=== PATIENT | female | born 1935 | race Caucasian/White ===

== ENCOUNTER → 2020-07-26 14:34 | Outpatient (BNVA) | payer MEDICARE, SELFPAY | PROVIDERS: PCP Internal Medicine; Visit Provider Student in an Organized Health Care Education/Training Program | DX: Z13.89 Encounter for screening for other disorder (principal) | CPT/HCPCS: Q3014 ==

== ENCOUNTER 2021-02-22 09:30 | Outpatient (REF) | payer MEDICARE, SELFPAY ==
[2021-02-22 10:24] LABS: MANUAL DIFF FLAG NO
[2021-02-22 10:26] LABS: Basophils Percent Auto 0.3 % (0-2); Eosinophils Absolute Auto 0.4 X10*3/uL (0.0-0.4); Eosinophils Percent Auto 4.5 % (0-4); Hematocrit 40.5 % (37-47); Hemoglobin 11.9 g/dl (12.0-16.0); Imm Gran Abs Auto 0.06 X10*3/uL (0.00-0.03); Imm Gran Pct Auto 0.6 % (0.0-0.4); Lymphocytes Absolute Auto 1.5 X10*3/uL (1.2-4.9); Lymphocytes Percent Auto 14.9 % (20-40); Mean Corpuscular HGB Conc 29.4 g/dl (31.0-35.0); Mean Corpuscular Hemoglobin 27.7 pg (27.0-33.0); Mean Corpuscular Volume 94.4 fL (80-98); Mean Platelet Volume 9.5 fL (9.4-12.3); Monocytes Absolute Auto 0.6 X10*3/uL (0.1-1.2); Neutrophils Absolute Auto 7.2 X10*3/uL (2.0-8.3); Neutrophils Percent Auto 73.7 % (45-73); Platelet Count 220 X10*3/uL (160-400); Red Blood Count 4.29 X10*6/uL (4.20-5.50); Red Cell Distribution Width 12.7 % (11.0-16.0); White Blood Count 9.8 X10*3/uL (4.8-10.8)
[2021-02-22 10:50] LABS: Alanine Aminotransferase 6 U/L (0-31); Albumin Level 3.8 g/dL (3.5-5.0); Alkaline Phosphatase 70 U/L (39-117); Anion Gap 15 (12-20); Aspartate Amino Transferase 12 U/L (5-31); Bilirubin Total 0.5 mg/dL (0.0-1.0); Blood Urea Nitrogen 21 mg/dL (9-16); C Reactive Protein 0.31 mg/dL (< or = 0.50); Calcium 10.1 mg/dL (8.4-10.2); Carbon Dioxide 35 mmol/L (22-29); Chloride 99 mmol/L (96-108); Estimated Glomerular Filt Rate > 60; Glucose Random 112 mg/dL (60-115); Potassium 4.9 mmol/L (3.3-5.1); Sodium 144 mmol/L (135-145)
[2021-02-22 11:14] LABS: Erythrocyte Sedimentation Rate 43 MM/HR (0-20)
== END 2021-02-22 09:31 | disposition home or self-care (01) ==
LOC: HO.LAB 09:30
PROVIDERS: PCP Internal Medicine; Visit Provider Student in an Organized Health Care Education/Training Program
DX: M35.3 Polymyalgia rheumatica (principal)
CPT/HCPCS: 36415; 80053; 85025; 85652; 86140

== ENCOUNTER → 2021-02-26 14:40 | Outpatient (BNVA) | payer MEDICARE, SELFPAY | PROVIDERS: PCP Internal Medicine; Visit Provider Internal Medicine | DX: J44.9 Chronic obstructive pulmonary disease, unspecified (principal); R09.02 Hypoxemia | CPT/HCPCS: 99212 ==

== ENCOUNTER 2021-09-08 17:59 | Inpatient (IN) | payer MEDICARE, SELFPAY ==
--- NOTE | ~2021-09-08 | XR_ITS ---
EXAMINATION: XR CHEST CLINICAL INFORMATION: Cough COMPARISON: 06/10/2019 TECHNIQUE: Frontal view of the chest was obtained. FINDINGS: Heart size normal there is no evidence of CHF. There is a new infiltrate in the left midlung and in the left lower lobe there is an infiltrate seen in the same region where one had been noted on the 2019 exam. Some right basilar atelectasis is present, new when compared to the prior. XR/XR chest 1V IMPRESSION: Multifocal left-sided infiltrates. Right basilar atelectasis.
[2021-09-08 18:10] VITALS: BP 132/70; BP 138/81; PULSE 66; PULSE 85; RESP 20; O2SAT 100; O2SAT 97; BMI 21.1
--- NOTE | 2021-09-08 18:21 | ED_ITS ---
HPI - Chest Pain General Stated Complaint: CP/N/V since last night Time Seen by Provider: 09/08/21 18:21 Source: patient Mode of arrival: EMS Limitations: no limitations Related Data Home Medications Medication Instructions Recorded Confirmed aspirin 81 mg tablet,delayed 81 mg PO DAILY 05/16/20 08/10/21 release cyanocobalamin (vitamin B-12) 1,000 mcg PO DAILY 05/16/20 08/10/21 1,000 mcg tablet,extended release Previous Rx's Medication Instructions Recorded miscellaneous medical supply 1 ea MISCELLANEOUS .daily as 08/30/20 needed #1 ea ipratropium 0.5 mg-albuterol 3 mg 3 ml INHALATION QID 30 Days #360 ml 02/26/21 (2.5 mg base)/3 mL nebulization soln ipratropium 20 mcg-albuterol 100 1 puff INHALATION Q6H 60 Days #4 g 02/26/21 mcg/actuation mist for inhalation (Combivent Respimat) fluticasone propionate 110 2 puff INHALATION BID #12 g 02/28/21 mcg/actuation HFA aerosol inhaler (Flovent HFA) citalopram 40 mg tablet 40 mg PO DAILY #30 cap 04/28/21 pravastatin 40 mg tablet 40 mg PO BEDTIME #90 tab 05/10/21 clopidogrel 75 mg tablet 75 mg PO DAILY #30 cap 05/18/21 diltiazem HCl 120 mg 120 mg PO QAM #30 cap 05/19/21 capsule,extended release 24 hr (Cartia XT) albuterol sulfate 90 mcg/actuation 2 puff INHALATION Q4-6H PRN #8.5 g 05/29/21 aerosol inhaler (Ventolin HFA) lorazepam 0.5 mg tablet 0.5 mg PO BID PRN 30 Days #60 tab 08/04/21 amitriptyline 25 mg tablet See Rx Instructions PO BEDTIME 30 08/25/21 Days #60 cap ferrous sulfate 325 mg (65 mg 325 mg PO DAILY #30 cap 08/25/21 iron) tablet (Feosol) omeprazole 20 mg capsule,delayed 20 mg PO BID #60 cap 08/25/21 release Allergies Allergy/AdvReac Type Severity Reaction Status Date / Time No Known Allergies Allergy Verified 08/10/21 18:24 [facility] Past Medical History Medical History (Updated 08/10/21 @ 20:55 by Ho Nolasco MD) Anxiety Benign essential hypertension COPD (chronic obstructive pulmonary disease) Depression GERD (gastroesophageal reflux disease) History of TIA (transient ischemic attack) Hyperlipidemia Hypoxemia Impaired fasting glucose Insomnia Iron deficiency anemia Mild cognitive impairment Osteoarthritis of left hip Osteopenia Polymyalgia rheumatica Pure hypercholesterolemia Vitamin B12 deficiency Vitamin D deficiency Surgical History History of cataract surgery History of ERCP Hx laparoscopic cholecystectomy Family History Family History Father No problems noted. Mother No problems noted. Unknown Family hx of colon cancer Family history of coronary artery disease Social History Social History Housing: Apartment Alcohol intake: former Patient Tobacco Use Status: Former Tobacco user Second Hand Smoke Exposure: Yes service: No Current occupational status: retired Discharge Plan Discharge Prescriptions: No Action miscellaneous medical supply Misc 1 ea miscellaneous .daily as needed Qty: 1 RF: 0 Flovent HFA 110 mcg/actuation HFA aerosol inhaler 2 puff inhalation BID Qty: 12 RF: 3 citalopram 40 mg tablet 40 mg PO DAILY Qty: 30 RF: 5 pravastatin 40 mg tablet 40 mg PO BEDTIME Qty: 90 RF: 3 clopidogrel 75 mg tablet 75 mg PO DAILY Qty: 30 RF: 5 diltiazem HCl [Cartia XT] 120 mg capsule,extended release 24hr 120 mg PO QAM Qty: 30 RF: 2 albuterol sulfate [Ventolin HFA] 90 mcg/actuation HFA aerosol inhaler 2 puff inhalation Q4-6H PRN (Reason: bronchospasm) Qty: 8.5 RF: 0 lorazepam 0.5 mg tablet 0.5 mg PO BID PRN (Reason: anxiety) 30 Days Qty: 60 RF: 0 amitriptyline 25 mg tablet See Rx Instructions PO BEDTIME 30 Days Qty: 60 RF: 3 ferrous sulfate [Feosol] 325 mg (65 mg iron) tablet 325 mg PO DAILY Qty: 30 RF: 5 omeprazole 20 mg capsule,delayed release(DR/EC) 20 mg PO BID Qty: 60 RF: 3 aspirin 81 mg tablet,delayed release (DR/EC) 81 mg PO DAILY RF: 0 cyanocobalamin (vitamin B-12) 1,000 mcg tablet extended release 1,000 mcg PO DAILY RF: 0 ipratropium-albuterol 0.5 mg-3 mg(2.5 mg base)/3 mL solution for nebulization 3 ml inhalation QID 30 Days Qty: 360 RF: 5 Combivent Respimat 20-100 mcg/actuation mist 1 puff inhalation Q6H 60 Days Qty: 4 RF: 3
--- NOTE | 2021-09-08 18:29 | ECG_ITS ---
Test Reason : NAUSEA Blood Pressure : / mmHG Vent. Rate : 085 BPM Atrial Rate : 085 BPM P-R Int : 164 ms QRS Dur : 092 ms QT Int : 400 ms P-R-T Axes : 053 023 036 degrees QTc Int : 476 ms Normal sinus rhythm Normal ECG When compared with ECG of 10-JUN-2019 18:35, Criteria for Inferior infarct are no longer Present Referred By: Astrid Jacques Electronically Signed By:PRATEEK MIRANDA MD
--- NOTE | 2021-09-08 18:36 | ED_ITS ---
HPI - SOB/Dyspnea General Chief Complaint: Nausea/Vomiting/Diarrhea Stated Complaint: CP/N/V since last night Time Seen by Provider: 09/08/21 18:21 Source: patient Mode of arrival: EMS Limitations: no limitations History of Present Illness HPI Narrative: 86 yo female unvaccinated hx of depression, COPD on home 3/4L NC, HLD, HTN, GERD, mild cognitive impairment, TIA on plavix comes in stating she has significant cough, weakness, lots of sputum production and overall not feeling well. She notes her ribs are sore but denies chest pain. She denies any other issues at this time. MD elicited complaint: shortness of breath and cough Pertinent past history: COPD Onset (ago): day(s) (started prior to bed last night) Timing: progressively worsening Severity: moderate Exacerbating factors: exertion and coughing Relieving factors: oxygen and rest Known history of: COPD Associated symptoms: cough, sputum production and chest congestion Treatment prior to arrival: oxygen Related Data Home Medications Medication Instructions Recorded Confirmed aspirin 81 mg tablet,delayed 81 mg PO DAILY 05/16/20 09/08/21 release cyanocobalamin (vitamin B-12) 1,000 mcg PO DAILY 05/16/20 09/08/21 1,000 mcg tablet,extended release ipratropium 0.5 mg-albuterol 3 mg 3 ml INHALATION QID PRN 09/08/21 09/08/21 (2.5 mg base)/3 mL nebulization soln Previous Rx's Medication Instructions Recorded miscellaneous medical supply 1 ea MISCELLANEOUS .daily as 08/30/20 needed #1 ea ipratropium 20 mcg-albuterol 100 1 puff INHALATION Q6H 60 Days #4 g 02/26/21 mcg/actuation mist for inhalation (Combivent Respimat) fluticasone propionate 110 2 puff INHALATION BID #12 g 02/28/21 mcg/actuation HFA aerosol inhaler (Flovent HFA) citalopram 40 mg tablet 40 mg PO DAILY #30 cap 04/28/21 pravastatin 40 mg tablet 40 mg PO BEDTIME #90 tab 05/10/21 clopidogrel 75 mg tablet 75 mg PO DAILY #30 cap 05/18/21 diltiazem HCl 120 mg 120 mg PO QAM #30 cap 05/19/21 capsule,extended release 24 hr (Cartia XT) albuterol sulfate 90 mcg/actuation 2 puff INHALATION Q4-6H PRN #8.5 g 05/29/21 aerosol inhaler (Ventolin HFA) lorazepam 0.5 mg tablet 0.5 mg PO BID PRN 30 Days #60 tab 08/04/21 amitriptyline 25 mg tablet See Rx Instructions PO BEDTIME 30 08/25/21 Days #60 cap ferrous sulfate 325 mg (65 mg 325 mg PO DAILY #30 cap 08/25/21 iron) tablet (Feosol) omeprazole 20 mg capsule,delayed 20 mg PO BID #60 cap 08/25/21 release Allergies Allergy/AdvReac Type Severity Reaction Status Date / Time No Known Allergies Allergy Verified 08/10/21 18:24 Review of Systems Review of Systems: Constitutional : No Fever, No Chills ENT/Mouth : No sore throat, No Rhinorrhea, No Swallowing Difficulty Eyes: No Eye Pain, No Swelling, No Redness Cardiovascular : No Chest Pain, positive SOB, No Orthopnea, positive Edema Respiratory : pos Cough, pos Sputum, No Wheezing, positive dyspnea Gastrointestinal : No Nausea, No Vomiting, No Diarrhea, No abdominal Pain, No Hematochezia, No Melena Genitourinary : No Dysuria, No Urinary Frequency, No Hematuria Musculoskeletal : No joint pain, No Myalgias Skin : No Skin Lesions, No rash Neuro : No Weakness, No Numbness, No Dizziness, No Headache Psych : No Anxiety/Panic, No Depression Heme/Lymph: No Bruising, No Lymphadenopathy Endocrine : No Polyuria, No Polydipsia All other systems reviewed and are negative PMFSH Past Medical History Attestation statement: The following information was validated with the patient. Medical History Anxiety Benign essential hypertension COPD (chronic obstructive pulmonary disease) Depression GERD (gastroesophageal reflux disease) History of TIA (transient ischemic attack) Hyperlipidemia Hypoxemia Impaired fasting glucose Insomnia Iron deficiency anemia Mild cognitive impairment Osteoarthritis of left hip Osteopenia Polymyalgia rheumatica Pure hypercholesterolemia Vitamin B12 deficiency Vitamin D deficiency Surgical History History of cataract surgery History of ERCP Hx laparoscopic cholecystectomy Family History Family History Father No problems noted. Mother No problems noted. Unknown Family hx of colon cancer Family history of coronary artery disease Social History Social History Housing: Apartment Alcohol intake: former Patient Tobacco Use Status: Former Tobacco user Second Hand Smoke Exposure: Yes Advance Directives: No Advance Directives Information Provided: Yes service: No Current occupational status: retired Physical Exam Vital Signs: Vital Signs: Last Vital Signs Pulse 78 09/08/21 21:10 Resp 20 09/08/21 21:10 BP 128/78 09/08/21 21:10 Pulse Ox 100 09/08/21 21:10 Oxygen Flow Rate 3 09/08/21 18:10 BMI result Body Mass Index 21.1 Appearance: Alert. Oriented X3. No acute distress. Eyes: Pupils equal, round and reactive to light. ENT: Pharynx normal. Neck: Normal inspection. Neck supple. CVS: Normal heart rate and rhythm. Pulses normal. Respiratory: No respiratory distress. Breath sounds very diminished with wheezes - copious clear yellow secretions noted throughout exam, left sided rales noted Abdomen: Soft and nontender. Skin: Skin warm and dry. Normal skin color. Normal skin turgor. Extremities: No lower extremity edema. No calf ttp Neuro: Oriented X 3. No motor deficit. No sensory deficit. Course Course Course Narrative: lactic acidosis resulted 2.7 at 732pm - IVF ordered 500c bolus 955pm within 3 hour window though I suspect the lactic acidosis is driven by albuterol - antibiotics were ordered as well given pneumonia MDM - SOB/Dyspnea MDM Narrative Medical decision making narrative: 86 yo female unvaccinated hx of depression, COPD on home 3/4L NC, HLD, HTN, GERD, mild cognitive impairment, TIA on plavix comes in stating she has significant cough, weakness, lots of sputum production and overall not feeling well at this time she is wheezing with significant sputum production vs emesis though she denies n/v at this time will need labs, lactic acid, cultures, neb treatment, CXR for pneumonia, COVID swab - she denies abdominal pain. Suspect COPD exacerbation/pneumonia/COVID - dispo per results and findings. Lab Data Result diagrams: 09/08/21 19:32 09/08/21 19:32 Labs: Lab Results 09/08/21 09/08/2122 Range/Units 19:32 19:32 19:32 WBC 12.1 H (4.8-10.8) X10*3/uL RBC 3.93 L (4.20-5.50) X10*6/uL Hgb 10.9 L (12.0-16.0) g/dl Hct 37.1 (37.0-47.0) % MCV 94.4 (80.0-98.0) fL MCH 27.7 (27.0-33.0) pg MCHC 29.4 L (31.0-35.0) g/dl RDW 12.5 (11.0-16.0) % Plt Count 296 (160-400) X10*3/uL MPV 9.1 L (9.4-12.3) fL Immature Gran % (Auto) 0.5 H (0.0-0.4) % Neut % (Auto) 81.3 H (45-73) % Lymph % (Auto) 10.9 L (20-40) % [place] % (Auto) 4.6 (2-11) % Eos % (Auto) 2.5 (0-4) % Baso % (Auto) 0.2 (0-2) % Lymph # (Auto) 1.3 (1.2-4.9) X10*3/uL [place] # (Auto) 0.6 (0.1-1.2) X10*3/uL Eos # (Auto) 0.3 (0.0-0.4) X10*3/uL Baso # (Auto) 0.0 (0.0-0.2) X10*3/uL Abs Immat Gran (auto) 0.06 H (0.00-0.03) X10*3/uL Absolute Neuts (auto) 9.8 H (2.0-8.3) x10*3/uL Absolute Nucleated RBC 0.000 (0.0-0.012) X10*3/uL Nucleated RBC % (auto) 0.0 (0.0-0.2) /100WBC VBG pH (7.32-7.43) VBG pCO2 mmHg VBG pO2 mmHg VBG HCO3 (22-26) mmol/L VBG O2 Saturation % VBG Base Excess mmol/L Sodium 144 (135-145) mmol/L Potassium 4.5 (3.3-5.1) mmol/L Chloride 97 (96-108) mmol/L Carbon Dioxide 38 H (22-29) mmol/L Anion Gap 14 (12-20) BUN 16 (9-16) mg/dL Creatinine 0.73 (0.5-1.4) mg/dL Estim Creat Clear Calc 49.5 Estimated GFR > 60 Random Glucose 124 H (60-115) mg/dL Lactic Acid 2.7 H* (0.5-2.0) mmol/L Lactic Acid F/U @ 2Hr (0.5-2.0) mmol/L Calcium 9.6 (8.4-10.2) mg/dL Magnesium 2.5 (1.6-2.6) mg/dL Ferritin 172 (10-250) ng/mL Total Bilirubin 0.4 (0.0-1.0) mg/dL Direct Bilirubin 0.2 (0.0-0.5) mg/dL AST 14 (5-31) U/L ALT 6 (0-31) U/L Alkaline Phosphatase 87 D (39-117) U/L Lactate Dehydrogenase 173 (122-220) U/L Troponin I High Sens (<3.5-17.0) ng/L C-Reactive Protein 4.34 H (< or = 0.50) mg/dL B-Natriuretic Peptide (<100) pg/mL Total Protein 7.6 (6.5-8.0) g/dL Albumin 3.6 (3.5-5.0) g/dL Lipase 6 L (8-78) U/L Procalcitonin ng/mL COVID-19 ([facility]) (Negative) COVID-19 Clin Com 09/08/21 09/08/21 09/08/21 Range/Units 19:32 19:32 19:32 WBC (4.8-10.8) X10*3/uL RBC (4.20-5.50) X10*6/uL Hgb (12.0-16.0) g/dl Hct (37.0-47.0) % MCV (80.0-98.0) fL MCH (27.0-33.0) pg MCHC (31.0-35.0) g/dl RDW (11.0-16.0) % Plt Count (160-400) X10*3/uL MPV (9.4-12.3) fL Immature Gran % (Auto) (0.0-0.4) % Neut % (Auto) (45-73) % Lymph % (Auto) (20-40) % [place] % (Auto) (2-11) % Eos % (Auto) (0-4) % Baso % (Auto) (0-2) % Lymph # (Auto) (1.2-4.9) X10*3/uL [place] # (Auto) (0.1-1.2) X10*3/uL Eos # (Auto) (0.0-0.4) X10*3/uL Baso # (Auto) (0.0-0.2) X10*3/uL Abs Immat Gran (auto) (0.00-0.03) X10*3/uL Absolute Neuts (auto) (2.0-8.3) x10*3/uL Absolute Nucleated RBC (0.0-0.012) X10*3/uL Nucleated RBC % (auto) (0.0-0.2) /100WBC VBG pH (7.32-7.43) VBG pCO2 mmHg VBG pO2 mmHg VBG HCO3 (22-26) mmol/L VBG O2 Saturation % VBG Base Excess mmol/L Sodium (135-145) mmol/L Potassium (3.3-5.1) mmol/L Chloride (96-108) mmol/L Carbon Dioxide (22-29) mmol/L Anion Gap (12-20) BUN (9-16) mg/dL Creatinine (0.5-1.4) mg/dL Estim Creat Clear Calc Estimated GFR Random Glucose (60-115) mg/dL Lactic Acid (0.5-2.0) mmol/L Lactic Acid F/U @ 2Hr (0.5-2.0) mmol/L Calcium (8.4-10.2) mg/dL Magnesium (1.6-2.6) mg/dL Ferritin (10-250) ng/mL Total Bilirubin (0.0-1.0) mg/dL Direct Bilirubin (0.0-0.5) mg/dL AST (5-31) U/L ALT (0-31) U/L Alkaline Phosphatase (39-117) U/L Lactate Dehydrogenase (122-220) U/L Troponin I High Sens (<3.5-17.0) ng/L C-Reactive Protein (< or = 0.50) mg/dL B-Natriuretic Peptide 19 (<100) pg/mL Total Protein (6.5-8.0) g/dL Albumin (3.5-5.0) g/dL Lipase (8-78) U/L Procalcitonin 0.04 ng/mL COVID-19 ([facility]) Negative (Negative) COVID-19 Clin Com See Note 09/08/21 09/08/21 09/08/21 Range/Units 19:32 20:22 22:51 WBC (4.8-10.8) X10*3/uL RBC (4.20-5.50) X10*6/uL Hgb (12.0-16.0) g/dl Hct (37.0-47.0) % MCV (80.0-98.0) fL MCH (27.0-33.0) pg MCHC (31.0-35.0) g/dl RDW (11.0-16.0) % Plt Count (160-400) X10*3/uL MPV (9.4-12.3) fL Immature Gran % (Auto) (0.0-0.4) % Neut % (Auto) (45-73) % Lymph % (Auto) (20-40) % [place] % (Auto) (2-11) % Eos % (Auto) (0-4) % Baso % (Auto) (0-2) % Lymph # (Auto) (1.2-4.9) X10*3/uL [place] # (Auto) (0.1-1.2) X10*3/uL Eos # (Auto) (0.0-0.4) X10*3/uL Baso # (Auto) (0.0-0.2) X10*3/uL Abs Immat Gran (auto) (0.00-0.03) X10*3/uL Absolute Neuts (auto) (2.0-8.3) x10*3/uL Absolute Nucleated RBC (0.0-0.012) X10*3/uL Nucleated RBC % (auto) (0.0-0.2) /100WBC VBG pH 7.40 (7.32-7.43) VBG pCO2 78 mmHg VBG pO2 37 mmHg VBG HCO3 48 H (22-26) mmol/L VBG O2 Saturation 58.0 % VBG Base Excess 19.9 mmol/L Sodium (135-145) mmol/L Potassium (3.3-5.1) mmol/L Chloride (96-108) mmol/L Carbon Dioxide (22-29) mmol/L Anion Gap (12-20) BUN (9-16) mg/dL Creatinine (0.5-1.4) mg/dL Estim Creat Clear Calc Estimated GFR Random Glucose (60-115) mg/dL Lactic Acid (0.5-2.0) mmol/L Lactic Acid F/U @ 2Hr 1.9 (0.5-2.0) mmol/L Calcium (8.4-10.2) mg/dL Magnesium (1.6-2.6) mg/dL Ferritin (10-250) ng/mL Total Bilirubin (0.0-1.0) mg/dL Direct Bilirubin (0.0-0.5) mg/dL AST (5-31) U/L ALT (0-31) U/L Alkaline Phosphatase (39-117) U/L Lactate Dehydrogenase (122-220) U/L Troponin I High Sens < 3.5 (<3.5-17.0) ng/L C-Reactive Protein (< or = 0.50) mg/dL B-Natriuretic Peptide (<100) pg/mL Total Protein (6.5-8.0) g/dL Albumin (3.5-5.0) g/dL Lipase (8-78) U/L Procalcitonin ng/mL COVID-19 ([facility]) (Negative) COVID-19 Clin Com ECG Data Attestation: I personally reviewed and interpreted this ECG as follows: ECG interpretation date: 09/08/21 ECG interpretation time: 21:00 Interpretation: Rate: 85 Rhythm: NSR [place]:normal Normal P waves. Normal GABO. Normal QRS complex. ST T wave : normal no MELLY qTC: normal prior studies: no acute ischemia The study has been interpreted contemporaneously by me. . Discharge Plan Discharge Clinical Impression: COPD exacerbation, Acidosis, lactic Pneumonia Qualifiers: Pneumonia type: due to unspecified organism Laterality: left Lung location: unspecified part of lung Qualified Code(s): J18.9 - Pneumonia, unspecified organism Leukocytosis Qualifiers: Leukocytosis type: unspecified Qualified Code(s): D72.829 - Elevated white blood cell count, unspecified Patient Disposition: Admitted As Inpatient
--- NOTE | 2021-09-08 18:40 | PC.NURSE ---
pt alert and oriented, vss. pt reports nausea, vomiting, loss of appetite since last night, denies diarrhea. she states that she has not been around anyone sick. pt unvaccinated and never been tested for covid. she denies chest pain/headache/sob. pt visibly coughing up copious amount of mucous, she reports this has never happened before. Respiratory Therapist at bedside, pt currently getting nebulizer tx.
[2021-09-08] MEDS: Albuterol Sulfate (0.083%) 2.5 MG/3 ML VIAL.NEB 5 MG INHALE (18:45)
[2021-09-08 18:46] VITALS: PULSE 87; RESP 16; O2SAT 100
[2021-09-08] MEDS: ondansetron HCL 4 MG/2 ML VIAL IVPUSH (19:44)
[2021-09-08] MEDS: methylPREDNISolone Sod Succ 125 MG/2 ML VIAL IVPUSH (19:44)
[2021-09-08 19:58] LABS: MANUAL DIFF FLAG NO
[2021-09-08 20:00] VITALS: BP 130/80; PULSE 85; RESP 8; O2SAT 100
[2021-09-08 20:01] LABS: Basophils Percent Auto 0.2 % (0-2); Eosinophils Absolute Auto 0.3 X10*3/uL (0.0-0.4); Eosinophils Percent Auto 2.5 % (0-4); Hematocrit 37.1 % (37.0-47.0); Hemoglobin 10.9 g/dl (12.0-16.0); Imm Gran Abs Auto 0.06 X10*3/uL (0.00-0.03); Imm Gran Pct Auto 0.5 % (0.0-0.4); Lymphocytes Absolute Auto 1.3 X10*3/uL (1.2-4.9); Lymphocytes Percent Auto 10.9 % (20-40); Mean Corpuscular HGB Conc 29.4 g/dl (31.0-35.0); Mean Corpuscular Hemoglobin 27.7 pg (27.0-33.0); Mean Corpuscular Volume 94.4 fL (80.0-98.0); Mean Platelet Volume 9.1 fL (9.4-12.3); Monocytes Absolute Auto 0.6 X10*3/uL (0.1-1.2); Monocytes Percent Auto 4.6 % (2-11); Neutrophils Absolute Auto 9.8 x10*3/uL (2.0-8.3); Neutrophils Percent Auto 81.3 % (45-73); Platelet Count 296 X10*3/uL (160-400); Red Blood Count 3.93 X10*6/uL (4.20-5.50); Red Cell Distribution Width 12.5 % (11.0-16.0); White Blood Count 12.1 X10*3/uL (4.8-10.8)
[2021-09-08] MEDS: cefTRIAXone sodium 1 GM in 0.9 % Sodium Chloride 50 ML IV (20:15)
[2021-09-08 20:18] LABS: COVID-19 Test Negative (Negative); IDNOW Serial# 9DD0AD1C
[2021-09-08 20:20] LABS: Alanine Aminotransferase 6 U/L (0-31); Albumin Level 3.6 g/dL (3.5-5.0); Alkaline Phosphatase 87 U/L (39-117); Anion Gap 14 (12-20); Aspartate Amino Transferase 14 U/L (5-31); Bilirubin Direct 0.2 mg/dL (0.0-0.5); Bilirubin Total 0.4 mg/dL (0.0-1.0); Blood Urea Nitrogen 16 mg/dL (9-16); C Reactive Protein 4.34 mg/dL (< or = 0.50); Calcium 9.6 mg/dL (8.4-10.2); Carbon Dioxide 38 mmol/L (22-29); Chloride 97 mmol/L (96-108); Creatinine Clr Calc Pharmacy 49.5; Estimated Glomerular Filt Rate > 60; Glucose Random 124 mg/dL (60-115); Lipase 6 U/L (8-78); Magnesium 2.5 mg/dL (1.6-2.6); Potassium 4.5 mmol/L (3.3-5.1); Sodium 144 mmol/L (135-145); Total Protein 7.6 g/dL (6.5-8.0)
[2021-09-08 20:21] LABS: Lactic Acid 2.7 mmol/L (0.5-2.0); Troponin-I High Sensitivity < 3.5 ng/L (<3.5-17.0)
[2021-09-08 20:22] LABS: B Type Natriuretic Peptide 19 pg/mL (<100)
[2021-09-08] MEDS: Azithromycin 500 MG in 0.9 % Sodium Chloride 250 ML 125 MG IV (20:24)
[2021-09-08 20:28] LABS: Venous Blood Gas Refer to POC result
[2021-09-08 20:28] LABS: VBG Base Excess 19.9 mmol/L; VBG HCO3 48 mmol/L (22-26); VBG pCO2 78 mmHg; VBG pO2 37 mmHg
[2021-09-08 20:33] LABS: Lactate Dehydrogenase 173 U/L (122-220)
[2021-09-08 20:35] LABS: Procalcitonin 0.04 ng/mL
[2021-09-08 20:40] LABS: Ferritin 172 ng/mL (10-250)
[2021-09-08 21:10] VITALS: BP 128/78; PULSE 78; RESP 20; O2SAT 100
[2021-09-08 21:54] LABS: Reflex Lactate? Lactic Acid Added
[2021-09-08 22:00] VITALS: BP 169/63; PULSE 90; RESP 18; O2SAT 98
[2021-09-08] MEDS: 0.9 % Sodium Chloride 500 ML IV (22:06)
--- NOTE | 2021-09-08 22:06 | PHA.MEDREC ---
Pharmacy Consult ? Medication Reconciliation Pharmacy has completed the medication reconciliation. Thanks Rosa Tran
--- NOTE | 2021-09-08 22:26 | PC.NURSE ---
pt speaking with daughter on phone for update. IV placed. antibiotics given IV as per emar. NS 500ml/hr. up and running w/o site intact. VS obtained.
--- NOTE | 2021-09-08 22:30 | PC.NURSE ---
med rec done.
--- NOTE | 2021-09-08 23:06 | MHC.CM.PN ---
CM met with admitted patient with bed assignment pending. A&Ox3. IMM reviewed and signed per protocol 09/08/2021@2245. Pt requests to change her HCP. HCP reviewed and completed per protocol. Copies given and uploaded into [employer] and [facility] Yelp. HCP/granddaughter Grace Crisostomo ([phone]). PCP Dr. Nolasco. Pt is NOT vaccinated. Education provided, patient declines at this time. Granddaughter lives with and helps care for patient. Pt has a walker and O2 at home. Pt has [employer], her daughter Donna. Pt states she wants to change her [employer] to her granddaughter, Grace. CM encouraged to call [employer] (her customer care professional) to make those changes. Pt refuses VNA at discharge at this time. States her grand daughter cares for her. Pt is aware that CM can make VNA referrals if pt changes her mind closer to discharge. D/C plan is home. Family to provide transportation home. CM to follow for d/c needs.
[2021-09-08 23:09] LABS: ~Lactic Acid-LAB USE ONLY 1.9 mmol/L (0.5-2.0)
[2021-09-08 23:40] VITALS: BP 157/65; PULSE 87; RESP 18; O2SAT 99
--- NOTE | 2021-09-08 23:42 | P.HPHOSP_ITS ---
History of Present Illness Date of Service: 09/08/21 Chief Complaint: SOB 86-year-old female with past medical history of COPD, hypertension, GERD, TIA, hyperlipidemia, among others who presents to the hospital with complaints of increased cough, sputum production, chills, for the past 2 days. Patient reports that her symptoms came about suddenly, she started having increased cough, sputum production. She is developing shortness of breath worse than usual, denies any chest pain, no abdominal pain, no urinary symptoms. Denies any orthopnea or PND. Reports not vaccinated against COVID. All other s review of systems negative On arrival to the ED patient hemodynamically stable. Patient uses 3 L Of oxygen at all times at home On arrival to the ED patient's labs significant for WBC count of 12.5, hemo globin of 10.9, pH of 7.4, CO2 of 78, bicarb of 38, lactic acid of 2.7 which normalized, otherwise unremarkable. Chest x-ray shows multifocal left-sided infiltrate, right basilar atelectasis. COVID-19 negative. Review of Systems Review of Systems: Yes all other systems are reviewed and are negative [facility] Medical History Anxiety Benign essential hypertension COPD (chronic obstructive pulmonary disease) Depression GERD (gastroesophageal reflux disease) History of TIA (transient ischemic attack) Hyperlipidemia Hypoxemia Impaired fasting glucose Insomnia Iron deficiency anemia Mild cognitive impairment Osteoarthritis of left hip Osteopenia Polymyalgia rheumatica Pure hypercholesterolemia Vitamin B12 deficiency Vitamin D deficiency Family History Father No problems noted. Mother No problems noted. Unknown Family hx of colon cancer Family history of coronary artery disease Surgical History History of cataract surgery History of ERCP Hx laparoscopic cholecystectomy Social History Housing: Apartment Alcohol intake: former Patient Tobacco Use Status: Former Tobacco user Second Hand Smoke Exposure: Yes Advance Directives: No Advance Directives Information Provided: Yes service: No Current occupational status: retired Meds Allergies Allergy/AdvReac Type Severity Reaction Status Date / Time No Known Allergies Allergy Verified 08/10/21 18:24 Home Medications Medication Instructions Recorded Confirmed Last Taken Type aspirin 81 mg tablet,delayed 81 mg PO DAILY 05/16/20 09/08/21 09/08/21 History release cyanocobalamin (vitamin B-12) 1,000 mcg PO DAILY 05/16/20 09/08/21 09/08/21 History 1,000 mcg tablet,extended release ipratropium 0.5 mg-albuterol 3 mg 3 ml INHALATION QID PRN 09/08/21 09/08/21 Unknown History (2.5 mg base)/3 mL nebulization soln Physical Exam Vital Signs and Narrative: Vital Signs: Last Vital Signs Pulse 78 09/08/21 21:10 Resp 20 09/08/21 21:10 BP 128/78 09/08/21 21:10 Pulse Ox 100 09/08/21 21:10 Oxygen Flow Rate 3 09/08/21 18:10 BMI result Body Mass Index 21.1 Const: General: cooperative and no acute distress Orientation/consciousn ess: patient oriented x3 Eyes: General: appearance normal, both eyes and all related structures Pupils: Equal, round and reactive pupils present Resp: Other: crackles bilaterally Effort & Inspection: normal respiratory effort Cardio: Rate: regular rate Rhythm: regular rhythm GI: Palpation (GI): Soft to palpation Auscultation: normal bowel sounds Skin: General skin exam: no rashes or lesions noted Neuro: General: patient oriented x3 Cranial nerves: Yes Equal, round and reactive pupils present Cognition (Neuro): normal cognition Extrem: General: Yes normal to inspection and Yes no pedal edema Results Labs CBC and Chem 7: 09/08/21 19:32 09/08/21 19:32 Labs: Laboratory Results - last 24 hr 09/08/21 09/08/21 09/08/21 19:32 19:32 19:32 MCV 94.4 MCH 27.7 MCHC 29.4 L RDW 12.5 Plt Count 296 MPV 9.1 L Immature Gran % (Auto) 0.5 H Neut % (Auto) 81.3 H Lymph % (Auto) 10.9 L [place] % (Auto) 4.6 Eos % (Auto) 2.5 Baso % (Auto) 0.2 Lymph # (Auto) 1.3 [place] # (Auto) 0.6 Eos # (Auto) 0.3 Baso # (Auto) 0.0 Abs Immat Gran (auto) 0.06 H Absolute Neuts (auto) 9.8 H Absolute Nucleated RBC 0.000 Nucleated RBC % (auto) 0.0 VBG pH VBG pCO2 VBG pO2 VBG HCO3 VBG O2 Saturation VBG Base Excess Anion Gap 14 Estim Creat Clear Calc 49.5 Estimated GFR > 60 Random Glucose 124 H Lactic Acid 2.7 H* Lactic Acid F/U @ 2Hr Calcium 9.6 Magnesium 2.5 Ferritin 172 Total Bilirubin 0.4 Direct Bilirubin 0.2 AST 14 ALT 6 Alkaline Phosphatase 87 D Lactate Dehydrogenase 173 Troponin I High Sens C-Reactive Protein 4.34 H B-Natriuretic Peptide Total Protein 7.6 Albumin 3.6 Lipase 6 L Procalcitonin COVID-19 (DELL) COVID-19 Clin Com 09/08/21 09/08/21 09/08/21 19:32 19:32 19:32 MCV MCH MCHC RDW Plt Count MPV Immature Gran % (Auto) Neut % (Auto) Lymph % (Auto) [place] % (Auto) Eos % (Auto) Baso % (Auto) Lymph # (Auto) [place] # (Auto) Eos # (Auto) Baso # (Auto) Abs Immat Gran (auto) Absolute Neuts (auto) Absolute Nucleated RBC Nucleated RBC % (auto) VBG pH VBG pCO2 VBG pO2 VBG HCO3 VBG O2 Saturation VBG Base Excess Anion Gap Estim Creat Clear Calc Estimated GFR Random Glucose Lactic Acid Lactic Acid F/U @ 2Hr Calcium Magnesium Ferritin Total Bilirubin Direct Bilirubin AST ALT Alkaline Phosphatase Lactate Dehydrogenase Troponin I High Sens C-Reactive Protein B-Natriuretic Peptide 19 Total Protein Albumin Lipase Procalcitonin 0.04 COVID-19 (DELL) Negative COVID-19 Clin Com See Note 09/08/21 09/08/21 09/08/21 19:32 20:22 22:51 MCV MCH MCHC RDW Plt Count MPV Immature Gran % (Auto) Neut % (Auto) Lymph % (Auto) [place] % (Auto) Eos % (Auto) Baso % (Auto) Lymph # (Auto) [place] # (Auto) Eos # (Auto) Baso # (Auto) Abs Immat Gran (auto) Absolute Neuts (auto) Absolute Nucleated RBC Nucleated RBC % (auto) VBG pH 7.40 VBG pCO2 78 VBG pO2 37 VBG HCO3 48 H VBG O2 Saturation 58.0 VBG Base Excess 19.9 Anion Gap Estim Creat Clear Calc Estimated GFR Random Glucose Lactic Acid Lactic Acid F/U @ 2Hr 1.9 Calcium Magnesium Ferritin Total Bilirubin Direct Bilirubin AST ALT Alkaline Phosphatase Lactate Dehydrogenase Troponin I High Sens < 3.5 C-Reactive Protein B-Natriuretic Peptide Total Protein Albumin Lipase Procalcitonin COVID-19 (DELL) COVID-19 Clin Com Imaging Radiologist's Impressions: Impressions Chest X-Ray 09/08/21 19:08 IMPRESSION: Multifocal left-sided infiltrates. Right basilar atelectasis. Assessment and Plan (1) COPD exacerbation: Status: Acute (2) Pneumonia: Qualifiers: Laterality: left Lung location: unspecified part of lung Pneumonia type: due to unspecified organism Qualified Code(s): J18.9 - Pneumonia, unspecified organism Status: Acute 86-year-old female with past medical history of COPD who presents to the hospital with complaints of increased cough, sputum production and shortness of breath # community-acquired pneumonia - COVID-19 negative, has evidence of multifocal pneumonia on chest x-ray - not vaccinated against COVID - was started on IV antibiotics - follow cultures # COPD exacerbation - in the setting of pneumonia - was treated with IV antibiotics, Solu-Medrol, DuoNeb - no increased oxygen requirement, on 3 L of her home oxygen - nursing notified to saturate oxygen to 88-92% given her history of COPD # hypertension - elevated - will resume her home meds # hyperlipidemia - continue home meds # patient on Plavix unclear etiology will resume DVT prophylaxis: lovenox Quality Stroke Does the patient have a stroke diagnosis?: No VTE Prior VTE?: No VTE Risk Level:: Medical - moderate - high VTE Device Contraindication: Treatment Not Indicated VTE Drug Contraindication: N/A - Med Ordered
[2021-09-09] MEDS: Amitriptyline HCl 25 MG TABLET 50 MG PO ×2 (00:16→20:30)
[2021-09-09] MEDS: Enoxaparin Sodium 40 MG/0.4 ML SYRINGE SUBCUT ×2 (00:16→22:54)
[2021-09-09] MEDS: 0.9 % Sodium Chloride Flush 3 ML SYRINGE IVFLUSH ×2 (00:17→20:31)
--- NOTE | 2021-09-09 00:27 | PC.NURSE ---
report given to [facility]. pt medicated as per emar. pt awaiting for transfer to [facility]. pt left ED in NAD at this time. IV flushing easily w/o resistance, site intact.
--- NOTE | 2021-09-09 02:19 | PC.NURSE ---
Patient transferred from main ed to overflow bed 11 around 0130. Patient alert and oriented x3, denies pain at this time, reports slight soreness to ribs due to coughing. Patient reports phlegm with cough, sounds congested/lungs are diminished, positive dyspnea, on 3 liters via n/c. Ambulated patient to bathroom with walker, portable oxygen tank; 1 assist. Patient's gait weak. Assisted patient back to bed, call [facility] within reach.
[2021-09-09 07:11] LABS: Basophils Percent Auto 0.1 % (0-2); Hematocrit 36.2 % (37.0-47.0); Hemoglobin 10.8 g/dl (12.0-16.0); Imm Gran Abs Auto 0.06 X10*3/uL (0.00-0.03); Imm Gran Pct Auto 0.6 % (0.0-0.4); Lymphocytes Absolute Auto 0.6 X10*3/uL (1.2-4.9); Lymphocytes Percent Auto 5.9 % (20-40); MANUAL DIFF FLAG SCAN; Mean Corpuscular HGB Conc 29.8 g/dl (31.0-35.0); Mean Corpuscular Hemoglobin 27.9 pg (27.0-33.0); Mean Corpuscular Volume 93.5 fL (80.0-98.0); Monocytes Absolute Auto 0.1 X10*3/uL (0.1-1.2); Monocytes Percent Auto 0.8 % (2-11); Neutrophils Absolute Auto 8.9 x10*3/uL (2.0-8.3); Neutrophils Percent Auto 92.6 % (45-73); Platelet Count 277 X10*3/uL (160-400); Red Blood Count 3.87 X10*6/uL (4.20-5.50); Red Cell Distribution Width 12.5 % (11.0-16.0); SCAN SMEAR FLAG 1; White Blood Count 9.7 X10*3/uL (4.8-10.8)
[2021-09-09 07:36] LABS: Anion Gap 13 (12-20); Blood Urea Nitrogen 13 mg/dL (9-16); Calcium 8.9 mg/dL (8.4-10.2); Carbon Dioxide 35 mmol/L (22-29); Chloride 101 mmol/L (96-108); Creatinine Clr Calc Pharmacy 55.6; Estimated Glomerular Filt Rate > 60; Glucose Random 136 mg/dL (60-115); Potassium 4.8 mmol/L (3.3-5.1); Sodium 144 mmol/L (135-145)
[2021-09-09 07:39] LABS: SLIDE REVIEW VERIFIED
[2021-09-09 08:49] VITALS: BP 160/80; PULSE 74; RESP 20; TEMP 36.2; O2SAT 97
--- NOTE | 2021-09-09 09:04 | P.PNIM_ITS ---
Subjective Subjective Date of Service: 09/09/21 Interval History: cap, vomited today Review of Systems Shortness of breath seems similar as on admission. Has cough and phlegm denies any fever or chest pain or abdominal pain Physical Exam Vital Signs: Vital Signs: Last Vital Signs Temp 97.1 F 09/09/21 08:49 Pulse 74 09/09/21 08:49 Resp 20 09/09/21 08:49 BP 160/80 H 09/09/21 08:49 Pulse Ox 97 09/09/21 08:49 Oxygen Flow Rate 3 09/08/21 18:10 BMI result Body Mass Index 21.1 physical exam: Appearance: Alert.? Oriented X3.? not in distress.?.? ENT: Pharynx normal.? Moist mucous membranes. cvs: rrr, [id number] , no murmur res: air entry diminshed at bases , few cracles at bases. abd: no rebound or guarding ,nt, bs present. ext pulses present , no cyanosis ,Gait well balanced well coordinated. neuro: axo3 , nonfocal. Objective Data Active Medications Acetaminophen (Acetaminophen 325 Mg Tablet) 650 mg PO Q6H PRN PRN Reason: Pain, Mild (Pain Scale 1-3) Albuterol/Ipratropium (Albuterol/Iprat 2.5/0.5mg 3 Ml Ampul.Neb) 3 ml INHALE RQ4H PRN PRN Reason: Shortness of Breath/Wheezing Albuterol/Ipratropium (Albuterol/Iprat 2.5/0.5mg 3 Ml Ampul.Neb) 3 ml INHALE RQ4H WHILE AWAKE [facility] Amitriptyline HCl (Amitriptyline Hcl 25 Mg Tablet) 50 mg PO BEDTIME [facility] Last Admin: 09/09/21 00:16 Dose: 50 mg Documented by: YESICA Aspirin (Aspirin Enteric Coated 81 Mg Tablet.) 81 mg PO DAILY [facility] Clopidogrel Bisulfate (Clopidogrel Bisulfate 75 Mg Tablet) 75 mg PO DAILY [facility] Cyanocobalamin (Cyanocobalamin (Vitamin B-12) 1,000 Mcg Tablet) 1,000 mcg PO DA CHADD [facility] Diltiazem HCl (Diltiazem Hcl Cd 120 Mg Cap.Er.Deg) 120 mg PO DAILY [facility]; Protocol Docusate Sodium (Docusate Sodium 100 Mg Capsule) 100 mg PO DAILY PRN PRN Reason: Constipation Enoxaparin Sodium (Enoxaparin Sodium 40 Mg/0.4 Ml Syringe) 40 mg SUBCUT Q24H [facility] Last Admin: 09/09/21 00:16 Dose: 40 mg Documented by: YESICA Escitalopram Oxalate (Escitalopram Oxalate 20 Mg Tablet) 20 mg PO DAILY [facility] Ferrous Sulfate (Ferrous Sulfate 324 Mg Tablet.) 324 mg PO DAILY [facility] Ceftriaxone Sodium 1 gm/ (Sodium Chloride) 50 mls @ 100 mls/hr IV Q24H [facility] Azithromycin 500 mg/ Sodium (Chloride) 250 mls @ 125 mls/hr IV Q24H [facility] Lorazepam (Lorazepam 0.5 Mg Tablet) 0.5 mg PO BID PRN PRN Reason: anxiety Methylprednisolone Sodium Succinate (Methylprednisolone Sod Succ 40 Mg/Ml Vial) 40 mg IVPUSH Q12H [facility] Omeprazole (Omeprazole 20 Mg Capsule.) 20 mg PO BID [facility] Ondansetron HCl (Ondansetron Hcl 4 Mg/2 Ml Vial) 4 mg IVPUSH Q8H PRN PRN Reason: Nausea and Vomiting Pravastatin Sodium (Pravastatin Sodium 40 Mg Tablet) 40 mg PO BEDTIME [facility] Sodium Chloride (0.9 % Sodium Chloride Flush 3 Ml Syringe) 3 ml IVFLUSH QSHIFT [facility] Last Admin: 09/09/21 00:17 Dose: 3 ml Documented by: YESICA Labs CBC & Chem 7: 09/09/21 06:54 09/09/21 06:54 Labs: Laboratory Results - last 24 hr 09/08/21 09/08/21 09/08/21 19:32 19:32 19:32 MCV 94.4 MCH 27.7 MCHC 29.4 L RDW 12.5 Plt Count 296 MPV 9.1 L Immature Gran % (Auto) 0.5 H Neut % (Auto) 81.3 H Lymph % (Auto) 10.9 L [place] % (Auto) 4.6 Eos % (Auto) 2.5 Baso % (Auto) 0.2 Lymph # (Auto) 1.3 [place] # (Auto) 0.6 Eos # (Auto) 0.3 Baso # (Auto) 0.0 Abs Immat Gran (auto) 0.06 H Absolute Neuts (auto) 9.8 H Absolute Nucleated RBC 0.000 Nucleated RBC % (auto) 0.0 Smear Tech's Comments VBG pH VBG pCO2 VBG pO2 VBG HCO3 VBG O2 Saturation VBG Base Excess Anion Gap 14 Estim Creat Clear Calc 49.5 Estimated GFR > 60 Random Glucose 124 H Lactic Acid 2.7 H* Lactic Acid F/U @ 2Hr Calcium 9.6 Magnesium 2.5 Ferritin 172 Total Bilirubin 0.4 Direct Bilirubin 0.2 AST 14 ALT 6 Alkaline Phosphatase 87 D Lactate Dehydrogenase 173 Troponin I High Sens C-Reactive Protein 4.34 H B-Natriuretic Peptide Total Protein 7.6 Albumin 3.6 Lipase 6 L Procalcitonin COVID-19 (DELL) COVID-19 Clin Com 09/08/21 09/08/21 09/08/21 19:32 19:32 19:32 MCV MCH MCHC RDW Plt Count MPV Immature Gran % (Auto) Neut % (Auto) Lymph % (Auto) [place] % (Auto) Eos % (Auto) Baso % (Auto) Lymph # (Auto) [place] # (Auto) Eos # (Auto) Baso # (Auto) Abs Immat Gran (auto) Absolute Neuts (auto) Absolute Nucleated RBC Nucleated RBC % (auto) Smear Tech's Comments VBG pH VBG pCO2 VBG pO2 VBG HCO3 VBG O2 Saturation VBG Base Excess Anion Gap Estim Creat Clear Calc Estimated GFR Random Glucose Lactic Acid Lactic Acid F/U @ 2Hr Calcium Magnesium Ferritin Total Bilirubin Direct Bilirubin AST ALT Alkaline Phosphatase Lactate Dehydrogenase Troponin I High Sens C-Reactive Protein B-Natriuretic Peptide 19 Total Protein Albumin Lipase Procalcitonin 0.04 COVID-19 (DELL) Negative COVID-19 Clin Com See Note 09/08/21 09/08/21 09/08/21 19:32 20:22 22:51 MCV MCH MCHC RDW Plt Count MPV Immature Gran % (Auto) Neut % (Auto) Lymph % (Auto) [place] % (Auto) Eos % (Auto) Baso % (Auto) Lymph # (Auto) [place] # (Auto) Eos # (Auto) Baso # (Auto) Abs Immat Gran (auto) Absolute Neuts (auto) Absolute Nucleated RBC Nucleated RBC % (auto) Smear Tech's Comments VBG pH 7.40 VBG pCO2 78 VBG pO2 37 VBG HCO3 48 H VBG O2 Saturation 58.0 VBG Base Excess 19.9 Anion Gap Estim Creat Clear Calc Estimated GFR Random Glucose Lactic Acid Lactic Acid F/U @ 2Hr 1.9 Calcium Magnesium Ferritin Total Bilirubin Direct Bilirubin AST ALT Alkaline Phosphatase Lactate Dehydrogenase Troponin I High Sens < 3.5 C-Reactive Protein B-Natriuretic Peptide Total Protein Albumin Lipase Procalcitonin COVID-19 (DELL) COVID-19 Clin Com 09/09/21 09/09/21 06:54 06:54 MCV 93.5 MCH 27.9 MCHC 29.8 L RDW 12.5 Plt Count 277 MPV 9.0 L Immature Gran % (Auto) 0.6 H Neut % (Auto) 92.6 H Lymph % (Auto) 5.9 L [place] % (Auto) 0.8 L Eos % (Auto) 0.0 Baso % (Auto) 0.1 Lymph # (Auto) 0.6 L [place] # (Auto) 0.1 Eos # (Auto) 0.0 Baso # (Auto) 0.0 Abs Immat Gran (auto) 0.06 H Absolute Neuts (auto) 8.9 H Absolute Nucleated RBC 0.000 Nucleated RBC % (auto) 0.0 Smear Tech's Comments VERIFIED VBG pH VBG pCO2 VBG pO2 VBG HCO3 VBG O2 Saturation VBG Base Excess Anion Gap 13 Estim Creat Clear Calc 55.6 Estimated GFR > 60 Random Glucose 136 H Lactic Acid Lactic Acid F/U @ 2Hr Calcium 8.9 D Magnesium Ferritin Total Bilirubin Direct Bilirubin AST ALT Alkaline Phosphatase Lactate Dehydrogenase Troponin I High Sens C-Reactive Protein B-Natriuretic Peptide Total Protein Albumin Lipase Procalcitonin COVID-19 (DELL) COVID-19 Clin Com Assessment and Plan (1) COPD exacerbation: Status: Acute (2) Pneumonia: Status: Acute Assessment and Plan: 86-year-old female with past medical history of COPD who presents to the hospital with complaints of increased cough, sputum production and shortness of breath 1.community-acquired pneumonia ? Vomited probe possible aspiration component speech and Swallow recommended NPO for no and re-evaluate in a.m.. - COVID-19 negative, has evidence of multifocal pneumonia on chest x-ray - not vaccinated against COVID - was started on IV antibiotics - follow cultures 2. COPD exacerbation - in the setting of pneumonia - was treated with IV antibiotics, Solu-Medrol, DuoNeb - no increased oxygen requirement, on 3 L of her home oxygen 3. hypertension - elevated - will resume her home meds 4. hyperlipidemia - continue home meds DVT prophylaxis: lovenox Quality Stroke Does the patient have a stroke diagnosis?: No VTE Prior VTE?: No VTE Risk Level:: Medical - moderate - high VTE Device Contraindication: Treatment Not Indicated VTE Drug Contraindication: N/A - Med Ordered
--- NOTE | 2021-09-09 11:46 | MHC.SL.SWA ---
Speech Pathologist Impression: Risk of Aspiration Risk of Aspiration Due to: History of Pneumonia Dysphasia Diet Status: No Change Liquid Consistency and Strategies for Safe Swallow: Liquid Intake Recommendation: NPO Liquid Intake Strategies: Solid Food Consistency: Dietary Recommendations: NPO Additional Modifications to Solid Foods: Oral Medication Intake: NPO Compensatory Strategies and Precautions to be Taken for Safe Swallow: Sitting Upright (90 deg) Supervision While Eating and Drinking for Safe Swallow: Foods to Avoid: Swallowing Recommended Treatments: Compens. Strategy Educat. Recommendation for Speech: Inpatient Speech Therapy Comment: Pt currently is producing copious amounts of phlegm and mucous, and is having difficulty managing secretions. Pt is at risk for re-aspirating secretions or micro-aspirating reflux. Pt demonstrated functional swallow on small amount of liquid & puree, but stimulus of liquid and food exacerbated mucous production. Recommend continue NPO at this time, PLASTERER MAINTENANCE will re-assess as respiratory status improves, mucous production subsides. Recommendation sent by secure text to MD, Realty Specialist. PLASTERER MAINTENANCE will follow M-F while Pt is admitted to [facility]. Frequency/Duration: M-F, reassess swallow as respiratory status improves. Date Range for Service Req: Timeline to reassess: Overedge Sewer Clinican/Clinical Fellow: No Supervisory Statement: I have reviewed and agree with the student/clinical fellow's documentation: N/A Speech Language Pathologist: Vero Alexis M.A., [facility]-[employer]TE[employer]
[2021-09-09] MEDS: Albuterol/Iprat 2.5/0.5MG 3 ML AMPUL.NEB INHALE ×2 (12:44→19:58)
[2021-09-09 12:46] VITALS: PULSE 90; RESP 16; O2SAT 98
[2021-09-09] MEDS: Acetaminophen 325 MG TABLET 650 MG PO (13:45)
[2021-09-09 18:24] VITALS: BP 131/68; PULSE 88; RESP 17; O2SAT 96
--- NOTE | 2021-09-09 19:42 | PC.NURSE ---
Assumed care of pt at 1900. Pt eating dinner independently, in NAD, denies needs or complaints. Report called to inpatient RN and pt transferred via this RN and KODI Loyd. Spoke to pt granddaughter Grace on phone who expressed frustration that other family members Donna and Elisa were not able to receive information earlier today. Grace is POA and states okay to release info to other family members. Explained that often we attempt to communicate with one designee from family
[2021-09-09 19:58] VITALS: PULSE 86; RESP 20
[2021-09-09 20:00] VITALS: BP 151/64; PULSE 91; RESP 18; TEMP 36.6; O2SAT 100
[2021-09-09] MEDS: Omeprazole 20 MG CAPSULE.DR PO (20:30)
[2021-09-09] MEDS: Pravastatin Sodium 40 MG TABLET PO (20:30)
[2021-09-09] MEDS: cefTRIAXone sodium 1 GM in 0.9 % Sodium Chloride 50 ML IV (20:30)
[2021-09-09] MEDS: Azithromycin 500 MG in 0.9 % Sodium Chloride 250 ML 125 MG IV (20:32)
[2021-09-09 23:40] VITALS: BP 105/46; PULSE 80; RESP 18; TEMP 36.4; O2SAT 97
[2021-09-10 03:42] VITALS: BP 137/67; PULSE 86; RESP 18; TEMP 36.5; O2SAT 95
[2021-09-10] MEDS: methylPREDNISolone Sod Succ 40 MG/ML VIAL IVPUSH (06:35)
[2021-09-10] MEDS: Acetaminophen 325 MG TABLET 650 MG PO (06:46)
[2021-09-10 07:42] VITALS: BP 149/67; PULSE 89; RESP 18; TEMP 36.3; O2SAT 98
[2021-09-10] MEDS: Aspirin Enteric Coated 81 MG TABLET.DR PO (07:52)
[2021-09-10] MEDS: LORazepam 0.5 MG TABLET PO (07:52)
[2021-09-10] MEDS: Escitalopram Oxalate 20 MG TABLET PO (07:52)
[2021-09-10] MEDS: dilTIAZem HCL CD 120 MG CAP.ER.DEG PO (07:52)
[2021-09-10] MEDS: Ferrous Sulfate 324 MG TABLET.DR PO (07:53)
[2021-09-10] MEDS: Cyanocobalamin (Vitamin B-12) 1,000 MCG TABLET 1000 MCG PO (07:53)
[2021-09-10] MEDS: Clopidogrel Bisulfate 75 MG TABLET PO (07:53)
[2021-09-10] MEDS: Omeprazole 20 MG CAPSULE.DR PO (07:53)
--- NOTE | 2021-09-10 07:55 | P.PNIM_ITS ---
Subjective Subjective Date of Service: 09/10/21 Interval History: copd, pneumonia Review of Systems still sob Physical Exam Verdana 4l Vital Signs: Verdana 4d Verdana 4d Vital Signs: Verdana 4d Verdana 4Bd Last Vital Signs Verdana 4d Workday Consultant New 4d Workday Consultant New 4d Temp 97.4 F 09/10/21 07:42 Workday Consultant New 4d Pulse 89 09/10/21 07:42 Workday Consultant New 4d Resp 18 09/10/21 07:42 BP 149/67 H 09/10/21 07:42 Pulse Ox 98 09/10/21 07:42 Oxygen Flow Rate 3 09/08/21 18:10 BMI result Body Mass Index 21.1 Objective Data Active Medications Acetaminophen (Acetaminophen 325 Mg Tablet) 650 mg PO Q6H PRN PRN Reason: Pain, Mild (Pain Scale 1-3) Last Admin: 09/10/21 06:46 Dose: 650 mg Documented by: ROBERT Albuterol/Ipratropium (Albuterol/Iprat 2.5/0.5mg 3 Ml Ampul.Neb) 3 ml INHALE RQ4H PRN PRN Reason: Shortness of Breath/Wheezing Albuterol/Ipratropium (Albuterol/Iprat 2.5/0.5mg 3 Ml Ampul.Neb) 3 ml INHALE RQ4H WHILE AWAKE [facility] Last Admin: 09/09/21 19:58 Dose: 3 ml Documented by: MEKHI Amitriptyline HCl (Amitriptyline Hcl 25 Mg Tablet) 50 mg PO BEDTIME [facility] Last Admin: 09/09/21 20:30 Dose: 50 mg Documented by: ROBERT Aspirin (Aspirin Enteric Coated 81 Mg Tablet.Dr) 81 mg PO DAILY [facility] Last Admin: 09/10/21 07:52 Dose: 81 mg Documented by: TERESA Clopidogrel Bisulfate (Clopidogrel Bisulfate 75 Mg Tablet) 75 mg PO DAILY [facility] Last Admin: 09/10/21 07:53 Dose: 75 mg Documented by: TERESA Cyanocobalamin (Cyanocobalamin (Vitamin B-12) 1,000 Mcg Tablet) 1,000 mcg PO DAILY [facility] Last Admin: 09/10/21 07:53 Dose: 1,000 mcg Documented by: TERESA Diltiazem HCl (Diltiazem Hcl Cd 120 Mg Cap.Er.Deg) 120 mg PO DAILY [facility]; Protocol Last Admin: 09/10/21 07:52 Dose: 120 mg Documented by: TERESA Docusate Sodium (Docusate Sodium 100 Mg Capsule) 100 mg PO DAILY PRN PRN Reason: Constipation Enoxaparin Sodium (Enoxaparin Sodium 40 Mg/0.4 Ml Syringe) 40 mg SUBCUT Q24H [facility] Last Admin: 09/09/21 22:54 Dose: 40 mg Documented by: ROBERT Escitalopram Oxalate (Escitalopram Oxalate 20 Mg Tablet) 20 mg PO DAILY [facility] Last Admin: 09/10/21 07:52 Dose: 20 mg Documented by: TERESA Ferrous Sulfate (Ferrous Sulfate 324 Mg Tablet.) 324 mg PO DAILY [facility] Last Admin: 09/10/21 07:53 Dose: 324 mg Documented by: TERESA Ceftriaxone Sodium 1 gm/ (Sodium Chloride) 50 mls @ 100 mls/hr IV Q24H [facility] Last Infusion: 09/09/21 21:28 Dose: 100 mls/hr Documented by: ROBERT Azithromycin 500 mg/ Sodium (Chloride) 250 mls @ 125 mls/hr IV Q24H [facility] Last Infusion: 09/09/21 23:18 Dose: 125 mls/hr Documented by: ROBERT Lorazepam (Lorazepam 0.5 Mg Tablet) 0.5 mg PO BID PRN PRN Reason: anxiety Last Admin: 09/10/21 07:52 Dose: 0.5 mg Documented by: TERESA Methylprednisolone Sodium Succinate (Methylprednisolone Sod Succ 40 Mg/Ml Vial) 40 mg IVPUSH Q12H [facility] Last Admin: 09/10/21 06:35 Dose: 40 mg Documented by: ROBERT Omeprazole (Omeprazole 20 Mg Capsule.) 20 mg PO BID [facility] Last Admin: 09/10/21 07:53 Dose: 20 mg Documented by: TERESA Ondansetron HCl (Ondansetron Hcl 4 Mg/2 Ml Vial) 4 mg IVPUSH Q8H PRN PRN Reason: Nausea and Vomiting Pravastatin Sodium (Pravastatin Sodium 40 Mg Tablet) 40 mg PO BEDTIME [facility] Last Admin: 09/09/21 20:30 Dose: 40 mg Documented by: ROBERT Sodium Chloride (0.9 % Sodium Chloride Flush 3 Ml Syringe) 3 ml IVFLUSH QSHIFT [facility] Last Admin: 09/10/21 02:03 Dose: Not Given Documented by: ROBERT Non-Admin Reason: IV Running Labs CBC & Chem 7: 09/09/21 06:54 09/09/21 06:54 Microbiology Microbiology Results: Microbiology 09/08/21 20:12 Blood Culture - Preliminary Blood - Venous No growth after 24 hours. 09/08/21 20:12 Blood Culture - Preliminary Blood - Venous No growth after 24 hours. Quality Stroke Does the patient have a stroke diagnosis?: No VTE Prior VTE?: No VTE Risk Level:: Medical - moderate - high VTE Device Contraindication: Treatment Not Indicated VTE Drug Contraindication: N/A - Med Ordered
[2021-09-10] MEDS: 0.9 % Sodium Chloride Flush 3 ML SYRINGE IVFLUSH (07:56)
[2021-09-10 09:13] VITALS: PULSE 74; RESP 16; O2SAT 98
[2021-09-10] MEDS: Albuterol/Iprat 2.5/0.5MG 3 ML AMPUL.NEB INHALE ×3 (09:13→16:33)
[2021-09-10 11:26] VITALS: BP 122/50; PULSE 87; RESP 18; TEMP 36.7; O2SAT 92
--- NOTE | 2021-09-10 11:46 | MHC.SL.SWA ---
Speech Pathologist Impression: Risk of Aspiration Risk of Aspiration Due to: History of Pneumonia Dysphasia Diet Status: No Change Liquid Consistency and Strategies for Safe Swallow: Liquid Intake Recommendation: Thin Liquid Intake Strategies: Unrestricted Solid Food Consistency: Dietary Recommendations: Regular Additional Modifications to Solid Foods: Oral Medication Intake: Whole with Liquid Compensatory Strategies and Precautions to be Taken for Safe Swallow: Sitting Upright (90 deg) Liquids from Straw Supervision While Eating and Drinking for Safe Swallow: Foods to Avoid: Swallowing Recommended Treatments: Compens. Strategy Educat. Recommendation for Speech: Inpatient Speech Therapy Comment: No concerns for feeding or swallowing as evidenced by bedside trials and excellent orientation and toleration for self feeding Frequency/Duration: 1 x follow up for toleration Date Range for Service Req: Timeline to reassess: Communications Planner Clinican/Clinical Fellow: No Supervisory Statement: I have reviewed and agree with the student/clinical fellow's documentation: N/A Speech Language Pathologist: Natividad Olea MA, CCC-GRADING SUPERVISOR
[2021-09-10 12:46] VITALS: PULSE 78; RESP 18; O2SAT 92
--- NOTE | 2021-09-10 13:56 | P.DS_ITS ---
DS: Providers Provider Date of Service: 09/10/21 Date of admission: 09/08/21 23:39 Primary care physician: Unknown Physician DS: Diagnosis Discharge Diagnosis (1) COPD exacerbation: Status: Acute (2) Pneumonia: Status: Acute DS: Summary Hospital Course Hospital Course: 86-year-old female with past medical history of COPD, hypertension, GERD, TIA, hyperlipidemia, among others who presents to the hospital with complaints of increased cough, sputum production, chills, for the past 2 days.? Patient reports that her symptoms came about suddenly, she started having increased cough, sputum production.? She is developing shortness of breath worse than usual, denies any chest pain, no abdominal pain, no urinary symptoms.? Denies any orthopnea or PND.? Reports not vaccinated against COVID. All other s review of systems negative On arrival to the ED patient hemodynamically stable.? Patient uses 3 L Of oxygen at all times? at home On arrival to the ED patient's labs significant for WBC count of 12.5, hemoglobin of 10.9, pH of 7.4, CO2 of 78, bicarb of 38, lactic acid of 2.7 which normalized, otherwise unremarkable.? Chest x-ray shows multifocal left-sided infiltrate, right basilar atelectasis.? COVID-19 negative.? Hospital course: Patient came to the hospital because of COPD exacerbation and pneumonia-started on IV antibiotic and nebs and steroids-patient shortness of breath seems to be improved significantly-going home with p.o. antibiotic and steroids. Further management outpatient as per PCP. Above management discussed with the patient in detail length she understand and in agreement with the above plan, time spent 50 minutes and 50% time spent on counseling. Significant findings: As above. Procedures performed: None. Treatment and response: As above. Complications: None. Time Spent with Patient Time attestation: Total time spent providing and/or coordinating discharge services: Discharge coordination time: Greater than 30 minutes Quality: Stroke Does the patient have a stroke diagnosis?: No Physical Exam Verdana 4l Vital Signs: Verdana 4d Verdana 4d Vital Signs: Verdana 4d Verdana 4Bd Last Vital Signs Verdana 4d Massotherapist New 4d Massotherapist New 4d Temp 98.0 F 09/10/21 11:26 Massotherapist New 4d Pulse 78 09/10/21 12:46 Massotherapist New 4d Resp 18 09/10/21 12:46 BP 122/50 L 09/10/21 11:26 Pulse Ox 92 09/10/21 11:26 Oxygen Flow Rate 3 09/08/21 18:10 BMI result Body Mass Index 21.1 Appearance: Alert.? Oriented X3.? not in distress.?.? ENT: Pharynx normal.? Moist mucous membranes. cvs: rrr, [id number] , no murmur res: air entry improved , no rales or wheezing abd: no rebound or guarding ,nt, bs present. ext pulses present , no cyanosis ,Gait well balanced well coordinated. neuro: axo3 , nonfocal. DS: Data Data Completed and Pending Labs on day of discharge: Preliminary micro results at discharge 09/08/21 20:12 Blood Culture - Preliminary Blood - Venous No growth after 24 hours. 09/08/21 20:12 Blood Culture - Preliminary Blood - Venous No growth after 24 hours. Additional Comments Additional comments: XR/XR chest 1V IMPRESSION: Multifocal left-sided infiltrates. Right basilar atelectasis. Discharge Plan Discharge Patient Disposition: Home Health Service Discharge Diagnosis: copd excerebation Referrals: [facility] [Outside] - 1 Day ([facility], PLEASE CALL [phone] IF YOU HAVE NOT HEARD FROM A NURSE BY NOON TOMORROW Wednesday09/11/21. ) Physician,Unknown J [Physician] - 1 Week Discharge Medications: New amoxicillin-pot clavulanate [Augmentin] 875-125 mg tablet 1 tab PO BID Qty: 10 0RF doxycycline hyclate 100 mg capsule 100 mg PO BID Qty: 10 0RF prednisone 20 mg tablet 40 mg PO DAILY Qty: 6 0RF omeprazole 20 mg capsule,delayed release(DR/EC) 20 mg PO DAILY Qty: 30 0RF Continued miscellaneous medical supply Misc 1 ea miscellaneous .daily as needed Qty: 1 0RF Rx Instructions: Transport Wheelchair Flovent HFA 110 mcg/actuation HFA aerosol inhaler 2 puff inhalation BID Qty: 12 3RF citalopram 40 mg tablet 40 mg PO DAILY Qty: 30 5RF pravastatin 40 mg tablet 40 mg PO BEDTIME Qty: 90 3RF clopidogrel 75 mg tablet 75 mg PO DAILY Qty: 30 5RF diltiazem HCl [Cartia XT] 120 mg capsule,extended release 24hr 120 mg PO QAM Qty: 30 2RF albuterol sulfate [Ventolin HFA] 90 mcg/actuation HFA aerosol inhaler 2 puff inhalation Q4-6H PRN (Reason: bronchospasm) Qty: 8.5 0RF amitriptyline 25 mg tablet See Rx Instructions PO BEDTIME 30 Days Qty: 60 3RF Rx Instructions: 1 to 2 tablets PO bedtime; ferrous sulfate [Feosol] 325 mg (65 mg iron) tablet 325 mg PO DAILY Qty: 30 5RF omeprazole 20 mg capsule,delayed release(DR/EC) 20 mg PO BID Qty: 60 3RF ipratropium-albuterol 0.5 mg-3 mg(2.5 mg base)/3 mL solution for nebulization 3 ml inhalation QID PRN (Reason: Shortness Of Breath Or Wheezing) 0RF aspirin 81 mg tablet,delayed release (DR/EC) 81 mg PO DAILY 0RF cyanocobalamin (vitamin B-12) 1,000 mcg tablet extended release 1,000 mcg PO DAILY 0RF Combivent Respimat 20-100 mcg/actuation mist 1 puff inhalation Q6H 60 Days Qty: 4 3RF No Action lorazepam 0.5 mg tablet 0.5 mg PO BID PRN (Reason: anxiety) 30 Days Qty: 60 0RF Discharge Orders: Discharge Order (Routine); Ordered 09/10/21 Ordered By: Heavenly Kramer Diet: advance to usual diet Activity on Discharge: As tolerated Stand Alone Forms: Patient Portal Discharge page Care Plan Goals: Patient came to the hospital because of COPD exacerbation and pneumonia-started on IV antibiotic and nebs and steroids-patient shortness of breath seems to be improved significantly-going home with p.o. antibiotic and steroids. Further management outpatient as per PCP. Health Concerns: as above. Plan of Treatment: as above . Assessment: as above. Discharge Date/Time: 09/10/21 17:20
--- NOTE | 2021-09-10 14:00 | P.F2F_ITS ---
Service Date Service Date: 09/10/21 Encounter Date of encounter: 09/10/21 Reasons for Services Signs and symptoms assessed: COPD exacerbation, pneumonia Reason for penitentiary: medication management, medication treatment and teach disease management MD Overseeing Care: Ho Nolasco Homebound: Leaving the home is medically contraindicated at this time without the asist of a device and/or another person due th the listed conditions above and below. Reason homebound: weakness related to hospital stay Homebound supporting statement: Patient is generalized weak post hospitalization stay, has multiple comorbidities and need help for appointments. Certification: Based on the above findings, I certify that this patient is confined to the home and needs intermittent penitentiary care, physical therapy and/or speech therapy, or continues to need occupational therapy. The patient is under my care, and I have initiated the establishment of the plan of care. The patient will be followed by a physician who will periodically review the plan of care.
--- NOTE | 2021-09-10 14:07 | MHC.CM.PN ---
Addendum entered by Vero Duarte RN 09/10/21 14:32: PER NSG PT DOES NOT HAVE TRANSPORTATION HOME, CHAIR VAN REFERRAL SENT FOR NEXT AVAILABLE AND RESPIRATORY NOTIFIED SHE HAS HOME O2 3L NC W/SHILOH. Original Note: PT MEDICALLY CLEARED TO D/C HOME W/NEW VNA FOR SKILLED NSG AND RESUMP OF GDTR PT WILL CALL FAMILY TO ARRANGE TRASNPORT.
[2021-09-10] MEDS: Amoxicillin/Potassium Clav 875 MG TABLET PO (15:17)
[2021-09-10 16:34] VITALS: PULSE 78; RESP 20; O2SAT 98
== END 2021-09-10 17:20 | disposition home health service (06) | DRG 190 ==
LOC: HO.ED 20:36 → HO.EDOVER 23:45 → HO.S3 09-09 18:25
PROVIDERS: Admitting Provider Internal Medicine; Emergency Provider Emergency Medicine; PCP Internal Medicine; Visit Provider Internal Medicine
DX: J44.0 Chronic obstructive pulmonary disease with (acute) lower respiratory infection (principal); J18.9 Pneumonia, unspecified organism; J44.1 Chronic obstructive pulmonary disease with (acute) exacerbation; K21.9 Gastro-esophageal reflux disease without esophagitis; E78.5 Hyperlipidemia, unspecified; Z20.822 Contact with and (suspected) exposure to COVID-19; Z87.891 Personal history of nicotine dependence; Z86.73 Personal history of transient ischemic attack (TIA), and cerebral infarction without residual deficits; Z99.81 Dependence on supplemental oxygen; Z79.02 Long term (current) use of antithrombotics/antiplatelets; Z79.51 Long term (current) use of inhaled steroids; Z79.82 Long term (current) use of aspirin; Z79.899 Other long term (current) drug therapy
CPT/HCPCS: 36415; 71045; 80048; 80076; 82728; 82803; 83605; 83615; 83690; 83735; 83880; 84145; 84484; 85025; 86140; 87040; 87635; 92507; 92610; 93005; 94640; 94644; 96361; 96365; 96367; 96375; 99285; J0456; J0696; J1650; J2405; J2920; J2930

== ENCOUNTER → 2021-09-16 08:52 | Outpatient (BNVA) | payer MEDICARE, SELFPAY | PROVIDERS: PCP Internal Medicine; Visit Provider Internal Medicine | DX: J44.1 Chronic obstructive pulmonary disease with (acute) exacerbation (principal); J18.9 Pneumonia, unspecified organism; R09.02 Hypoxemia | CPT/HCPCS: 99212 ==

== ENCOUNTER 2022-01-31 11:41 | Inpatient (IN) | payer OTHER, SELFPAY ==
[2022-01-31] VITALS (8 sets, daily range): BP systolic 109–148; BP diastolic 49–85; PULSE 76–95; RESP 14–22; TEMP 36–36.7; O2SAT 91–100; BMI 20.6
--- NOTE | ~2022-01-31 | XR_ITS ---
EXAMINATION: XR CHEST CLINICAL INFORMATION: Shortness of breath. COMPARISON: Multiple priors, most recent chest radiograph dated 09/08/2021. TECHNIQUE: Frontal view of the chest was obtained. FINDINGS: Left upper and lower lobe airspace opacities, increased in prominence when compared to the chest radiograph dated 09/08/2021. Minimal patchy right basilar atelectasis versus early infiltrates. No pleural effusion or pneumothorax. Stable cardiomediastinal silhouette. XR/XR chest 1V IMPRESSION: Left upper and lower lobe airspace opacities, increased in prominence when compared to the prior chest radiograph. Findings may represent pneumonia.
--- NOTE | 2022-01-31 11:50 | ECG_ITS ---
Test Reason : CP Blood Pressure : / mmHG Vent. Rate : 096 BPM Atrial Rate : 096 BPM P-R Int : 172 ms QRS Dur : 100 ms QT Int : 348 ms P-R-T Axes : 043 015 013 degrees QTc Int : 439 ms Sinus rhythm with Premature atrial complexes Inferior infarct , age undetermined Abnormal ECG When compared with ECG of 08-SEP-2021 20:54, Premature atrial complexes are now Present Referred By: Gaby Marinelli Electronically Signed By:Rene Nguyễn
[2022-01-31] MEDS: Albuterol Sulfate (0.083%) 2.5 MG/3 ML VIAL.NEB 5 MG INHALE (12:02)
[2022-01-31 12:18] LABS: MANUAL DIFF FLAG NO
[2022-01-31 12:20] LABS: Basophils Percent Auto 0.1 % (0-2); Eosinophils Absolute Auto 0.3 X10*3/uL (0.0-0.4); Eosinophils Percent Auto 1.9 % (0-4); Hematocrit 31.3 % (37.0-47.0); Hemoglobin 9.1 g/dl (12.0-16.0); Imm Gran Abs Auto 0.14 X10*3/uL (0.00-0.03); Lymphocytes Absolute Auto 0.9 X10*3/uL (1.2-4.9); Lymphocytes Percent Auto 6.6 % (20-40); Mean Corpuscular HGB Conc 29.1 g/dl (31.0-35.0); Mean Corpuscular Volume 89.4 fL (80.0-98.0); Mean Platelet Volume 8.9 fL (9.4-12.3); Monocytes Absolute Auto 0.9 X10*3/uL (0.1-1.2); Monocytes Percent Auto 6.3 % (2-11); Neutrophils Absolute Auto 11.9 x10*3/uL (2.0-8.3); Neutrophils Percent Auto 84.1 % (45-73); Platelet Count 255 X10*3/uL (160-400); Red Cell Distribution Width 13.8 % (11.0-16.0); White Blood Count 14.1 X10*3/uL (4.8-10.8)
[2022-01-31 12:29] LABS: INTERNATIONAL NORM RATIO 1.1 (0.9-1.1); Prothrombin Time 12.8 SEC (9.9-13.0)
[2022-01-31] MEDS: methylPREDNISolone Sod Succ 125 MG/2 ML VIAL IVPUSH (12:39)
[2022-01-31 12:42] LABS: Alanine Aminotransferase 7 U/L (0-31); Albumin Level 3.2 g/dL (3.5-5.0); Alkaline Phosphatase 88 U/L (39-117); Anion Gap 11 (12-20); Aspartate Amino Transferase 11 U/L (5-31); Bilirubin Total 0.4 mg/dL (0.0-1.0); Blood Urea Nitrogen 24 mg/dL (9-16); Calcium 9.8 mg/dL (8.4-10.2); Carbon Dioxide 38 mmol/L (22-29); Chloride 94 mmol/L (96-108); Creatinine Clr Calc Pharmacy 46.1; Estimated Glomerular Filt Rate > 60; Glucose Random 103 mg/dL (60-115); Potassium 4.3 mmol/L (3.3-5.1); Sodium 139 mmol/L (135-145); Total Protein 6.9 g/dL (6.5-8.0)
--- NOTE | 2022-01-31 12:43 | ED_ITS ---
HPI - SOB/Dyspnea General Chief Complaint: Dyspnea Stated Complaint: sob Time Seen by Provider: 01/31/22 11:50 Source: patient and EMS Mode of arrival: EMS History of Present Illness HPI Narrative: 86-year-old female with history of COPD is brought in by EMS for complaints of shortness of breath and they noted that patient was off of her home oxygen on arrival and has had good response to being placed back on the oxygen. Patient states that she is short of breath with associated cough having some right-sided chest discomfort. Related Data Home Medications Medication Instructions Recorded Confirmed aspirin 81 mg tablet,delayed 81 mg PO DAILY 05/16/20 09/19/21 release Previous Rx's Medication Instructions Recorded miscellaneous medical supply 1 ea miscellaneous .daily as 08/30/20 needed #1 ea ipratropium 20 mcg-albuterol 100 1 puff inhalation Q6H COPD 60 02/26/21 mcg/actuation mist for inhalation days #4 grams (Combivent Respimat) fluticasone propionate 110 2 puff inhalation BID #12 grams 02/28/21 mcg/actuation HFA aerosol inhaler (Flovent HFA) pravastatin 40 mg tablet 40 mg PO BEDTIME #90 tabs 05/10/21 ferrous sulfate 325 mg (65 mg 325 mg PO DAILY #30 caps 08/25/21 iron) tablet (Feosol) omeprazole 20 mg capsule,delayed 20 mg PO DAILY #30 caps 09/10/21 release cyanocobalamin (vitamin B-12) 1,000 mcg PO DAILY 90 days #90 tabs 09/16/21 1,000 mcg tablet,extended release prednisone 20 mg tablet 20 mg PO DAILY 3 days #3 tabs 09/19/21 diltiazem HCl 120 mg 120 mg PO QAM #30 caps 10/13/21 capsule,extended release 24 hr albuterol sulfate 90 mcg/actuation 2 puff inhalation Q4-6H PRN 11/10/21 aerosol inhaler (Ventolin HFA) bronchospasm #8.5 grams citalopram 40 mg tablet 40 mg PO DAILY #30 caps 11/10/21 ipratropium 0.5 mg-albuterol 3 mg 3 ml inhalation QID #120 mL 11/24/21 (2.5 mg base)/3 mL nebulization soln amitriptyline 25 mg tablet See Rx Instructions PO BEDTIME 30 01/05/22 days #60 caps lorazepam 0.5 mg tablet 0.5 mg PO BID PRN anxiety 30 days 01/05/22 #60 tabs clopidogrel 75 mg tablet 75 mg PO DAILY #30 caps 01/19/22 Allergies Allergy/AdvReac Type Severity Reaction Status Date / Time No Known Allergies Allergy Verified 01/31/22 11:48 Review of Systems Review of Systems: Pertinent positives and negatives as stated in HPI 10 point review of systems is otherwise negative. [facility] Past Medical History Source: nursing notes reviewed Surgical History History of cataract surgery History of ERCP Hx laparoscopic cholecystectomy Family History Family History Father No problems noted. Mother No problems noted. Unknown Family hx of colon cancer Family history of coronary artery disease Social History Social History Household Members: None Housing: Apartment Alcohol intake: former Patient Tobacco Use Status: Former Tobacco user Second Hand Smoke Exposure: Yes Advance Directives: Yes Advance Directives on File: Yes Advance Directives Date on File: 09/09/21 service: No Current occupational status: retired Physical Exam Vital Signs: Vital Signs: Last Vital Signs Temp 98.0 F 01/31/22 11:48 Pulse 95 01/31/22 13:02 Resp 22 H 01/31/22 13:02 BP 114/56 L 01/31/22 11:48 Pulse Ox 99 01/31/22 11:48 O2 Del Method 01/31/22 11:48 BMI result Body Mass Index 20.6 VITAL SIGNS: Reviewed. GENERAL: Cachectic, chronically ill, in no acute distress. HEAD: Normocephalic/atraumatic EYES: PERRLA, EOMI EARS: Ext canals without abnormality OROPHARYNX: no oral lesions noted, posterior pharynx clear LUNGS: decreased breath sound bilaterally, right greater than left, no tachypnea noted some scattered rhonchi without rales. SpO2<99> On 2 L of nasal cannula, chest wall discomfort on palpation the right anterior lower ribs without noted deformity CARDIOVASCULAR: Regular rate and rhythm without noted murmurs ABDOMEN: Soft, non-tender, non-distended with bowel sounds. MUSCULOSKELETAL: No tenderness, deformities, or effusions noted on gross ins pection. EXTREMITIES: No cyanosis, clubbing or edema. SKIN: Inspection of the skin reveals no rashes NEUROLOGIC: Alert and oriented x 4. Strength and sensation to light touch were grossly intact x 4. Course Course Course Narrative: 86-year-old female with history and clinical presentation consistent with COPD exacerbation and suspect possible pneumonia based on lung auscultations. On review of all investigations patient is noted to have a leukocytosis, chest x- ray shows opacities, CRP is elevated and patient received antibiotics after lactic acid blood cultures were obtained. Patient was also provided with 500 cc of normal saline in the case was discussed with inpatient hospitalist who accepts her for admission. Patient also received 2 nebulized treatments as well as IV steroids. MDM - SOB/Dyspnea Lab Data Result diagrams: 01/31/22 12:14 01/31/22 12:14 Labs: Lab Results 01/31/22 01/31/22 01/31/22 Range/Units 12:14 12:14 12:14 WBC 14.1 H (4.8-10.8) X10*3/uL RBC 3.50 L (4.20-5.50) X10*6/uL Hgb 9.1 L (12.0-16.0) g/dl Hct 31.3 L (37.0-47.0) % MCV 89.4 (80.0-98.0) fL MCH 26.0 L (27.0-33.0) pg MCHC 29.1 L (31.0-35.0) g/dl RDW 13.8 (11.0-16.0) % Plt Count 255 (160-400) X10*3/uL MPV 8.9 L (9.4-12.3) fL Immature Gran % (Auto) 1.0 H (0.0-0.4) % Neut % (Auto) 84.1 H (45-73) % Lymph % (Auto) 6.6 L (20-40) % Greenlee % (Auto) 6.3 (2-11) % Eos % (Auto) 1.9 (0-4) % Baso % (Auto) 0.1 (0-2) % Lymph # (Auto) 0.9 L (1.2-4.9) X10*3/uL Greenlee # (Auto) 0.9 (0.1-1.2) X10*3/uL Eos # (Auto) 0.3 (0.0-0.4) X10*3/uL Baso # (Auto) 0.0 (0.0-0.2) X10*3/uL Abs Immat Gran (auto) 0.14 H (0.00-0.03) X10*3/uL Absolute Neuts (auto) 11.9 H (2.0-8.3) x10*3/uL Absolute Nucleated RBC 0.000 (0.0-0.012) X10*3/uL Nucleated RBC % (auto) 0.0 (0.0-0.2) /100WBC PT 12.8 (9.9-13.0) SEC INR 1.1 (0.9-1.1) VBG pH (7.32-7.43) VBG pCO2 mmHg VBG pO2 mmHg VBG HCO3 (22-26) mmol/L VBG O2 Saturation % VBG Base Excess mmol/L Sodium 139 (135-145) mmol/L Potassium 4.3 (3.3-5.1) mmol/L Chloride 94 L (96-108) mmol/L Carbon Dioxide 38 H (22-29) mmol/L Anion Gap 11 L (12-20) BUN 24 H D (9-16) mg/dL Creatinine 0.83 (0.5-1.4) mg/dL Estim Creat Clear Calc 46.1 Estimated GFR > 60 Random Glucose 103 (60-115) mg/dL Lactic Acid (0.5-2.0) mmol/L Calcium 9.8 D (8.4-10.2) mg/dL Total Bilirubin 0.4 (0.0-1.0) mg/dL AST 11 (5-31) U/L ALT 7 (0-31) U/L Alkaline Phosphatase 88 (39-117) U/L Troponin I High Sens (<3.5-17.0) ng/L C-Reactive Protein 10.17 H (< or = 0.50) mg/dL B-Natriuretic Peptide (<100) pg/mL Total Protein 6.9 (6.5-8.0) g/dL Albumin 3.2 L (3.5-5.0) g/dL 01/31/22 01/31/22 01/31/22 Range/Units 12:14 12:14 12:18 WBC (4.8-10.8) X10*3/uL RBC (4.20-5.50) X10*6/uL Hgb (12.0-16.0) g/dl Hct (37.0-47.0) % MCV (80.0-98.0) fL MCH (27.0-33.0) pg MCHC (31.0-35.0) g/dl RDW (11.0-16.0) % Plt Count (160-400) X10*3/uL MPV (9.4-12.3) fL Immature Gran % (Auto) (0.0-0.4) % Neut % (Auto) (45-73) % Lymph % (Auto) (20-40) % Greenlee % (Auto) (2-11) % Eos % (Auto) (0-4) % Baso % (Auto) (0-2) % Lymph # (Auto) (1.2-4.9) X10*3/uL Greenlee # (Auto) (0.1-1.2) X10*3/uL Eos # (Auto) (0.0-0.4) X10*3/uL Baso # (Auto) (0.0-0.2) X10*3/uL Abs Immat Gran (auto) (0.00-0.03) X10*3/uL Absolute Neuts (auto) (2.0-8.3) x10*3/uL Absolute Nucleated RBC (0.0-0.012) X10*3/uL Nucleated RBC % (auto) (0.0-0.2) /100WBC PT (9.9-13.0) SEC INR (0.9-1.1) VBG pH 7.43 (7.32-7.43) VBG pCO2 50 mmHg VBG pO2 38 mmHg VBG HCO3 33 H (22-26) mmol/L VBG O2 Saturation 59.0 % VBG Base Excess 8.0 mmol/L Sodium (135-145) mmol/L Potassium (3.3-5.1) mmol/L Chloride (96-108) mmol/L Carbon Dioxide (22-29) mmol/L Anion Gap (12-20) BUN (9-16) mg/dL Creatinine (0.5-1.4) mg/dL Estim Creat Clear Calc Estimated GFR Random Glucose (60-115) mg/dL Lactic Acid (0.5-2.0) mmol/L Calcium (8.4-10.2) mg/dL Total Bilirubin (0.0-1.0) mg/dL AST (5-31) U/L ALT (0-31) U/L Alkaline Phosphatase (39-117) U/L Troponin I High Sens 5.9 D (<3.5-17.0) ng/L C-Reactive Protein (< or = 0.50) mg/dL B-Natriuretic Peptide 53 (<100) pg/mL Total Protein (6.5-8.0) g/dL Albumin (3.5-5.0) g/dL 01/31/22 Range/Units 12:44 WBC (4.8-10.8) X10*3/uL RBC (4.20-5.50) X10*6/uL Hgb (12.0-16.0) g/dl Hct (37.0-47.0) % MCV (80.0-98.0) fL MCH (27.0-33.0) pg MCHC (31.0-35.0) g/dl RDW (11.0-16.0) % Plt Count (160-400) X10*3/uL MPV (9.4-12.3) fL Immature Gran % (Auto) (0.0-0.4) % Neut % (Auto) (45-73) % Lymph % (Auto) (20-40) % Greenlee % (Auto) (2-11) % Eos % (Auto) (0-4) % Baso % (Auto) (0-2) % Lymph # (Auto) (1.2-4.9) X10*3/uL Greenlee # (Auto) (0.1-1.2) X10*3/uL Eos # (Auto) (0.0-0.4) X10*3/uL Baso # (Auto) (0.0-0.2) X10*3/uL Abs Immat Gran (auto) (0.00-0.03) X10*3/uL Absolute Neuts (auto) (2.0-8.3) x10*3/uL Absolute Nucleated RBC (0.0-0.012) X10*3/uL Nucleated RBC % (auto) (0.0-0.2) /100WBC PT (9.9-13.0) SEC INR (0.9-1.1) VBG pH (7.32-7.43) VBG pCO2 mmHg VBG pO2 mmHg VBG HCO3 (22-26) mmol/L VBG O2 Saturation % VBG Base Excess mmol/L Sodium (135-145) mmol/L Potassium (3.3-5.1) mmol/L Chloride (96-108) mmol/L Carbon Dioxide (22-29) mmol/L Anion Gap (12-20) BUN (9-16) mg/dL Creatinine (0.5-1.4) mg/dL Estim Creat Clear Calc Estimated GFR Random Glucose (60-115) mg/dL Lactic Acid 0.9 (0.5-2.0) mmol/L Calcium (8.4-10.2) mg/dL Total Bilirubin (0.0-1.0) mg/dL AST (5-31) U/L ALT (0-31) U/L Alkaline Phosphatase (39-117) U/L Troponin I High Sens (<3.5-17.0) ng/L C-Reactive Protein (< or = 0.50) mg/dL B-Natriuretic Peptide (<100) pg/mL Total Protein (6.5-8.0) g/dL Albumin (3.5-5.0) g/dL ECG Data Attestation: I personally reviewed and interpreted this ECG as follows: Prior ECG tracings: available for review Interpretation: sinus rhythm with PACs, HR - 96, no STEMI, MI /QRS /QTC are within normal limits. Critical Care Time Critical Care Time Critical Care Time: Yes Total Critical Care Time: 30 Attestation: I personally attest to this time spent taking care of the patient. Discharge Plan Discharge Clinical Impression: COPD exacerbation, Pneumonia Prescriptions: No Action miscellaneous medical supply Misc 1 ea miscellaneous .daily as needed Qty: 1 0RF Rx Instructions: Transport Wheelchair Flovent HFA 110 mcg/actuation HFA aerosol inhaler 2 puff inhalation BID Qty: 12 3RF pravastatin 40 mg tablet 40 mg PO BEDTIME Qty: 90 3RF ferrous sulfate [Feosol] 325 mg (65 mg iron) tablet 325 mg PO DAILY Qty: 30 5RF cyanocobalamin (vitamin B-12) 1,000 mcg tablet extended release 1,000 mcg PO DAILY 90 Days Qty: 90 3RF diltiazem HCl 120 mg capsule,extended release 24hr 120 mg PO QAM Qty: 30 2RF citalopram 40 mg tablet 40 mg PO DAILY Qty: 30 5RF albuterol sulfate [Ventolin HFA] 90 mcg/actuation HFA aerosol inhaler 2 puff inhalation Q4-6H PRN (Reason: bronchospasm) Qty: 8.5 0RF ipratropium-albuterol 0.5 mg-3 mg(2.5 mg base)/3 mL solution for nebulization 3 ml inhalation QID Qty: 120 11RF amitriptyline 25 mg tablet See Rx Instructions PO BEDTIME 30 Days Qty: 60 3RF Rx Instructions: 1 to 2 tablets PO bedtime; lorazepam 0.5 mg tablet 0.5 mg PO BID PRN (Reason: anxiety) 30 Days Qty: 60 0RF clopidogrel 75 mg tablet 75 mg PO DAILY Qty: 30 3RF omeprazole 20 mg capsule,delayed release(DR/EC) 20 mg PO DAILY Qty: 30 0RF aspirin 81 mg tablet,delayed release (DR/EC) 81 mg PO DAILY prednisone 20 mg tablet 20 mg PO DAILY 3 Days Qty: 3 0RF Rx Instructions: 1 tablet daily x 3 days Combivent Respimat 20-100 mcg/actuation mist 1 puff inhalation Q6H 60 Days Qty: 4 3RF
[2022-01-31 12:46] LABS: B Type Natriuretic Peptide 53 pg/mL (<100)
[2022-01-31 12:47] LABS: Troponin-I High Sensitivity 5.9 ng/L (<3.5-17.0)
[2022-01-31 12:49] LABS: Venous Blood Gas Refer to POC result
[2022-01-31 12:50] LABS: VBG HCO3 33 mmol/L (22-26); VBG pCO2 50 mmHg; VBG pH 7.43 (7.32-7.43); VBG pO2 38 mmHg
[2022-01-31 12:54] LABS: C Reactive Protein 10.17 mg/dL (< or = 0.50)
[2022-01-31] MEDS: Piperacillin Sodium/Tazobactam 3.375 GM in 0.9 % Sodium Chloride 50 ML IV (12:54)
[2022-01-31] MEDS: 0.9 % Sodium Chloride 500 ML 999 ML IV (12:55)
[2022-01-31] MEDS: Albuterol/Iprat 2.5/0.5MG 3 ML AMPUL.NEB INHALE ×2 (13:02→20:24)
[2022-01-31 13:10] LABS: Lactic Acid 0.9 mmol/L (0.5-2.0)
[2022-01-31 13:13] LABS: COVID-19 Test Negative (Negative); IDNOW Serial# 16C4AD1C
--- NOTE | 2022-01-31 14:09 | PHA.MEDREC ---
Pharmacy Consult ? Medication Reconciliation Pharmacy has completed the medication reconciliation. Pt states that she still takesflovent but unable to find recent fill history
--- NOTE | 2022-01-31 14:13 | PM.IMHP ---
History of Present Illness Date of Service: 01/31/22 Attending physician on admission: Florentin Quarles Chief Complaint: Shortness of breath This is an 86-year-old female history of COPD, chronic respiratory failure on 3 L home oxygen who presents to the emergency department with shortness of breath. Patient states she began having increasing shortness of breath yesterday. This has been associated with a dry cough. This morning she also had subjective chills. She has been having right-sided chest pain with coughing which is also reproducible on palpation. She denies any recent sick contacts. Today in the emergency department lab work revealed leukocytosis of 14.1. She was negative for COVID-19. Chest x-ray showed concern for left upper lobe and left lower lobe pneumonia. She was treated with IV Zosyn, nebulizer treatments as well as IV Solu-Medrol. A decision was made to admit her to the hospital for further management of pneumonia COVID-19 Vaccination status-unvaccinated Review of Systems Review of Systems: Yes all other systems are reviewed and are negative Constitutional: Constitutional: Reports chills and Denies fever(s) Cardiovascular: Cardiovascular: Denies palpitations and Reports dyspnea Respiratory: Respiratory: Reports cough, Reports pain with cough and Reports dyspnea Gastrointestinal: Gastrointestinal: Denies abdominal pain, Denies nausea and Denies vomiting Endocrine: Endocrine: Denies palpitations [facility] Medical History (Updated 01/31/22 @ 14:17 by ORAL Sharp) Anxiety Benign essential hypertension COPD (chronic obstructive pulmonary disease) Depression GERD (gastroesophageal reflux disease) History of TIA (transient ischemic attack) Hyperlipidemia Iron deficiency anemia Mild cognitive impairment Osteoarthritis of left hip Polymyalgia rheumatica Vitamin B12 deficiency Vitamin D deficiency Functional capacity: uses cane/walker Family History Father No problems noted. Mother No problems noted. Unknown Family hx of colon cancer Family history of coronary artery disease Surgical History History of cataract surgery History of ERCP Hx laparoscopic cholecystectomy Social History Household Members: None Housing: Apartment Alcohol intake: former Patient Tobacco Use Status: Former Tobacco user Second Hand Smoke Exposure: Yes Advance Directives: Yes Advance Directives on File: Yes Advance Directives Date on File: 09/09/21 service: No Current occupational status: retired Meds Allergies Allergy/AdvReac Type Severity Reaction Status Date / Time No Known Allergies Allergy Verified 01/31/22 11:48 Active Medications: Current Medications Acetaminophen (Acetaminophen 325 Mg Tablet) 650 mg PO Q6H PRN PRN Reason: Pain, Mild (Pain Scale 1-3) Benzonatate (Benzonatate 100 Mg Capsule) 100 mg PO TID PRN PRN Reason: Cough Docusate Sodium (Docusate Sodium 100 Mg Capsule) 100 mg PO DAILY PRN PRN Reason: Constipation Heparin Sodium (Porcine) (Heparin Sodium,Porcine 5,000 Unit/Ml Vial) 5,000 unit SUBCUT Q12H [facility] Ceftriaxone Sodium 1 gm/ (Sodium Chloride) 50 mls @ 100 mls/hr IV Q24H [facility] Azithromycin 500 mg/ Sodium (Chloride) 250 mls @ 125 mls/hr IV Q24H [facility] Pharmacy Consult (Consult Rx Perform Med Rec) 1 each MISCELLANE ONCE PRN PRN Reason: Consult order Sodium Chloride (0.9 % Sodium Chloride Flush 3 Ml Syringe) 3 ml IVFLUSH QSHIFT [facility] Home Medications Medication Instructions Recorded Confirmed Last Taken Type aspirin 81 mg tablet,delayed 81 mg PO DAILY 05/16/20 01/31/22 01/30/22 History release albuterol sulfate 90 mcg/actuation 2 puff inhalation Q4H PRN 01/31/22 01/31/22 01/31/22 History aerosol inhaler (Ventolin HFA) bronchospasm amitriptyline 25 mg tablet 50 tab PO BEDTIME 01/31/22 01/31/22 01/30/22 History diltiazem HCl 120 mg 120 mg PO DAILY 01/31/22 01/31/22 01/30/22 History capsule,extended release 24 hr ipratropium 0.5 mg-albuterol 3 mg 3 ml inhalation QID PRN COPD 01/31/22 01/31/22 Unknown History (2.5 mg base)/3 mL nebulization soln ipratropium 20 mcg-albuterol 100 1 puff inhalation Q6H 01/31/22 01/31/22 01/31/22 History mcg/actuation mist for inhalation (Combivent Respimat) Physical Exam Vital Signs and Narrative: Vital Signs: Last Vital Signs Temp 98.0 F 01/31/22 11:48 Pulse 95 01/31/22 13:02 Resp 22 H 01/31/22 13:02 BP 114/56 L 01/31/22 11:48 Pulse Ox 99 01/31/22 11:48 O2 Del Method 01/31/22 11:48 BMI result Body Mass Index 20.6 Const: General: cooperative, comfortable, alert and awake Nutritional Appearance: average body habitus Orientation/consciousness: patient oriented x3 Resp: Effort & Inspection: normal respiratory effort, able to speak in complete sentences and not tachypneic Auscultation: crackles (left side) and diminished lung sounds Cardio: Rate: regular rate Heart sounds: S1 normal heart sound present and S2 normal heart sound present GI: Palpation (GI): Soft to palpation and nontender Neuro: General: patient oriented x3 Extrem: Other: terace leg edema Results Labs CBC and Chem 7: 01/31/22 12:14 01/31/22 12:14 Labs: Laboratory Results - last 24 hr 01/31/22 01/31/22 01/31/22 12:14 12:14 12:14 MCV 89.4 MCH 26.0 L MCHC 29.1 L RDW 13.8 Plt Count 255 MPV 8.9 L Immature Gran % (Auto) 1.0 H Neut % (Auto) 84.1 H Lymph % (Auto) 6.6 L [place] % (Auto) 6.3 Eos % (Auto) 1.9 Baso % (Auto) 0.1 Lymph # (Auto) 0.9 L [place] # (Auto) 0.9 Eos # (Auto) 0.3 Baso # (Auto) 0.0 Abs Immat Gran (auto) 0.14 H Absolute Neuts (auto) 11.9 H Absolute Nucleated RBC 0.000 Nucleated RBC % (auto) 0.0 PT 12.8 INR 1.1 VBG pH VBG pCO2 VBG pO2 VBG HCO3 VBG O2 Saturation VBG Base Excess Anion Gap 11 L Estim Creat Clear Calc 46.1 Estimated GFR > 60 Random Glucose 103 Lactic Acid Calcium 9.8 D Total Bilirubin 0.4 AST 11 ALT 7 Alkaline Phosphatase 88 Troponin I High Sens C-Reactive Protein 10.17 H B-Natriuretic Peptide Total Protein 6.9 Albumin 3.2 L COVID-19 (DELL) COVID-19 Clin Com 01/31/22 01/31/22 01/31/22 12:14 12:14 12:18 MCV MCH MCHC RDW Plt Count MPV Immature Gran % (Auto) Neut % (Auto) Lymph % (Auto) [place] % (Auto) Eos % (Auto) Baso % (Auto) Lymph # (Auto) [place] # (Auto) Eos # (Auto) Baso # (Auto) Abs Immat Gran (auto) Absolute Neuts (auto) Absolute Nucleated RBC Nucleated RBC % (auto) PT INR VBG pH 7.43 VBG pCO2 50 VBG pO2 38 VBG HCO3 33 H VBG O2 Saturation 59.0 VBG Base Excess 8.0 Anion Gap Estim Creat Clear Calc Estimated GFR Random Glucose Lactic Acid Calcium Total Bilirubin AST ALT Alkaline Phosphatase Troponin I High Sens 5.9 D C-Reactive Protein B-Natriuretic Peptide 53 Total Protein Albumin COVID-19 (DELL) COVID-19 Clin Com 01/31/22 01/31/22 12:44 12:52 MCV MCH MCHC RDW Plt Count MPV Immature Gran % (Auto) Neut % (Auto) Lymph % (Auto) [place] % (Auto) Eos % (Auto) Baso % (Auto) Lymph # (Auto) [place] # (Auto) Eos # (Auto) Baso # (Auto) Abs Immat Gran (auto) Absolute Neuts (auto) Absolute Nucleated RBC Nucleated RBC % (auto) PT INR VBG pH VBG pCO2 VBG pO2 VBG HCO3 VBG O2 Saturation VBG Base Excess Anion Gap Estim Creat Clear Calc Estimated GFR Random Glucose Lactic Acid 0.9 Calcium Total Bilirubin AST ALT Alkaline Phosphatase Troponin I High Sens C-Reactive Protein B-Natriuretic Peptide Total Protein Albumin COVID-19 (DELL) Negative COVID-19 Clin Com See Note Imaging Radiologist's Impressions: Impressions Chest X-Ray 01/31/22 12:00 IMPRESSION: Left upper and lower lobe airspace opacities, increased in prominence when compared to the prior chest radiograph. Findings may represent pneumonia. Assessment and Plan (1) Pneumonia: Status: Acute Plan This is an 86-year-old female with history of COPD/chronic respiratory failure on 3 L of home O2, TIA, hypertension, GERD who presents to the emergency department with 1 day history of shortness of breath found to have multifocal pneumonia Sepsis secondary to pneumonia Meets sepsis criteria with leukocytosis, respiratory rate 22. No severe features. CXR showing JAKE/LLL PNA -IV ceftriaxone, azithromycin -follow-up blood cultures Chest pain Seems secondary to cough/pneumonia Reproducible on exam Initial troponin 5.9, will trend symptomatic treatment Chronic respiratory failure/COPD No acute exacerbation of COPD Remains on baseline supplemental oxygen -continue home inhalers GERD Continue omeprazole h/o TIA Aspirin, statin ? why on plavix Hypertension Continue Cardizem Mood Continue Lexapro, Ativan DVT prophylaxis-heparin Healthcare proxy-patient endorses daughter Donna Attending-Dr. Santos Patient will likely require 2 midnight stay in the hospital due to age and sepsis/multifocal pneumonia Quality Stroke Does the patient have a stroke diagnosis?: No VTE Prior VTE?: No VTE Risk Level:: Medical - moderate - high VTE Device Contraindication: N/A - Device Ordered VTE Drug Contraindication: N/A - Med Ordered
[2022-01-31] MEDS: Heparin Sodium,Porcine 5,000 UNIT/ML VIAL 5000 UNIT SUBCUT (14:35)
[2022-01-31] MEDS: cefTRIAXone sodium 1 GM in 0.9 % Sodium Chloride 50 ML IV (14:35)
[2022-01-31 15:15] LABS: Troponin-I High Sensitivity 5.7 ng/L (<3.5-17.0)
[2022-01-31] MEDS: Azithromycin 500 MG in 0.9 % Sodium Chloride 250 ML 125 MG IV (15:26)
[2022-01-31] MEDS: 0.9 % Sodium Chloride Flush 3 ML SYRINGE IVFLUSH ×2 (15:27→21:12)
--- NOTE | 2022-01-31 18:19 | PC.NURSE ---
report given to med/foot and ankle surgeon
[2022-01-31] MEDS: Amitriptyline HCl 50 MG TABLET PO (21:12)
[2022-01-31] MEDS: LORazepam 0.5 MG TABLET PO (21:12)
[2022-01-31] MEDS: Pravastatin Sodium 40 MG TABLET PO (21:12)
[2022-02-01] VITALS (7 sets, daily range): BP systolic 131–181; BP diastolic 63–79; PULSE 83–92; RESP 16–20; TEMP 36.2–36.5; O2SAT 90–97
[2022-02-01] MEDS: Heparin Sodium,Porcine 5,000 UNIT/ML VIAL 5000 UNIT SUBCUT ×2 (01:38→15:38)
[2022-02-01] MEDS: Omeprazole 20 MG CAPSULE.DR PO (05:23)
[2022-02-01 06:58] LABS: Hematocrit 29.3 % (37.0-47.0); Hemoglobin 8.4 g/dl (12.0-16.0); Mean Corpuscular HGB Conc 28.7 g/dl (31.0-35.0); Mean Corpuscular Hemoglobin 25.5 pg (27.0-33.0); Mean Corpuscular Volume 88.8 fL (80.0-98.0); Mean Platelet Volume 9.4 fL (9.4-12.3); Platelet Count 278 X10*3/uL (160-400); Red Cell Distribution Width 13.4 % (11.0-16.0); White Blood Count 8.4 X10*3/uL (4.8-10.8)
[2022-02-01 07:38] LABS: Anion Gap 9 (12-20); Blood Urea Nitrogen 22 mg/dL (9-16); Calcium 9.2 mg/dL (8.4-10.2); Carbon Dioxide 38 mmol/L (22-29); Chloride 98 mmol/L (96-108); Creatinine Clr Calc Pharmacy 57.1; Estimated Glomerular Filt Rate > 60; Glucose Random 119 mg/dL (60-115); Potassium 3.8 mmol/L (3.3-5.1); Sodium 141 mmol/L (135-145)
[2022-02-01] MEDS: dilTIAZem HCL CD 120 MG CAP.ER.DEG PO (08:35)
[2022-02-01] MEDS: Escitalopram Oxalate 20 MG TABLET PO (08:35)
[2022-02-01] MEDS: Ferrous Sulfate 324 MG TABLET.DR PO (08:35)
[2022-02-01] MEDS: Aspirin Enteric Coated 81 MG TABLET.DR PO (08:35)
[2022-02-01] MEDS: Clopidogrel Bisulfate 75 MG TABLET PO (08:35)
[2022-02-01] MEDS: Benzonatate 100 MG CAPSULE PO (08:40)
[2022-02-01] MEDS: 0.9 % Sodium Chloride Flush 3 ML SYRINGE IVFLUSH ×3 (08:41→20:30)
--- NOTE | 2022-02-01 10:02 | P.PNIM_ITS ---
Subjective Subjective Date of Service: 02/01/22 Interval History: seen and examined this morning Follow-up for pneumonia No overnight events Somewhat vague historian, denies shortness of breath at this time. Reporting intermittent cough. Denies fever, chills Overall feels better compared to on admission Review of Systems Review of Systems: Yes all other systems are reviewed and are negative Constitutional Constitutional: Denies chills and Denies fever(s) Cardiovascular Cardiovascular: Denies chest pain, Denies palpitations and Denies dyspnea Respiratory Respiratory: Reports cough and Denies dyspnea Gastrointestinal Gastrointestinal: Denies abdominal pain, Denies nausea and Denies vomiting Endocrine Endocrine: Denies palpitations Physical Exam Vital Signs: Vital Signs: Last Vital Signs Temp 97.2 F 02/01/22 07:20 Pulse 83 02/01/22 08:10 Resp 16 02/01/22 08:10 BP 181/79 H 02/01/22 07:20 Pulse Ox 96 02/01/22 07:20 O2 Del Method 02/01/22 07:20 O2 Flow Rate 3 02/01/22 07:20 BMI result Body Mass Index 20.6 Const: General: cooperative, comfortable, alert and awake Nutritional Appearance: average body habitus Orientation/consciousness: patient oriented x3 HEENT: Other: poorly fitting dentures Resp: Effort & Inspection: normal respiratory effort, able to speak in complete sentences and not tachypneic Auscultation: diminished lung sounds Cardio: Rate: regular rate Heart sounds: S1 normal heart sound present and S2 normal heart sound present GI: Inspection: No distended Palpation (GI): Soft to palpation and nontender Neuro: Other: grossly nonfocal General: patient oriented x3 Extrem: Other: trace leg edema able to move all 4 extremities spontaneously Objective Data Active Medications Acetaminophen (Acetaminophen 325 Mg Tablet) 650 mg PO Q6H PRN PRN Reason: Pain, Mild (Pain Scale 1-3) Albuterol/Ipratropium (Albuterol/Iprat 2.5/0.5mg 3 Ml Ampul.Neb) 3 ml INHALE QID PRN PRN Reason: COPD Albuterol/Ipratropium (Albuterol/Iprat 2.5/0.5mg 3 Ml Ampul.Neb) 3 ml INHALE Q6H [facility] Last Admin: 02/01/22 03:46 Dose: Not Given Documented By: MARILYN Non-Admin Reason: Patient Asleep Amitriptyline HCl (Amitriptyline Hcl 50 Mg Tablet) 50 mg PO BEDTIME [facility] Last Admin: 01/31/22 21:12 Dose: 50 mg Documented By: JOVANNY Aspirin (Aspirin Enteric Coated 81 Mg Tablet.) 81 mg PO DAILY [facility] Last Admin: 02/01/22 08:35 Dose: 81 mg Documented By: ANTOINETTE Benzonatate (Benzonatate 100 Mg Capsule) 100 mg PO TID PRN PRN Reason: Cough Last Admin: 02/01/22 08:40 Dose: 100 mg Documented By: ANTOINETTE Clopidogrel Bisulfate (Clopidogrel Bisulfate 75 Mg Tablet) 75 mg PO DAILY [facility] Last Admin: 02/01/22 08:35 Dose: 75 mg Documented By: ANTOINETTE Diltiazem HCl (Diltiazem Hcl Cd 120 Mg Cap.Er.Deg) 120 mg PO DAILY [facility]; Protocol Last Admin: 02/01/22 08:35 Dose: 120 mg Documented By: ANTOINETTE Docusate Sodium (Docusate Sodium 100 Mg Capsule) 100 mg PO DAILY PRN PRN Reason: Constipation Escitalopram Oxalate (Escitalopram Oxalate 20 Mg Tablet) 20 mg PO DAILY [facility] Last Admin: 02/01/22 08:35 Dose: 20 mg Documented By: ANTOINETTE Ferrous Sulfate (Ferrous Sulfate 324 Mg Tablet.) 324 mg PO DAILY [facility] Last Admin: 02/01/22 08:35 Dose: 324 mg Documented By: ANTOINETTE Fluticasone Propionate (Fluticasone Propionate 100 Mcg Blst.W.Dev) 2 puff INHALE RBID [facility] Last Admin: 01/31/22 20:19 Dose: Not Given Documented By: MARILYN Non-Admin Reason: Med Not Available Heparin Sodium (Porcine) (Heparin Sodium,Porcine 5,000 Unit/Ml Vial) 5,000 unit SUBCUT Q12H [facility] Last Admin: 02/01/22 01:38 Dose: 5,000 unit Documented By: JOVANNY Ceftriaxone Sodium 1 gm/ (Sodium Chloride) 50 mls @ 100 mls/hr IV Q24H [facility] Last Infusion: 01/31/22 15:27 Dose: 0 mls/hr Documented By: NICOL Azithromycin 500 mg/ Sodium (Chloride) 250 mls @ 125 mls/hr IV Q24H [facility] Last Infusion: 01/31/22 17:57 Dose: 0 mls/hr Documented By: NICOL Lorazepam (Lorazepam 0.5 Mg Tablet) 0.5 mg PO BID PRN PRN Reason: anxiety Last Admin: 01/31/22 21:12 Dose: 0.5 mg Documented By: JOVANNY Omeprazole (Omeprazole 20 Mg Capsule.) 20 mg PO DAILY@0630 [facility] Last Admin: 02/01/22 05:23 Dose: 20 mg Documented By: JOVANNY Pharmacy Consult (Consult Rx Perform Med Rec) 1 each MISCELLANE ONCE PRN PRN Reason: Consult order Pravastatin Sodium (Pravastatin Sodium 40 Mg Tablet) 40 mg PO BEDTIME [facility] Last Admin: 01/31/22 21:12 Dose: 40 mg Documented By: JOVANNY Sodium Chloride (0.9 % Sodium Chloride Flush 3 Ml Syringe) 3 ml IVFLUSH QSHIFT [facility] Last Admin: 02/01/22 08:41 Dose: 3 ml Documented By: ANTOINETTE Labs CBC & Chem 7: 02/01/22 06:04 02/01/22 06:04 Labs: Laboratory Results - last 24 hr 01/31/22 01/31/22 01/31/22 12:14 12:14 12:14 MCV 89.4 MCH 26.0 L MCHC 29.1 L RDW 13.8 Plt Count 255 MPV 8.9 L Immature Gran % (Auto) 1.0 H Neut % (Auto) 84.1 H Lymph % (Auto) 6.6 L [place] % (Auto) 6.3 Eos % (Auto) 1.9 Baso % (Auto) 0.1 Lymph # (Auto) 0.9 L [place] # (Auto) 0.9 Eos # (Auto) 0.3 Baso # (Auto) 0.0 Abs Immat Gran (auto) 0.14 H Absolute Neuts (auto) 11.9 H Absolute Nucleated RBC 0.000 Nucleated RBC % (auto) 0.0 PT 12.8 INR 1.1 VBG pH VBG pCO2 VBG pO2 VBG HCO3 VBG O2 Saturation VBG Base Excess Anion Gap 11 L Estim Creat Clear Calc 46.1 Estimated GFR > 60 Random Glucose 103 Lactic Acid Calcium 9.8 D Total Bilirubin 0.4 AST 11 ALT 7 Alkaline Phosphatase 88 Troponin I High Sens C-Reactive Protein 10.17 H B-Natriuretic Peptide Total Protein 6.9 Albumin 3.2 L COVID-19 (DELL) COVID-19 [employer] 01/31/22 01/31/22 01/31/22 12:14 12:14 12:18 MCV MCH MCHC RDW Plt Count MPV Immature Gran % (Auto) Neut % (Auto) Lymph % (Auto) [place] % (Auto) Eos % (Auto) Baso % (Auto) Lymph # (Auto) [place] # (Auto) Eos # (Auto) Baso # (Auto) Abs Immat Gran (auto) Absolute Neuts (auto) Absolute Nucleated RBC Nucleated RBC % (auto) PT INR VBG pH 7.43 VBG pCO2 50 VBG pO2 38 VBG HCO3 33 H VBG O2 Saturation 59.0 VBG Base Excess 8.0 Anion Gap Estim Creat Clear Calc Estimated GFR Random Glucose Lactic Acid Calcium Total Bilirubin AST ALT Alkaline Phosphatase Troponin I High Sens 5.9 D C-Reactive Protein B-Natriuretic Peptide 53 Total Protein Albumin COVID-19 (DELL) [employer] 01/31/22 01/31/22 01/31/22 12:44 12:52 14:48 MCV MCH MCHC RDW Plt Count MPV Immature Gran % (Auto) Neut % (Auto) Lymph % (Auto) [place] % (Auto) Eos % (Auto) Baso % (Auto) Lymph # (Auto) [place] # (Auto) Eos # (Auto) Baso # (Auto) Abs Immat Gran (auto) Absolute Neuts (auto) Absolute Nucleated RBC Nucleated RBC % (auto) PT INR VBG pH VBG pCO2 VBG pO2 VBG HCO3 VBG O2 Saturation VBG Base Excess Anion Gap Estim Creat Clear Calc Estimated GFR Random Glucose Lactic Acid 0.9 Calcium Total Bilirubin AST ALT Alkaline Phosphatase Troponin I High Sens 5.7 C-Reactive Protein B-Natriuretic Peptide Total Protein Albumin COVID-19 (DELL) Negative [facility] [place] See Note 02/01/22 02/01/22 06:04 06:04 MCV 88.8 MCH 25.5 L MCHC 28.7 L RDW 13.4 Plt Count 278 MPV 9.4 Immature Gran % (Auto) Neut % (Auto) Lymph % (Auto) [place] % (Auto) Eos % (Auto) Baso % (Auto) Lymph # (Auto) [place] # (Auto) Eos # (Auto) Baso # (Auto) Abs Immat Gran (auto) Absolute Neuts (auto) Absolute Nucleated RBC 0.000 Nucleated RBC % (auto) 0.0 PT INR VBG pH VBG pCO2 VBG pO2 VBG HCO3 VBG O2 Saturation VBG Base Excess Anion Gap 9 L Estim Creat Clear Calc 57.1 Estimated GFR > 60 Random Glucose 119 H Lactic Acid Calcium 9.2 D Total Bilirubin AST ALT Alkaline Phosphatase Troponin I High Sens C-Reactive Protein B-Natriuretic Peptide Total Protein Albumin COVID-19 (DELL) COVID-19 Clin Com Assessment and Plan (1) Pneumonia: Status: Acute Plan This is an 86-year-old female with history of COPD/chronic respiratory failure on 3 L of home O2, TIA, hypertension, GERD who presents to the emergency department with 1 day history of shortness of breath found to have multifocal pneumonia Sepsis secondary to community acquired pneumonia Meets sepsis criteria with leukocytosis, respiratory rate 22. No severe features. covid 19 negative Leukocytosis resolved. CXR showing JAKE/LLL PNA -Continue IV ceftriaxone, azithromycin D#2 -follow-up blood cultures Chest pain Resolved Seems secondary to cough/pneumonia. Reproducible on exam trops flat symptomatic treatment Chronic respiratory failure/COPD No acute exacerbation of COPD Remains on baseline supplemental oxygen, 3L/minute continuously -continue home inhalers Chronic normocytic anemia has history of B12 deficiency and iron deficiency continue home supplementation no evidence of overt bleeding at this time GERD Continue omeprazole h/o TIA Aspirin, statin ? why on plavix - pt unsure - will continue for now Hypertension Continue Cardizem Mood Continue Lexapro, Ativan DVT prophylaxis-heparin Healthcare proxy-patient endorses daughter Donna Attending-Dr. Santos Patient will likely require 2 midnight stay in the hospital due to age and sepsis/multifocal pneumonia Quality Stroke Does the patient have a stroke diagnosis?: No VTE Prior VTE?: No VTE Risk Level:: Medical - moderate - high VTE Device Contraindication: N/A - Device Ordered VTE Drug Contraindication: N/A - Med Ordered
[2022-02-01 10:25] LABS: Iron 48 mcg/dL (30-160); Percent Iron Saturation 19 % (15-50); Total Iron Binding Capacity 249 mcg/dL (228-428); Unsaturated Iron Binding 201 ug/dL
[2022-02-01 10:45] LABS: Ferritin 280 ng/mL (10-250)
[2022-02-01] MEDS: Azithromycin 500 MG in 0.9 % Sodium Chloride 250 ML 125 MG IV (13:38)
--- NOTE | 2022-02-01 14:01 | MHC.CM.PN ---
CM MET WITH PT AND HER DAUGHTER WHO WAS AT BEDSIDE THEY REPORT PT NOW LIVES ALONE HER GRAND DAUGHTER HAS MOVED OUT SINCE LAST ADMISSION THEY REPORT THE PT HAS TRANSPORTATION PLANNING TECHNICIAN HOURS WHICH THE DAUGHTER FILLS HOWEVER THEY FEEL SHE NEEDS MORE THEY REPORT THE PTS [employer] SHAFT SINKER IS IN THE PROCESS OF COMPLETING THE ASSESSMENT FOR INCREASED HOURS THEY REPORT PT HAD VNA AFTER LAST DC AND IT WAS HELPFUL, THEY REQUEST A NEW REFERRAL PT USES HOME O2 FROM [facility] AND A WALKER AT HOME SHE HAS A HCP ON FILE AND HER PCP IS [facility] PT REPORTS SHE IS NOT COVID-19 VACCINATED IMM DELIVERED CURRENT DC PLAN IS HOME WITH RESUMPTION OF TRANSPORTATION PLANNING TECHNICIAN SERVICES AND A NEW VNA IF INDICATED FAMILY TO TRANSPORT
[2022-02-01] MEDS: cefTRIAXone sodium 1 GM in 0.9 % Sodium Chloride 50 ML IV (15:37)
--- NOTE | 2022-02-01 16:02 | ECG_ITS ---
Test Reason : CHEST PAIN Blood Pressure : / mmHG Vent. Rate : 092 BPM Atrial Rate : 092 BPM P-R Int : 174 ms QRS Dur : 092 ms QT Int : 372 ms P-R-T Axes : 038 005 011 degrees QTc Int : 460 ms Normal sinus rhythm Minimal voltage criteria for LVH, may be normal variant ( R in aVL ) Inferior infarct (cited on or before 31-JAN-2022) Abnormal ECG When compared with ECG of 31-JAN-2022 12:32, Premature atrial complexes are no longer Present Referred By: Kristi Sheridan Electronically Signed By:PRATEEK MIRANDA MD
[2022-02-01 17:43] LABS: Troponin-I High Sensitivity 5.4 ng/L (<3.5-17.0)
[2022-02-01] MEDS: Fluticasone Propionate 100 MCG BLST.W.DEV 2 PUFF INHALE (19:57)
[2022-02-01] MEDS: Pravastatin Sodium 40 MG TABLET PO (20:30)
[2022-02-01] MEDS: Amitriptyline HCl 50 MG TABLET PO (20:30)
[2022-02-01] MEDS: LORazepam 0.5 MG TABLET PO (20:32)
[2022-02-02] VITALS (7 sets, daily range): BP systolic 117–155; BP diastolic 56–70; PULSE 74–90; RESP 17–18; TEMP 36.2–36.6; O2SAT 95–99
[2022-02-02] MEDS: Heparin Sodium,Porcine 5,000 UNIT/ML VIAL 5000 UNIT SUBCUT (02:13)
[2022-02-02] MEDS: Omeprazole 20 MG CAPSULE.DR PO (05:35)
[2022-02-02 06:17] LABS: Folate 2.9 ng/mL (> or = 4.0); Vitamin B12 1457 pg/mL (200-900)
[2022-02-02 07:04] LABS: Hematocrit 31.9 % (37.0-47.0); Hemoglobin 9.2 g/dl (12.0-16.0); Mean Corpuscular HGB Conc 28.8 g/dl (31.0-35.0); Mean Corpuscular Hemoglobin 25.9 pg (27.0-33.0); Mean Corpuscular Volume 89.9 fL (80.0-98.0); Mean Platelet Volume 9.1 fL (9.4-12.3); Platelet Count 273 X10*3/uL (160-400); Red Blood Count 3.55 X10*6/uL (4.20-5.50); Red Cell Distribution Width 13.6 % (11.0-16.0); White Blood Count 11.6 X10*3/uL (4.8-10.8)
[2022-02-02] MEDS: dilTIAZem HCL CD 120 MG CAP.ER.DEG PO (07:31)
[2022-02-02] MEDS: Escitalopram Oxalate 20 MG TABLET PO (07:32)
[2022-02-02] MEDS: Ferrous Sulfate 324 MG TABLET.DR PO (07:32)
[2022-02-02] MEDS: 0.9 % Sodium Chloride Flush 3 ML SYRINGE IVFLUSH (07:32)
[2022-02-02] MEDS: Aspirin Enteric Coated 81 MG TABLET.DR PO (07:32)
[2022-02-02] MEDS: Clopidogrel Bisulfate 75 MG TABLET PO (07:32)
[2022-02-02] MEDS: Cyanocobalamin (Vitamin B-12) 1,000 MCG TABLET 1000 MCG PO (07:33)
[2022-02-02 07:35] LABS: Anion Gap 11 (12-20); Blood Urea Nitrogen 18 mg/dL (9-16); Calcium 9.2 mg/dL (8.4-10.2); Carbon Dioxide 37 mmol/L (22-29); Chloride 97 mmol/L (96-108); Creatinine Clr Calc Pharmacy 62.7; Estimated Glomerular Filt Rate > 60; Glucose Random 93 mg/dL (60-115); Potassium 3.7 mmol/L (3.3-5.1); Sodium 141 mmol/L (135-145)
[2022-02-02] MEDS: LORazepam 0.5 MG TABLET PO (07:47)
[2022-02-02] MEDS: Fluticasone Propionate 100 MCG BLST.W.DEV 2 PUFF INHALE (08:20)
[2022-02-02] MEDS: Albuterol/Iprat 2.5/0.5MG 3 ML AMPUL.NEB INHALE ×2 (08:20→15:17)
--- NOTE | 2022-02-02 10:02 | P.F2F_ITS ---
Service Date Service Date: 02/02/22 Encounter Date of encounter: 02/02/22 Reasons for Services Signs and symptoms assessed: Shortness of breath due to pneumonia decondition from hospitalization Reason for long-term: medication management and medication treatment Homebound: Leaving the home is medically contraindicated at this time without the asist of a device and/or another person due th the listed conditions above and below. Reason homebound: unsteady gait / fall risk and weakness related to hospital stay Certification: Based on the above findings, I certify that this patient is confined to the home and needs intermittent long-term care, physical therapy and/or speech therapy, or continues to need occupational therapy. The patient is under my care, and I have initiated the establishment of the plan of care. The patient will be followed by a physician who will periodically review the plan of care.
--- NOTE | 2022-02-02 10:04 | PM.DS ---
DS: Providers Provider Date of Service: 02/02/22 Date of admission: 01/31/22 14:05 Primary care physician: Ho Nolasco MD DS: Diagnosis Discharge Diagnosis (1) Pneumonia: Status: Acute DS: Summary Hospital Course Hospital Course: Chief Complaint: Shortness of breath This is an 86-year-old female history of COPD, chronic respiratory failure on 3 L home oxygen who presents to the emergency department with shortness of breath.? Patient states she began having increasing shortness of breath yesterday.? This has been associated with a dry cough.? This morning she also had subjective chills.? She has been having right-sided chest pain with coughing which is also reproducible on palpation.? She denies any recent sick contacts.? Today in the emergency department lab work revealed leukocytosis of 14.1.? She was negative for COVID-19.? Chest x-ray showed concern for left upper lobe and left lower lobe pneumonia.? She was treated with IV Zosyn, nebulizer treatments as well as IV Solu-Medrol.? A decision was made to admit her to the hospital for further management of pneumonia. Hospital course: Patient was admitted for exacerbation of COPD precipitated by penumonia. Pneumonia was treated with IV Ceftriaxone and Azithromycin with good effect, COPD was managed with bronchodilators by Neb, no indication for steroid--She has responded well to treatment, she's breathing easy, maintain good oxygen saturation at her home O2, she has been assess by PT and recommend home PT due to deconditioning. She wishes to go home rather rehab Time Spent with Patient Time attestation: Total time spent providing and/or coordinating discharge services: Discharge coordination time: Greater than 30 minutes Quality: Safe Use of Opioids Does Pt have an Active Cancer Diagnosis on the Problem List?: No Quality: Stroke Does the patient have a stroke diagnosis?: No Physical Exam Vital Signs: Vital Signs: Last Vital Signs Temp 97.6 F 02/02/22 07:51 Pulse 80 02/02/22 08:58 Resp 18 02/02/22 08:22 BP 140/64 H 02/02/22 07:51 Pulse Ox 99 02/02/22 07:51 O2 Del Method 02/02/22 07:51 O2 Flow Rate 3.0 02/02/22 07:51 BMI result Body Mass Index 20.6 DS: Data Data Completed and Pending Labs on day of discharge: Laboratory Results - last 24 hr 02/01/22 02/01/22 02/01/22 06:04 06:04 17:05 WBC RBC Hgb Hct MCV MCH MCHC RDW Plt Count MPV Absolute Nucleated RBC Nucleated RBC % (auto) Sodium Potassium Chloride Carbon Dioxide Anion Gap BUN Creatinine Estim Creat Clear Calc Estimated GFR Random Glucose Calcium Iron 48 TIBC 249 % Saturation 19 Unsat Iron Binding 201 Ferritin 280 H Troponin I High Sens 5.4 Vitamin B12 1457 H Folate 2.9 L 02/02/22 02/02/22 06:30 06:30 WBC 11.6 H RBC 3.55 L Hgb 9.2 L Hct 31.9 L MCV 89.9 MCH 25.9 L MCHC 28.8 L RDW 13.6 Plt Count 273 MPV 9.1 L Absolute Nucleated RBC 0.000 Nucleated RBC % (auto) 0.0 Sodium 141 Potassium 3.7 Chloride 97 Carbon Dioxide 37 H Anion Gap 11 L BUN 18 H Creatinine 0.61 Estim Creat Clear Calc 62.7 Estimated GFR > 60 Random Glucose 93 Calcium 9.2 Iron TIBC % Saturation Unsat Iron Binding Ferritin Troponin I High Sens Vitamin B12 Folate Preliminary micro results at discharge 01/31/22 12:52 Blood Culture - Preliminary Blood - Venous No growth after 24 hours. 01/31/22 12:44 Blood Culture - Preliminary Blood - Venous No growth after 24 hours. Discharge Plan Discharge Anticipated Discharge Date/Time: 02/02/22 09:54 Patient Disposition: Home Health Service Discharge Diagnosis: Pneumonia COPD exacerbation Referrals: Ho Nolasco MD [Primary Care Provider] - 1 Week Discharge Medications: New cefuroxime axetil 500 mg tablet 500 mg PO BID 5 Days Qty: 10 0RF azithromycin 250 mg tablet 250 mg PO DAILY 3 Days Qty: 3 0RF Rx Instructions: start on day 2 of therapy Continued Flovent HFA 110 mcg/actuation HFA aerosol inhaler 2 puff inhalation BID Qty: 12 3RF pravastatin 40 mg tablet 40 mg PO BEDTIME Qty: 90 3RF ferrous sulfate [Feosol] 325 mg (65 mg iron) tablet 325 mg PO DAILY Qty: 30 5RF cyanocobalamin (vitamin B-12) 1,000 mcg tablet extended release 1,000 mcg PO DAILY 90 Days Qty: 90 3RF citalopram 40 mg tablet 40 mg PO DAILY Qty: 30 5RF lorazepam 0.5 mg tablet 0.5 mg PO BID PRN (Reason: anxiety) 30 Days Qty: 60 0RF clopidogrel 75 mg tablet 75 mg PO DAILY Qty: 30 3RF amitriptyline 25 mg tablet 50 mg PO BEDTIME ipratropium-albuterol 0.5 mg-3 mg(2.5 mg base)/3 mL solution for nebulization 3 ml inhalation QID PRN (Reason: COPD) diltiazem HCl 120 mg capsule,extended release 24hr 120 mg PO DAILY albuterol sulfate [Ventolin HFA] 90 mcg/actuation HFA aerosol inhaler 2 puff inhalation Q4H PRN (Reason: bronchospasm) Combivent Respimat 20-100 mcg/actuation mist 1 puff inhalation Q6H omeprazole 20 mg capsule,delayed release(DR/EC) 20 mg PO DAILY Qty: 30 0RF aspirin 81 mg tablet,delayed release (DR/EC) 81 mg PO DAILY Discharge Orders: Discharge Order (Routine); Ordered 02/02/22 Ordered By: Ariel Patricia Diet: advance to usual diet Activity on Discharge: As tolerated Stand Alone Forms: Patient Portal Discharge page Care Plan Goals: Full recovery from COPD Health Concerns: COPD exacerbation and Pneumonia Plan of Treatment: Use inhalers as usual Take Azithromycin and Ceftin for pneumonia and follow up with your Doctor in a week, call for appointment Assessment: As above
--- NOTE | 2022-02-02 13:33 | MHC.CM.PN ---
PATIENT IS DC HOME TODAY REFERRAL TO [facility] FOR RN SKILLS AND HOME P.T. DUE TO TODAY BEING A HOLIDAY, [facility] IS UNABLE TO [facility] AUTH TO ADMIT UNDER SERVICE. CASE MANAGEMENT TO FOLLOW UP ON Wednesday02/03/22
--- NOTE | 2022-02-02 13:58 | MHC.CM.PN ---
ACTION AMBULANCE TRANSPORT REQUEST. REFERRAL PLACED. DAUGHTER (IN ROOM) AND PATIENT AWARE. REQUEST IS FOR 1500 TRANSFER HOME RN AWARE
== END 2022-02-02 15:45 | disposition home health service (06) | DRG 190 ==
LOC: HO.ED 11:59 → HO.EDOVER 14:14 → HO.S3 18:11
PROVIDERS: Admitting Provider Physician Assistant Medical; Emergency Provider Student in an Organized Health Care Education/Training Program; PCP Internal Medicine; Visit Provider Internal Medicine
DX: J44.0 Chronic obstructive pulmonary disease with (acute) lower respiratory infection (principal); J18.9 Pneumonia, unspecified organism; J96.10 Chronic respiratory failure, unspecified whether with hypoxia or hypercapnia; J44.1 Chronic obstructive pulmonary disease with (acute) exacerbation; F41.9 Anxiety disorder, unspecified; F32.A Depression, unspecified; I10 Essential (primary) hypertension; E78.5 Hyperlipidemia, unspecified; G31.84 Mild cognitive impairment of uncertain or unknown etiology; Z20.822 Contact with and (suspected) exposure to COVID-19; Z99.81 Dependence on supplemental oxygen; Z86.73 Personal history of transient ischemic attack (TIA), and cerebral infarction without residual deficits; Z79.02 Long term (current) use of antithrombotics/antiplatelets; Z79.899 Other long term (current) drug therapy
CPT/HCPCS: 36415; 71045; 80048; 80053; 82607; 82728; 82746; 82803; 83540; 83605; 83880; 84484; 85025; 85027; 85610; 86140; 87040; 87635; 93005; 94640; 96365; 96375; 97162; 99285; J0456; J0696; J2543; J2930

== ENCOUNTER 2022-02-07 18:57 | Inpatient (IN) | payer OTHER, SELFPAY ==
--- NOTE | ~2022-02-07 | XR_ITS ---
EXAMINATION: XR CHEST CLINICAL INFORMATION: Shortness of breath and hypoxia. COMPARISON: Chest radiographs from 07/20/2017 through 01/31/2022. TECHNIQUE: Frontal view of the chest was obtained. FINDINGS: The cardiomediastinal and hilar contours are stable from the comparison in January. There is persistent opacification of the left mid and lower lung. Streaky opacities at the base of the right lung suggest atelectasis. No pneumothorax. XR/XR chest 1V IMPRESSION: There is persistent opacity of the left mid and lower lung which appears overall similar to radiographs in January and August 2021. Consider CT for further evaluation given persistence.
--- NOTE | ~2022-02-07 | CT_ITS ---
EXAMINATION: CT CHEST WITHOUT CONTRAST CLINICAL INFORMATION: Shortness of breath with abnormal chest x-ray COMPARISON: Chest x-ray 02/07/2022, 09/08/2021 TECHNIQUE: Multidetector volumetric CT imaging of the chest was done. Axial MIP volume rendering provided. Sagittal and coronal reformatted images were obtained. This CT examination was performed using dose optimization techniques as appropriate, variously including the following: *Automated exposure control *Adjustment of mA and/or kV according to patient size (this includes techniques or standardized protocols for targeted exams where dose is matched to indication/reason for exam; i.e. extremities or head) *Use of iterative reconstruction technique DLP: 204 mGy-cm FINDINGS: LUNGS: Masslike opacity in the left upper lobe abutting the peripheral pleural surface and mediastinum measure approximately 5.6 x 5.7 cm in axial dimension is 6.4 cm in craniocaudal dimension. No gross chest wall invasion. Mild thickening of the underlying and adjacent peripheral pleural surface. Peripheral reticulation in both lungs compatible with mild fibrosis. Mild volume loss and atelectasis in the left lower lobe. Central airways are clear. There is occlusion of a left upper lobar bronchus by the left upper lobe mass on series 5 image 201. Small amount of secretions or mucous in lower lobe bronchi bilaterally. MEDIASTINUM: No cardiomegaly or pericardial effusion. Moderate LAD coronary calcifications. Moderate calcifications of the thoracic aorta. No thoracic aortic aneurysm. Normal caliber central pulmonary trunk. No mediastinal or hilar lymphadenopathy by size criteria. PLEURA: No pleural effusions. AXILLA: No lymphadenopathy. UPPER ABDOMEN: 2.1 cm right adrenal nodule with attenuation values 26 Hounsfield units. Findings unchanged since 12/20/2016, compatible with benign etiology likely an adenoma. Mild to moderate fatty atrophy of the pancreas. Status post cholecystectomy with surgical clips in the gallbladder fossa. Pneumobilia is noted. OSSEOUS STRUCTURES: Compression deformities of T5, T6, T11, T12, presumably chronic. Multilevel degenerative disc disease. No suspicious appearing osseous lesion. Subacute to chronic appearing left 12th rib fracture. CT/CT chest wo con IMPRESSION: 1. Masslike opacity in the left upper lobe measuring approximately 5.6 x 5.7 x 6.4 cm in size, suspicious for neoplasm such as primary lung malignancy. Suggest pulmonary consultation for consideration of biopsy as well as PET/CT. 2. Mild interstitial fibrosis and mild left lower lobe atelectasis. 3. Unchanged 2.1 cm right adrenal nodule since 2017 compatible with benign etiology, likely an adenoma.
[2022-02-07 19:18] VITALS: BP 131/64; PULSE 95; RESP 20; TEMP 36.8; O2SAT 88; BMI 21.0
--- NOTE | 2022-02-07 19:27 | ECG_ITS ---
Test Reason : SOB Blood Pressure : / mmHG Vent. Rate : 097 BPM Atrial Rate : 097 BPM P-R Int : 154 ms QRS Dur : 096 ms QT Int : 446 ms P-R-T Axes : 043 009 038 degrees QTc Int : 566 ms Normal sinus rhythm Inferior infarct (cited on or before 31-JAN-2022) Prolonged QT Abnormal ECG When compared with ECG of 01-FEB-2022 16:38, QT has lengthened Referred By: Donte Child Electronically Signed By:PRATEEK MIRANDA MD
[2022-02-07] MEDS: Albuterol/Iprat 2.5/0.5MG 3 ML AMPUL.NEB INHALE (19:32)
[2022-02-07] MEDS: Albuterol Sulfate (0.083%) 2.5 MG/3 ML VIAL.NEB 7.5 MG INHALE (19:32)
[2022-02-07 19:33] VITALS: PULSE 96; RESP 18; O2SAT 90
--- NOTE | 2022-02-07 19:34 | ED_ITS ---
HPI - General Adult General Chief complaint: General Medical Stated complaint: SOB/COPD Time Seen by Provider: 02/07/22 19:25 Source: patient and EMS Mode of arrival: EMS Limitations: no limitations History of Present Illness HPI narrative: 86-year-old female history of COPD on 3 L of supplemental oxygen at home, c hronic respiratory failure, presented today with SOB, worsening for the last 10 days, also complaining of dry cough, had subjective fever and having right-sided chest pain with coughing patient was found to be hypoxic on 3 L of oxygen 86%. Related Data Home Medications Medication Instructions Recorded Confirmed aspirin 81 mg tablet,delayed 81 mg PO DAILY 05/16/20 01/31/22 release albuterol sulfate 90 mcg/actuation 2 puff inhalation Q4H PRN 01/31/22 01/31/22 aerosol inhaler (Ventolin HFA) bronchospasm amitriptyline 25 mg tablet 50 mg PO BEDTIME 01/31/22 01/31/22 diltiazem HCl 120 mg 120 mg PO DAILY 01/31/22 01/31/22 capsule,extended release 24 hr ipratropium 0.5 mg-albuterol 3 mg 3 ml inhalation QID PRN COPD 01/31/22 01/31/22 (2.5 mg base)/3 mL nebulization soln ipratropium 20 mcg-albuterol 100 1 puff inhalation Q6H 01/31/22 01/31/22 mcg/actuation mist for inhalation (Combivent Respimat) Previous Rx's Medication Instructions Recorded fluticasone propionate 110 2 puff inhalation BID #12 grams 02/28/21 mcg/actuation HFA aerosol inhaler (Flovent HFA) pravastatin 40 mg tablet 40 mg PO BEDTIME #90 tabs 05/10/21 ferrous sulfate 325 mg (65 mg 325 mg PO DAILY #30 caps 08/25/21 iron) tablet (Feosol) omeprazole 20 mg capsule,delayed 20 mg PO DAILY #30 caps 09/10/21 release cyanocobalamin (vitamin B-12) 1,000 mcg PO DAILY 90 days #90 tabs 09/16/21 1,000 mcg tablet,extended release citalopram 40 mg tablet 40 mg PO DAILY #30 caps 11/10/21 lorazepam 0.5 mg tablet 0.5 mg PO BID PRN anxiety 30 days 01/05/22 #60 tabs clopidogrel 75 mg tablet 75 mg PO DAILY #30 caps 01/19/22 azithromycin 250 mg tablet 250 mg PO DAILY 3 days #3 tabs 02/02/22 cefuroxime axetil 500 mg tablet 500 mg PO BID 5 days #10 tabs 02/02/22 Allergies Allergy/AdvReac Type Severity Reaction Status Date / Time No Known Allergies Allergy Verified 01/31/22 11:48 Review of Systems Review of Systems: All other systems are reviewed and are negative Constitutional: Reports as per HPI and Reports no additional constitutional complaints Eyes: Reports as per HPI and Reports no additional eye complaints Reports system reviewed and no additional complaints, except as documented Cardiovascular: Reports as per HPI and Reports no additional cardiovascular complaints Respiratory: Reports as per HPI and Reports no additional respiratory complaints Gastrointestinal: Reports as per HPI and Reports no additional gastrointestinal complaints Genitourinary: Reports no additional female genitourinary complaints Musculoskeletal: Reports no additional musculoskeletal complaints Skin/Breast: Reports system reviewed and no additional complaints, except as docu Psychiatric: Reports no additional psychiatric complaints Endocrine: Reports no additional endocrine complaints Hematologic/Lymphatic: Reports no additional hematologic/lymphatic complaints Allergic/Immunologic: Reports no additional allergic/immunologic complaints Reports system reviewed and no additional complaints, except as documented and Reports Abnormal speech present [facility] Past Medical History Medical History Anxiety Benign essential hypertension COPD (chronic obstructive pulmonary disease) Depression GERD (gastroesophageal reflux disease) History of TIA (transient ischemic attack) Hyperlipidemia Iron deficiency anemia Mild cognitive impairment Osteoarthritis of left hip Polymyalgia rheumatica Vitamin B12 deficiency Vitamin D deficiency Surgical History History of cataract surgery History of ERCP Hx laparoscopic cholecystectomy Family History Family History Father No problems noted. Mother No problems noted. Unknown Family hx of colon cancer Family history of coronary artery disease Social History Social History Household Members: Family Housing: Apartment Do you presently have visiting nurse or other home services: Yes Alcohol intake: former Patient Tobacco Use Status: Former Tobacco user Second Hand Smoke Exposure: Yes Use of substances other than those prescribed or required for medical reasons: No Advance Directives: Yes Advance Directives on File: Yes Advance Directives Date on File: 09/09/21 service: No Current occupational status: retired Physical Exam ED Vital Signs: Vital Signs - 24 hr 02/07/22 19:18 02/07/22 19:33 02/07/22 21:59 Temperature 98.3 F Pulse Rate 95 96 96 Respiratory Rate 20 18 24 H Blood Pressure 131/64 Pulse Oximetry 88 L 97 Oxygen Delivery Method Nasal Cannula Venturi Mask Oxygen Flow Rate 8 Fraction of Inspired Oxygen 40 02/07/22 22:44 Temperature 98.3 F Pulse Rate 92 Respiratory Rate 20 Blood Pressure 111/52 L Pulse Oximetry 95 Oxygen Delivery Method Venturi Mask Oxygen Flow Rate 8 Fraction of Inspired Oxygen BMI result Body Mass Index 21.0 Vital signs have been reviewed as appeared to be correct. Blood pressure normal. Heart rate normal. Respiration rate normal. Temperature normal. Oxygen saturation low. Appearance: Alert. Oriented X3. No acute distress. Head: Normal external exam. Normocephalic. Atraumatic. No Mcdermott signs noted. No raccoon eyes noted Eyes: PERRLA. EOMI. Conjunctiva and sclera normal. Eyelids normal. ENT: TM's Normal. Pharynx normal. Uvula midline. Moist mucous membranes. No trismus noted. No drooling noted. No muffled voice noted. Neck: Normal inspection. Neck supple. FROM. No adenopathy. Thyroid Normal. No meningeal signs. No neck mass noted. CVS: Normal heart rate and rhythm. Heart sound normal. No murmurs noted. Pulses normal throughout. Respiratory: No respiratory distress. Painless inspiration. Breath sounds normal. Diffuse mild expiratory wheezing with prolonged expiration. No accessory muscle usage noted, decreased air movement bilaterally. Reproducible tenderness in the mid right chest wall, no step-off, no deformity. Abdomen: Soft and nontender. Bowel sounds normal in all 4 quadrants. No distention noted. No organomegaly noted. No visible injury noted. Back: No CVA tenderness. Full range of motion noted. Skin: Skin warm and dry. Normal skin color. Normal skin turgor. No ra shes/lesions/lacerations noted. Extremities: No lower extremity edema. Extremities exhibit normal range of motion. Extremities nontender. Neuro: Oriented X 3. Cranial nerve exam: II-XII are grossly intact No motor deficit. No sensory deficit. Reflexes normal. Course Course Course Narrative: Assessment and plan. 86-year-old female history of COPD and chronic respiratory failure presented with shortness of breath and hypoxia. Chest x-ray is unchanged from previous x- ray CT of the chest is suspicious for left lung primary lung cancer. Will admit the patient for COPD exacerbation and further evaluation of the lung mass. Medical Decision Making Medical Records Medical records reviewed: Yes I reviewed the patient's medical records. Lab Data Lab results reviewed: Yes I reviewed the patient's lab results. Result diagrams: 02/07/22 19:51 02/07/22 20:44 Labs: Lab Results 02/07/22 02/07/22 02/07/22 Range/Units 19:48 19:49 19:51 WBC 13.7 H (4.8-10.8) X10*3/uL RBC 3.57 L (4.20-5.50) X10*6/uL Hgb 9.3 L (12.0-16.0) g/dl Hct 32.6 L (37.0-47.0) % MCV 91.3 (80.0-98.0) fL MCH 26.1 L (27.0-33.0) pg MCHC 28.5 L (31.0-35.0) g/dl RDW 13.6 (11.0-16.0) % Plt Count 310 (160-400) X10*3/uL MPV 9.6 (9.4-12.3) fL Immature Gran % (Auto) 0.4 (0.0-0.4) % Neut % (Auto) 84.0 H (45-73) % Lymph % (Auto) 6.4 L (20-40) % Bowie % (Auto) 7.0 (2-11) % Eos % (Auto) 2.0 (0-4) % Baso % (Auto) 0.2 (0-2) % Lymph # (Auto) 0.9 L (1.2-4.9) X10*3/uL Bowie # (Auto) 1.0 (0.1-1.2) X10*3/uL Eos # (Auto) 0.3 (0.0-0.4) X10*3/uL Baso # (Auto) 0.0 (0.0-0.2) X10*3/uL Abs Immat Gran (auto) 0.06 H (0.00-0.03) X10*3/uL Absolute Neuts (auto) 11.5 H (2.0-8.3) x10*3/uL Absolute Nucleated RBC 0.000 (0.0-0.012) X10*3/uL Nucleated RBC % (auto) 0.0 (0.0-0.2) /100WBC Smear Tech's Comments VERIFIED Sodium (135-145) mmol/L Potassium (3.3-5.1) mmol/L Chloride (96-108) mmol/L Carbon Dioxide (22-29) mmol/L Anion Gap (12-20) BUN (9-16) mg/dL Creatinine (0.5-1.4) mg/dL Estim Creat Clear Calc Estimated GFR Random Glucose (60-115) mg/dL Lactic Acid 2.1 H* (0.5-2.0) mmol/L Lactic Acid F/U @ 2Hr (0.5-2.0) mmol/L Calcium (8.4-10.2) mg/dL Magnesium (1.6-2.6) mg/dL Total Bilirubin (0.0-1.0) mg/dL Direct Bilirubin (0.0-0.5) mg/dL AST (5-31) U/L ALT (0-31) U/L Alkaline Phosphatase (39-117) U/L Troponin I High Sens (<3.5-17.0) ng/L B-Natriuretic Peptide (<100) pg/mL Total Protein (6.5-8.0) g/dL Albumin (3.5-5.0) g/dL Lipase (8-78) U/L Influenza Type A (PCR) NEGATIVE (Negative) Influenza Type B (PCR) NEGATIVE (Negative) RSV RNA Qual (PCR) NEGATIVE (Negative) SARS-CoV-2 RNA (RT-PCR) NEGATIVE (Negative) 02/07/22 02/07/22 02/07/22 Range/Units 19:51 19:51 20:44 WBC (4.8-10.8) X10*3/uL RBC (4.20-5.50) X10*6/uL Hgb (12.0-16.0) g/dl Hct (37.0-47.0) % MCV (80.0-98.0) fL MCH (27.0-33.0) pg MCHC (31.0-35.0) g/dl RDW (11.0-16.0) % Plt Count (160-400) X10*3/uL MPV (9.4-12.3) fL Immature Gran % (Auto) (0.0-0.4) % Neut % (Auto) (45-73) % Lymph % (Auto) (20-40) % Bowie % (Auto) (2-11) % Eos % (Auto) (0-4) % Baso % (Auto) (0-2) % Lymph # (Auto) (1.2-4.9) X10*3/uL Bowie # (Auto) (0.1-1.2) X10*3/uL Eos # (Auto) (0.0-0.4) X10*3/uL Baso # (Auto) (0.0-0.2) X10*3/uL Abs Immat Gran (auto) (0.00-0.03) X10*3/uL Absolute Neuts (auto) (2.0-8.3) x10*3/uL Absolute Nucleated RBC (0.0-0.012) X10*3/uL Nucleated RBC % (auto) (0.0-0.2) /100WBC Smear Tech's Comments Sodium 143 (135-145) mmol/L Potassium 4.1 (3.3-5.1) mmol/L Chloride 93 L (96-108) mmol/L Carbon Dioxide 41 H* (22-29) mmol/L Anion Gap 13 (12-20) BUN 17 H (9-16) mg/dL Creatinine 0.70 (0.5-1.4) mg/dL Estim Creat Clear Calc 51.6 Estimated GFR > 60 Random Glucose 125 H (60-115) mg/dL Lactic Acid (0.5-2.0) mmol/L Lactic Acid F/U @ 2Hr (0.5-2.0) mmol/L Calcium 10.5 H D (8.4-10.2) mg/dL Magnesium 3.1 H (1.6-2.6) mg/dL Total Bilirubin 0.4 (0.0-1.0) mg/dL Direct Bilirubin 0.2 (0.0-0.5) mg/dL AST 11 (5-31) U/L ALT 7 (0-31) U/L Alkaline Phosphatase 77 (39-117) U/L Troponin I High Sens 3.9 (<3.5-17.0) ng/L B-Natriuretic Peptide 33 (<100) pg/mL Total Protein 6.8 (6.5-8.0) g/dL Albumin 3.3 L (3.5-5.0) g/dL Lipase < 4 L (8-78) U/L Influenza Type A (PCR) (Negative) Influenza Type B (PCR) (Negative) RSV RNA Qual (PCR) (Negative) SARS-CoV-2 RNA (RT-PCR) (Negative) 02/07/22 Range/Units 22:41 WBC (4.8-10.8) X10*3/uL RBC (4.20-5.50) X10*6/uL Hgb (12.0-16.0) g/dl Hct (37.0-47.0) % MCV (80.0-98.0) fL MCH (27.0-33.0) pg MCHC (31.0-35.0) g/dl RDW (11.0-16.0) % Plt Count (160-400) X10*3/uL MPV (9.4-12.3) fL Immature Gran % (Auto) (0.0-0.4) % Neut % (Auto) (45-73) % Lymph % (Auto) (20-40) % Bowie % (Auto) (2-11) % Eos % (Auto) (0-4) % Baso % (Auto) (0-2) % Lymph # (Auto) (1.2-4.9) X10*3/uL Bowie # (Auto) (0.1-1.2) X10*3/uL Eos # (Auto) (0.0-0.4) X10*3/uL Baso # (Auto) (0.0-0.2) X10*3/uL Abs Immat Gran (auto) (0.00-0.03) X10*3/uL Absolute Neuts (auto) (2.0-8.3) x10*3/uL Absolute Nucleated RBC (0.0-0.012) X10*3/uL Nucleated RBC % (auto) (0.0-0.2) /100WBC Smear Tech's Comments Sodium (135-145) mmol/L Potassium (3.3-5.1) mmol/L Chloride (96-108) mmol/L Carbon Dioxide (22-29) mmol/L Anion Gap (12-20) BUN (9-16) mg/dL Creatinine (0.5-1.4) mg/dL Estim Creat Clear Calc Estimated GFR Random Glucose (60-115) mg/dL Lactic Acid (0.5-2.0) mmol/L Lactic Acid F/U @ 2Hr 1.6 (0.5-2.0) mmol/L Calcium (8.4-10.2) mg/dL Magnesium (1.6-2.6) mg/dL Total Bilirubin (0.0-1.0) mg/dL Direct Bilirubin (0.0-0.5) mg/dL AST (5-31) U/L ALT (0-31) U/L Alkaline Phosphatase (39-117) U/L Troponin I High Sens (<3.5-17.0) ng/L B-Natriuretic Peptide (<100) pg/mL Total Protein (6.5-8.0) g/dL Albumin (3.5-5.0) g/dL Lipase (8-78) U/L Influenza Type A (PCR) (Negative) Influenza Type B (PCR) (Negative) RSV RNA Qual (PCR) (Negative) SARS-CoV-2 RNA (RT-PCR) (Negative) Imaging Data Chest x-ray: Attestation: I personally reviewed and interpreted this imaging study as follows: Radiologist's impression: There is persistent opacity of the left mid and lower lung which appears overall similar to radiographs in January and August [address]. [address] for further evaluation given persistence. Chest CT: Attestation: I personally reviewed and interpreted this imaging study as follows: Radiologist's impression: 1. Masslike opacity in the left upper lobe measuring approximately 5.6 x 5.7 x 6.4 cm in size, suspicious for neoplasm such as primary lung malignancy. Suggest pulmonary consultation for consideration of biopsy as well as PET/CT. 2. Mild interstitial fibrosis and mild left lower lobe atelectasis. 3. Unchanged 2.1 cm right adrenal nodule since 2017 compatible with benign etiology, likely an adenoma. Discharge Plan Discharge Clinical Impression: COPD exacerbation, Mass of left lung Patient Disposition: Admitted As Inpatient
[2022-02-07 20:00] LABS: Hemoglobin 9.3 g/dl (12.0-16.0); PLT CLUMP 1; Red Cell Distribution Width 13.6 % (11.0-16.0); SCAN SMEAR FLAG 1
[2022-02-07] MEDS: methylPREDNISolone Sod Succ 125 MG/2 ML VIAL IVPUSH (20:01)
[2022-02-07] MEDS: Magnesium Sulfate/H2O 2 GM/50 ML PIGGYBACK IV (20:01)
[2022-02-07 20:02] LABS: Basophils Percent Auto 0.2 % (0-2); Eosinophils Absolute Auto 0.3 X10*3/uL (0.0-0.4); Hematocrit 32.6 % (37.0-47.0); Imm Gran Abs Auto 0.06 X10*3/uL (0.00-0.03); Imm Gran Pct Auto 0.4 % (0.0-0.4); Lymphocytes Absolute Auto 0.9 X10*3/uL (1.2-4.9); Lymphocytes Percent Auto 6.4 % (20-40); MANUAL DIFF FLAG SCAN; Mean Corpuscular HGB Conc 28.5 g/dl (31.0-35.0); Mean Corpuscular Hemoglobin 26.1 pg (27.0-33.0); Mean Corpuscular Volume 91.3 fL (80.0-98.0); Neutrophils Absolute Auto 11.5 x10*3/uL (2.0-8.3); Red Blood Count 3.57 X10*6/uL (4.20-5.50)
[2022-02-07 20:12] LABS: White Blood Count 13.7 X10*3/uL (4.8-10.8)
[2022-02-07 20:19] LABS: B Type Natriuretic Peptide 33 pg/mL (<100); Troponin-I High Sensitivity 3.9 ng/L (<3.5-17.0)
[2022-02-07 20:31] LABS: Lactic Acid 2.1 mmol/L (0.5-2.0)
[2022-02-07 20:50] LABS: Mean Platelet Volume 9.6 fL (9.4-12.3); Platelet Count 310 X10*3/uL (160-400)
[2022-02-07 21:13] LABS: Influenza A PCR NEGATIVE (Negative); Influenza B PCR NEGATIVE (Negative); Resp Syncy Virus RNA Qual PCR NEGATIVE (Negative); SARS COV2 PCR INHOUSE NEGATIVE (Negative)
[2022-02-07 21:19] LABS: SLIDE REVIEW VERIFIED
[2022-02-07 21:30] LABS: Alanine Aminotransferase 7 U/L (0-31); Albumin Level 3.3 g/dL (3.5-5.0); Alkaline Phosphatase 77 U/L (39-117); Anion Gap 13 (12-20); Aspartate Amino Transferase 11 U/L (5-31); Bilirubin Direct 0.2 mg/dL (0.0-0.5); Bilirubin Total 0.4 mg/dL (0.0-1.0); Blood Urea Nitrogen 17 mg/dL (9-16); Calcium 10.5 mg/dL (8.4-10.2); Carbon Dioxide 41 mmol/L (22-29); Chloride 93 mmol/L (96-108); Creatinine Clr Calc Pharmacy 51.6; Estimated Glomerular Filt Rate > 60; Glucose Random 125 mg/dL (60-115); Lipase < 4 U/L (8-78); Magnesium 3.1 mg/dL (1.6-2.6); Potassium 4.1 mmol/L (3.3-5.1); Sodium 143 mmol/L (135-145); Total Protein 6.8 g/dL (6.5-8.0)
[2022-02-07 21:55] LABS: Reflex Lactate? Lactic Acid Added
[2022-02-07 21:59] VITALS: PULSE 96; RESP 24; O2SAT 97
[2022-02-07 22:44] VITALS: BP 111/52; PULSE 92; RESP 20; TEMP 36.8; O2SAT 95
[2022-02-07 22:57] LABS: ~Lactic Acid-LAB USE ONLY 1.6 mmol/L (0.5-2.0)
--- NOTE | 2022-02-07 23:45 | PM.IMHP ---
History of Present Illness Date of Service: 02/07/22 Chief Complaint: SOB 86-year-old female with past medical history of COPD on 3 L of oxygen at baseline, HTN, HLD, polymyalgia rheumatica 0, depression anxiety, GERD among others who presents to the hospital with complaints of shortness of breath. Of note patient was discharged on 02/02 after being treated for pneumonia and COPD exacerbation. Patient was treated with IV antibiotics, and sent home on p.o. antibiotics. Patient reports that ever since being discharged she continued to be short of breath, and not feel too well, she had cough, sputum production, and no significant improvement in her symptoms and decided to come back to the hospital. She reports no chest pain, she felt feverish, has chills, no abdominal pain nausea or vomiting, no diarrhea constipation, no urinary symptoms and no lower extremity edema. Patient's vitals on arrival showed a hypoxia of 88% on 4 L of oxygen,Pt currently on Venturi mask satting in the high 90s Labs are significant for WBC count of 8.6, hemoglobin of 9.3 which is around her baseline, hematocrit 32.6, lactic acid of 2.1, COVID-19 negative, CT of the chest shows masslike opacity in the left upper lobe measuring approximately 5.6 x 5.7 x 6.4 cm in size, suspicious for neoplasm, mild interstitial fibrosis and mild left lower lobe atelectasis. Given the hypoxia patient will be admitted for further management Review of Systems Review of Systems: Yes all other systems are reviewed and are negative [facility] Medical History Anxiety Benign essential hypertension COPD (chronic obstructive pulmonary disease) Depression GERD (gastroesophageal reflux disease) History of TIA (transient ischemic attack) Hyperlipidemia Iron deficiency anemia Mild cognitive impairment Osteoarthritis of left hip Polymyalgia rheumatica Vitamin B12 deficiency Vitamin D deficiency Family History Father No problems noted. Mother No problems noted. Unknown Family hx of colon cancer Family history of coronary artery disease Surgical History History of cataract surgery History of ERCP Hx laparoscopic cholecystectomy Social History Household Members: Family Housing: Apartment Do you presently have visiting nurse or other home services: Yes Alcohol intake: former Patient Tobacco Use Status: Former Tobacco user Second Hand Smoke Exposure: Yes Use of substances other than those prescribed or required for medical reasons: No Advance Directives: Yes Advance Directives on File: Yes Advance Directives Date on File: 09/09/21 service: No Current occupational status: retired Meds Allergies Allergy/AdvReac Type Severity Reaction Status Date / Time No Known Allergies Allergy Verified 01/31/22 11:48 Active Medications: Current Medications Acetaminophen (Acetaminophen 325 Mg Tablet) 650 mg PO Q6H PRN PRN Reason: Pain, Mild (Pain Scale 1-3) Albuterol/Ipratropium (Albuterol/Iprat 2.5/0.5mg 3 Ml Ampul.Neb) 3 ml INHALE RQ4H PRN PRN Reason: Shortness of Breath/Wheezing Albuterol/Ipratropium (Albuterol/Iprat 2.5/0.5mg 3 Ml Ampul.Neb) 3 ml INHALE RQ4H WHILE AWAKE CECILIO Docusate Sodium (Docusate Sodium 100 Mg Capsule) 100 mg PO DAILY PRN PRN Reason: Constipation Heparin Sodium (Porcine) (Heparin Sodium,Porcine 5,000 Unit/Ml Vial) 5,000 unit SUBCUT Q12H [facility] Lactated Ringer's (Lr) 1,000 mls @ 100 mls/hr IVCONT .Q10H [facility] Azithromycin 500 mg/ Sodium (Chloride) 250 mls @ 125 mls/hr IV Q24H [facility]EC[facility] Methylprednisolone Sodium Succinate (Methylprednisolone Sod Succ 40 Mg/Ml Vial) 40 mg IVPUSH Q12H C[facility] Ondansetron HCl (Ondansetron Hcl 4 Mg/2 Ml Vial) 4 mg IVPUSH Q8H PRN PRN Reason: Nausea and Vomiting Pharmacy Consult (Consult Rx Perform Med Rec) 1 each MISCELLANE ONCE PRN PRN Reason: Consult order Sodium Chloride (0.9 % Sodium Chloride Flush 3 Ml Syringe) 3 ml IVFLUSH QSHIFT [facility] Home Medications Medication Instructions Recorded Confirmed Last Taken Type aspirin 81 mg tablet,delayed 81 mg PO DAILY 05/16/20 01/31/22 01/30/22 History release albuterol sulfate 90 mcg/actuation 2 puff inhalation Q4H PRN 01/31/22 01/31/22 01/31/22 History aerosol inhaler (Ventolin HFA) bronchospasm amitriptyline 25 mg tablet 50 mg PO BEDTIME 01/31/22 01/31/22 01/30/22 History diltiazem HCl 120 mg 120 mg PO DAILY 01/31/22 01/31/22 01/30/22 History capsule,extended release 24 hr ipratropium 0.5 mg-albuterol 3 mg 3 ml inhalation QID PRN COPD 01/31/22 01/31/22 Unknown History (2.5 mg base)/3 mL nebulization soln ipratropium 20 mcg-albuterol 100 1 puff inhalation Q6H 01/31/22 01/31/22 01/31/22 History mcg/actuation mist for inhalation (Combivent Respimat) Physical Exam Vital Signs and Narrative: Vital Signs: Last Vital Signs Temp 98.3 F 02/07/22 22:44 Pulse 92 02/07/22 22:44 Resp 20 02/07/22 22:44 BP 111/52 L 02/07/22 22:44 Pulse Ox 95 02/07/22 22:44 O2 Del Method 02/07/22 22:44 O2 Flow Rate 8 02/07/22 22:44 FiO2 40 02/07/22 21:59 Oxygen Flow Rate 4 02/07/22 19:18 BMI result Body Mass Index 21.0 Const: General: cooperative and no acute distress Orientation/consciousness: patient oriented x3 Eyes: General: appearance normal, both eyes and all related structures Pupils: Equal, round and reactive pupils present Resp: Other: Bilateral crackles Effort & Inspection: normal respiratory effort and able to speak in complete sentences Cardio: Rate: regular rate Rhythm: regular rhythm GI: Palpation (GI): Soft to palpation Auscultation: normal bowel sounds Skin: General skin exam: no rashes or lesions noted Neuro: General: patient oriented x3 Cranial nerves: Yes Equal, round and reactive pupils present Cognition (Neuro): normal cognition Extrem: General: Yes normal to inspection and Yes no pedal edema Results Labs CBC and Chem 7: 02/08/22 06:10 02/08/22 06:10 Labs: Laboratory Results - last 24 hr 02/07/22 02/07/22 02/07/22 19:48 19:49 19:51 MCV 91.3 MCH 26.1 L MCHC 28.5 L RDW 13.6 Plt Count 310 MPV 9.6 Immature Gran % (Auto) 0.4 Neut % (Auto) 84.0 H Lymph % (Auto) 6.4 L [place] % (Auto) 7.0 Eos % (Auto) 2.0 Baso % (Auto) 0.2 Lymph # (Auto) 0.9 L [place] # (Auto) 1.0 Eos # (Auto) 0.3 Baso # (Auto) 0.0 Abs Immat Gran (auto) 0.06 H Absolute Neuts (auto) 11.5 H Absolute Nucleated RBC 0.000 Nucleated RBC % (auto) 0.0 Smear Tech's Comments VERIFIED Anion Gap Estim Creat Clear Calc Estimated GFR Random Glucose Lactic Acid 2.1 H* Lactic Acid F/U @ 2Hr Calcium Magnesium Total Bilirubin Direct Bilirubin AST ALT Alkaline Phosphatase Troponin I High Sens B-Natriuretic Peptide Total Protein Albumin Lipase Influenza Type A (PCR) NEGATIVE Influenza Type B (PCR) NEGATIVE RSV RNA Qual (PCR) NEGATIVE SARS-CoV-2 RNA (RT-PCR) NEGATIVE 02/07/22 02/07/22 02/07/22 19:51 19:51 20:44 MCV MCH MCHC RDW Plt Count MPV Immature Gran % (Auto) Neut % (Auto) Lymph % (Auto) [place] % (Auto) Eos % (Auto) Baso % (Auto) Lymph # (Auto) [place] # (Auto) Eos # (Auto) Baso # (Auto) Abs Immat Gran (auto) Absolute Neuts (auto) Absolute Nucleated RBC Nucleated RBC % (auto) Smear Tech's Comments Anion Gap 13 Estim Creat Clear Calc 51.6 Estimated GFR > 60 Random Glucose 125 H Lactic Acid Lactic Acid F/U @ 2Hr Calcium 10.5 H D Magnesium 3.1 H Total Bilirubin 0.4 Direct Bilirubin 0.2 AST 11 ALT 7 Alkaline Phosphatase 77 Troponin I High Sens 3.9 B-Natriuretic Peptide 33 Total Protein 6.8 Albumin 3.3 L Lipase < 4 L Influenza Type A (PCR) Influenza Type B (PCR) RSV RNA Qual (PCR) SARS-CoV-2 RNA (RT-PCR) 02/07/22 22:41 MCV MCH MCHC RDW Plt Count MPV Immature Gran % (Auto) Neut % (Auto) Lymph % (Auto) [place] % (Auto) Eos % (Auto) Baso % (Auto) Lymph # (Auto) [place] # (Auto) Eos # (Auto) Baso # (Auto) Abs Immat Gran (auto) Absolute Neuts (auto) Absolute Nucleated RBC Nucleated RBC % (auto) Smear Tech's Comments Anion Gap Estim Creat Clear Calc Estimated GFR Random Glucose Lactic Acid Lactic Acid F/U @ 2Hr 1.6 Calcium Magnesium Total Bilirubin Direct Bilirubin AST ALT Alkaline Phosphatase Troponin I High Sens B-Natriuretic Peptide Total Protein Albumin Lipase Influenza Type A (PCR) Influenza Type B (PCR) RSV RNA Qual (PCR) SARS-CoV-2 RNA (RT-PCR) Imaging Radiologist's Impressions: Impressions Chest X-Ray 02/07/22 19:55 IMPRESSION: There is persistent opacity of the left mid and lower lung which appears overall similar to radiographs in January and August 2021. Consider CT for further evaluation given persistence. Chest CT 02/07/22 22:40 IMPRESSION: 1. Masslike opacity in the left upper lobe measuring approximately 5.6 x 5.7 x 6.4 cm in size, suspicious for neoplasm such as primary lung malignancy. Suggest pulmonary consultation for consideration of biopsy as well as PET/CT. 2. Mild interstitial fibrosis and mild left lower lobe atelectasis. 3. Unchanged 2.1 cm right adrenal nodule since 2017 compatible with benign etiology, likely an adenoma. Assessment and Plan (1) Acute and chronic respiratory failure with hypoxia: Status: Acute (2) Mass of left lung: Status: Acute (3) COPD exacerbation: Status: Acute Plan 86-year-old female with past medical history of COPD who presents to the hospital with shortness of breath, cough and sputum production found to have COPD exacerbation as well as mass on chest CT # acute on chronic hypoxic respiratory failure - secondary to COPD exacerbation - unusually is on 3 L of oxygen at baseline, presented with an oxygen level of 88% on her baseline oxygen - no evidence of pneumonia on chest CT, has atelectasis, and mess suspicious for malignancy - continue O2 supplement, titrate down to home O2 # acute on chronic COPD exacerbation - has cough, sputum production, as well as dyspnea - recent discharge on 02/02 for pneumonia and COPD exacerbation - will treat with IV Solu-Medrol - DuoNeb scheduled as well as p.r.n. - follow respiratory status # lung mass - CT evidence of lung mass suspicious for malignancy - consult pulmonology #GERD Continue omeprazole # h/o TIA - Continue Aspirin, statin ? why on plavix #Hypertension - Continue Cardizem # Mood - Continue Lexapro, Ativan DVT ppx: Hepairn Subq Given pts hypoxia and need for more oxygen she will require a minimum 2 night hospital stay Quality Stroke Does the patient have a stroke diagnosis?: No VTE Prior VTE?: No VTE Risk Level:: Medical - moderate - high VTE Device Contraindication: Treatment Not Indicated VTE Drug Contraindication: N/A - Med Ordered
[2022-02-08] VITALS (7 sets, daily range): BP systolic 111–161; BP diastolic 45–71; PULSE 83–97; RESP 18–20; TEMP 36.1–36.7; O2SAT 96–100
[2022-02-08] MEDS: Lactated Ringers 1,000 ML 100 ML IVCONT ×2 (01:50→22:08)
[2022-02-08] MEDS: 0.9 % Sodium Chloride Flush 3 ML SYRINGE IVFLUSH (01:53)
[2022-02-08] MEDS: Heparin Sodium,Porcine 5,000 UNIT/ML VIAL 5000 UNIT SUBCUT ×2 (02:21→14:12)
[2022-02-08] MEDS: Azithromycin 500 MG in 0.9 % Sodium Chloride 250 ML 125 MG IV ×2 (02:21→21:42)
[2022-02-08 06:35] LABS: Basophils Percent Auto 0.1 % (0-2); Hematocrit 31.7 % (37.0-47.0); Imm Gran Abs Auto 0.08 X10*3/uL (0.00-0.03); Imm Gran Pct Auto 0.9 % (0.0-0.4); Lymphocytes Absolute Auto 0.4 X10*3/uL (1.2-4.9); Lymphocytes Percent Auto 4.9 % (20-40); MANUAL DIFF FLAG SCAN; Mean Corpuscular HGB Conc 28.4 g/dl (31.0-35.0); Mean Corpuscular Hemoglobin 25.6 pg (27.0-33.0); Mean Corpuscular Volume 90.3 fL (80.0-98.0); Mean Platelet Volume 9.1 fL (9.4-12.3); Monocytes Absolute Auto 0.1 X10*3/uL (0.1-1.2); Monocytes Percent Auto 0.8 % (2-11); Neutrophils Absolute Auto 8.1 x10*3/uL (2.0-8.3); Neutrophils Percent Auto 93.3 % (45-73); Platelet Count 268 X10*3/uL (160-400); Red Blood Count 3.51 X10*6/uL (4.20-5.50); Red Cell Distribution Width 13.6 % (11.0-16.0); SCAN SMEAR FLAG 1; White Blood Count 8.6 X10*3/uL (4.8-10.8)
[2022-02-08 06:49] LABS: Anion Gap 14 (12-20); Blood Urea Nitrogen 19 mg/dL (9-16); Calcium 9.9 mg/dL (8.4-10.2); Carbon Dioxide 37 mmol/L (22-29); Chloride 96 mmol/L (96-108); Creatinine Clr Calc Pharmacy 54.7; Estimated Glomerular Filt Rate > 60; Glucose Random 158 mg/dL (60-115); Potassium 5.3 mmol/L (3.3-5.1); Sodium 142 mmol/L (135-145)
[2022-02-08 07:13] LABS: SLIDE REVIEW VERIFIED
--- NOTE | 2022-02-08 08:43 | HO.PM.IMPN ---
Subjective Subjective Date of Service: 02/08/22 Interval History: Seen in follow-up for acute hypoxic respiratory failure due to COPD exacerbation and lung mass suspicious for cancer Interval history: Feels better, oxygen saturation has improved. Review of Systems no sob, some cough, no fever Physical Exam Vital Signs: Vital Signs: Last Vital Signs Temp 97.0 F 02/08/22 06:16 Pulse 83 02/08/22 06:16 Resp 18 02/08/22 06:16 BP 160/67 H 02/08/22 06:16 Pulse Ox 100 02/08/22 06:16 O2 Del Method 02/08/22 06:16 O2 Flow Rate 9 02/08/22 06:16 FiO2 40 02/07/22 21:59 Oxygen Flow Rate 4 02/07/22 19:18 BMI result Body Mass Index 21.0 Const: Other: General: AO X 3, no acute distress Resp: rhonchi jacinta CVS: S1,S2,RRR GI: +BS, NT, no distention Skin: No rash Neuro: motor grossly intact Psych: appropriate affect Objective Data Active Medications Acetaminophen (Acetaminophen 325 Mg Tablet) 650 mg PO Q6H PRN PRN Reason: Pain, Mild (Pain Scale 1-3) Albuterol/Ipratropium (Albuterol/Iprat 2.5/0.5mg 3 Ml Ampul.Neb) 3 ml INHALE RQ4H PRN PRN Reason: Shortness of Breath/Wheezing Albuterol/Ipratropium (Albuterol/Iprat 2.5/0.5mg 3 Ml Ampul.Neb) 3 ml INHALE RQ4H WHILE AWAKE [facility] [place] Last Admin: 02/08/22 07:58 Dose: Not Given Documented By: IRINA Non-Admin Reason: pt unavail Docusate Sodium (Docusate Sodium 100 Mg Capsule) 100 mg PO DAILY PRN PRN Reason: Constipation Heparin Sodium (Porcine) (Heparin Sodium,Porcine 5,000 Unit/Ml Vial) 5,000 unit SUBCUT Q12H [facility] Last Admin: 02/08/22 02:21 Dose: 5,000 unit Documented By: LISBETH Lactated Ringer's (Lr) 1,000 mls @ 100 mls/hr IVCONT .Q10H [facility] Last Admin: 02/08/22 01:50 Dose: 100 mls/hr Documented By: REA Azithromycin 500 mg/ Sodium (Chloride) 250 mls @ 125 mls/hr IV DAILY@2200 CECILIO Last Admin: 02/08/22 02:21 Dose: 125 mls/hr Documented By: MCTMile Methylprednisolone Sodium Succinate (Methylprednisolone Sod Succ 40 Mg/Ml Vial) 40 mg IVPUSH Q12H [facility] Ondansetron HCl (Ondansetron Hcl 4 Mg/2 Ml Vial) 4 mg IVPUSH Q8H PRN PRN Reason: Nausea and Vomiting Pharmacy Consult (Consult Rx Perform Med Rec) 1 each MISCELLANE ONCE PRN PRN Reason: Consult order Sodium Chloride (0.9 % Sodium Chloride Flush 3 Ml Syringe) 3 ml IVFLUSH QSHIFT [facility] [place] Last Admin: 02/08/22 01:53 Dose: 3 ml Documented By: REA Labs CBC & Chem 7: 02/08/22 06:10 02/08/22 06:10 Labs: Laboratory Results - last 24 hr 02/07/22 02/07/22 02/07/22 19:48 19:49 19:51 MCV 91.3 MCH 26.1 L MCHC 28.5 L RDW 13.6 Plt Count 310 MPV 9.6 Immature Gran % (Auto) 0.4 Neut % (Auto) 84.0 H Lymph % (Auto) 6.4 L [place] % (Auto) 7.0 Eos % (Auto) 2.0 Baso % (Auto) 0.2 Lymph # (Auto) 0.9 L [place] # (Auto) 1.0 Eos # (Auto) 0.3 Baso # (Auto) 0.0 Abs Immat Gran (auto) 0.06 H Absolute Neuts (auto) 11.5 H Absolute Nucleated RBC 0.000 Nucleated RBC % (auto) 0.0 Smear Tech's Comments VERIFIED Anion Gap Estim Creat Clear Calc Estimated GFR Random Glucose Lactic Acid 2.1 H* Lactic Acid F/U @ 2Hr Calcium Magnesium Total Bilirubin Direct Bilirubin AST ALT Alkaline Phosphatase Troponin I High Sens B-Natriuretic Peptide Total Protein Albumin Lipase Influenza Type A (PCR) NEGATIVE Influenza Type B (PCR) NEGATIVE RSV RNA Qual (PCR) NEGATIVE SARS-CoV-2 RNA (RT-PCR) NEGATIVE 02/07/22 02/07/22 02/07/22 19:51 19:51 20:44 MCV MCH MCHC RDW Plt Count MPV Immature Gran % (Auto) Neut % (Auto) Lymph % (Auto) [place] % (Auto) Eos % (Auto) Baso % (Auto) Lymph # (Auto) [place] # (Auto) Eos # (Auto) Baso # (Auto) Abs Immat Gran (auto) Absolute Neuts (auto) Absolute Nucleated RBC Nucleated RBC % (auto) Smear Tech's Comments Anion Gap 13 Estim Creat Clear Calc 51.6 Estimated GFR > 60 Random Glucose 125 H Lactic Acid Lactic Acid F/U @ 2Hr Calcium 10.5 H D Magnesium 3.1 H Total Bilirubin 0.4 Direct Bilirubin 0.2 AST 11 ALT 7 Alkaline Phosphatase 77 Troponin I High Sens 3.9 B-Natriuretic Peptide 33 Total Protein 6.8 Albumin 3.3 L Lipase < 4 L Influenza Type A (PCR) Influenza Type B (PCR) RSV RNA Qual (PCR) SARS-CoV-2 RNA (RT-PCR) 02/07/22 02/08/22 02/08/22 22:41 06:10 06:10 MCV 90.3 MCH 25.6 L MCHC 28.4 L RDW 13.6 Plt Count 268 MPV 9.1 L Immature Gran % (Auto) 0.9 H Neut % (Auto) 93.3 H Lymph % (Auto) 4.9 L [place] % (Auto) 0.8 L Eos % (Auto) 0.0 Baso % (Auto) 0.1 Lymph # (Auto) 0.4 L [place] # (Auto) 0.1 Eos # (Auto) 0.0 Baso # (Auto) 0.0 Abs Immat Gran (auto) 0.08 H Absolute Neuts (auto) 8.1 Absolute Nucleated RBC 0.000 Nucleated RBC % (auto) 0.0 Smear Tech's Comments VERIFIED Anion Gap 14 Estim Creat Clear Calc 54.7 Estimated GFR > 60 Random Glucose 158 H Lactic Acid Lactic Acid F/U @ 2Hr 1.6 Calcium 9.9 Magnesium Total Bilirubin Direct Bilirubin AST ALT Alkaline Phosphatase Troponin I High Sens B-Natriuretic Peptide Total Protein Albumin Lipase Influenza Type A (PCR) Influenza Type B (PCR) RSV RNA Qual (PCR) SARS-CoV-2 RNA (RT-PCR) Assessment and Plan (1) Acute and chronic respiratory failure with hypoxia: Status: Acute (2) Mass of left lung: Status: Acute Plan 86-year-old female with past medical history of COPD who presents to the hospital with shortness of breath, cough and sputum production found to have COPD exacerbation as well as mass on chest CT # acute on chronic hypoxic respiratory failure d/t COPD exacerbation - unusually is on 3 L of oxygen at baseline, presented with an oxygen level of 88% on her baseline oxygen - no evidence of pneumonia on chest CT, has atelectasis, and mass suspicious for malignancy - continue O2 supplement, titrate down to home O2 # acute on chronic COPD exacerbation - recent discharge on 02/02 for pneumonia and COPD exacerbation - IV Solu-Medrol - DuoNeb scheduled as well as p.r.n. # lung mass - CT evidence of lung mass suspicious for malignancy - pulmonology consult #GERD Continue omeprazole # h/o TIA - Continue Aspirin, statin ? why on plavix #Hypertension - Continue Cardizem # Mood - Continue Lexapro, Ativan DVT ppx: Hepairn Subq Need for inaptient: IV steroid and adjustmeent of O2 for ex of copd with hypoxia, Quality Stroke Does the patient have a stroke diagnosis?: No VTE Prior VTE?: No VTE Risk Level:: Medical - moderate - high VTE Device Contraindication: Treatment Not Indicated VTE Drug Contraindication: N/A - Med Ordered
--- NOTE | 2022-02-08 10:10 | PHA.MEDREC ---
Pharmacy Consult ? Medication Reconciliation Pharmacy has completed the medication reconciliation. Pt poor historian, could not name medications on her own; agreeable to most things I listed. Cross checked recent claim history.
--- NOTE | 2022-02-08 19:15 | PC.NURSE ---
pt requested sleep aide stating she takes amitriptyline at home. informed
[2022-02-08] MEDS: Albuterol/Iprat 2.5/0.5MG 3 ML AMPUL.NEB INHALE (20:47)
[2022-02-08] MEDS: Amitriptyline HCl 50 MG TABLET PO (22:07)
[2022-02-09] VITALS (10 sets, daily range): BP systolic 121–164; BP diastolic 60–74; PULSE 84–100; RESP 16–20; TEMP 36.1–37; O2SAT 94–100; BMI 21.2
[2022-02-09] MEDS: Heparin Sodium,Porcine 5,000 UNIT/ML VIAL 5000 UNIT SUBCUT ×2 (00:47→13:45)
[2022-02-09] MEDS: Lactated Ringers 1,000 ML 100 ML IVCONT (05:50)
[2022-02-09] MEDS: methylPREDNISolone Sod Succ 40 MG/ML VIAL IVPUSH ×2 (08:01→21:25)
[2022-02-09] MEDS: 0.9 % Sodium Chloride Flush 3 ML SYRINGE IVFLUSH ×3 (08:01→21:27)
[2022-02-09] MEDS: Albuterol/Iprat 2.5/0.5MG 3 ML AMPUL.NEB INHALE ×4 (08:11→20:22)
--- NOTE | 2022-02-09 09:44 | PM.CNPUL ---
History of Present Illness History of Present Illness Consult date: 02/09/22 Chief complaint: COPD exacerbation, hypoxic Narrative: This is an inpatient pulmonary consultation. The patient is an 86-year-old female with past medical history of COPD on 3 L of oxygen at baseline, HTN, HLD, polymyalgia rheumatica, who presents to the hospital with complaints of shortness of breath.? Of note patient was discharged on 02/02 after being treated for pneumonia and COPD exacerbation.? Patient was treated with IV antibiotics, and sent home on p.o. antibiotics.? Patient reports that ever since being discharged she continued to be short of breath, and not feel too well, she had cough, sputum production, and no significant improvement in her symptoms and decided to come back to the hospital.? She reports no chest pain, she felt feverish, has chills, no abdominal pain nausea or vomiting, no diarrhea constipation, no urinary symptoms and no lower extremity edema.?The Patient's vitals on arrival showed a hypoxia of 88% on 4 L of oxygen,Pt currently on Venturi mask satting in the high 90s Labs are significant for WBC count of 8.6, hemoglobin of 9.3 which is around her baseline, hematocrit 32.6, lactic acid of 2.1, CT of the chest shows masslike opacity in the left upper lobe measuring approximately 5.6 x 5.7 x 6.4 cm in size, suspicious for neoplasm, mild interstitial fibrosis and mild left lower lobe atelectasis. My evaluation also is noted to have a left lower lobe airspace disease. Currently on azithromycin. Her QT is prolonged therefore should be off the macrolide at this time. I did talk to the patient. She was not aware to much of was going on not sure exactly about her mentation. I did try to call the daughter but there was no brick picker. The patient has a concerning finding with this masslike density. However, she is on Plavix in therefore she would have to be off Plavix for a week prior to any intervention. I do believe that due to her comorbidities doing a PET scan will be very beneficial to assess the extent of the masslike density in to see if there is any metastatic disease. Review of Systems Review of Systems: All other systems are reviewed and are negative Constitutional: Reports as per HPI and Reports no additional constitutional complaints Eyes: Reports as per HPI and Reports no additional eye complaints Reports system reviewed and no additional complaints, except as documented Cardiovascular: Reports as per HPI and Reports no additional cardiovascular complaints Respiratory: Reports as per HPI and Reports no additional respiratory complaints Gastrointestinal: Reports as per HPI and Reports no additional gastrointestinal complaints Genitourinary: Reports no additional female genitourinary complaints Musculoskeletal: Reports no additional musculoskeletal complaints Skin/Breast: Reports system reviewed and no additional complaints, except as docu Psychiatric: Reports no additional psychiatric complaints Endocrine: Reports no additional endocrine complaints Hematologic/Lymphatic: Reports no additional hematologic/lymphatic complaints Allergic/Immunologic: Reports no additional allergic/immunologic complaints Reports system reviewed and no additional complaints, except as documented and Reports Abnormal speech present [facility] Past Medical History Medical History Anxiety Benign essential hypertension COPD (chronic obstructive pulmonary disease) Depression GERD (gastroesophageal reflux disease) History of TIA (transient ischemic attack) Hyperlipidemia Iron deficiency anemia Mild cognitive impairment Osteoarthritis of left hip Polymyalgia rheumatica Vitamin B12 deficiency Vitamin D deficiency Family History Family History Father No problems noted. Mother No problems noted. Unknown Family hx of colon cancer Family history of coronary artery disease Surgical History Surgical History History of cataract surgery History of ERCP Hx laparoscopic cholecystectomy Social History Social History Household Members: Family Housing: Apartment Do you presently have visiting nurse or other home services: No Alcohol intake: former Patient Tobacco Use Status: Former Tobacco user Second Hand Smoke Exposure: Yes Advance Directives Date on File: 09/09/21 service: No Current occupational status: retired [employer] Allergies Allergy/AdvReac Type Severity Reaction Status Date / Time No Known Allergies Allergy Verified 01/31/22 11:48 Active Medications: Current Medications Acetaminophen (Acetaminophen 325 Mg Tablet) 650 mg PO Q6H PRN PRN Reason: Pain, Mild (Pain Scale 1-3) Albuterol/Ipratropium (Albuterol/Iprat 2.5/0.5mg 3 Ml Ampul.Neb) 3 ml INHALE RQ4H PRN PRN Reason: Shortness of Breath/Wheezing Albuterol/Ipratropium (Albuterol/Iprat 2.5/0.5mg 3 Ml Ampul.Neb) 3 ml INHALE RQ4H WHILE AWAKE [facility] Last Admin: 02/09/22 08:11 Dose: 3 ml Amitriptyline HCl (Amitriptyline Hcl 50 Mg Tablet) 50 mg PO BEDTIME [facility] Last Admin: 02/08/22 22:07 Dose: 50 mg Docusate Sodium (Docusate Sodium 100 Mg Capsule) 100 mg PO DAILY PRN PRN Reason: Constipation Heparin Sodium (Porcine) (Heparin Sodium,Porcine 5,000 Unit/Ml Vial) 5,000 unit SUBCUT Q12H [facility] Last Admin: 02/09/22 00:47 Dose: 5,000 unit Lactated Ringer's (Lr) 1,000 mls @ 100 mls/hr IVCONT .Q10H [facility] Last Admin: 02/09/22 05:50 Dose: 100 mls/hr Azithromycin 500 mg/ Sodium (Chloride) 250 mls @ 125 mls/hr IV DAILY@2200 [facility] Last Infusion: 02/09/22 04:24 Dose: Infused Methylprednisolone Sodium Succinate (Methylprednisolone Sod Succ 40 Mg/Ml Vial) 40 mg IVPUSH Q12H [facility] Last Admin: 02/09/22 08:01 Dose: 40 mg Ondansetron HCl (Ondansetron Hcl 4 Mg/2 Ml Vial) 4 mg IVPUSH Q8H PRN PRN Reason: Nausea and Vomiting Pharmacy Consult (Consult Rx Perform Med Rec) 1 each MISCELLANE ONCE PRN PRN Reason: Consult order Sodium Chloride (0.9 % Sodium Chloride Flush 3 Ml Syringe) 3 ml IVFLUSH QSHIFT [facility] Last Admin: 02/09/22 08:01 Dose: 3 ml Home Medications Medication Instructions Recorded Confirmed Last Taken Type aspirin 81 mg tablet,delayed 81 mg PO DAILY 05/16/20 02/08/22 01/30/22 History release albuterol sulfate 90 mcg/actuation 2 puff inhalation Q4H PRN 01/31/22 02/08/22 01/31/22 History aerosol inhaler (Ventolin HFA) bronchospasm amitriptyline 25 mg tablet 50 mg PO BEDTIME 01/31/22 02/08/22 01/30/22 History diltiazem HCl 120 mg 120 mg PO DAILY 01/31/22 02/08/22 01/30/22 History capsule,extended release 24 hr ipratropium 0.5 mg-albuterol 3 mg 3 ml inhalation QID PRN COPD 01/31/22 02/08/22 Unknown History (2.5 mg base)/3 mL nebulization soln ipratropium 20 mcg-albuterol 100 1 puff inhalation Q6H 01/31/22 02/08/22 01/31/22 History mcg/actuation mist for inhalation (Combivent Respimat) pravastatin 40 mg tablet 40 mg PO DAILY@1200 02/08/22 02/08/22 Unknown History Physical Exam Vital Signs: Vital Signs: Last Vital Signs Temp 97.3 F 02/09/22 07:51 Pulse 87 02/09/22 08:12 Resp 16 02/09/22 08:12 BP 164/74 H 02/09/22 07:51 Pulse Ox 100 02/09/22 07:51 O2 Del Method 02/09/22 07:51 O2 Flow Rate 4 02/09/22 07:51 FiO2 40 02/07/22 21:59 Oxygen Flow Rate 4 02/07/22 19:18 BMI result Body Mass Index 21.2 Const: General: comfortable, alert and awake HEENT: Other: poorly fitting dentures Resp: Effort & Inspection: normal respiratory effort, able to speak in complete sentences and not tachypneic Auscultation: diminished lung sounds Cardio: Rate: regular rate Heart sounds: S1 normal heart sound present and S2 normal heart sound present GI: Inspection: No distended Palpation (GI): Soft to palpation and nontender Neuro: Other: grossly nonfocal Extrem: Other: trace leg edema able to move all 4 extremities spontaneously Results Laboratory Findings CBC and BMP: 02/08/22 06:10 02/08/22 06:10 Abnormal lab findings: Abnormal Labs 02/07/22 02/07/22 02/07/22 19:48 19:51 20:44 WBC 13.7 H RBC 3.57 L Hgb 9.3 L Hct 32.6 L MCH 26.1 L MCHC 28.5 L MPV Immature Gran % (Auto) Neut % (Auto) 84.0 H Lymph % (Auto) 6.4 L [place] % (Auto) Lymph # (Auto) 0.9 L Abs Immat Gran (auto) 0.06 H Absolute Neuts (auto) 11.5 H Potassium Chloride 93 L Carbon Dioxide 41 H* BUN 17 H Random Glucose 125 H Lactic Acid 2.1 H* Calcium 10.5 H D Magnesium 3.1 H Albumin 3.3 L Lipase < 4 L 02/08/22 02/08/22 06:10 06:10 WBC RBC 3.51 L Hgb 9.0 L Hct 31.7 L MCH 25.6 L MCHC 28.4 L MPV 9.1 L Immature Gran % (Auto) 0.9 H Neut % (Auto) 93.3 H Lymph % (Auto) 4.9 L [place] % (Auto) 0.8 L Lymph # (Auto) 0.4 L Abs Immat Gran (auto) 0.08 H Absolute Neuts (auto) Potassium 5.3 H D Chloride Carbon Dioxide 37 H BUN 19 H Random Glucose 158 H Lactic Acid Calcium Magnesium Albumin Lipase Microbiology: Microbiology 02/07/22 20:45 Blood - Venous Blood Culture - Preliminary No growth after 24 hours. 02/07/22 20:44 Blood - Venous Blood Culture - Preliminary No growth after 24 hours. Assessment and Plan (1) Acute and chronic respiratory failure with hypoxia: Status: Acute (2) Mass of left lung: Status: Acute (3) COPD exacerbation: Status: Acute (4) Pneumonia: Status: Acute Plan Stop the Zithromax due to QT prolongation Start Vantin p.o. Prednisone taper Continue with respiratory therapy In view of the patient's active medical issues and the fact that she is on Plavix I have referred the patient gets a PET scan 1st before any diagnostic interventions. Will have her follow-up as an outpatient to have a outpatient PET scan to further delineate seriousness of this mass in any metastatic disease and potential biopsy locations. Continue with oxygen 4 L to maintain a pulse ox above 90% Follow-up with outpatient pulmonary Procedures Date of Service Date of Service: 02/09/22
--- NOTE | 2022-02-09 12:39 | HO.PM.IMPN ---
Subjective Subjective Date of Service: 02/09/22 Interval History: Seen in follow-up for acute hypoxic respiratory failure due to COPD exacerbation and lung mass suspicious for cancer Interval history: no sob, no hypoxia, overall feels better Review of Systems no sob, some cough, no fever Physical Exam Vital Signs: Vital Signs: Last Vital Signs Temp 97.3 F 02/09/22 07:51 Pulse 89 02/09/22 11:25 Resp 18 02/09/22 11:25 BP 164/74 H 02/09/22 07:51 Pulse Ox 100 02/09/22 07:51 O2 Del Method 02/09/22 07:51 O2 Flow Rate 4 02/09/22 07:51 FiO2 40 02/07/22 21:59 Oxygen Flow Rate 4 02/07/22 19:18 BMI result Body Mass Index 21.2 Const: Other: General: AO X 3, no acute distress Resp: rhonchi jacinta CVS: S1,S2,RRR GI: +BS, NT, no distention Skin: No rash Neuro: motor grossly intact Psych: appropriate affect Objective Data Active Medications Acetaminophen (Acetaminophen 325 Mg Tablet) 650 mg PO Q6H PRN PRN Reason: Pain, Mild (Pain Scale 1-3) Albuterol/Ipratropium (Albuterol/Iprat 2.5/0.5mg 3 Ml Ampul.Neb) 3 ml INHALE RQ4H PRN PRN Reason: Shortness of Breath/Wheezing Albuterol/Ipratropium (Albuterol/Iprat 2.5/0.5mg 3 Ml Ampul.Neb) 3 ml INHALE RQ4H WHILE AWAKE [facility] Last Admin: 02/09/22 11:24 Dose: 3 ml Documented By: IRNIA Amitriptyline HCl (Amitriptyline Hcl 50 Mg Tablet) 50 mg PO BEDTIME [facility] Last Admin: 02/08/22 22:07 Dose: 50 mg Documented By: CESAR Docusate Sodium (Docusate Sodium 100 Mg Capsule) 100 mg PO DAILY PRN PRN Reason: Constipation Heparin Sodium (Porcine) (Heparin Sodium,Porcine 5,000 Unit/Ml Vial) 5,000 unit SUBCUT Q12H [facility] Last Admin: 02/09/22 00:47 Dose: 5,000 unit Documented By: JACKY Lactated Ringer's (Lr) 1,000 mls @ 100 mls/hr IVCONT .Q10H [facility] Last Admin: 02/09/22 05:50 Dose: 100 mls/hr Documented By: JACKY Azithromycin 500 mg/ Sodium (Chloride) 250 mls @ 125 mls/hr IV DAILY@2200 [facility] Last Infusion: 02/09/22 04:24 Dose: 0 mls/hr Documented By: JACKY Methylprednisolone Sodium Succinate (Methylprednisolone Sod Succ 40 Mg/Ml Vial) 40 mg IVPUSH Q12H [facility] Last Admin: 02/09/22 08:01 Dose: 40 mg Documented By: NELIA Ondansetron HCl (Ondansetron Hcl 4 Mg/2 Ml Vial) 4 mg IVPUSH Q8H PRN PRN Reason: Nausea and Vomiting Pharmacy Consult (Consult Rx Perform Med Rec) 1 each MISCELLANE ONCE PRN PRN Reason: Consult order Sodium Chloride (0.9 % Sodium Chloride Flush 3 Ml Syringe) 3 ml IVFLUSH QSHIFT [facility] Last Admin: 02/09/22 08:01 Dose: 3 ml Documented By: NELIA Labs CBC & Chem 7: 02/08/22 06:10 02/08/22 06:10 Microbiology Microbiology Results: Microbiology 02/07/22 20:45 Blood Culture - Preliminary Blood - Venous No growth after 24 hours. 02/07/22 20:44 Blood Culture - Preliminary Blood - Venous No growth after 24 hours. Assessment and Plan (1) Acute and chronic respiratory failure with hypoxia: Status: Acute (2) Mass of left lung: Status: Acute Plan 86-year-old female with past medical history of COPD who presents to the hospital with shortness of breath, cough and sputum production found to have COPD exacerbation as well as mass on chest CT # acute on chronic hypoxic respiratory failure d/t COPD exacerbation - unusually is on 3 L of oxygen at baseline, presented with an oxygen level of 88% on her baseline oxygen - no evidence of pneumonia on chest CT, has atelectasis, and mass suspicious for malignancy - continue O2 supplement, titrate down to home O2 # acute on chronic COPD exacerbation - recent discharge on 02/02 for pneumonia and COPD exacerbation - IV Solu-Medrol - DuoNeb scheduled as well as p.r.n. # lung mass - pulmonology will arrange for PET scan on outpatient basisi #GERD Continue omeprazole # h/o TIA - Continue Aspirin, statin ? why on plavix #Hypertension - Continue Cardizem # Mood - Continue Lexapro, Ativan DVT ppx: Hepairn Subq Need for inaptient: IV steroid and adjustmeent of O2 for ex of copd with hypoxia, anticipate d/c in 1 to 2 days Quality Stroke Does the patient have a stroke diagnosis?: No VTE Prior VTE?: No VTE Risk Level:: Medical - moderate - high VTE Device Contraindication: Treatment Not Indicated VTE Drug Contraindication: N/A - Med Ordered
--- NOTE | 2022-02-09 14:45 | MHC.CM.PN ---
IMM 02/09/22 Female 86 DX COPD exacerbation. Patient lives by herself. She has family checking on her throughout the day. She uses a walker. She has a [employer] thru [facility], to assist with ADLs. No VAXX, 3LO2 from [facility]. DP Home with services vs STR. Family will provide transportation.
[2022-02-09] MEDS: Amitriptyline HCl 50 MG TABLET PO (21:25)
[2022-02-09] MEDS: traZODone HCL 50 MG TABLET PO (21:25)
[2022-02-09] MEDS: Azithromycin 500 MG in 0.9 % Sodium Chloride 250 ML 125 MG IV (21:29)
[2022-02-10] VITALS (12 sets, daily range): BP systolic 131–155; BP diastolic 57–85; PULSE 68–98; RESP 15–19; TEMP 36.6–37.2; O2SAT 95–100
[2022-02-10] MEDS: Heparin Sodium,Porcine 5,000 UNIT/ML VIAL 5000 UNIT SUBCUT ×2 (00:09→12:08)
[2022-02-10] MEDS: Albuterol/Iprat 2.5/0.5MG 3 ML AMPUL.NEB INHALE ×4 (08:42→19:04)
--- NOTE | 2022-02-10 09:59 | P.PNIM_ITS ---
Subjective Subjective Date of Service: 02/10/22 Interval History: Seen in follow-up for acute hypoxic respiratory failure due to COPD exacerbation and lung mass suspicious for cancer Interval history: no sob, no hypoxia, no fever Review of Systems no sob, some cough, no fever Physical Exam Vital Signs: Vital Signs: Last Vital Signs Temp 98 F 02/10/22 08:00 Pulse 95 02/10/22 08:43 Resp 18 02/10/22 08:43 BP 155/68 H 02/10/22 08:00 Pulse Ox 95 02/10/22 08:00 O2 Del Method 02/10/22 08:00 O2 Flow Rate 3 02/10/22 08:00 FiO2 40 02/07/22 21:59 Oxygen Flow Rate 4 02/07/22 19:18 BMI result Body Mass Index 21.2 Const: Other: General: AO X 3, no acute distress Resp: rhonchi jacinta CVS: S1,S2,RRR GI: +BS, NT, no distention Skin: No rash Neuro: motor grossly intact Psych: appropriate affect Objective Data Active Medications Acetaminophen (Acetaminophen 325 Mg Tablet) 650 mg PO Q6H PRN PRN Reason: Pain, Mild (Pain Scale 1-3) Albuterol Sulfate (Albuterol Sulfate 90 Mcg 8 Gm Inhaler) 2 puff INHALE Q4H PRN PRN Reason: bronchospasm Albuterol/Ipratropium (Albuterol/Iprat 2.5/0.5mg 3 Ml Ampul.Neb) 3 ml INHALE RQ4H PRN PRN Reason: Shortness of Breath/Wheezing Albuterol/Ipratropium (Albuterol/Iprat 2.5/0.5mg 3 Ml Ampul.Neb) 3 ml INHALE RQ4H WHILE AWAKE [facility] Last Admin: 02/10/22 08:42 Dose: 3 ml Documented By: GIO Albuterol/Ipratropium (Albuterol/Iprat 2.5/0.5mg 3 Ml Ampul.Neb) 3 ml INHALE QID PRN PRN Reason: COPD Amitriptyline HCl (Amitriptyline Hcl 50 Mg Tablet) 50 mg PO BEDTIME [facility] Last Admin: 02/09/22 21:25 Dose: 50 mg Documented By: DARIUS Amitriptyline HCl (Amitriptyline Hcl 50 Mg Tablet) 50 mg PO BEDTIME [facility] Aspirin (Aspirin Enteric Coated 81 Mg Tablet.) 81 mg PO DAILY [facility] Clopidogrel Bisulfate (Clopidogrel Bisulfate 75 Mg Tablet) 75 mg PO DAILY [facility] Diltiazem HCl (Diltiazem Hcl Cd 120 Mg Cap.Er.Deg) 120 mg PO DAILY [facility]; Protocol Docusate Sodium (Docusate Sodium 100 Mg Capsule) 100 mg PO DAILY PRN PRN Reason: Constipation Heparin Sodium (Porcine) (Heparin Sodium,Porcine 5,000 Unit/Ml Vial) 5,000 unit SUBCUT Q12H [facility] Last Admin: 02/10/22 00:09 Dose: 5,000 unit Documented By: DARIUS Azithromycin 500 mg/ Sodium (Chloride) 250 mls @ 125 mls/hr IV DAILY@2200 [facility] Last Infusion: 02/09/22 23:52 Dose: 0 mls/hr Documented By: DARIUS Lorazepam (Lorazepam 0.5 Mg Tablet) 0.5 mg PO BID PRN PRN Reason: anxiety Methylprednisolone Sodium Succinate (Methylprednisolone Sod Succ 40 Mg/Ml Vial) 40 mg IVPUSH Q12H [facility] Last Admin: 02/09/22 21:25 Dose: 40 mg Documented By: DARIUS Non-Formulary Medication (Citalopram) 40 mg PO DAILY [facility] Non-Formulary Medication (Cyanocobalamin (Vitamin B-12)) 1,000 mcg PO DAILY [facility] Non-Formulary Medication (Ferrous Sulfate [Feosol]) 325 mg PO DAILY [facility] Non-Formulary Medication (Ipratropium-Albuterol [Combivent Respimat]) 1 puff INHALE Q6H [facility] Omeprazole (Omeprazole 20 Mg Capsule.) 20 mg PO DAILY [facility] Ondansetron HCl (Ondansetron Hcl 4 Mg/2 Ml Vial) 4 mg IVPUSH Q8H PRN PRN Reason: Nausea and Vomiting Pharmacy Consult (Consult Rx Perform Med Rec) 1 each MISCELLANE ONCE PRN PRN Reason: Consult order Pravastatin Sodium (Pravastatin Sodium 40 Mg Tablet) 40 mg PO DAILY@1200 [facility] Sodium Chloride (0.9 % Sodium Chloride Flush 3 Ml Syringe) 3 ml IVFLUSH QSHIFT [facility] Last Admin: 02/09/22 21:27 Dose: 3 ml Documented By: DARIUS Labs CBC & Chem 7: 02/08/22 06:10 02/08/22 06:10 Microbiology Microbiology Results: Microbiology 02/07/22 20:45 Blood Culture - Preliminary Blood - Venous No growth after 48 hours. 02/07/22 20:44 Blood Culture - Preliminary Blood - Venous No growth after 48 hours. Assessment and Plan (1) Acute and chronic respiratory failure with hypoxia: Status: Acute (2) Mass of left lung: Status: Acute Plan 86-year-old female with past medical history of COPD who presents to the hospital with shortness of breath, cough and sputum production found to have CO PD exacerbation as well as mass on chest CT # acute on chronic hypoxic respiratory failure d/t COPD exacerbation - unusually is on 3 L of oxygen at baseline, presented with an oxygen level of 88% on her baseline oxygen--hypoxia resolved - no evidence of pneumonia on chest CT, has atelectasis, and mass suspicious for malignancy - continue O2 supplement, titrate down to home O2 # acute on chronic COPD exacerbation - recent discharge on 02/02 for pneumonia and COPD exacerbation - IV Solu-Medrol - DuoNeb scheduled as well as p.r.n. #Recent PNA--completed Abx but has been Azithro, change to Doxy for few more days # lung mass - pulmonology will arrange for PET scan on outpatient basisi #GERD Continue omeprazole # h/o TIA - Continue Aspirin, statin ? why on plavix #Hypertension - Continue Cardizem # Mood - Continue Lexapro, Ativan DVT ppx: Hepairn Subq Need for inaptient: IV steroid and adjustmeent of O2 for ex of copd with hypoxia, PT eval and likely d/C today or tomorrow Quality Stroke Does the patient have a stroke diagnosis?: No VTE Prior VTE?: No VTE Risk Level:: Medical - moderate - high VTE Device Contraindication: Treatment Not Indicated VTE Drug Contraindication: N/A - Med Ordered
[2022-02-10] MEDS: Aspirin Enteric Coated 81 MG TABLET.DR PO (10:31)
[2022-02-10] MEDS: dilTIAZem HCL CD 120 MG CAP.ER.DEG PO (10:31)
[2022-02-10] MEDS: methylPREDNISolone Sod Succ 40 MG/ML VIAL IVPUSH ×2 (10:31→20:48)
[2022-02-10] MEDS: Clopidogrel Bisulfate 75 MG TABLET PO (10:31)
[2022-02-10] MEDS: Omeprazole 20 MG CAPSULE.DR PO (10:31)
[2022-02-10] MEDS: Cyanocobalamin (Vitamin B-12) 1,000 MCG TABLET 1000 MCG PO (10:32)
[2022-02-10] MEDS: Pravastatin Sodium 40 MG TABLET PO (12:08)
--- NOTE | 2022-02-10 14:59 | PC.NURSE ---
safety and fall precautions in place. call [facility] within reach. pt 1a to commode and ambulating. pt did c/o dizziness once with transfer to recliner.
[2022-02-10] MEDS: Azithromycin 500 MG in 0.9 % Sodium Chloride 250 ML 125 MG IV (20:48)
[2022-02-10] MEDS: Amitriptyline HCl 50 MG TABLET PO (20:48)
[2022-02-10] MEDS: 0.9 % Sodium Chloride Flush 3 ML SYRINGE IVFLUSH (20:49)
[2022-02-10] MEDS: LORazepam 0.5 MG TABLET PO (20:50)
[2022-02-11] VITALS (11 sets, daily range): BP systolic 98–147; BP diastolic 51–75; PULSE 69–90; RESP 14–20; TEMP 36.4–37; O2SAT 90–100
[2022-02-11] MEDS: Heparin Sodium,Porcine 5,000 UNIT/ML VIAL 5000 UNIT SUBCUT ×2 (00:16→12:29)
[2022-02-11] MEDS: Omeprazole 20 MG CAPSULE.DR PO (04:46)
[2022-02-11] MEDS: Cyanocobalamin (Vitamin B-12) 1,000 MCG TABLET 1000 MCG PO (08:03)
[2022-02-11] MEDS: Clopidogrel Bisulfate 75 MG TABLET PO (08:03)
[2022-02-11] MEDS: Aspirin Enteric Coated 81 MG TABLET.DR PO (08:03)
[2022-02-11] MEDS: Ferrous Sulfate 324 MG TABLET.DR PO (08:03)
[2022-02-11] MEDS: Escitalopram Oxalate 20 MG TABLET PO (08:03)
[2022-02-11] MEDS: dilTIAZem HCL CD 120 MG CAP.ER.DEG PO (08:03)
[2022-02-11] MEDS: 0.9 % Sodium Chloride Flush 3 ML SYRINGE IVFLUSH ×3 (08:04→22:08)
[2022-02-11] MEDS: Albuterol/Iprat 2.5/0.5MG 3 ML AMPUL.NEB INHALE ×4 (08:05→19:28)
[2022-02-11] MEDS: methylPREDNISolone Sod Succ 40 MG/ML VIAL IVPUSH ×2 (08:54→22:07)
--- NOTE | 2022-02-11 10:45 | P.PNIM_ITS ---
Subjective Subjective Date of Service: 02/11/22 Interval History: Seen and examined this morning Follow-up for COPD exacerbation Better however still becomes dyspneic with ambulation. Review of Systems Review of Systems: Yes all other systems are reviewed and are negative Constitutional Constitutional: Denies chills and Denies fever(s) Cardiovascular Cardiovascular: Denies chest pain, Denies palpitations and Reports dyspnea on exertion Respiratory Respiratory: Reports cough and Reports dyspnea on exertion Gastrointestinal Gastrointestinal: Denies abdominal pain, Denies nausea and Denies vomiting Endocrine Endocrine: Denies palpitations Physical Exam Vital Signs: Vital Signs: Last Vital Signs Temp 98.2 F 02/11/22 07:26 Pulse 90 02/11/22 08:07 Resp 20 02/11/22 08:07 BP 144/64 H 02/11/22 07:26 Pulse Ox 96 02/11/22 07:26 O2 Del Method 02/11/22 07:26 O2 Flow Rate 1 02/11/22 07:26 FiO2 40 02/07/22 21:59 Oxygen Flow Rate 4 02/07/22 19:18 BMI result Body Mass Index 21.2 Const: General: cooperative, comfortable, alert and awake Nutritional Appearance: average body habitus Resp: Other: Coarse breath sounds bilaterally, no wheezing Effort & Inspection: normal respiratory effort and able to speak in complete sentences Cardio: Rate: regular rate Heart sounds: S1 normal heart sound present and S2 normal heart sound present GI: Palpation (GI): Soft to palpation and nontender Extrem: Other: Able to move all 4 extremities spontaneously General: Yes no pedal edema Objective Data Active Medications Acetaminophen (Acetaminophen 325 Mg Tablet) 650 mg PO Q6H PRN PRN Reason: Pain, Mild (Pain Scale 1-3) Albuterol Sulfate (Albuterol Sulfate 90 Mcg 8 Gm Inhaler) 2 puff INHALE Q4H PRN PRN Reason: bronchospasm Albuterol/Ipratropium (Albuterol/Iprat 2.5/0.5mg 3 Ml Ampul.Neb) 3 ml INHALE RQ4H PRN PRN Reason: Shortness of Breath/Wheezing Albuterol/Ipratropium (Albuterol/Iprat 2.5/0.5mg 3 Ml Ampul.Neb) 3 ml INHALE RQ4H WHILE AWAKE CECILIO Last Admin: 02/11/22 08:05 Dose: 3 ml Documented By: DEEDEE Albuterol/Ipratropium (Albuterol/Iprat 2.5/0.5mg 3 Ml Ampul.Neb) 3 ml INHALE QID PRN PRN Reason: COPD Albuterol/Ipratropium (Albuterol/Iprat 2.5/0.5mg 3 Ml Ampul.Neb) 3 ml INHALE RQ6H [facility] Last Admin: 02/11/22 04:47 Dose: Not Given Documented By: LUZ ELENA Non-Admin Reason: Duplicate Order Amitriptyline HCl (Amitriptyline Hcl 50 Mg Tablet) 50 mg PO BEDTIME [facility] Last Admin: 02/10/22 20:48 Dose: 50 mg Documented By: LUZ ELENA Aspirin (Aspirin Enteric Coated 81 Mg Tablet.) 81 mg PO DAILY [facility] Last Admin: 02/11/22 08:03 Dose: 81 mg Documented By: YANA Clopidogrel Bisulfate (Clopidogrel Bisulfate 75 Mg Tablet) 75 mg PO DAILY [facility] Last Admin: 02/11/22 08:03 Dose: 75 mg Documented By: YANA Cyanocobalamin (Cyanocobalamin (Vitamin B-12) 1,000 Mcg Tablet) 1,000 mcg PO DAILY [facility] Last Admin: 02/11/22 08:03 Dose: 1,000 mcg Documented By: YANA Diltiazem HCl (Diltiazem Hcl Cd 120 Mg Cap.Er.Deg) 120 mg PO DAILY [facility]; Protocol Last Admin: 02/11/22 08:03 Dose: 120 mg Documented By: YANA Docusate Sodium (Docusate Sodium 100 Mg Capsule) 100 mg PO DAILY PRN PRN Reason: Constipation Escitalopram Oxalate (Escitalopram Oxalate 20 Mg Tablet) 20 mg PO DAILY [facility] Last Admin: 02/11/22 08:03 Dose: 20 mg Documented By: YANA Ferrous Sulfate (Ferrous Sulfate 324 Mg Tablet.) 324 mg PO DAILY [facility] Last Admin: 02/11/22 08:03 Dose: 324 mg Documented By: YANA Heparin Sodium (Porcine) (Heparin Sodium,Porcine 5,000 Unit/Ml Vial) 5,000 unit SUBCUT Q12H [facility] Last Admin: 02/11/22 00:16 Dose: 5,000 unit Documented By: LUZ ELENA Azithromycin 500 mg/ Sodium (Chloride) 250 mls @ 125 mls/hr IV DAILY@2200 [facility] Last Infusion: 02/10/22 22:52 Dose: 0 mls/hr Documented By: LUZ ELENA Lorazepam (Lorazepam 0.5 Mg Tablet) 0.5 mg PO BID PRN PRN Reason: anxiety Last Admin: 02/10/22 20:50 Dose: 0.5 mg Documented By: LUZ ELENA Methylprednisolone Sodium Succinate (Methylprednisolone Sod Succ 40 Mg/Ml Vial) 40 mg IVPUSH Q12H [facility] Last Admin: 02/11/22 08:54 Dose: 40 mg Documented By: YANA Omeprazole (Omeprazole 20 Mg Capsule.Dr) 20 mg PO DAILY@0630 [facility] Last Admin: 02/11/22 04:46 Dose: 20 mg Documented By: LUZ ELENA Ondansetron HCl (Ondansetron Hcl 4 Mg/2 Ml Vial) 4 mg IVPUSH Q8H PRN PRN Reason: Nausea and Vomiting Pharmacy Consult (Consult Rx Perform Med Rec) 1 each MISCELLANE ONCE PRN PRN Reason: Consult order Pravastatin Sodium (Pravastatin Sodium 40 Mg Tablet) 40 mg PO DAILY@1200 [facility] Last Admin: 02/10/22 12:08 Dose: 40 mg Documented By: JASSON-SOFFA Sodium Chloride (0.9 % Sodium Chloride Flush 3 Ml Syringe) 3 ml IVFLUSH QSHIFT [facility] Last Admin: 02/11/22 08:04 Dose: 3 ml Documented By: YANA Labs CBC & Chem 7: 02/08/22 06:10 02/08/22 06:10 Assessment and Plan (1) Acute and chronic respiratory failure with hypoxia: Status: Acute (2) COPD exacerbation: Status: Acute Plan 86-year-old female with past medical history of COPD who presents to the hospital with shortness of breath, cough and sputum production found to have COPD exacerbation as well as mass on chest CT acute on chronic hypoxic respiratory failure d/t COPD exacerbation - usually is on 3 L of oxygen at baseline, presented with an oxygen level of 88% on her baseline oxygen--hypoxia resolved - no evidence of pneumonia on chest CT, has atelectasis, and mass suspicious for malignancy - continue O2 supplement, titrate down to home O2- goal o2 >90% acute on chronic COPD exacerbation - recent discharge on 02/02 for pneumonia and COPD exacerbation - Continue IV Solu-Medrol, transition to po prednisone in AM - DuoNeb scheduled as well as p.r.n. Recent PNA- change to doxycycline due to prolonged QT-pulmonary recommend cefpodoxime on discharge lung mass - pulmonology will arrange for PET scan on outpatient basis GERD Continue omeprazole h/o TIA - Continue Aspirin, statin ? why on plavix Hypertension - Continue Cardizem Mood - Continue Lexapro, Ativan DVT ppx: Hepairn Subq Attending-Dr. Fernando Need for inaptient: IV steroid and adjustmeent of O2 for ex of copd with hypoxia Quality Stroke Does the patient have a stroke diagnosis?: No VTE Prior VTE?: No VTE Risk Level:: Medical - moderate - high VTE Device Contraindication: Treatment Not Indicated VTE Drug Contraindication: N/A - Med Ordered
[2022-02-11] MEDS: Sodium Zirconium Cyclosilicate 5 GM POWD.PACK PO (12:18)
[2022-02-11] MEDS: Doxycycline Hyclate 100 MG in 0.9 % Sodium Chloride 250 ML 166.67 MG IV (12:18)
[2022-02-11] MEDS: Pravastatin Sodium 40 MG TABLET PO (12:23)
[2022-02-11] MEDS: LORazepam 0.5 MG TABLET PO (12:29)
--- NOTE | 2022-02-11 15:18 | MHC.CM.PN ---
PT eval recommendation is for STR. Called to speak with patients daughter. A VM was left re dc planning. CM contact info has been provided for return call. Referrals for STR have been sent. Preferences for STR facilities will be obtained prior to placement. Patient will travel via BLS.
[2022-02-11] MEDS: Acetaminophen 325 MG TABLET 650 MG PO (22:04)
[2022-02-11] MEDS: Amitriptyline HCl 50 MG TABLET PO (22:05)
[2022-02-11] MEDS: Doxycycline Hyclate 100 MG in 0.9 % Sodium Chloride 250 ML 166 MG IV (22:10)
[2022-02-12] VITALS (7 sets, daily range): BP systolic 125–158; BP diastolic 59–66; PULSE 81–105; RESP 16–19; TEMP 36.4–36.9; O2SAT 93–99
[2022-02-12] MEDS: Heparin Sodium,Porcine 5,000 UNIT/ML VIAL 5000 UNIT SUBCUT ×2 (02:15→12:13)
[2022-02-12] MEDS: Omeprazole 20 MG CAPSULE.DR PO (05:41)
[2022-02-12 07:20] LABS: Glucose, Whole Blood 142 mg/dL (60-115)
[2022-02-12 07:41] LABS: Anion Gap 12 (12-20); Blood Urea Nitrogen 23 mg/dL (9-16); Calcium 9.7 mg/dL (8.4-10.2); Carbon Dioxide 36 mmol/L (22-29); Chloride 98 mmol/L (96-108); Creatinine Clr Calc Pharmacy 50.9; Estimated Glomerular Filt Rate > 60; Glucose Random 147 mg/dL (60-115); Sodium 141 mmol/L (135-145)
[2022-02-12] MEDS: Escitalopram Oxalate 20 MG TABLET PO (08:47)
[2022-02-12] MEDS: dilTIAZem HCL CD 120 MG CAP.ER.DEG PO (08:47)
[2022-02-12] MEDS: Aspirin Enteric Coated 81 MG TABLET.DR PO (08:47)
[2022-02-12] MEDS: Ferrous Sulfate 324 MG TABLET.DR PO (08:47)
[2022-02-12] MEDS: Cyanocobalamin (Vitamin B-12) 1,000 MCG TABLET 1000 MCG PO (08:47)
[2022-02-12] MEDS: 0.9 % Sodium Chloride Flush 3 ML SYRINGE IVFLUSH (08:48)
[2022-02-12] MEDS: methylPREDNISolone Sod Succ 40 MG/ML VIAL IVPUSH (08:48)
--- NOTE | 2022-02-12 08:55 | MHC.CM.PN ---
Addendum entered by Mile Matos 02/12/22 14:21: Met with patient and her dtr Donna re DC planning. Bed offers were presented. A bed [facility]. Authorization has been received. transport is booked for 4:30 pm today. The covid test fro DC is negative. All dc info has been sent to the facility. . Original Note: IMM 02/12/22 Female 86 COPD exacerbation. Multiple attempts to reach family member for Discharge planning. The patient stated that she can make her own decisions regarding discharge planning. CM will present bed offers to the patient this morning.
[2022-02-12] MEDS: LORazepam 0.5 MG TABLET PO (09:05)
[2022-02-12] MEDS: Albuterol/Iprat 2.5/0.5MG 3 ML AMPUL.NEB INHALE ×3 (09:42→15:59)
--- NOTE | 2022-02-12 11:45 | PM.DS ---
DS: Providers Provider Date of Service: 02/12/22 Date of admission: 02/07/22 23:42 Date of discharge: 02/12/22 Primary care physician: Unknown Physician Consults: 02/07/22 23:40 Consult to Pulmonology Routine Consulting Provider: [facility] Reason for consultation: lung mass, concerning for neoplasm Has provider been notified: No Attending physician on discharge: Gaetano Fernando Discharging clinician: Kristi Sheridan DS: Diagnosis Discharge Diagnosis (1) Acute and chronic respiratory failure with hypoxia: Status: Acute (2) COPD exacerbation: Status: Acute DS: Summary Hospital Course Hospital Course: From H&P on day of admission 86-year-old female with past medical history of COPD on 3 L of oxygen at baseline, HTN, HLD, polymyalgia rheumatica 0, depression anxiety, GERD among others who presents to the hospital with complaints of shortness of breath.? Of note patient was discharged on 02/02 after being treated for pneumonia and COPD exacerbation.? Patient was treated with IV antibiotics, and sent home on p.o. antibiotics.? Patient reports that ever since being discharged she continued to be short of breath, and not feel too well, she had cough, sputum production, and no significant improvement in her symptoms and decided to come back to the hospital.? She reports no chest pain, she felt feverish, has chills, no abdominal pain nausea or vomiting, no diarrhea constipation, no urinary symptoms and no lower extremity edema.? Patient's vitals on arrival showed a hypoxia of 88% on 4 L of oxygen,Pt currently on Venturi mask satting in the high 90s Labs are significant for WBC count of 8.6, hemoglobin of 9.3 which is around her baseline, hematocrit 32.6, lactic acid of 2.1, COVID-19 negative, CT of the chest shows masslike opacity in the left upper lobe measuring approximately 5.6 x 5.7 x 6.4 cm in size, suspicious for neoplasm, mild interstitial fibrosis and mild left lower lobe atelectasis. Given the hypoxia patient will be admitted for further management acute on chronic hypoxic respiratory failure d/t COPD exacerbation. usually is on 3 L of oxygen at baseline, presented with an oxygen level of 88% on her baseline oxygen--hypoxia resolved. no evidence of pneumonia on chest CT, has atelectasis, and mass suspicious for malignancy. She was continued on home O2 supplementation, withgoal o2 >90% acute on chronic COPD exacerbation. Was initially treated with scheduled and as needed breathing treatments as well as IV Solu-Medrol. She will be transitioned to prednisone taper. She will also be discharged with a course of antibiotics. lung mass. Chest CT showed masslike opacity in the left upper lobe suspicious for neoplasm such as primary lung malignancy. She was seen by pulmonology who will arrange for PET scan on outpatient basis Time Spent with Patient Time attestation: Total time spent providing and/or coordinating discharge services: Discharge coordination time: Greater than 30 minutes Quality: Safe Use of Opioids Does Pt have an Active Cancer Diagnosis on the Problem List?: No Quality: Stroke Does the patient have a stroke diagnosis?: No Physical Exam Vital Signs: Vital Signs: Last Vital Signs Temp 98.5 F 02/12/22 07:23 Pulse 97 02/12/22 11:15 Resp 16 02/12/22 09:42 BP 158/60 H 02/12/22 07:23 Pulse Ox 97 02/12/22 07:23 O2 Del Method 02/12/22 07:23 O2 Flow Rate 3 02/12/22 07:23 FiO2 40 02/07/22 21:59 Oxygen Flow Rate 4 02/07/22 19:18 BMI result Body Mass Index 21.2 Const: General: cooperative, comfortable, alert and awake Nutritional Appearance: average body habitus Resp: Other: Coarse breath sounds bilaterally, no wheezing Effort & Inspection: normal respiratory effort and able to speak in complete sentences Cardio: Rate: regular rate Heart sounds: S1 normal heart sound present and S2 normal heart sound present GI: Palpation (GI): Soft to palpation and nontender Extrem: Other: Able to move all 4 extremities spontaneously General: Yes no pedal edema DS: Data Data Completed and Pending Labs on day of discharge: Laboratory Results - last 24 hr 02/12/22 02/12/22 05:59 07:14 Sodium 141 Potassium 5.0 Chloride 98 Carbon Dioxide 36 H Anion Gap 12 BUN 23 H Creatinine 0.71 Estim Creat Clear Calc 50.9 Estimated GFR > 60 POC Glucose 142 H Random Glucose 147 H Calcium 9.7 Preliminary micro results at discharge 02/07/22 20:45 Blood Culture - Preliminary Blood - Venous No growth after 48 hours. 02/07/22 20:44 Blood Culture - Preliminary Blood - Venous No growth after 48 hours. Discharge Plan Discharge Patient Disposition: Xfer [facility] Discharge Diagnosis: COPD exacerbation Referrals: [facility] [Outside] - 1 Week Ho Nolasco MD [Primary Care Provider] - 1 Week [facility] MD [Physician] - 1 Week Discharge Medications: New prednisone 10 mg tablet See Taper PO DAILY Qty: 30 0RF Taper: Prednisone 40 mg daily for 3 Days and 0 Hour 30 mg daily for 3 Days and 0 Hour 20 mg daily for 3 Days and 0 Hour 10 mg daily for 3 Days and 0 Hour cefpodoxime 200 mg tablet 200 mg PO BID 5 Days Qty: 10 0RF Rx Instructions: must administer with a meal/food Continued ferrous sulfate [Feosol] 325 mg (65 mg iron) tablet 325 mg PO DAILY Qty: 30 5RF citalopram 40 mg tablet 40 mg PO DAILY Qty: 30 5RF clopidogrel 75 mg tablet 75 mg PO DAILY Qty: 30 3RF albuterol sulfate [Ventolin HFA] 90 mcg/actuation HFA aerosol inhaler 2 puff inhalation Q4-6H PRN (Reason: bronchospasm) Qty: 8.5 3RF lorazepam 0.5 mg tablet 0.5 mg PO BID PRN (Reason: anxiety) 30 Days Qty: 60 0RF amitriptyline 25 mg tablet 50 mg PO BEDTIME diltiazem HCl 120 mg capsule,extended release 24hr 120 mg PO DAILY Combivent Respimat 20-100 mcg/actuation mist 1 puff inhalation Q6H pravastatin 40 mg tablet 40 mg PO DAILY@1200 Discontinued aspirin 81 mg tablet,delayed release (DR/EC) 81 mg PO DAILY 90 Days Qty: 90 3RF cyanocobalamin (vitamin B-12) 1,000 mcg tablet extended release 1,000 mcg PO DAILY 90 Days Qty: 90 3RF omeprazole 20 mg capsule,delayed release(DR/EC) 20 mg PO DAILY Qty: 30 5RF No Action ipratropium-albuterol 0.5 mg-3 mg(2.5 mg base)/3 mL solution for nebulization 3 ml inhalation Q6H Qty: 180 0RF Discharge Orders: Discharge Order (Routine); Ordered 02/12/22 Ordered By: Kristi Sheridan Activity on Discharge: As tolerated Stand Alone Forms: Patient Portal Discharge page Care Plan Goals: See below Health Concerns: Acute COPD exacerbation Lung mass Plan of Treatment: Complete course of antibiotics as prescribed Complete prednisone taper as prescribed Call to schedule follow-up appointment with pulmonology for further workup of lung mass Assessment: See discharge summary Discharge Date/Time: 02/12/22 16:56
[2022-02-12] MEDS: Doxycycline Hyclate 100 MG in 0.9 % Sodium Chloride 250 ML 166 MG IV (12:12)
[2022-02-12] MEDS: Pravastatin Sodium 40 MG TABLET PO (12:13)
[2022-02-12] MEDS: Clopidogrel Bisulfate 75 MG TABLET PO (12:20)
[2022-02-12 13:30] LABS: COVID-19 Test Negative (Negative); IDNOW Serial# 55D5AD1C
== END 2022-02-12 16:56 | disposition skilled nursing facility (03) | DRG 190 ==
LOC: HO.ED 02-08 00:10 → HO.EDOVER 02-08 00:33 → HO.IMC 02-08 22:57
PROVIDERS: Admitting Provider Internal Medicine; Emergency Provider Emergency Medicine; PCP Internal Medicine; Responsible Provider Physician Assistant Medical; Visit Provider Physician Assistant Medical
DX: J44.1 Chronic obstructive pulmonary disease with (acute) exacerbation (principal); J18.9 Pneumonia, unspecified organism; J96.21 Acute and chronic respiratory failure with hypoxia; C34.12 Malignant neoplasm of upper lobe, left bronchus or lung; M35.3 Polymyalgia rheumatica; I10 Essential (primary) hypertension; F39 Unspecified mood [affective] disorder; E78.5 Hyperlipidemia, unspecified; J44.0 Chronic obstructive pulmonary disease with (acute) lower respiratory infection; R94.31 Abnormal electrocardiogram [ECG] [EKG]; K21.9 Gastro-esophageal reflux disease without esophagitis; Z20.822 Contact with and (suspected) exposure to COVID-19; Z87.01 Personal history of pneumonia (recurrent); Z99.81 Dependence on supplemental oxygen; Z86.73 Personal history of transient ischemic attack (TIA), and cerebral infarction without residual deficits; Z87.891 Personal history of nicotine dependence; Z79.02 Long term (current) use of antithrombotics/antiplatelets; Z79.899 Other long term (current) drug therapy
CPT/HCPCS: 0241U; 36415; 71045; 71250; 80048; 80076; 82947; 83605; 83690; 83735; 83880; 84484; 85025; 87040; 87635; 93005; 94640; 96365; 96366; 96375; 97110; 97116; 97162; 99285; J0456; J2920; J2930; J3475

== ENCOUNTER 2022-04-03 00:44 | Inpatient (IN) | payer OTHER, SELFPAY ==
[2022-04-03] VITALS (8 sets, daily range): BP systolic 106–168; BP diastolic 46–85; PULSE 65–97; RESP 17–25; TEMP 36.4; O2SAT 94–100; BMI 23.6
--- NOTE | ~2022-04-03 | CT_ITS ---
EXAMINATION: CT CHEST WITH CONTRAST CT ABDOMEN AND PELVIS WITH CONTRAST CLINICAL INFORMATION: Fall. Altered mental status. Pain. COMPARISON: None. TECHNIQUE: Multidetector volumetric imaging was performed through the chest, abdomen and pelvis following the administration of 85 mL of Omnipaque 350 intravenous contrast. Sagittal and coronal reformatted images were obtained on the technologist's workstation. Axial MIP volume rendering provided. This CT examination was performed using dose optimization techniques as appropriate, variously including the following: *Automated exposure control *Adjustment of mA and/or kV according to patient size (this includes techniques or standardized protocols for targeted exams where dose is matched to indication/reason for exam; i.e. extremities or head) *Use of iterative reconstruction technique DLP: 966 mGy-cm. FINDINGS: CHEST: Lungs: The central airways are patent. There is a left upper lobe mass filling the lingula. This is heterogeneously enhancing with central low attenuation suggestive of necrosis. This measures 5.9 x 5.1 x 5.4 cm. Pleural thickening noted at the lung apices. Subpleural reticulation seen throughout. Scattered bronchial filling defects. No pleural effusion or pneumothorax. Mediastinum: The heart is of normal size. There is no pericardial effusion. Central vascular structures are unremarkable. There is a somewhat prominent left hilar lymph node measuring . There is an AP window lymph node measuring 0.9 cm. Small lymph nodes seen in the right cardiophrenic fat measuring 0.4 cm short axis.. Chest Wall/Axilla: No lymphadenopathy. No chest wall mass. ABDOMEN/PELVIS: Liver, Gallbladder, Biliary Tree: The liver is normal in size, shape, and attenuation. No focal hepatic lesion. Status post cholecystectomy. There is intrahepatic and extrahepatic biliary ductal dilatation. There is a ductal filling defect involving the lower common bile duct measuring 0.8 cm. The common bile duct measures 1.2 cm.. Pancreas: Mild atrophy with no focal abnormality. Spleen: Unremarkable. Adrenal Glands: The left adrenal gland is unremarkable. Right adrenal gland nodule measures 2.1 x 1.5 cm. This is indeterminate. Kidneys and Ureters: The kidneys are normal in size, shape, and attenuation. No hydronephrosis, hydroureter or calculi seen. No perinephric stranding. Bladder: Decompressed with Ibanez catheter in place. Gastrointestinal Tract: The stomach is decompressed. Normal caliber small bowel. No obstruction. No colonic wall thickening or inflammation. Moderate to large colonic stool burden. Fecalization at the distal ileum suggesting slow transit. No free air or free fluid. Abdominal Wall: No hernia is demonstrated. Lymphovascular Structures: Lymph nodes: Normal. Vascular: Normal caliber aorta with moderate atherosclerotic calcification. Pelvic Viscera: No pelvic mass. OSSEOUS STRUCTURES: There is scoliotic curvature of the spine. Mild height loss of uncertain acuity involving multiple vertebral bodies. T5 and T6 show mild compression. Mild superior endplate height loss at T11. Prominent vacuum disc phenomenon throughout the lumbar spine with disc space narrowing and facet arthropathy. There is a fracture of the sternal manubrium. This is not likely to be acute, as there is some callus formation seen in this area. No acute rib fractures are identified. No erosive osseous changes in the region of the lung mass. Chronic healed right inferior pubic ramus fracture. The hips are well aligned. CT/CT abdomen pelvis w con IMPRESSION: 1. No acute traumatic findings are seen. Fracture of the sternum with callus formation, suggesting subacute nature. Additionally there are multiple vertebral body mild compression deformities which are of uncertain chronicity. 2. There is a lung mass in the left upper lobe. This has heterogeneous attenuation and central low attenuation suggestive of necrosis. This is highly concerning for neoplasm. 3. There are a few prominent mediastinal and left hilar lymph nodes, worrisome for metastatic disease. 4. Status post cholecystectomy. Dilated intrahepatic and extrahepatic bile ducts. There is a ductal filling defect in the common bile duct. This could be stone or sludge. 5. Indeterminate right adrenal gland nodule. Cannot exclude metastatic disease in this setting. 6. Large colonic stool burden. This critical result was discussed with Dr. Sun by telephone at 04/03/2022 2:32 AM and it was ascertained that the content and urgency of the report was understood at the time of direct communication.
--- NOTE | ~2022-04-03 | XR_ITS ---
EXAMINATION: XR chest 1V CLINICAL INFORMATION: Reason for Exam post left lung biopsy COMPARISON: Chest radiograph 02/07/2022, CT chest 04/03/2022 TECHNIQUE: 2 views of the chest FINDINGS: Again seen is a left upper lobe mass with slightly increased from prior radiographs measuring 4.3 cm previously 3.9 cm and better characterized on prior CT chest. Similar chronic background of increased reticular opacities. Chronic left rib fracture deformity. No pneumothorax or pleural effusion. Unchanged cardiomediastinal silhouette. XR/XR chest 1V Impression: * No pneumothorax. * Again seen is a 4.3 cm left upper lobe mass possibly slightly increased from prior radiographs and better appreciated on prior chest CT. Recommend correlation with reported biopsy results.
--- NOTE | ~2022-04-03 | CT_ITS ---
EXAMINATION: NONCONTRAST HEAD CT NONCONTRAST CERVICAL SPINE CT INDICATION INFORMATION: Altered mental status. Weakness. Fall. Pain. COMPARISON: None TECHNIQUE: Separate noncontrast CT examinations of the head and cervical spine were performed. Coronal and sagittal images were created for each examination at the technologist workstation. This CT examination was performed using dose optimization techniques as appropriate, variously including the following: *Automated exposure control *Adjustment of mA and/or kV according to patient size (this includes techniques or standardized protocols for targeted exams where dose is matched to indication/reason for exam; i.e. extremities or head) *Use of iterative reconstruction technique DLP: 967 mGy-cm FINDINGS: Head: There is no evidence of acute intracranial hemorrhage or territorial infarction. No abnormal mass effect or midline shift is seen. Tovar to white matter differentiation is well preserved. No extra-axial fluid collections are identified. No hydrocephalus. Proportional prominence of the ventricles and sulcal spaces is consistent with mild volume loss. Patchy periventricular and deep white matter hypoattenuation is consistent with mild small vessel ischemic changes. No acute osseous or soft tissue abnormality. The mastoid air cells and visualized portions of the paranasal sinuses are well aerated. Cervical spine: Slight anterolisthesis of C3 on C4 and C4 on C5, appearing degenerative. There is otherwise anatomic alignment of the vertebral bodies and posterior elements. The atlantoaxial and atlantooccipital articulations are intact. Vertebral body heights are maintained. There is multilevel intervertebral disc space narrowing with endplate osteophyte formation and facet arthropathy. No evidence of acute fracture. No prevertebral soft tissue swelling. Pleural thickening at the lung apices.. The thyroid gland is unremarkable. CT/CT cervical spine wo con IMPRESSION: 1. No acute intracranial finding. 2. Moderate degenerative changes throughout the cervical spine. This critical result was discussed with ORAL Weems, PA by telephone at 04/03/2022 12:59 AM and it was ascertained that the content and urgency of the report was understood at the time of direct communication.
--- NOTE | ~2022-04-03 | FL_ITS ---
EXAMINATION: XR FLUOROSCOPY WITH IMAGES CLINICAL INFORMATION: ERCP COMPARISON: MRCP 04/06/2022, CT abdomen pelvis 04/03/2022 TECHNIQUE: Fluoroscopy performed by Ramses Villarreal. Fluoroscopy time: 217.5 second. Cumulative Dose: 37.32 mGy. Images: 8. FINDINGS: Submitted C-arm images demonstrate evidence of ERCP with contrast injection, wire placement across the CBD and evidence of balloon sweeping of the CBD. Initial contrast injection demonstrates dilation of the extra hepatic bile duct with filling defects corresponding to CBD stones on prior MRCP. Final injection image demonstrates persistent dilation of the extrahepatic duct but no definite residual filling defect. Surgical clips in the right upper quadrant consistent with prior cholecystectomy. FL/FL guidance in OR IMPRESSION: Please see procedure report for further details.
--- NOTE | ~2022-04-03 | MR_ITS ---
EXAMINATION: MR ABDOMEN WITHOUT CONTRAST CLINICAL INFORMATION: Common bile duct stone COMPARISON: Previous CT of the abdomen and pelvis 04/03/2022 TECHNIQUE: MR abdomen is performed without gadolinium contrast. MRCP sequences were also performed. FINDINGS: LUNG BASES: The visualized lung bases are unremarkable. LIVER, GALLBLADDER, AND BILIARY TREE: The liver is normal in size and contour. No focal liver lesion. The gallbladder has been removed. There is no intrahepatic biliary duct dilatation. Common bile duct is slightly dilated measuring 1.1 cm. There are multiple distal common bile duct stones. Gallbladder has been removed. PANCREAS: There is fatty infiltration of the pancreas. Pancreas is otherwise normal. SPLEEN: Unremarkable. ADRENAL GLANDS: There is a 2 x 1.4 cm right adrenal lesion. This is difficult to further characterize given available sequences. The left adrenal gland is normal. KIDNEYS AND URETERS: The kidneys are normal in size and shape. No hydronephrosis. No perinephric stranding. GASTROINTESTINAL TRACT: No bowel obstruction. No ascites or fluid collection. ABDOMINAL WALL: No significant hernia is appreciated. LYMPH NODES: No lymphadenopathy. VASCULAR: Atherosclerotic disease. No aneurysm. OSSEOUS STRUCTURES: Marrow signal normal. Scoliosis and degenerative changes of the spine. MR/MR MRCP IMPRESSION: Multiple distal common bile duct stones and mild common bile duct dilatation measuring up to 11 mm. 1.4 x 2 cm right adrenal nodule. This is difficult to further characterize given available sequences. Fatty infiltration of the pancreas.
--- NOTE | ~2022-04-03 | CT_ITS ---
PROCEDURE: CT GUIDED BIOPSY, LUNG CLINICAL INFORMATION: Lung mass COMPARISON: Previous chest CT most recent from earlier this month TECHNIQUE: Procedure and risks and benefits were discussed with the patient in person and the patient's daughter by telephone including bleeding, infection and pneumothorax and informed consent patient was positioned in the supine position. Limited axial images through the upper chest were performed. The left upper anterior chest was prepped and draped in the usual sterile fashion. The skin and soft tissues were anesthetized with 1% lidocaine plain. Using CT guidance and a coaxial system, access to the mass in the lingula was obtained. 4 20-gauge core biopsies were obtained. Conscious sedation was provided by registered nurse under my direct supervision. Patient received Versed 0.5 mg and then 25 mcg intravenously during the procedure. Total sedation time was [address] examination was performed using dose optimization techniques as appropriate, variously including the following: *Automated exposure control *Adjustment of mA and/or kV according to patient size (this includes techniques or standardized protocols for targeted exams where dose is matched to indication/reason for exam; i.e. extremities or head) *Use of iterative reconstruction technique DLP: 89 mGy-cm FINDINGS: There is a 5 x 6 cm mass in the lingula that was targeted for biopsy. Postprocedure images demonstrate no pneumothorax. There is a small left pleural effusion. There is airspace disease in the left lower lobe. CT/CT biopsy lung LT IMPRESSION: CT-guided left upper lobe lung biopsy.
--- NOTE | 2022-04-03 00:47 | ECG_ITS ---
Test Reason : ?STROKE Blood Pressure : / mmHG Vent. Rate : 084 BPM Atrial Rate : 084 BPM P-R Int : 168 ms QRS Dur : 094 ms QT Int : 342 ms P-R-T Axes : 055 030 013 degrees QTc Int : 404 ms Normal sinus rhythm Inferior infarct , age undetermined Abnormal ECG No previous ECGs available Referred By: Snehal Koenig Electronically Signed By:COLEMAN HERNANDEZ
--- NOTE | 2022-04-03 00:49 | ED_ITS ---
HPI - Altered Mental Status General Chief Complaint: Stroke <ORAL Weems - Last Filed: 04/03/22 02:23> Stated Complaint: AMS,ARM WEAKNESS, FOUND ON FLOOR <ORAL Weems - Last Filed: 04/03/22 02:23> Time Seen by Provider: 04/03/22 00:47 <ORAL Weems - Last Filed: 04/03/22 02:23> Source: EMS <ORAL Weems - Last Filed: 04/03/22 02:23> Mode of arrival: EMS <ORAL Weems - Last Filed: 04/03/22 02:23> Limitations: altered mental status <ORAL Weems - Last Filed: 04/03/22 02:23> History of Present Illness HPI narrative: 89-year-old female with unknown medical history presenting via ambulance for altered mental status and global weakness, found on the ground. According to EMS patient pressed her Life Alert button and they arrived on scene patient was found on the ground covered in bruises, with poor living habits, not following commands patient is alert to person not place time or situation. Unable to follow commands. Noted to have bruising throughout. Has difficulty moving all her extremities. Unsure of her last known well time. Patient was at home by herself. EMS has no past medical history on this patient. POC for ems 129 <ORAL Weems - Last Filed: 04/03/22 02:23> MD complaint: altered mental status <ORAL Weems - Last Filed: 04/03/22 02:23> Related Data Allergies/Adverse Reactions: Allergies Allergy/AdvReac Type Severity Reaction Status Date / Time Unable to Assess Allergy Unverified 04/03/22 00:47 <ORAL Weems - Last Filed: 04/03/22 02:23> Review of Systems Review of Systems: Yes Unobtainable due to mental status <ORAL Weems Last Filed: 04/03/22 02:23> [facility] Past Medical History Attestation statement: The following information was validated with the patient. <ORAL Weems - Last Filed: 04/03/22 02:23> Source: old records reviewed and nursing notes reviewed <ORAL Weems - Last Filed: 04/03/22 02:23> Social History Social History: Social History Advance Directives: Yes Advance Directives on File: Yes Advance Directives Date on File: 09/09/21 <ORAL Weems - Last Filed: 04/03/22 02:23> Physical Exam ED Vital Signs: Vital Signs - 24 hr 04/03/22 00:55 04/03/22 02:09 04/03/22 03:09 Temperature 97.6 F Pulse Rate 87 77 77 Respiratory Rate 21 H 24 H 24 H Blood Pressure 150/57 H 132/48 L Pulse Oximetry 99 Oxygen Delivery Method Nasal Cannula Nasal Cannula Oxygen Flow Rate 4 04/03/22 04:10 Temperature Pulse Rate 73 Respiratory Rate 22 H Blood Pressure 144/62 H Pulse Oximetry 100 Oxygen Delivery Method Nasal Cannula Oxygen Flow Rate 4 BMI result Body Mass Index 23.6 vss <ORAL Weems - Last Filed: 04/03/22 02:23> Vital Signs - 24 hr 04/03/22 00:55 04/03/22 02:09 04/03/22 03:09 Temperature 97.6 F Pulse Rate 87 77 77 Respiratory Rate 21 H 24 H 24 H Blood Pressure 150/57 H 132/48 L Pulse Oximetry 99 Oxygen Delivery Method Nasal Cannula Nasal Cannula Oxygen Flow Rate 4 04/03/22 04:10 Temperature Pulse Rate 73 Respiratory Rate 22 H Blood Pressure 144/62 H Pulse Oximetry 100 Oxygen Delivery Method Nasal Cannula Oxygen Flow Rate 4 BMI result Body Mass Index 23.6 <Prasanth Sun MD - Last Filed: 04/03/22 04:49> Appearance: Awake, oriented to person, not time or situation. No acute distress.? Head: Normocephalic, atraumatic, no step-offs or deformities Eyes: Pupils equal, round and reactive to light.? Neck: Normal inspection.? Neck supple.? CVS: Normal heart rate and rhythm.? Pulses normal.? Respiratory: No respiratory distress.? Breath sounds diminished b/l w/ b/l faint crackle and wheezing.? Abdomen: Soft and nontender.? Skin: Skin warm and dry.? Normal skin color.? Normal skin turgor.?+ bruising throughout skin. Extremities: No lower extremity edema.? No calf ttp. Global weakness. Back: No midline tenderness, no C-spine tenderness, full range of motion, no CVA tenderness bilaterally Neuro: Oriented to person.? Response to painful stimuli. Unable to actively involved in neuro exam therefore limitedlimited neuro exam.. <ORAL Weems - Last Filed: 04/03/22 02:23> Course Reevaluation(s) Reevaluation #1: CBC with leukocytosis, and a normocytic anemia. Patient with a bicarb of 48 likely secondary to dehydration, metabolic alkalosis. Patient's total bilirubin, transaminases and alk-phos elevated. Creatinine kinase not consistent with rhabdo. Troponin 0 5, BNP within normal limits. Lactic acid normal. CT of head and brain with no acute findings. <ORAL Weems - Last Filed: 04/03/22 02:23> Time: 01:58 <ORAL Weems - Last Filed: 04/03/22 02:23> Reevaluation #2: PNA suspected will give rocephen and azithro. Will give solumedrol and duoneb. Discuss this case with hospitalist who will admit patient pending CT scans, repeat VBG and labs. <ORAL Weems - Last Filed: 04/03/22 02:23> Time: 02:22 <ORAL Weems - Last Filed: 04/03/22 02:23> MDM - Altered Mental Status MDM Narrative Medical decision making narrative: 0047 89-year-old female presents status post fall, unknown down time, patient pressed life alert, patient altered mental status, confused, with global weakness. Patient not answering questions appropriately not taking part in history or physical exam. Unable to obtain accurate NIH stroke scale as patient is unable to follow commands. According to EMS patient usually on 2L was sating 94% Physical examination with global weakness, bruising noted throughout. Patient alert to person, not time or situation. Pupils equal round and reactive to light. Patient not following commands. Breath sounds diminished b/l w/ b/l faint crackle and wheezing. RRR. Plan at this time is to obtain basic labs, urine, CPK, lactic, blood cultures, urine, CT of the head and brain for stroke, cervical spine. Will obtain a trauma protocol with CT of the abdomen, pelvis, chest. Will obtain an EKG and troponin to rule out ACS. Immediatly I placed a 20 G IV to R. Brachial region, PT/INR bedside- not giving a numerical value (error), EKG w/ normal sinus rythem. <ORAL Weems - Last Filed: 04/03/22 02:23> 0047 89-year-old female presents status post fall, unknown down time, patient pressed life alert, patient altered mental status, confused, with global weakness. Patient not answering questions appropriately not taking part in history or physical exam. Unable to obtain accurate NIH stroke scale as patient is unable to follow commands. According to EMS patient usually on 2L was sating 94% Physical examination with global weakness, bruising noted throughout. Patient alert to person, not time or situation. Pupils equal round and reactive to light. Patient not following commands. Breath sounds diminished b/l w/ b/l faint crackle and wheezing. RRR. Plan at this time is to obtain basic labs, urine, CPK, lactic, blood cultures, urine, CT of the head and brain for stroke, cervical spine. Will obtain a trauma protocol with CT of the abdomen, pelvis, chest. Will obtain an EKG and troponin to rule out ACS. Immediatly I placed a 20 G IV to R. Brachial region, PT/INR bedside- not giving a numerical value (error), EKG w/ normal sinus rythm 3:00 there was some spelling mistaken her name and date of which was corrected, patient is 86 years with history of COPD and left lung mass which was diagnosed in 02/04 supposed to have follow-up as outpatient came after the fall with weakness and confusion CT scan of the head C-spine abdomen negative chest CT showed left lung mass with Mets no acute findings in the CT head and neck lab workup showed metabolic alkalosis with hypernatremia elevated alkaline phosphatase and WBC. Will admit patient for further evaluation, case management consult <Prasanth Sun MD - Last Filed: 04/03/22 04:49> Medical Records Attestation: I reviewed the patient's medical records. <ORAL Weems - Last Filed: 04/03/22 02:23> Lab Data Attestation: I reviewed the patient's lab results. <ORAL Weems - Last Filed: 04/03/22 02:23> Result diagrams: : 04/03/22 01:09 04/03/22 01:09 <ORAL Weems - Last Filed: 04/03/22 02:23> Labs: Lab Results 04/03/22 04/03/22 04/03/22 Range/Units 01:06 01:07 01:08 WBC (4.8-10.8) X10*3/uL RBC (4.20-5.50) X10*6/uL Hgb (12.0-16.0) g/dl Hct (37.0-47.0) % MCV (80.0-98.0) fL MCH (27.0-33.0) pg MCHC (31.0-35.0) g/dl RDW (11.0-16.0) % Plt Count (160-400) X10*3/uL MPV (9.4-12.3) fL Immature Gran % (Auto) (0.0-0.4) % Neut % (Auto) (45-73) % Lymph % (Auto) (20-40) % [place] % (Auto) (2-11) % Eos % (Auto) (0-4) % Baso % (Auto) (0-2) % Lymph # (Auto) (1.2-4.9) X10*3/uL [place] # (Auto) (0.1-1.2) X10*3/uL Eos # (Auto) (0.0-0.4) X10*3/uL Baso # (Auto) (0.0-0.2) X10*3/uL Abs Immat Gran (auto) (0.00-0.03) X10*3/uL Absolute Neuts (auto) (2.0-8.3) x10*3/uL Absolute Nucleated RBC (0.0-0.012) X10*3/uL Nucleated RBC % (auto) (0.0-0.2) /100WBC PT (10.0-13.1) SEC INR (0.9-1.1) VBG pH (7.32-7.43) VBG pCO2 mmHg VBG pO2 mmHg VBG HCO3 (22-26) mmol/L VBG O2 Saturation % VBG Base Excess mmol/L Sodium (135-145) mmol/L Potassium (3.3-5.1) mmol/L Chloride (96-108) mmol/L Carbon Dioxide (22-29) mmol/L Anion Gap (12-20) BUN (9-16) mg/dL Creatinine (0.5-1.4) mg/dL Estim Creat Clear Calc Estimated GFR POC Glucose 102 (60-115) mg/dL Random Glucose (60-115) mg/dL Lactic Acid 0.7 (0.5-2.0) mmol/L Calcium (8.4-10.2) mg/dL Magnesium (1.6-2.6) mg/dL Total Bilirubin (0.0-1.0) mg/dL AST (5-31) U/L ALT (0-31) U/L Alkaline Phosphatase (39-117) U/L Total Creatine Kinase (26-140) U/L Troponin I High Sens 5.0 (<3.5-17.0) ng/L B-Natriuretic Peptide 34 (<100) pg/mL Total Protein (6.5-8.0) g/dL Albumin (3.5-5.0) g/dL Urine Color Urine Appearance Urine pH (5.0-8.0) Ur Specific [place] (1.005-1.025) Urine Protein (Neg-Trace) mg/dL Urine Glucose (UA) (Negative) mg/dL Urine Ketones (Negative) mg/dL Urine Blood (Negative) Urine Nitrite (Negative) Ur Leukocyte Esterase (Negative) Urine RBC (0-2) /HPF Urine WBC (0-5) /HPF Ur Squamous Epith Cells (0-2) /HPF Ur Renal Epithelial Cell Urine Bacteria (None Seen) Hyaline Casts (0-2) /LPF Granular Casts COVID-19 (DELL) (Negative) COVID-19 Clin Com 04/03/22 04/03/22 04/03/22 Range/Units 01:08 01:09 01:09 WBC 14.1 H (4.8-10.8) X10*3/uL RBC 3.26 L (4.20-5.50) X10*6/uL Hgb 8.6 L (12.0-16.0) g/dl Hct 31.2 L (37.0-47.0) % MCV 95.7 (80.0-98.0) fL MCH 26.4 L (27.0-33.0) pg MCHC 27.6 L (31.0-35.0) g/dl RDW 14.8 (11.0-16.0) % Plt Count 248 (160-400) X10*3/uL MPV 9.3 L (9.4-12.3) fL Immature Gran % (Auto) 0.6 H (0.0-0.4) % Neut % (Auto) 80.7 H (45-73) % Lymph % (Auto) 7.7 L (20-40) % [place] % (Auto) 8.1 (2-11) % Eos % (Auto) 2.7 (0-4) % Baso % (Auto) 0.2 (0-2) % Lymph # (Auto) 1.1 L (1.2-4.9) X10*3/uL [place] # (Auto) 1.2 (0.1-1.2) X10*3/uL Eos # (Auto) 0.4 (0.0-0.4) X10*3/uL Baso # (Auto) 0.0 (0.0-0.2) X10*3/uL Abs Immat Gran (auto) 0.09 H (0.00-0.03) X10*3/uL Absolute Neuts (auto) 11.4 H (2.0-8.3) x10*3/uL Absolute Nucleated RBC 0.000 (0.0-0.012) X10*3/uL Nucleated RBC % (auto) 0.0 (0.0-0.2) /100WBC PT 12.0 (10.0-13.1) SEC INR 1.0 (0.9-1.1) VBG pH (7.32-7.43) VBG pCO2 mmHg VBG pO2 mmHg VBG HCO3 (22-26) mmol/L VBG O2 Saturation % VBG Base Excess mmol/L Sodium 146 H (135-145) mmol/L Potassium 3.7 (3.3-5.1) mmol/L Chloride 91 L (96-108) mmol/L Carbon Dioxide 48 H* (22-29) mmol/L Anion Gap 11 L (12-20) BUN 20 H (9-16) mg/dL Creatinine 0.65 (0.5-1.4) mg/dL Estim Creat Clear Calc 36.6 Estimated GFR > 60 POC Glucose (60-115) mg/dL Random Glucose 123 H (60-115) mg/dL Lactic Acid (0.5-2.0) mmol/L Calcium 10.1 (8.4-10.2) mg/dL Magnesium 2.2 (1.6-2.6) mg/dL Total Bilirubin 1.5 H (0.0-1.0) mg/dL AST 282 H (5-31) U/L ALT 87 H (0-31) U/L Alkaline Phosphatase 267 H (39-117) U/L Total Creatine Kinase 17 L (26-140) U/L Troponin I High Sens (<3.5-17.0) ng/L B-Natriuretic Peptide (<100) pg/mL Total Protein 6.6 (6.5-8.0) g/dL Albumin 3.2 L (3.5-5.0) g/dL Urine Color Urine Appearance Urine pH (5.0-8.0) Ur Specific [place] (1.005-1.025) Urine Protein (Neg-Trace) mg/dL Urine Glucose (UA) (Negative) mg/dL Urine Ketones (Negative) mg/dL Urine Blood (Negative) Urine Nitrite (Negative) Ur Leukocyte Esterase (Negative) Urine RBC (0-2) /HPF Urine WBC (0-5) /HPF Ur Squamous Epith Cells (0-2) /HPF Ur Renal Epithelial Cell Urine Bacteria (None Seen) Hyaline Casts (0-2) /LPF Granular Casts COVID-19 (DELL) (Negative) COVID-19 Clin Com 04/03/22 04/03/22 04/03/22 Range/Units 01:09 01:22 02:57 WBC (4.8-10.8) X10*3/uL RBC (4.20-5.50) X10*6/uL Hgb (12.0-16.0) g/dl Hct (37.0-47.0) % MCV (80.0-98.0) fL MCH (27.0-33.0) pg MCHC (31.0-35.0) g/dl RDW (11.0-16.0) % Plt Count (160-400) X10*3/uL MPV (9.4-12.3) fL Immature Gran % (Auto) (0.0-0.4) % Neut % (Auto) (45-73) % Lymph % (Auto) (20-40) % [place] % (Auto) (2-11) % Eos % (Auto) (0-4) % Baso % (Auto) (0-2) % Lymph # (Auto) (1.2-4.9) X10*3/uL [place] # (Auto) (0.1-1.2) X10*3/uL Eos # (Auto) (0.0-0.4) X10*3/uL Baso # (Auto) (0.0-0.2) X10*3/uL Abs Immat Gran (auto) (0.00-0.03) X10*3/uL Absolute Neuts (auto) (2.0-8.3) x10*3/uL Absolute Nucleated RBC (0.0-0.012) X10*3/uL Nucleated RBC % (auto) (0.0-0.2) /100WBC PT (10.0-13.1) SEC INR (0.9-1.1) VBG pH 7.35 (7.32-7.43) VBG pCO2 91 mmHg VBG pO2 59 mmHg VBG HCO3 50 H (22-26) mmol/L VBG O2 Saturation 87.0 % VBG Base Excess 21.3 mmol/L Sodium (135-145) mmol/L Potassium (3.3-5.1) mmol/L Chloride (96-108) mmol/L Carbon Dioxide (22-29) mmol/L Anion Gap (12-20) BUN (9-16) mg/dL Creatinine (0.5-1.4) mg/dL Estim Creat Clear Calc Estimated GFR POC Glucose (60-115) mg/dL Random Glucose (60-115) mg/dL Lactic Acid (0.5-2.0) mmol/L Calcium (8.4-10.2) mg/dL Magnesium (1.6-2.6) mg/dL Total Bilirubin (0.0-1.0) mg/dL AST (5-31) U/L ALT (0-31) U/L Alkaline Phosphatase (39-117) U/L Total Creatine Kinase (26-140) U/L Troponin I High Sens (<3.5-17.0) ng/L B-Natriuretic Peptide (<100) pg/mL Total Protein (6.5-8.0) g/dL Albumin (3.5-5.0) g/dL Urine Color DK YELLOW Urine Appearance Clear Urine pH 6.0 (5.0-8.0) Ur Specific [place] >= 1.030 H (1.005-1.025) Urine Protein 30 (1+) H (Neg-Trace) mg/dL Urine Glucose (UA) 100 H (Negative) mg/dL Urine Ketones Negative (Negative) mg/dL Urine Blood Negative (Negative) Urine Nitrite Negative (Negative) Ur Leukocyte Esterase Negative (Negative) Urine RBC 0-2 (0-2) /HPF Urine WBC 0-5 (0-5) /HPF Ur Squamous Epith Cells 3-5 (0-2) /HPF Ur Renal Epithelial Cell Present Urine Bacteria Trace (None Seen) Hyaline Casts 11-20 (0-2) /LPF Granular Casts Present COVID-19 (DELL) Negative (Negative) COVID-19 Clin Com See Note <ORAL Weems - Last Filed: 04/03/22 02:23> Lab Results 04/03/22 04/03/22 04/03/22 Range/Units 01:06 01:07 01:08 WBC (4.8-10.8) X10*3/uL RBC (4.20-5.50) X10*6/uL Hgb (12.0-16.0) g/dl Hct (37.0-47.0) % MCV (80.0-98.0) fL MCH (27.0-33.0) pg MCHC (31.0-35.0) g/dl RDW (11.0-16.0) % Plt Count (160-400) X10*3/uL MPV (9.4-12.3) fL Immature Gran % (Auto) (0.0-0.4) % Neut % (Auto) (45-73) % Lymph % (Auto) (20-40) % [place] % (Auto) (2-11) % Eos % (Auto) (0-4) % Baso % (Auto) (0-2) % Lymph # (Auto) (1.2-4.9) X10*3/uL [place] # (Auto) (0.1-1.2) X10*3/uL Eos # (Auto) (0.0-0.4) X10*3/uL Baso # (Auto) (0.0-0.2) X10*3/uL Abs Immat Gran (auto) (0.00-0.03) X10*3/uL Absolute Neuts (auto) (2.0-8.3) x10*3/uL Absolute Nucleated RBC (0.0-0.012) X10*3/uL Nucleated RBC % (auto) (0.0-0.2) /100WBC PT (10.0-13.1) SEC INR (0.9-1.1) VBG pH (7.32-7.43) VBG pCO2 mmHg VBG pO2 mmHg VBG HCO3 (22-26) mmol/L VBG O2 Saturation % VBG Base Excess mmol/L Sodium (135-145) mmol/L Potassium (3.3-5.1) mmol/L Chloride (96-108) mmol/L Carbon Dioxide (22-29) mmol/L Anion Gap (12-20) BUN (9-16) mg/dL Creatinine (0.5-1.4) mg/dL Estim Creat Clear Calc Estimated GFR POC Glucose 102 (60-115) mg/dL Random Glucose (60-115) mg/dL Lactic Acid 0.7 (0.5-2.0) mmol/L Calcium (8.4-10.2) mg/dL Magnesium (1.6-2.6) mg/dL Total Bilirubin (0.0-1.0) mg/dL AST (5-31) U/L ALT (0-31) U/L Alkaline Phosphatase (39-117) U/L Total Creatine Kinase (26-140) U/L Troponin I High Sens 5.0 (<3.5-17.0) ng/L B-Natriuretic Peptide 34 (<100) pg/mL Total Protein (6.5-8.0) g/dL Albumin (3.5-5.0) g/dL Urine Color Urine Appearance Urine pH (5.0-8.0) Ur Specific [place] (1.005-1.025) Urine Protein (Neg-Trace) mg/dL Urine Glucose (UA) (Negative) mg/dL Urine Ketones (Negative) mg/dL Urine Blood (Negative) Urine Nitrite (Negative) Ur Leukocyte Esterase (Negative) Urine RBC (0-2) /HPF Urine WBC (0-5) /HPF Ur Squamous Epith Cells (0-2) /HPF Ur Renal Epithelial Cell Urine Bacteria (None Seen) Hyaline Casts (0-2) /LPF Granular Casts COVID-19 (DELL) (Negative) COVID-19 Clin Com 04/03/22 04/03/22 04/03/22 Range/Units 01:08 01:09 01:09 WBC 14.1 H (4.8-10.8) X10*3/uL RBC 3.26 L (4.20-5.50) X10*6/uL Hgb 8.6 L (12.0-16.0) g/dl Hct 31.2 L (37.0-47.0) % MCV 95.7 (80.0-98.0) fL MCH 26.4 L (27.0-33.0) pg MCHC 27.6 L (31.0-35.0) g/dl RDW 14.8 (11.0-16.0) % Plt Count 248 (160-400) X10*3/uL MPV 9.3 L (9.4-12.3) fL Immature Gran % (Auto) 0.6 H (0.0-0.4) % Neut % (Auto) 80.7 H (45-73) % Lymph % (Auto) 7.7 L (20-40) % [place] % (Auto) 8.1 (2-11) % Eos % (Auto) 2.7 (0-4) % Baso % (Auto) 0.2 (0-2) % Lymph # (Auto) 1.1 L (1.2-4.9) X10*3/uL [place] # (Auto) 1.2 (0.1-1.2) X10*3/uL Eos # (Auto) 0.4 (0.0-0.4) X10*3/uL Baso # (Auto) 0.0 (0.0-0.2) X10*3/uL Abs Immat Gran (auto) 0.09 H (0.00-0.03) X10*3/uL Absolute Neuts (auto) 11.4 H (2.0-8.3) x10*3/uL Absolute Nucleated RBC 0.000 (0.0-0.012) X10*3/uL Nucleated RBC % (auto) 0.0 (0.0-0.2) /100WBC PT 12.0 (10.0-13.1) SEC INR 1.0 (0.9-1.1) VBG pH (7.32-7.43) VBG pCO2 mmHg VBG pO2 mmHg VBG HCO3 (22-26) mmol/L VBG O2 Saturation % VBG Base Excess mmol/L Sodium 146 H (135-145) mmol/L Potassium 3.7 (3.3-5.1) mmol/L Chloride 91 L (96-108) mmol/L Carbon Dioxide 48 H* (22-29) mmol/L Anion Gap 11 L (12-20) BUN 20 H (9-16) mg/dL Creatinine 0.65 (0.5-1.4) mg/dL Estim Creat Clear Calc 36.6 Estimated GFR > 60 POC Glucose (60-115) mg/dL Random Glucose 123 H (60-115) mg/dL Lactic Acid (0.5-2.0) mmol/L Calcium 10.1 (8.4-10.2) mg/dL Magnesium 2.2 (1.6-2.6) mg/dL Total Bilirubin 1.5 H (0.0-1.0) mg/dL AST 282 H (5-31) U/L ALT 87 H (0-31) U/L Alkaline Phosphatase 267 H (39-117) U/L Total Creatine Kinase 17 L (26-140) U/L Troponin I High Sens (<3.5-17.0) ng/L B-Natriuretic Peptide (<100) pg/mL Total Protein 6.6 (6.5-8.0) g/dL Albumin 3.2 L (3.5-5.0) g/dL Urine Color Urine Appearance Urine pH (5.0-8.0) Ur Specific [place] (1.005-1.025) Urine Protein (Neg-Trace) mg/dL Urine Glucose (UA) (Negative) mg/dL Urine Ketones (Negative) mg/dL Urine Blood (Negative) Urine Nitrite (Negative) Ur Leukocyte Esterase (Negative) Urine RBC (0-2) /HPF Urine WBC (0-5) /HPF Ur Squamous Epith Cells (0-2) /HPF Ur Renal Epithelial Cell Urine Bacteria (None Seen) Hyaline Casts (0-2) /LPF Granular Casts COVID-19 (DELL) (Negative) COVID-19 Clin Com 04/03/22 04/03/22 04/03/22 Range/Units 01:09 01:22 02:57 WBC (4.8-10.8) X10*3/uL RBC (4.20-5.50) X10*6/uL Hgb (12.0-16.0) g/dl Hct (37.0-47.0) % MCV (80.0-98.0) fL MCH (27.0-33.0) pg MCHC (31.0-35.0) g/dl RDW (11.0-16.0) % Plt Count (160-400) X10*3/uL MPV (9.4-12.3) fL Immature Gran % (Auto) (0.0-0.4) % Neut % (Auto) (45-73) % Lymph % (Auto) (20-40) % [place] % (Auto) (2-11) % Eos % (Auto) (0-4) % Baso % (Auto) (0-2) % Lymph # (Auto) (1.2-4.9) X10*3/uL [place] # (Auto) (0.1-1.2) X10*3/uL Eos # (Auto) (0.0-0.4) X10*3/uL Baso # (Auto) (0.0-0.2) X10*3/uL Abs Immat Gran (auto) (0.00-0.03) X10*3/uL Absolute Neuts (auto) (2.0-8.3) x10*3/uL Absolute Nucleated RBC (0.0-0.012) X10*3/uL Nucleated RBC % (auto) (0.0-0.2) /100WBC PT (10.0-13.1) SEC INR (0.9-1.1) VBG pH 7.35 (7.32-7.43) VBG pCO2 91 mmHg VBG pO2 59 mmHg VBG HCO3 50 H (22-26) mmol/L VBG O2 Saturation 87.0 % VBG Base Excess 21.3 mmol/L Sodium (135-145) mmol/L Potassium (3.3-5.1) mmol/L Chloride (96-108) mmol/L Carbon Dioxide (22-29) mmol/L Anion Gap (12-20) BUN (9-16) mg/dL Creatinine (0.5-1.4) mg/dL Estim Creat Clear Calc Estimated GFR POC Glucose (60-115) mg/dL Random Glucose (60-115) mg/dL Lactic Acid (0.5-2.0) mmol/L Calcium (8.4-10.2) mg/dL Magnesium (1.6-2.6) mg/dL Total Bilirubin (0.0-1.0) mg/dL AST (5-31) U/L ALT (0-31) U/L Alkaline Phosphatase (39-117) U/L Total Creatine Kinase (26-140) U/L Troponin I High Sens (<3.5-17.0) ng/L B-Natriuretic Peptide (<100) pg/mL Total Protein (6.5-8.0) g/dL Albumin (3.5-5.0) g/dL Urine Color DK YELLOW Urine Appearance Clear Urine pH 6.0 (5.0-8.0) Ur Specific [place] >= 1.030 H (1.005-1.025) Urine Protein 30 (1+) H (Neg-Trace) mg/dL Urine Glucose (UA) 100 H (Negative) mg/dL Urine Ketones Negative (Negative) mg/dL Urine Blood Negative (Negative) Urine Nitrite Negative (Negative) Ur Leukocyte Esterase Negative (Negative) Urine RBC 0-2 (0-2) /HPF Urine WBC 0-5 (0-5) /HPF Ur Squamous Epith Cells 3-5 (0-2) /HPF Ur Renal Epithelial Cell Present Urine Bacteria Trace (None Seen) Hyaline Casts 11-20 (0-2) /LPF Granular Casts Present COVID-19 (DELL) Negative (Negative) COVID-19 Clin Com See Note <Prasanth Sun MD - Last Filed: 04/03/22 04:49> ECG Data ECG #1: Attestation: I personally reviewed and interpreted this ECG as follows: <ORAL Weems - Last Filed: 04/03/22 02:23> ECG interpretation date: 04/03/22 <ORAL Weems - Last Filed: 04/03/22 02:23> ECG interpretation time: 01:59 <ORAL Weems - Last Filed: 04/03/22 02:23> Prior ECG tracings: available for review <ORAL Weems - Last Filed: 04/03/22 02:23> Interpretation: EKG with a ventricular rate of 84, IA normal, QRS normal, QT/QTC normal. EKG with normal sinus rhythm no ST elevations or inversions concerning for ischemia. No previous to compare with. <ORAL Weems - Last Filed: 04/03/22 02:23> Critical Care Time Critical Care Time Critical Care Time: No <ORAL Weems - Last Filed: 04/03/22 02:23> Yes <Prasanth Sun MD - Last Filed: 04/03/22 04:49> Total Critical Care Time: 55 <Prasanth Sun MD - Last Filed: 04/03/22 04:49> Attestation: I spent 55 minutes of critical care, with interventions, assessments, speaking to patient, consultants, <Prasanth uSn MD - Last Filed: 04/03/22 04:49> Discharge Plan Discharge Clinical Impression: Fall, Weakness, Lung cancer, Alkalosis, metabolic, Acute hypernatremia <ORAL Weems - Last Filed: 04/03/22 02:23> Patient Disposition: Admitted As Inpatient <ORAL Weems - Last Filed: 04/03/22 02:23>
[2022-04-03 01:16] LABS: MANUAL DIFF FLAG NO
[2022-04-03 01:18] LABS: Basophils Percent Auto 0.2 % (0-2); Eosinophils Absolute Auto 0.4 X10*3/uL (0.0-0.4); Eosinophils Percent Auto 2.7 % (0-4); Hematocrit 31.2 % (37.0-47.0); Hemoglobin 8.6 g/dl (12.0-16.0); Imm Gran Abs Auto 0.09 X10*3/uL (0.00-0.03); Imm Gran Pct Auto 0.6 % (0.0-0.4); Lymphocytes Absolute Auto 1.1 X10*3/uL (1.2-4.9); Lymphocytes Percent Auto 7.7 % (20-40); Mean Corpuscular HGB Conc 27.6 g/dl (31.0-35.0); Mean Corpuscular Hemoglobin 26.4 pg (27.0-33.0); Mean Corpuscular Volume 95.7 fL (80.0-98.0); Mean Platelet Volume 9.3 fL (9.4-12.3); Monocytes Absolute Auto 1.2 X10*3/uL (0.1-1.2); Monocytes Percent Auto 8.1 % (2-11); Neutrophils Absolute Auto 11.4 x10*3/uL (2.0-8.3); Neutrophils Percent Auto 80.7 % (45-73); Platelet Count 248 X10*3/uL (160-400); Red Blood Count 3.26 X10*6/uL (4.20-5.50); Red Cell Distribution Width 14.8 % (11.0-16.0); White Blood Count 14.1 X10*3/uL (4.8-10.8)
[2022-04-03 01:26] LABS: Glucose, Whole Blood 102 mg/dL (60-115)
[2022-04-03 01:30] LABS: Lactic Acid 0.7 mmol/L (0.5-2.0)
[2022-04-03 01:42] LABS: B Type Natriuretic Peptide 34 pg/mL (<100)
[2022-04-03 01:45] LABS: Alanine Aminotransferase 87 U/L (0-31); Albumin Level 3.2 g/dL (3.5-5.0); Alkaline Phosphatase 267 U/L (39-117); Anion Gap 11 (12-20); Aspartate Amino Transferase 282 U/L (5-31); Bilirubin Total 1.5 mg/dL (0.0-1.0); Blood Urea Nitrogen 20 mg/dL (9-16); Calcium 10.1 mg/dL (8.4-10.2); Carbon Dioxide 48 mmol/L (22-29); Chloride 91 mmol/L (96-108); Creatinine Clr Calc Pharmacy 36.6; Estimated Glomerular Filt Rate > 60; Glucose Random 123 mg/dL (60-115); Magnesium 2.2 mg/dL (1.6-2.6); Potassium 3.7 mmol/L (3.3-5.1); Sodium 146 mmol/L (135-145); Total Protein 6.6 g/dL (6.5-8.0)
[2022-04-03 01:51] LABS: COVID-19 Test Negative (Negative); IDNOW Serial# 08D9AD1C
[2022-04-03 01:54] LABS: Appearance Urine Clear; Color Urine DK YELLOW; Glucose Urine UA 100 mg/dL (Negative); Leukocyte Esterase Urine Negative (Negative); Nitrite Urine Negative (Negative); Specific Gravity - Urine >= 1.030 (1.005-1.025); Urine Blood Negative (Negative); Urine Ketones Negative (Negative); Urine Protein 30 (1+) mg/dL (Neg-Trace)
[2022-04-03] MEDS: 0.9 % Sodium Chloride 1,000 ML 999 ML IV ×2 (02:05→02:06)
[2022-04-03] MEDS: iohexoL 350 MG/ML 100 ML INFUS..BTL 85 ML IV (02:11)
[2022-04-03 02:22] LABS: Bacteria Urine Trace (None Seen); Granular Casts Urine Present; RBC Urine 0-2 /HPF (0-2); Renal Epithelial Cells Urine Present; WBC Urine 0-5 /HPF (0-5)
[2022-04-03] MEDS: cefTRIAXone sodium 1 GM in 0.9 % Sodium Chloride 50 ML IV (02:30)
[2022-04-03] MEDS: methylPREDNISolone Sod Succ 125 MG/2 ML VIAL IVPUSH (02:32)
[2022-04-03] MEDS: Azithromycin 500 MG in 0.9 % Sodium Chloride 250 ML 125 MG IV (02:32)
[2022-04-03 03:04] LABS: VBG Base Excess 21.3 mmol/L; VBG HCO3 50 mmol/L (22-26); VBG pCO2 91 mmHg; VBG pH 7.35 (7.32-7.43); VBG pO2 59 mmHg
[2022-04-03 03:04] LABS: Venous Blood Gas Refer to POC result
[2022-04-03] MEDS: Albuterol/Iprat 2.5/0.5MG 3 ML AMPUL.NEB INHALE (03:09)
[2022-04-03] MEDS: methylPREDNISolone Sod Succ 40 MG/ML VIAL IVPUSH ×2 (05:22→10:54)
[2022-04-03] MEDS: 0.9 % Sodium Chloride 1,000 ML 100 ML IVCONT (05:22)
[2022-04-03] MEDS: Heparin Sodium,Porcine 5,000 UNIT/ML VIAL 5000 UNIT SUBCUT ×2 (05:22→17:06)
--- NOTE | 2022-04-03 06:08 | P.HPHOSP_ITS ---
History of Present Illness Date of Service: 04/03/22 Chief Complaint: unwitnessed fall 86-year-old female with a past medical history of hypertension, hyperlipidemia, COPD, chronic respiratory failure on 4 L of home oxygen at baseline, lung mass presented to the hospital today with a chief complaint of fall. Patient pressed her alert button, EMS went to pick her up, patient was found alone in the house with unkept circumstances; subsequently brought her to the hospital for further evaluation. Patient is oriented to self, response to verbal stimuli, unable to provide any history. Spoke to the patient's daughter Donna, who mentioned that she and her sister has been checking on her mother who lives alone. Mentions patient has been refusing food for the past couple days; mentions she was recently seen her web content manager, finished a course of antibiotics today for presumed pneumonia. Denies patient having any fevers. Reports she is having cough. Mentions she has lung mass and is due for follow-up with Oncology. Denies patient complaining of any pain or having urinary symptoms. Also mentions that patient recently had elevated liver enzymes Review of all other systems is limited ER course: Per ER team patient on presentation noted to be nonfocal, generally weak, CT head, CT C-spine showed no acute 0.6, CT abdomen showed no acute findings, CT chest showed lung mass; initially concern for pneumonia -given antibiotics; also patient was noted to be wheezing given nebulizations and steroids. On labs noted to have elevated serum bicarb of 48 and elevated liver enzymes. EKG was nonischemic. Admitted to the hospital for further management PMFSH Social History Advance Directives: Yes Advance Directives on File: Yes Advance Directives Date on File: 09/09/21 Meds Allergies Allergy/AdvReac Type Severity Reaction Status Date / Time Unable to Assess Allergy Unverified 04/03/22 00:47 Active Medications: Current Medications Acetaminophen (Acetaminophen 325 Mg Tablet) 650 mg PO Q6H PRN PRN Reason: Pain, Mild (Pain Scale 1-3) Albuterol/Ipratropium (Albuterol/Iprat 2.5/0.5mg 3 Ml Ampul.Neb) 3 ml INHALE RQ4H WHILE AWAKE [facility] Heparin Sodium (Porcine) (Heparin Sodium,Porcine 5,000 Unit/Ml Vial) 5,000 unit SUBCUT Q12H [facility]ILIO Last Admin: 04/03/22 05:22 Dose: 5,000 unit Sodium Chloride (Ns) 1,000 mls @ 100 mls/hr IVCONT .Q10H [facility] Last Admin: 04/03/22 05:22 Dose: 100 mls/hr Ceftriaxone Sodium 1 gm/ (Sodium Chloride) 50 mls @ 100 mls/hr IV Q24H [facility] Azithromycin 500 mg/ Sodium (Chloride) 250 mls @ 125 mls/hr IV Q24H [facility] Melatonin (Melatonin 3 Mg Tablet) 6 mg PO BEDTIME PRN PRN Reason: Insomnia Methylprednisolone Sodium Succinate (Methylprednisolone Sod Succ 40 Mg/Ml Vial) 40 mg IVPUSH Q6H [facility] Last Admin: 04/03/22 05:22 Dose: 40 mg Pharmacy Consult (Consult Rx Perform Med Rec) 1 each MISCELLANE ONCE PRN PRN Reason: Consult order Senna (Sennosides 8.6 Mg Tablet) 17.2 mg PO BEDTIME PRN PRN Reason: Constipation Sodium Chloride (0.9 % Sodium Chloride Flush 3 Ml Syringe) 3 ml IVFLUSH QSHIFT [facility] Home Medications Medication Instructions Recorded Confirmed Last Taken Type albuterol sulfate 90 mcg/actuation inh inhalation 04/03/22 Unknown History aerosol inhaler amitriptyline 25 mg tablet tab PO 04/03/22 Unknown History aspirin 81 mg tablet,delayed 1 tab PO DAILY 04/03/22 04/03/22 Unknown History release citalopram 40 mg tablet 1 tab PO DAILY 04/03/22 04/03/22 Unknown History clopidogrel 75 mg tablet 1 tab PO DAILY 04/03/22 04/03/22 Unknown History cyanocobalamin (vitamin B-12) tab PO DAILY 04/03/22 Unknown History 1,000 mcg tablet,extended release (Vitamin B-12 ER) diltiazem HCl 120 mg 1 cap PO DAILY 04/03/22 04/03/22 Unknown History capsule,extended release 24 hr ferrous sulfate 325 mg (65 mg tab PO 04/03/22 Unknown History iron) tablet (FeroSul) ipratropium 0.5 mg-albuterol 3 mg ml inhalation 04/03/22 Unknown History (2.5 mg base)/3 mL nebulization soln ipratropium 20 mcg-albuterol 100 1 puff PO Q6H 04/03/22 04/03/22 Unknown History mcg/actuation mist for inhalation (Combivent Respimat) lorazepam 0.5 mg tablet 1 tab PO BID PRN Anxiety 04/03/22 04/03/22 Unknown History omeprazole 20 mg capsule,delayed 1 cap PO DAILY 04/03/22 04/03/22 Unknown History release pravastatin 40 mg tablet 1 tab PO DAILY 04/03/22 04/03/22 Unknown History Physical Exam Vital Signs and Narrative: Vital Signs: Last Vital Signs Temp 97.6 F 04/03/22 00:55 Pulse 65 04/03/22 05:23 Resp 25 H 04/03/22 05:23 BP 106/46 L 04/03/22 05:23 Pulse Ox 96 04/03/22 05:23 O2 Del Method 04/03/22 05:23 O2 Flow Rate 4 04/03/22 04:10 Oxygen Flow Rate 2 04/03/22 00:55 BMI result Body Mass Index 23.6 Gen: Appears be in no acute distress HEENT: NCAT, Moist mucosa. Pulmonary: mild occasional wheezing noted CVS: Normal S1-S2 Abdomen: BS+, Soft, Nontender Extremities: Warm well perfused Neuro: Alert and awake. oriented to self. Lying in contracted posture limiting neurological exam; but moves all extremities Results Labs CBC and Chem 7: 04/03/22 01:09 04/03/22 01:09 Labs: Laboratory Results - last 24 hr 04/03/22 04/03/22 04/03/22 01:06 01:07 01:08 MCV MCH MCHC RDW Plt Count MPV Immature Gran % (Auto) Neut % (Auto) Lymph % (Auto) [place] % (Auto) Eos % (Auto) Baso % (Auto) Lymph # (Auto) [place] # (Auto) Eos # (Auto) Baso # (Auto) Abs Immat Gran (auto) Absolute Neuts (auto) Absolute Nucleated RBC Nucleated RBC % (auto) PT INR VBG pH VBG pCO2 VBG pO2 VBG HCO3 VBG O2 Saturation VBG Base Excess Anion Gap Estim Creat Clear Calc Estimated GFR POC Glucose 102 Random Glucose Lactic Acid 0.7 Calcium Magnesium Total Bilirubin AST ALT Alkaline Phosphatase Total Creatine Kinase B-Natriuretic Peptide 34 Total Protein Albumin Urine Color Urine Appearance Urine pH Ur Specific [place] Urine Protein Urine Glucose (UA) Urine Ketones Urine Blood Urine Nitrite Ur Leukocyte Esterase Urine RBC Urine WBC Ur Squamous Epith Cells Ur Renal Epithelial Cell Urine Bacteria Hyaline Casts Granular Casts COVID-19 (DELL) COVID-19 Clin Com 04/03/22 04/03/22 04/03/22 01:08 01:09 01:09 MCV 95.7 MCH 26.4 L MCHC 27.6 L RDW 14.8 Plt Count 248 MPV 9.3 L Immature Gran % (Auto) 0.6 H Neut % (Auto) 80.7 H Lymph % (Auto) 7.7 L [place] % (Auto) 8.1 Eos % (Auto) 2.7 Baso % (Auto) 0.2 Lymph # (Auto) 1.1 L [place] # (Auto) 1.2 Eos # (Auto) 0.4 Baso # (Auto) 0.0 Abs Immat Gran (auto) 0.09 H Absolute Neuts (auto) 11.4 H Absolute Nucleated RBC 0.000 Nucleated RBC % (auto) 0.0 PT 12.0 INR 1.0 VBG pH VBG pCO2 VBG pO2 VBG HCO3 VBG O2 Saturation VBG Base Excess Anion Gap 11 L Estim Creat Clear Calc 36.6 Estimated GFR > 60 POC Glucose Random Glucose 123 H Lactic Acid Calcium 10.1 Magnesium 2.2 Total Bilirubin 1.5 H AST 282 H ALT 87 H Alkaline Phosphatase 267 H Total Creatine Kinase 17 L B-Natriuretic Peptide Total Protein 6.6 Albumin 3.2 L Urine Color Urine Appearance Urine pH Ur Specific [place] Urine Protein Urine Glucose (UA) Urine Ketones Urine Blood Urine Nitrite Ur Leukocyte Esterase Urine RBC Urine WBC Ur Squamous Epith Cells Ur Renal Epithelial Cell Urine Bacteria Hyaline Casts Granular Casts COVID-19 (DELL) COVID-19 Clin Com 04/03/22 04/03/22 04/03/22 01:09 01:22 02:57 MCV MCH MCHC RDW Plt Count MPV Immature Gran % (Auto) Neut % (Auto) Lymph % (Auto) [place] % (Auto) Eos % (Auto) Baso % (Auto) Lymph # (Auto) [place] # (Auto) Eos # (Auto) Baso # (Auto) Abs Immat Gran (auto) Absolute Neuts (auto) Absolute Nucleated RBC Nucleated RBC % (auto) PT INR VBG pH 7.35 VBG pCO2 91 VBG pO2 59 VBG HCO3 50 H VBG O2 Saturation 87.0 VBG Base Excess 21.3 Anion Gap Estim Creat Clear Calc Estimated GFR POC Glucose Random Glucose Lactic Acid Calcium Magnesium Total Bilirubin AST ALT Alkaline Phosphatase Total Creatine Kinase B-Natriuretic Peptide Total Protein Albumin Urine Color DK YELLOW Urine Appearance Clear Urine pH 6.0 Ur Specific [place] >= 1.030 H Urine Protein 30 (1+) H Urine Glucose (UA) 100 H Urine Ketones Negative Urine Blood Negative Urine Nitrite Negative Ur Leukocyte Esterase Negative Urine RBC 0-2 Urine WBC 0-5 Ur Squamous Epith Cells 3-5 Ur Renal Epithelial Cell Present Urine Bacteria Trace Hyaline Casts 11-20 Granular Casts Present COVID-19 (DELL) Negative COVID-19 Clin Com See Note Imaging Radiologist's Impressions: Impressions Head CT 04/03/22 00:58 IMPRESSION: 1. No acute intracranial finding. 2. Moderate degenerative changes throughout the cervical spine. This critical result was discussed with ORAL Weems PA by telephone at 04/03/2022 12:59 AM and it was ascertained that the content and urgency of the report was understood at the time of direct communication. Cervical Spine CT 04/03/22 01:05 IMPRESSION: 1. No acute intracranial finding. 2. Moderate degenerative changes throughout the cervical spine. This critical result was discussed with ORAL Weems PA by telephone at 04/03/2022 12:59 AM and it was ascertained that the content and urgency of the report was understood at the time of direct communication. Abdomen/Pelvis CT 04/03/22 02:00 IMPRESSION: 1. No acute traumatic findings are seen. Fracture of the sternum with callus formation, suggesting subacute nature. Additionally there are multiple vertebral body mild compression deformities which are of uncertain chronicity. 2. There is a lung mass in the left upper lobe. This has heterogeneous attenuation and central low attenuation suggestive of necrosis. This is highly concerning for neoplasm. 3. There are a few prominent mediastinal and left hilar lymph nodes, worrisome for metastatic disease. 4. Status post cholecystectomy. Dilated intrahepatic and extrahepatic bile ducts. There is a ductal filling defect in the common bile duct. This could be stone or sludge. 5. Indeterminate right adrenal gland nodule. Cannot exclude metastatic disease in this setting. 6. Large colonic stool burden. This critical result was discussed with Dr. Sun by telephone at 04/03/2022 2:32 AM and it was ascertained that the content and urgency of the report was understood at the time of direct communication. Chest CT 04/03/22 02:00 IMPRESSION: 1. No acute traumatic findings are seen. Fracture of the sternum with callus formation, suggesting subacute nature. Additionally there are multiple vertebral body mild compression deformities which are of uncertain chronicity. 2. There is a lung mass in the left upper lobe. This has heterogeneous attenuation and central low attenuation suggestive of necrosis. This is highly concerning for neoplasm. 3. There are a few prominent mediastinal and left hilar lymph nodes, worrisome for metastatic disease. 4. Status post cholecystectomy. Dilated intrahepatic and extrahepatic bile ducts. There is a ductal filling defect in the common bile duct. This could be stone or sludge. 5. Indeterminate right adrenal gland nodule. Cannot exclude metastatic disease in this setting. 6. Large colonic stool burden. This critical result was discussed with Dr. Sun by telephone at 04/03/2022 2:32 AM and it was ascertained that the content and urgency of the report was understood at the time of direct communication. Assessment and Plan (1) Fall: Status: Acute (2) Weakness: Status: Acute (3) Lung cancer: Status: Acute (4) Alkalosis, metabolic: Status: Acute (5) COPD (chronic obstructive pulmonary disease): Status: Acute Plan 86-year-old female with a past medical history of hypertension, hyperlipidemia, COPD, chronic respiratory failure on 4 L of home oxygen at baseline, lung mass presented to the hospital today with a chief complaint of fall. admitted for following unwitnessed fall: Imaging showed no evidence of fracture. Fall precautions. PT / OT eventually. EKG nonischemic. Troponin negative. Lung mass: CT chest showed lung mass with necrosis. Oncology consult. during Her last admission patient was planned to have CT scan as outpatient COPD exacerbation: Continue nebulizations standing and p.r.n.. IV Solu- Medrol. Azithromycin. Patient on 4 L of supplemental oxygen at baseline. Will continue. Altered mental status: Likely toxic metabolic encephalopathy. Supportive care. Aspiration precautions. Speech and swallow eval. Metabolic alkalosis: Likely in setting of poor oral intake/volume depletion. Patient being given gentle IV fluids. Hx HTN: Hold home antihypertensives for now given soft blood pressure DVT ppx: SQH Code Status: DNR/DNI- confirmed with pt's daughter. Quality Stroke Does the patient have a stroke diagnosis?: No VTE Prior VTE?: No VTE Risk Level:: Medical - moderate - high VTE Device Contraindication: Treatment Not Indicated VTE Drug Contraindication: N/A - Med Ordered
[2022-04-03 06:47] LABS: Basophils Percent Auto 0.2 % (0-2); Eosinophils Percent Auto 0.3 % (0-4); Hematocrit 29.4 % (37.0-47.0); Hemoglobin 7.9 g/dl (12.0-16.0); Imm Gran Abs Auto 0.09 X10*3/uL (0.00-0.03); Imm Gran Pct Auto 0.9 % (0.0-0.4); Lymphocytes Absolute Auto 0.6 X10*3/uL (1.2-4.9); Lymphocytes Percent Auto 5.5 % (20-40); MANUAL DIFF FLAG SCAN; Mean Corpuscular HGB Conc 26.9 g/dl (31.0-35.0); Mean Corpuscular Volume 96.7 fL (80.0-98.0); Mean Platelet Volume 9.6 fL (9.4-12.3); Monocytes Absolute Auto 0.2 X10*3/uL (0.1-1.2); Monocytes Percent Auto 1.9 % (2-11); Neutrophils Absolute Auto 9.4 x10*3/uL (2.0-8.3); Neutrophils Percent Auto 91.2 % (45-73); Platelet Count 187 X10*3/uL (160-400); Red Blood Count 3.04 X10*6/uL (4.20-5.50); Red Cell Distribution Width 14.7 % (11.0-16.0); SCAN SMEAR FLAG 1; White Blood Count 10.3 X10*3/uL (4.8-10.8)
[2022-04-03 07:04] LABS: Magnesium 1.9 mg/dL (1.6-2.6)
[2022-04-03 07:08] LABS: SLIDE REVIEW VERIFIED
[2022-04-03 07:14] LABS: Anion Gap 12 (12-20); Blood Urea Nitrogen 15 mg/dL (9-16); Calcium 8.3 mg/dL (8.4-10.2); Carbon Dioxide 36 mmol/L (22-29); Chloride 102 mmol/L (96-108); Creatinine Clr Calc Pharmacy 60.3; Estimated Glomerular Filt Rate > 60; Glucose Random 123 mg/dL (60-115); Potassium 4.1 mmol/L (3.3-5.1); Sodium 146 mmol/L (135-145)
--- NOTE | 2022-04-03 09:04 | PM.HEMONCCN ---
Subjective - Subjective Chief complaint: Consult for: Lung mass. Patient: new to practice Consult date: 04/03/22 Requesting Physician: Svetlana. Primary Care Provider: Ho Nolasco MD Medical Summary: DIAGNOSIS: LUNG MASS. HPI - Consult Narrative Reason for consult: CONSULT FOR: LUNG MASS. Narrative: Kortney Rocha is a pleasant 86 year old lady who presented after a fall. Patient pressed her alert button, EMS went to pick her up. She was found alone in the house with unkept circumstances; She was subsequently brought her to the hospital for further evaluation. Patient is oriented to self, response to verbal stimuli, unable to provide much history. Her daughter Donna, mentioned that she and her sister have been checking on her mother who lives alone. Patient has been refusing food for the past couple days; She was recently seen by her naturopathic physician. She finished a course of antibiotics, for presumed pneumonia. She has a cough. Denies having any fevers. Patient recently had elevated liver enzymes. She has been noted to have a lung mass and is due to see Oncology. Denies patient complaining of any pain or having urinary symptoms. CT scan of the chest from 04/03: 1. No acute traumatic findings are seen. Fracture of the sternum with callus formation, suggesting subacute nature. Additionally there are multiple vertebral body mild compression deformities which are of uncertain chronicity. 2. There is a lung mass in the left upper lobe. This has heterogeneous attenuation and central low attenuation suggestive of necrosis. This is highly concerning for neoplasm. 3. There are a few prominent mediastinal and left hilar lymph nodes, worrisome for metastatic disease. 4. Status post cholecystectomy. Dilated intrahepatic and extrahepatic bile ducts. There is a ductal filling defect in the common bile duct. This could be stone or sludge. 5. Indeterminate right adrenal gland nodule. Cannot exclude metastatic disease in this setting. 6. Large colonic stool burden. Review of systems: Limited ER course: On presentation noted to be nonfocal, generally weak, CT head, CT C-spine showed no acute findings., CT chest showed lung mass; initially concern for pneumonia -given antibiotics; also patient was noted to be wheezing given nebulizations and steroids. On labs noted to have elevated serum bicarb of 48 and elevated liver enzymes. CT abdomen showed no acute findings. EKG was nonischemic. Admitted to the hospital for further management Past medical history of: 1. Hypertension, 2. Hyperlipidemia, 3. COPD, 4. Chronic respiratory failure on 4 L of home oxygen at baseline, 5. H/O Lung Mass. Review of Systems - Constitutional Reports system reviewed and no additional complaints, except as documented, Reports anorexia, Reports fatigue, Reports frequent falls, Reports lack of energy, Reports malaise, Reports weight loss, Denies fever(s), Denies headache(s) - Eyes Reports system reviewed and no additional complaints, except as documented - ENT Reports system reviewed and no additional complaints, except as documented - Cardiovascular Reports system reviewed and no additional complaints, except as documented - Respiratory Reports no additional respiratory complaints, Reports cough, Denies hemoptysis - Gastrointestinal Reports system reviewed and no additional complaints, except as documented, Reports nausea - Genitourinary Reports no additional female genitourinary complaints - Musculoskeletal Reports system reviewed and no additional complaints, except as documented - Integumentary/Breasts Skin/Breast: Reports no additional skin complaints - Neurologic Reports system reviewed and no additional complaints, except as documented - Psychiatric Reports system reviewed and no additional complaints, except as documented - Endocrine Reports no additional endocrine complaints - Hematologic/Lymphatic Reports system reviewed and no additional complaints, except as documented - Allergic/Immunologic Reports system reviewed and no additional complaints, except as documented Oncology Screenings - ECOG Performance Status ECOG Performance Status: 2 PMFSH Medical History: Medical History (This Medical Record has been edited. Action required.) Anxiety Benign essential hypertension COPD (chronic obstructive pulmonary disease) Depression GERD (gastroesophageal reflux disease) History of TIA (transient ischemic attack) Hyperlipidemia Hypoxemia Impaired fasting glucose Insomnia Iron deficiency anemia Mild cognitive impairment Osteoarthritis of left hip Osteopenia Polymyalgia rheumatica Pure hypercholesterolemia Vitamin B12 deficiency Vitamin D deficiency Family History: Family History (This Medical Record has been edited. Action required.) Father No problems noted. Mother No problems noted. Unknown Family hx of colon cancer Family history of coronary artery disease Surgical History: Surgical History (This Medical Record has been edited. Action required.) History of cataract surgery History of ERCP Hx laparoscopic cholecystectomy Social History: Social History (This Medical Record has been edited. Action required.) Living Situation History: Household Members: None Household Members Other:: live by herself. Housing: Apartment Do you presently have visiting nurse or other home services: Yes Do you presently have visiting nurse or other home services comment: visiting nurse 2 x a week per pt. Tobacco History: Patient Tobacco Use Status: Never used Tobacco Second Hand Smoke Exposure: Yes Advance Directives: Advance Directives Date on File: 09/09/21 Occupation Assessmet: service: No Current occupational status: retired Second hand tobacco smoke exposure: Yes Home Medications and Allergies Current Medications: Current Medications Acetaminophen (Acetaminophen 325 Mg Tablet) 650 mg PO Q6H PRN PRN Reason: Pain, Mild (Pain Scale 1-3) Albuterol/Ipratropium (Albuterol/Iprat 2.5/0.5mg 3 Ml Ampul.Neb) 3 ml INHALE RQ4H WHILE AWAKE [facility] Last Admin: 04/03/22 08:31 Dose: Not Given Heparin Sodium (Porcine) (Heparin Sodium,Porcine 5,000 Unit/Ml Vial) 5,000 unit SUBCUT Q12H [facility] Last Admin: 04/03/22 05:22 Dose: 5,000 unit Sodium Chloride (Ns) 1,000 mls @ 100 mls/hr IVCONT .Q10H [facility] Last Admin: 04/03/22 05:22 Dose: 100 mls/hr Ceftriaxone Sodium 1 gm/ (Sodium Chloride) 50 mls @ 100 mls/hr IV Q24H [facility] Azithromycin 500 mg/ Sodium (Chloride) 250 mls @ 125 mls/hr IV Q24H [facility] Melatonin (Melatonin 3 Mg Tablet) 6 mg PO BEDTIME PRN PRN Reason: Insomnia Methylprednisolone Sodium Succinate (Methylprednisolone Sod Succ 40 Mg/Ml Vial) 40 mg IVPUSH Q6H [facility] Last Admin: 04/03/22 05:22 Dose: 40 mg Pharmacy Consult (Consult Rx Perform Med Rec) 1 each MISCELLANE ONCE PRN PRN Reason: Consult order Senna (Sennosides 8.6 Mg Tablet) 17.2 mg PO BEDTIME PRN PRN Reason: Constipation Sodium Chloride (0.9 % Sodium Chloride Flush 3 Ml Syringe) 3 ml IVFLUSH QSHIFT [facility] Last Admin: 04/03/22 08:33 Dose: Not Given Home Medications Medication Instructions Recorded Confirmed Type acetaminophen 325 mg tablet 650 mg PO Q6H PRN Pain 04/03/22 04/03/22 History albuterol sulfate 90 mcg/actuation 2 puff inhalation Q4-6H PRN 04/03/22 04/03/22 History aerosol inhaler Shortness Of Breath amitriptyline 25 mg tablet 1 tab PO BEDTIME 04/03/22 04/03/22 History aspirin 81 mg tablet,delayed 1 tab PO DAILY 04/03/22 04/03/22 History release bismuth subsalicylate 262 mg/15 mL 524 mg PO QID PRN Acid Reflux 04/03/22 04/03/22 History oral suspension (Pepto-Bismol) citalopram 40 mg tablet 1 tab PO DAILY 04/03/22 04/03/22 History clopidogrel 75 mg tablet 1 tab PO DAILY 04/03/22 04/03/22 History cyanocobalamin (vitamin B-12) 1 tab PO DAILY 04/03/22 04/03/22 History 1,000 mcg tablet,extended release (Vitamin B-12 ER) diltiazem HCl 120 mg 1 cap PO DAILY 04/03/22 04/03/22 History capsule,extended release 24 hr ferrous sulfate 325 mg (65 mg 1 tab PO DAILY 04/03/22 04/03/22 History iron) tablet (FeroSul) ipratropium 0.5 mg-albuterol 3 mg 3 ml inhalation QID 04/03/22 04/03/22 History (2.5 mg base)/3 mL nebulization soln lorazepam 0.5 mg tablet 1 tab PO BID PRN Anxiety 04/03/22 04/03/22 History multivitamin 1 tab PO DAILY 04/03/22 04/03/22 History pravastatin 40 mg tablet 1 tab PO DAILY 04/03/22 04/03/22 History Allergies Allergy/AdvReac Type Severity Reaction Status Date / Time No Known Allergies Allergy Verified 04/03/22 11:55 Physical Exam Vital signs: Vital Signs Temp 97.6 F 04/03/22 00:55 Pulse 65 04/03/22 05:23 Resp 25 H 04/03/22 05:23 BP 106/46 L 04/03/22 05:23 Pulse Ox 96 04/03/22 05:23 O2 Del Method 04/03/22 05:23 O2 Flow Rate 4 04/03/22 04:10 Intake & Output 04/02/22 04/03/22 04/03/22 18:59 06:59 18:59 Other: Weight 54.9 kg Weight 54.9 kg - Constitutional Present: moderate distress - Routine HEENT Exam Head: Present: normal inspection ENT: Present: mucous membranes moist - Routine Neck Exam Present: supple - Routine Respiratory Exam Present: decreased breath sounds - Routine Cardiovascular Exam Cardiovascular: Present: RRR, S1, S2 - Routine Abdominal Exam Present: soft, nontender - Routine Extremities Exam Present: nontender - Routine Skin Exam Present: intact, normal turgor Hem/Onc Consult Result - Labs CBC & Chem 7: 04/04/22 09:10 04/05/22 06:32 Labs: Short CBC 04/03/22 04/03/22 Range/Units 01:09 06:30 WBC 14.1 H 10.3 (4.8-10.8) X10*3/uL Hgb 8.6 L 7.9 L (12.0-16.0) g/dl Hct 31.2 L 29.4 L (37.0-47.0) % Plt Count 248 187 (160-400) X10*3/uL BMP 04/03/22 04/03/22 01:09 06:30 Sodium 146 H 146 H Potassium 3.7 4.1 Chloride 91 L 102 Carbon Dioxide 48 H* 36 H BUN 20 H 15 Creatinine 0.65 0.54 Calcium 10.1 8.3 L D Cardiac Enzymes 04/03/22 Range/Units 01:09 Total Creatine Kinase 17 L (26-140) U/L Liver Function 04/03/22 Range/Units 01:09 Total Bilirubin 1.5 H (0.0-1.0) mg/dL AST 282 H (5-31) U/L ALT 87 H (0-31) U/L Alkaline Phosphatase 267 H (39-117) U/L Albumin 3.2 L (3.5-5.0) g/dL Urine 04/03/22 Range/Units 01:22 Urine Color DK YELLOW Urine Appearance Clear Urine pH 6.0 (5.0-8.0) Ur Specific [place] >= 1.030 H (1.005-1.025) Urine Protein 30 (1+) H (Neg-Trace) mg/dL Urine Glucose (UA) 100 H (Negative) mg/dL Assessment and Plan Patient Active problem list reviewed?: Yes (1) Mass of left lung Status: Acute Assessment and plan: This is an 86-year-old lady, who appears rather confused. She has been noted to have a left upper lung mass. PLAN: Will proceed with the biopsy of the lung mass for further Evaluation. Once exact histology is confirmed, Will check molecular studies to see if there is any actionable mutation. Will discuss this option further with the family. Had to leave a message for daughter Donna and granddaughter Grace. Thank you for the consult, I will follow along with you, Cc: Dr. Mcguire. Addendum: Discuss with daughter Donna. She and her sister have elected to proceed with further evaluation. Will set up the lung biopsy for next week. Meanwhile hold her Plavix for now. Discussed plan with Dr. Peraza and GI. (2) Elevated LFTs Status: Acute Assessment and plan: 86-year-old lady who presented to the hospital after a fall. She has been noted to have elevated LFTs: 1.5/267/282/87. She does have stones/sludge in the gallbladder. She would likely need an ERCP. PLAN: To hold Plavix. Continue on IV antibiotics, in view of concern for cholangitis. LFTs have been repeated. Further plans based upon the above results. Thank you, - Time Spent With Patient Time Spent with Patient (in minutes): 30
--- NOTE | 2022-04-03 09:08 | PHA.MEDREC ---
Pharmacy Consult ? Medication Reconciliation Pharmacy has completed the medication reconciliation. Patient a poor historian of medications. Contacted daughter (Donna) to verify home meds and cross-referenced with claim history. Reports pepto-bismol use for acid reflux instead of prilosec.
--- NOTE | 2022-04-03 09:21 | PM.GICN ---
History of Present Illness Data of Consult Service Date: 04/03/22 Requesting physician: Ovidio Peraza Primary Care Provider: Ho Nolasco MD HPI Reason for consult: Elevated LFTs, biliary obstruction 86 YF with hypertension, hyperlipidemia, COPD, chronic respiratory failure on 4 L of home oxygen at baseline, lung mass brought to [facility] ED by EMS on 04/03/22 after a fall.? Patient pressed her alert button, EMS went to pick her up, patient was found alone in the house with unkept circumstances;? In the ED, Pt was oriented to self and responsive to verbal stimuli, and unable to provide any history.? She denies abdominal pain. Dr Ford spoke to the patient's daughter? Donna, who mentioned that she and her sister has been checking on her mother who lives alone.? Mentions patient has been refusing food for the past couple days; mentions she was recently seen her process line operator, finished a course of antibiotics today for presumed pneumonia.? Denies patient having any fevers.? Reports she is having cough.? Mentions she has lung mass and is due for follow-up with Oncology.? Denies patient complaining of any pain or having urinary symptoms.? Also mentions that patient recently had elevated liver enzymes ?ER course: Per ER team patient on presentation noted to be nonfocal, generally weak, CT head, CT C-spine showed no acute 0.6, CT abdomen showed no acute findings, CT chest showed lung mass; initially concern for pneumonia -given antibiotics; also patient was noted to be wheezing given nebulizations and steroids.? On labs noted to have elevated serum bicarb of 48 and elevated liver enzymes.? EKG was nonischemic.? Pt was started on IV antibiotics and admitted to [facility] for further management CHEST AND ABD CT SCAN SHOWED: 1. No acute traumatic findings are seen. Fracture of the sternum with callus formation, suggesting subacute nature. Additionally there are multiple vertebral body mild compression deformities which are of uncertain chronicity. 2. There is a lung mass in the left upper lobe. This has heterogeneous attenuation and central low attenuation suggestive of necrosis. This is highly concerning for neoplasm. 3. There are a few prominent mediastinal and left hilar lymph nodes, worrisome for metastatic disease. 4. Status post cholecystectomy. Dilated intrahepatic and extrahepatic bile ducts. There is a ductal filling defect in the common bile duct. This could be stone or sludge. 5. Indeterminate right adrenal gland nodule. Cannot exclude metastatic disease in this setting. 6. Large colonic stool burden. Review of Systems Review of Systems: Yes Unobtainable due to mental status PMFSH Past Medical History Medical History Anxiety Benign essential hypertension COPD (chronic obstructive pulmonary disease) Depression GERD (gastroesophageal reflux disease) History of TIA (transient ischemic attack) Hyperlipidemia Hypoxemia Impaired fasting glucose Insomnia Iron deficiency anemia Mild cognitive impairment Osteoarthritis of left hip Osteopenia Polymyalgia rheumatica Pure hypercholesterolemia Vitamin B12 deficiency Vitamin D deficiency Family History Family History Father No problems noted. Mother No problems noted. Unknown Family hx of colon cancer Family history of coronary artery disease Surgical History Surgical History History of cataract surgery History of ERCP Hx laparoscopic cholecystectomy Social History Social History Household Members: None Household Members Other:: live by herself. Housing: Assisted Living Facility Housing Other:: [facility] Are you a primary pharmacist critical care to a significant other at home: No Do you presently have visiting nurse or other home services: Yes (visiting nurse 2 x a week per pt.) Alcohol intake: former Patient Tobacco Use Status: Never used Tobacco Second Hand Smoke Exposure: Yes Use of substances other than those prescribed or required for medical reasons: No Have you been hit, kicked, punched, or otherwise hurt by someone within the past year? If so, by whom?: No Advance Directives Date on File: 09/09/21 Do you have thoughts of harming others: None Do you have a plan to hurt others: No Plan Do you have the means to hurt others: No Recently lost weight without trying: Yes How much weight loss: Unsure Eating poorly because of decreased appetite: No Nutrition screen score: 4 service: No Current occupational status: retired Cognitive needs: No Hearing needs: No Vision needs: No Meds Allergies Allergy/AdvReac Type Severity Reaction Status Date / Time No Known Allergies Allergy Verified 06/08/22 11:04 Active Medications: Current Medications Acetaminophen (Acetaminophen 325 Mg Tablet) 650 mg PO Q6H PRN PRN Reason: Pain, Mild (Pain Scale 1-3) Albuterol/Ipratropium (Albuterol/Iprat 2.5/0.5mg 3 Ml Ampul.Neb) 3 ml INHALE RQ4H WHILE AWAKE [facility] Last Admin: 04/03/22 08:31 Dose: Not Given Heparin Sodium (Porcine) (Heparin Sodium,Porcine 5,000 Unit/Ml Vial) 5,000 unit SUBCUT Q12H [facility] Last Admin: 04/03/22 05:22 Dose: 5,000 unit Sodium Chloride (Ns) 1,000 mls @ 100 mls/hr IVCONT .Q10H [facility] Last Admin: 04/03/22 05:22 Dose: 100 mls/hr Ceftriaxone Sodium 1 gm/ (Sodium Chloride) 50 mls @ 100 mls/hr IV Q24H [facility] Azithromycin 500 mg/ Sodium (Chloride) 250 mls @ 125 mls/hr IV Q24H [facility] Melatonin (Melatonin 3 Mg Tablet) 6 mg PO BEDTIME PRN PRN Reason: Insomnia Methylprednisolone Sodium Succinate (Methylprednisolone Sod Succ 40 Mg/Ml Vial) 40 mg IVPUSH Q6H [facility] Last Admin: 04/03/22 05:22 Dose: 40 mg Pharmacy Consult (Consult Rx Perform Med Rec) 1 each MISCELLANE ONCE PRN PRN Reason: Consult order Senna (Sennosides 8.6 Mg Tablet) 17.2 mg PO BEDTIME PRN PRN Reason: Constipation Sodium Chloride (0.9 % Sodium Chloride Flush 3 Ml Syringe) 3 ml IVFLUSH QSHIFT [facility] Last Admin: 04/03/22 08:33 Dose: Not Given Home Medications Medication Instructions Recorded Confirmed Last Taken Type acetaminophen 325 mg tablet 650 mg PO Q6H PRN Pain 04/03/22 06/08/22 Unknown History albuterol sulfate 90 mcg/actuation 2 puff inhalation Q4-6H PRN 04/03/22 06/08/22 Unknown History aerosol inhaler Shortness Of Breath aspirin 81 mg tablet,delayed 1 tab PO DAILY 04/03/22 06/08/22 04/02/22 History release bismuth subsalicylate 262 mg/15 mL 524 mg PO QID PRN Acid Reflux 04/03/22 06/08/22 Unknown History oral suspension (Pepto-Bismol) clopidogrel 75 mg tablet 1 tab PO DAILY 04/03/22 06/08/22 04/02/22 History cyanocobalamin (vitamin B-12) 1 tab PO DAILY 04/03/22 06/08/22 04/02/22 History 1,000 mcg tablet,extended release (Vitamin B-12 ER) ferrous sulfate 325 mg (65 mg 1 tab PO DAILY 04/03/22 06/08/22 04/02/22 History iron) tablet (FeroSul) multivitamin 1 tab PO DAILY 04/03/22 06/08/22 04/02/22 History Physical Exam Vital Signs: Vital Signs: Last Vital Signs Temp 97.6 F 04/03/22 00:55 Pulse 65 04/03/22 05:23 Resp 25 H 04/03/22 05:23 BP 106/46 L 04/03/22 05:23 Pulse Ox 96 04/03/22 05:23 O2 Del Method 04/03/22 05:23 O2 Flow Rate 4 04/03/22 04:10 Oxygen Flow Rate 2 04/03/22 00:55 BMI result Body Mass Index 23.6 Const: General: no acute distress and ill appearing Nutritional Appearance: average body habitus Orientation/consciousness: patient oriented x3 Limitations: no limitations HEENT: Head: Yes normal to inspection Ears: hearing grossly normal bilaterally Mouth: Normal oral and palatal mucosa present Eyes: Sclerae: sclerae normal Pupils: Equal, round and reactive pupils present Neck: Neck: Yes normal visual inspection Chest: Chest palpation & inspection: normal inspection of the chest Resp: Effort & Inspection: normal respiratory effort Auscultation: wheezes (scattered bilateral wheezing) Cardio: Palpation: normal PMI Rate: regular rate Rhythm: regular rhythm Heart sounds: S1 normal heart sound present, S2 normal heart sound present and no murmurs GI: Palpation (GI): Soft to palpation, nontender and No hepatosplenomegaly present Auscultation: normal bowel sounds Rectal Exam - Female: deferred Skin: General skin exam: no rashes or lesions noted Neuro: General: patient oriented x3, gait normal and moves all extremities Cranial nerves: Yes Equal, round and reactive pupils present Psych: Appearance: grossly normal Mental Status: mental status grossly normal Results Labs CBC & Chem 7: 04/10/22 06:51 04/10/22 06:51 Labs: Short CBC 04/03/22 04/03/22 Range/Units 01:09 06:30 WBC 14.1 H 10.3 (4.8-10.8) X10*3/uL Hgb 8.6 L 7.9 L (12.0-16.0) g/dl Hct 31.2 L 29.4 L (37.0-47.0) % Plt Count 248 187 (160-400) X10*3/uL BMP 04/03/22 04/03/22 01:09 06:30 Sodium 146 H 146 H Potassium 3.7 4.1 Chloride 91 L 102 Carbon Dioxide 48 H* 36 H BUN 20 H 15 Creatinine 0.65 0.54 Calcium 10.1 8.3 L D Cardiac Enzymes 04/03/22 Range/Units 01:09 Total Creatine Kinase 17 L (26-140) U/L Liver Function 04/03/22 Range/Units 01:09 Total Bilirubin 1.5 H (0.0-1.0) mg/dL AST 282 H (5-31) U/L ALT 87 H (0-31) U/L Alkaline Phosphatase 267 H (39-117) U/L Albumin 3.2 L (3.5-5.0) g/dL Urine 04/03/22 Range/Units 01:22 Urine Color DK YELLOW Urine Appearance Clear Urine pH 6.0 (5.0-8.0) Ur Specific [place] >= 1.030 H (1.005-1.025) Urine Protein 30 (1+) H (Neg-Trace) mg/dL Urine Glucose (UA) 100 H (Negative) mg/dL Assessment and Plan (1) Elevated LFTs: Status: Acute Plan 86 YF with hypertension, hyperlipidemia, COPD, chronic respiratory failure on 4 L of home oxygen at baseline, lung mass brought to [facility] ED by EMS on 04/03/22 after a fall.? Patient pressed her alert button, EMS went to pick her up, patient was found alone in the house with unkept circumstances;? Dr Ford spoke to the patient's daughter? Donna, who mentioned that she and her sister has been checking on her mother who lives alone.? Mentions patient has been refusing food for the past couple days; mentions she was recently seen her process line operator, finished a course of antibiotics today for presumed pneumonia.? Denies patient having any fevers.? Reports she is having cough.? Mentions she has lung mass and is due for follow-up with Oncology.? Denies patient complaining of any pain or having urinary symptoms.? Also mentions that patient recently had elevated liver enzymes CHEST AND ABD CT SCAN SHOWED: 1. No acute traumatic findings are seen. Fracture of the sternum with callus formation, suggesting subacute nature. Additionally there are multiple vertebral body mild compression deformities which are of uncertain chronicity. 2. There is a lung mass in the left upper lobe. This has heterogeneous attenuation and central low attenuation suggestive of necrosis. This is highly concerning for neoplasm. 3. There are a few prominent mediastinal and left hilar lymph nodes, worrisome for metastatic disease. 4. Status post cholecystectomy. Dilated intrahepatic and extrahepatic bile ducts. There is a ductal filling defect in the common bile duct. This could be stone or sludge. 5. Indeterminate right adrenal gland nodule. Cannot exclude metastatic disease in this setting. 6. Large colonic stool burden. RECOMMENDATIONS: 1. Agree with IV antibiotics. 2. Hold Clopidogrel 3. Repeat LFTs this afternoon. If LFTs show improvement, pt will be scheduled for an ERCP next week If LFTs are worsening, she can be scheduled for an ERCP over the weekend if family wants to pursue an ERCP. Procedures Date of Service Date of Service: 04/03/22
--- NOTE | 2022-04-03 10:13 | MHC.CM.PN ---
Addendum entered by Melony Moore 04/03/22 12:23: CM SPOKE TO [facility], WHO INDICATES THEY WILL LIKELY HAVE A BED FOR PT ON WEDNESDAY AND WILL START THE INSURANCE AUTHORIZATION PROCESS ON WEDNESDAY LONG PT IS EXPECTED TO BE MEDICALLY CLEARED AT THAT TIME Addendum entered by Melony Moore 04/03/22 11:21: CM MET WITH PT AND DAUGHTER, ANNE, AT BEDSIDE THEY CONFIRM PT WAS LIVING ALONE AND HER DAUGHTERS WERE TAKING TURNS FILLING HER JUVENILE OFFICER HOURS PT HAD VNA RECENTLY FOR PT AND OT BUT WOULD REFUSE TO PARTICIPATE SO SHE WAS DISCHARGED PT HAS A WALKER, WHEEL CHAIR AND HOME OXYGEN FROM [facility] ANNE REPORTS SHE HAS TO RETURN TO FT WORK ON WEDNESDAY SO WAS WORRIED ABOUT HER MOTHERS CARE SHE REPORTS ESPECIALLY SINCE THE PT FELL ENTRY LEVEL RECEPTIONIST, SHE HOPES THAT PT MAY BE ABLE TO GO TO STR SHE REPORTS THE PLAN WOULD BE TO EITHER HIRE AN OUTSIDE PERSON TO BE HER JUVENILE OFFICER WHILE SHE WAS IN THE SNF, OR TRANSITION HER TO LTC. ANNE ALSO REPORTS THE PT IS NOT VACCINATED AND DOES NOT WANT TO BE SO SHE IS AWARE IT WILL BE DIFFICULT TO PLACE HER SHE ASKS THAT [facility] BE CONTACTED PT WAS THERE RECENTLY DCP PENDING PT EVAL HOME WITH RESUMPTION OF JUVENILE OFFICER VS STR STR @ [facility] IS THE STATED PREFERENCE TRANSPORTATION TBD BY DISPOSITION Original Note: JENNY MET WITH PT WHO REPORTS SHE DOES NOT KNOW WHY SHE IS HERE SHE SAYS SHE REMEMBERS FALLING BUT FEELS FINE AND WOULD LIKE TO GO HOME SHE REPORTS SHE DOES LIVE ALONE BUT HER DAUGHTER ANNE IS HER JUVENILE OFFICER JENNY INFORMED HER THE HCP ON FILE IS INVALID DUE TO LACK OF DATE SHE CONFIRMS SHE WOULD WANT THE SAME AGENTS LISTED, CHADWICK AVELAR AND ANNE MARCANO. SHE AGREES TO COMPLETE A NEW HCP -COMPLETED AND SENT TO ED REG TO BE SCANNED INTO EXPANSE CM ASKED PT IF ONE OF HER DAUGHTER COULD BE CALLED, SHE ASKS THAT ANNE BE CONTACTED CM CALLED ANNE ([phone]) WHO REPORTS SHE IS ON HER WAY TO HER MOTHERS HOME TO [employer] SCOUT HER MEDS TO ENSURE THE [facility] STAFF HAS ALL OF THEM LISTED, AND WILL BE HERE WITHIN THE HOUR. JENNY WILL MEET WITH HER AT BEDSIDE
--- NOTE | 2022-04-03 10:56 | PC.NURSE ---
Per previous RN pt had self removed IV. A new IV inserted at this time without difficulty and pt was cooperative. IV wrapped for protection. VSS
--- NOTE | 2022-04-03 15:46 | MHC.SL.SWA ---
Speech Pathologist Impression: Oropharyngeal dysphagia Dysphasia Diet Status: Downgrade Liquid Consistency and Strategies for Safe Swallow: Liquid Intake Recommendation: Honey Thick Liquid Intake Strategies: Small Sips No Straws Solid Food Consistency: Dietary Recommendations: Grnd/Mech Altered (NDD2) Additional Modifications to Solid Foods: Recommend GROUND/MECH ALTERED (NDD2) solids w/ sauces/gravies and HONEY THICK liquids, pills WHOLE in PUREE. Aspiration precautions apply. Pt is able to feed herself. Recommend supervision during meals to monitor tolerance and ensure aspiration precautions. Diet order was updated by [facility]. Sent update to MD, RN, RD via [employer] Message. Oral Medication Intake: Whole with Puree Please contact the pharmacy regarding appropriate crushable or liquid drug formulations that are available whenever modified delivery is recommended. Compensatory Strategies and Precautions to be Taken for Safe Swallow: Sitting Upright (90 deg) No Straw Small Bites and Sips Alternate Liquids/Solids Rate of Ingestion Change Avoid Specific Foods Supervision While Eating and Drinking for Safe Swallow: Total Supervision (1:1) Foods to Avoid: Mixed consistencies, hard to chew solids Swallowing Recommended Treatments: Compens. Strategy Educat. Recommendation for Speech: Inpatient Speech Therapy Valve Tester Clinican/Clinical Fellow: No Supervisory Statement: I have reviewed and agree with the student/clinical fellow's documentation: N/A Speech Language Pathologist: Ekaterina Huff M.A., [facility]
[2022-04-03 15:59] LABS: Alanine Aminotransferase 61 U/L (0-31); Albumin Level 2.7 g/dL (3.5-5.0); Alkaline Phosphatase 202 U/L (39-117); Aspartate Amino Transferase 100 U/L (5-31); Bilirubin Direct 0.2 mg/dL (0.0-0.5); Bilirubin Total 0.4 mg/dL (0.0-1.0); Total Protein 5.9 g/dL (6.5-8.0)
--- NOTE | 2022-04-03 16:09 | PM.EVENT ---
Event Note Date of Service: 04/03/22 Event Note: Patient admitted this a.m. due to fall, at present patient is awake alert denies pain, unable to provide meaningful history, does not appear to be in acute distress unable to give history surrounding her fall. 86 YF with hypertension, hyperlipidemia, COPD, chronic respiratory failure on 4 L of home oxygen at baseline, lung mass brought to [facility] ED by EMS on 04/03/22 after a fall.? Patient pressed her alert button, EMS went to pick her up, patient was found alone in the house with unkept circumstances, in ED patient was oriented to self unresponsive to verbal stimuli Dr. Mota spoke to patient's daughter Donna who informed that she and her sisters checks on her mom who lives alone she has been refusing food for past couple days she finished a course of antibiotic for presumed pneumonia she has a lung mass that was recently diagnosed and supposed to follow-up with Oncology At present patient awake alert unable to provide meaningful history, denies pain, denies nausea, vomiting General sitting comfortably in no acute distress. Neck supple no JVD. CVS regular rate rhythm, Respiratory lungs clear to auscultation, no respiratory distress, no wheeze, no rhonchi. Gastrointestinal abdomen soft, nontender, bowel sounds audible, no guarding , no rigidity. Extremities no edema. Neuro moving all 4 extremity Skin multiple bilateral upper and lower extremity bruises Assessment and plan 86-year-old female with a past medical history of hypertension, hyperlipidemia, COPD, chronic respiratory failure on 4 L of home oxygen at baseline, lung mass presented to the hospital today with a chief complaint of fall.? Unwitnessed fall Likely mechanical imaging showed no evidence of fracture,, EKG nonischemic, troponin negative obtain PT eval Elevated LFTs CT chest and abdomen showed lung mass in the left upper lobe.with heterogeneous attenuation and central low attenuation suggestive of necrosis highly concerning for neoplasm.there are a few prominent mediastinal and left hilar lymph nodes, worrisome for metastatic disease, Status post cholecystectomy. Dilated intrahepatic and extrahepatic bile ducts. There is a ductal filling defect in the common bile duct.could be stone or sludge,Indeterminate right adrenal gland nodule. Cannot exclude metastatic disease in this setting, and Large colonic stool burden. Patient denies abdominal pain, obtained GI consult case discussed with Dr. Trejo she recommend to follow LFTs if remains stable then to proceed with ERCP on Wednesday, if noted to have worsening LFTs or clinical status then will pursue early ERCP, hold Plavix Continue IV antibiotic/DC IV fluid Lung mass await oncology input Chronic respiratory failure continue home oxygen COPD no acute exacerbation noted continue updraft treatments, discontinue Steroid Metabolic alkalosis in the setting of poor oral intake and volume depletion and compensation with History of hypertension initially noted to have soft blood pressure therefore BP meds held will resume home medication Cardizem CD since noted to have elevated blood pressure. DVT prophylaxis with subcu heparin
[2022-04-03] MEDS: dilTIAZem HCL CD 120 MG CAP.ER.DEG PO (17:07)
[2022-04-03] MEDS: 0.9 % Sodium Chloride Flush 3 ML SYRINGE IVFLUSH (17:09)
--- NOTE | 2022-04-03 19:00 | PC.NURSE ---
RN assumed care of patient at this time.
--- NOTE | 2022-04-03 23:23 | PC.NURSE ---
Transferred patient into hospital bed, full bed change. Provided patient with warm blankets and repositioned for comfort. Patient denies any needs at this time. Resting comfortably. Emptied catheter bag.
[2022-04-04] VITALS (9 sets, daily range): BP systolic 135–151; BP diastolic 57–66; PULSE 70–88; RESP 16–39; TEMP 36.7; O2SAT 94–100
[2022-04-04] MEDS: 0.9 % Sodium Chloride Flush 3 ML SYRINGE IVFLUSH (02:05)
[2022-04-04] MEDS: Azithromycin 500 MG in 0.9 % Sodium Chloride 250 ML 125 MG IV (02:05)
[2022-04-04] MEDS: cefTRIAXone sodium 1 GM in 0.9 % Sodium Chloride 50 ML IV (04:11)
[2022-04-04] MEDS: Heparin Sodium,Porcine 5,000 UNIT/ML VIAL 5000 UNIT SUBCUT ×2 (04:12→16:35)
[2022-04-04 06:54] LABS: Glucose, Whole Blood 85 mg/dL (60-115)
[2022-04-04] MEDS: Cyanocobalamin (Vitamin B-12) 1,000 MCG TABLET 1000 MCG PO (08:47)
[2022-04-04] MEDS: dilTIAZem HCL CD 120 MG CAP.ER.DEG PO (08:47)
[2022-04-04] MEDS: Escitalopram Oxalate 20 MG TABLET PO (08:47)
[2022-04-04 09:17] LABS: Hematocrit 31.6 % (37.0-47.0); Hemoglobin 8.8 g/dl (12.0-16.0); Mean Corpuscular HGB Conc 27.8 g/dl (31.0-35.0); Mean Corpuscular Hemoglobin 25.8 pg (27.0-33.0); Mean Corpuscular Volume 92.7 fL (80.0-98.0); Mean Platelet Volume 9.5 fL (9.4-12.3); Platelet Count 244 X10*3/uL (160-400); Red Blood Count 3.41 X10*6/uL (4.20-5.50); Red Cell Distribution Width 14.4 % (11.0-16.0); White Blood Count 11.2 X10*3/uL (4.8-10.8)
--- NOTE | 2022-04-04 09:20 | PC.NURSE ---
Spoke with daughter Elisa Lugo ([phone]) about plan of care. Would like an update with room number for upstairs when available.
[2022-04-04 09:40] LABS: Anion Gap 11 (12-20); Blood Urea Nitrogen 12 mg/dL (9-16); Carbon Dioxide 43 mmol/L (22-29); Chloride 96 mmol/L (96-108); Potassium 3.8 mmol/L (3.3-5.1); Sodium 146 mmol/L (135-145)
[2022-04-04 09:41] LABS: Alanine Aminotransferase 51 U/L (0-31); Albumin Level 2.9 g/dL (3.5-5.0); Alkaline Phosphatase 181 U/L (39-117); Aspartate Amino Transferase 62 U/L (5-31); Bilirubin Direct 0.2 mg/dL (0.0-0.5); Bilirubin Total 0.2 mg/dL (0.0-1.0); Calcium 8.9 mg/dL (8.4-10.2); Creatinine Clr Calc Pharmacy 59.2; Estimated Glomerular Filt Rate > 60; Glucose Random 90 mg/dL (60-115); Total Protein 6.2 g/dL (6.5-8.0)
--- NOTE | 2022-04-04 12:14 | HO.PM.IMPN ---
Subjective Subjective Date of Service: 04/04/22 Interval History: Patient awake alert this morning, offers no acute complaints tolerating diet, no nausea no vomiting no abdominal pain, denies shortness of breath use home oxygen at home, answering all questions appropriately speech is clear. 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 Neck supple no JVD. CVS regular rate rhythm, Respiratory lungs clear to auscultation, no respiratory distress, no wheeze, no rhonchi. Gastrointestinal abdomen soft, nontender, bowel sounds audible, no guarding , no rigidity. Extremities no edema. Neuro moving all 4 extremity, nonfocal, speech clear. Skin multiple bruises both upper lower extremities Objective Data Active Medications Acetaminophen (Acetaminophen 325 Mg Tablet) 650 mg PO Q6H PRN PRN Reason: Pain, Mild (Pain Scale 1-3) Albuterol Sulfate (Albuterol Sulfate 90 Mcg 8 Gm Inhaler) 2 puff INHALE Q4H PRN PRN Reason: Shortness Of Breath Albuterol/Ipratropium (Albuterol/Iprat 2.5/0.5mg 3 Ml Ampul.Neb) 3 ml INHALE RQ4H WHILE AWAKE [facility] Last Admin: 04/04/22 11:24 Dose: Not Given Documented By: DEEDEE Non-Admin Reason: Patient Refused Cyanocobalamin (Cyanocobalamin (Vitamin B-12) 1,000 Mcg Tablet) 1,000 mcg PO DAILY [facility] Last Admin: 04/04/22 08:47 Dose: 1,000 mcg Documented By: JAMISON Diltiazem HCl (Diltiazem Hcl Cd 120 Mg Cap.Er.Deg) 120 mg PO DAILY [facility]; Protocol Last Admin: 04/04/22 08:47 Dose: 120 mg Documented By: JAMISON Escitalopram Oxalate (Escitalopram Oxalate 20 Mg Tablet) 20 mg PO DAILY [facility] Last Admin: 04/04/22 08:47 Dose: 20 mg Documented By: JAMISON Heparin Sodium (Porcine) (Heparin Sodium,Porcine 5,000 Unit/Ml Vial) 5,000 unit SUBCUT Q12H [facility] Last Admin: 04/04/22 04:12 Dose: 5,000 unit Documented By: MADELYN Ceftriaxone Sodium 1 gm/ (Sodium Chloride) 50 mls @ 100 mls/hr IV Q24H [facility] Last Infusion: 04/04/22 04:53 Dose: 0 mls/hr Documented By: MADELYN Azithromycin 500 mg/ Sodium (Chloride) 250 mls @ 125 mls/hr IV Q24H [facility] Last Infusion: 04/04/22 04:10 Dose: 0 mls/hr Documented By: MADELYN Lorazepam (Lorazepam 0.5 Mg Tablet) 0.5 mg PO BID PRN PRN Reason: Anxiety Melatonin (Melatonin 3 Mg Tablet) 6 mg PO BEDTIME PRN PRN Reason: Insomnia Pharmacy Consult (Consult Rx Perform Med Rec) 1 each MISCELLANE ONCE PRN PRN Reason: Consult order Senna (Sennosides 8.6 Mg Tablet) 17.2 mg PO BEDTIME PRN PRN Reason: Constipation Sodium Chloride (0.9 % Sodium Chloride Flush 3 Ml Syringe) 3 ml IVFLUSH QSHIFT [facility] Last Admin: 04/04/22 07:33 Dose: Not Given Documented By: JAMISON Non-Admin Reason: Med Not Available Labs CBC & Chem 7: 04/04/22 09:10 04/04/22 09:10 Labs: Laboratory Results - last 24 hr 04/03/22 04/04/22 04/04/22 15:26 06:47 09:10 MCV 92.7 MCH 25.8 L MCHC 27.8 L RDW 14.4 Plt Count 244 D MPV 9.5 Absolute Nucleated RBC 0.000 Nucleated RBC % (auto) 0.0 Anion Gap Estim Creat Clear Calc Estimated GFR POC Glucose 85 Random Glucose Calcium Total Bilirubin 0.4 Direct Bilirubin 0.2 AST 100 H ALT 61 H Alkaline Phosphatase 202 H D Total Protein 5.9 L Albumin 2.7 L 04/04/22 09:10 MCV MCH MCHC RDW Plt Count MPV Absolute Nucleated RBC Nucleated RBC % (auto) Anion Gap 11 L Estim Creat Clear Calc 59.2 Estimated GFR > 60 POC Glucose Random Glucose 90 Calcium 8.9 D Total Bilirubin 0.2 Direct Bilirubin 0.2 AST 62 H ALT 51 H Alkaline Phosphatase 181 H Total Protein 6.2 L Albumin 2.9 L Microbiology Microbiology Results: Microbiology 04/03/22 01:10 Blood Culture - Preliminary Blood - Venous No growth after 24 hours. 04/03/22 01:07 Blood Culture - Preliminary Blood - Venous No growth after 24 hours. Assessment and Plan (1) Elevated LFTs: Status: Acute (2) Fall: Status: Acute (3) Mass of left lung: Status: Acute Plan 86-year-old female with a past medical history of hypertension, hyperlipidemia, COPD, chronic respiratory failure on 4 L of home oxygen at baseline, lung mass presented to the hospital today with a chief complaint of fall.? Unwitnessed fall Likely mechanical imaging showed no evidence of fracture,, EKG nonischemic, troponin negative obtain PT eval Elevated LFTs Patient asymptomatic, tolerating diet LFTs trending down CT chest and abdomen showed?lung mass in the left upper lobe.with heterogeneous attenuation and central low attenuation suggestive of necrosis highly concerning for neoplasm.there are a few prominent mediastinal and left hilar lymph nodes, worrisome for metastatic disease, Status post cholecystectomy. Dilated intrahepatic and extrahepatic bile ducts, ductal filling defect in the common bile duct.could be stone or sludge,Indeterminate right adrenal gland nodule. Cannot exclude metastatic disease in this setting, and Large colonic stool burden. Case discussed with Dr. Trejo she recommend to follow LFTs if remains stable then to proceed with ERCP on Wednesday, hold Plavix Continue IV ceftriaxone and azithromycin day 2, continue diet. Lung mass case discussed with Dr. Ford, patient and family wishes to pursue further workup , hold Plavix for 5 days and arrange for biopsy next week Chronic respiratory failure continue home oxygen COPD no acute exacerbation noted continue updraft treatments, Acute toxic metabolic encephalopathy likely due to hypercarbia, elevated LFT Patient seems to be at baseline confusion resolved , VBG well compensated pH stable, follow VBG History of hypertension initially noted to have soft blood pressure therefore BP meds held now on home dose of Cardizem CD follow BP History of TIA hold Plavix DVT prophylaxis with subcu heparin Code status full code Patient will need continued inpatient hospitalization due to elevated LFTs/and common bile duct dilatation need further workup Quality Stroke Does the patient have a stroke diagnosis?: No VTE Prior VTE?: No VTE Risk Level:: Medical - moderate - high VTE Device Contraindication: Treatment Not Indicated VTE Drug Contraindication: N/A - Med Ordered
[2022-04-04 12:53] LABS: Glucose, Whole Blood 65 mg/dL (60-115)
[2022-04-04 13:03] LABS: Venous Blood Gas Refer to POC result
[2022-04-04 13:04] LABS: VBG Base Excess 26.6 mmol/L; VBG HCO3 55 mmol/L (22-26); VBG pCO2 85 mmHg; VBG pH 7.41 (7.32-7.43); VBG pO2 55 mmHg
--- NOTE | 2022-04-04 13:30 | PC.NURSE ---
Pt refused breakfast and lunch, sterile processing technologist Mirza took pt blood sugar, POC 65, provided with orange juice. Rechecked blood sugar, POC now 95, assisted client with eating jello and drinking more orange juice. Pts daughter came to visit. Daughter assisted client with getting to the commode as well as assisted pt with eating pudding and zenaida yelitza.
[2022-04-04 17:52] LABS: Glucose, Whole Blood 98 mg/dL (60-115)
[2022-04-04] MEDS: Amitriptyline HCl 25 MG TABLET PO (23:10)
[2022-04-04] MEDS: LORazepam 0.5 MG TABLET PO (23:10)
[2022-04-05] VITALS (7 sets, daily range): BP systolic 117–148; BP diastolic 55–67; PULSE 71–86; RESP 16–18; TEMP 36.6–37.2; O2SAT 90–100
[2022-04-05] MEDS: 0.9 % Sodium Chloride Flush 3 ML SYRINGE IVFLUSH ×4 (01:31→20:52)
[2022-04-05] MEDS: cefTRIAXone sodium 1 GM in 0.9 % Sodium Chloride 50 ML IV (01:33)
[2022-04-05] MEDS: Azithromycin 500 MG in 0.9 % Sodium Chloride 250 ML 125 MG IV (02:05)
[2022-04-05] MEDS: Heparin Sodium,Porcine 5,000 UNIT/ML VIAL 5000 UNIT SUBCUT ×2 (04:36→17:56)
[2022-04-05 07:26] LABS: Glucose, Whole Blood 83 mg/dL (60-115)
[2022-04-05 07:31] LABS: Alanine Aminotransferase 33 U/L (0-31); Albumin Level 2.8 g/dL (3.5-5.0); Alkaline Phosphatase 153 U/L (39-117); Anion Gap 9 (12-20); Aspartate Amino Transferase 30 U/L (5-31); Bilirubin Direct 0.2 mg/dL (0.0-0.5); Bilirubin Total 0.2 mg/dL (0.0-1.0); Blood Urea Nitrogen 9 mg/dL (9-16); Calcium 9.2 mg/dL (8.4-10.2); Carbon Dioxide 47 mmol/L (22-29); Chloride 92 mmol/L (96-108); Creatinine Clr Calc Pharmacy 67.8; Estimated Glomerular Filt Rate > 60; Glucose Random 88 mg/dL (60-115); Potassium 3.1 mmol/L (3.3-5.1); Sodium 145 mmol/L (135-145); Total Protein 5.7 g/dL (6.5-8.0)
[2022-04-05] MEDS: Escitalopram Oxalate 20 MG TABLET PO (08:42)
[2022-04-05] MEDS: Cyanocobalamin (Vitamin B-12) 1,000 MCG TABLET 1000 MCG PO (08:42)
[2022-04-05] MEDS: dilTIAZem HCL CD 120 MG CAP.ER.DEG PO (08:42)
--- NOTE | 2022-04-05 09:22 | PC.NURSE ---
attempt x 2 to call report
--- NOTE | 2022-04-05 14:36 | HO.PM.IMPN ---
Subjective Subjective Date of Service: 04/05/22 Interval History: Offers no acute complaints sitting comfortably on bed tolerating diet denies nausea vomiting no abdominal pain denies shortness of breath no cough, no acute issues overnight. 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 Neck lord pple no JVD. CVS? regular rate rhyth m, Respiratory lalo gs clear to auscul tation, no respira tory distress, no wheeze, no rhonchi . Gastrointestinal abdomen soft, non tender, bowel soun ds audible, no gua rding , no rigidit y. Extremities no edema. Neuro? movi ng all 4 extremity , nonfocal, speech clear. Skin multi ple bruises both u pper lower extremi ties Objective Data Active Medications Acetaminophen (Acetaminophen 325 Mg Tablet) 650 mg PO Q6H PRN PRN Reason: Pain, Mild (Pain Scale 1-3) Albuterol Sulfate (Albuterol Sulfate 90 Mcg 8 Gm Inhaler) 2 puff INHALE Q4H PRN PRN Reason: Shortness Of Breath Albuterol/Ipratropium (Albuterol/Iprat 2.5/0.5mg 3 Ml Ampul.Neb) 3 ml INHALE RQ4H WHILE AWAKE [facility] Last Admin: 04/05/22 11:29 Dose: Not Given Documented By: DEEDEE Non-Admin Reason: Patient Refused Amitriptyline HCl (Amitriptyline Hcl 25 Mg Tablet) 25 mg PO BEDTIME [facility] Last Admin: 04/04/22 23:10 Dose: 25 mg Documented By: BETH Cyanocobalamin (Cyanocobalamin (Vitamin B-12) 1,000 Mcg Tablet) 1,000 mcg PO DAILY [facility] Last Admin: 04/05/22 08:42 Dose: 1,000 mcg Documented By: LM Diltiazem HCl (Diltiazem Hcl Cd 120 Mg Cap.Er.Deg) 120 mg PO DAILY [facility]; Protocol Last Admin: 04/05/22 08:42 Dose: 120 mg Documented By: LM Escitalopram Oxalate (Escitalopram Oxalate 20 Mg Tablet) 20 mg PO DAILY [facility] Last Admin: 04/05/22 08:42 Dose: 20 mg Documented By: LM Heparin Sodium (Porcine) (Heparin Sodium,Porcine 5,000 Unit/Ml Vial) 5,000 unit SUBCUT Q12H [facility] Last Admin: 04/05/22 04:36 Dose: 5,000 unit Documented By: BETH Ceftriaxone Sodium 1 gm/ (Sodium Chloride) 50 mls @ 100 mls/hr IV Q24H [facility] Last Infusion: 04/05/22 02:05 Dose: 0 mls/hr Documented By: BETH Azithromycin 500 mg/ Sodium (Chloride) 250 mls @ 125 mls/hr IV Q24H [facility] Last Infusion: 04/05/22 04:26 Dose: 0 mls/hr Documented By: BETH Lorazepam (Lorazepam 0.5 Mg Tablet) 0.5 mg PO BID PRN PRN Reason: Anxiety Last Admin: 04/04/22 23:10 Dose: 0.5 mg Documented By: BETH Melatonin (Melatonin 3 Mg Tablet) 6 mg PO BEDTIME PRN PRN Reason: Insomnia Pharmacy Consult (Consult Rx Perform Med Rec) 1 each MISCELLANE ONCE PRN PRN Reason: Consult order Senna (Sennosides 8.6 Mg Tablet) 17.2 mg PO BEDTIME PRN PRN Reason: Constipation Sodium Chloride (0.9 % Sodium Chloride Flush 3 Ml Syringe) 3 ml IVFLUSH QSHIFT [facility] Last Admin: 04/05/22 09:24 Dose: 3 ml Documented By: LM Labs CBC & Chem 7: 04/04/22 09:10 04/05/22 06:32 Labs: Laboratory Results - last 24 hr 04/04/22 04/05/22 04/05/22 17:48 06:32 07:09 Anion Gap 9 L Estim Creat Clear Calc 67.8 Estimated GFR > 60 POC Glucose 98 83 Random Glucose 88 Calcium 9.2 Total Bilirubin 0.2 Direct Bilirubin 0.2 AST 30 D ALT 33 H Alkaline Phosphatase 153 H Total Protein 5.7 L Albumin 2.8 L Microbiology Microbiology Results: Microbiology 04/03/22 01:10 Blood Culture - Preliminary Blood - Venous No growth after 48 hours. 04/03/22 01:07 Blood Culture - Preliminary Blood - Venous No growth after 48 hours. Assessment and Plan (1) Elevated LFTs: Status: Acute (2) Fall: Status: Acute (3) Mass of left lung: Status: Acute Plan 86-year-old female with a past medical history of hypertension, hyperlipidemia, COPD, chronic respiratory failure on 4 L of home oxygen at baseline, lung mass presented to the hospital today with a chief complaint of fall.? Unwitnessed fall Likely mechanical imaging showed no evidence of fracture,, EKG nonischemic, troponin negative obtain PT eval Radha pharyngeal dysphagia Continue ground mechanical, honey thick liquids and Ensure b.i.d. as per speech therapy recommendation Elevated LFTs Patient asymptomatic, tolerating diet LFTs trending down, close to normal Status post cholecystectomy. CT abdomen showed Dilated intrahepatic and extrahepatic bile ducts, ductal filling defect in the common bile duct.could be stone or sludge,Indeterminate right adrenal gland nodule,cannot exclude metastatic disease in this setting, and large colonic stool burden. Case discussed with Dr. Trejo she recommend to follow LFTs if remains stable then to proceed with ERCP on Wednesday, hold Plavix Continue IV ceftriaxone and Flagyl day 3, continue diet. Lung mass CT chest and abdomen showed?lung mass in the left upper lobe.with heterogeneous attenuation and central low attenuation suggestive of necrosis highly concerning for neoplasm.there are a few prominent mediastinal and left hilar lymph nodes, worrisome for metastatic disease,case discussed with Dr. Ford, patient and family wishes to pursue further workup , hold Plavix for 5 days and arrange for biopsy next week Chronic respiratory failure continue home oxygen currently 94% on 2 L, use 4 L of oxygen at home COPD no acute exacerbation noted continue updraft treatments, Acute toxic metabolic encephalopathy likely due to hypercarbia, elevated LFT Patient seems to be at baseline confusion resolved , VBG well compensated pH stable, follow VBG History of hypertension initially noted to have soft blood pressure therefore BP meds held now on home dose of Cardizem CD , stable blood pressure History of TIA hold Plavix for possible ERCP and lung biopsy DVT prophylaxis with subcu heparin Code status full code Patient will need continued inpatient hospitalization due to elevated LFTs/and common bile duct dilatation as well as lung mass need further workup. Quality Stroke Does the patient have a stroke diagnosis?: No VTE Prior VTE?: No VTE Risk Level:: Medical - moderate - high VTE Device Contraindication: Treatment Not Indicated VTE Drug Contraindication: N/A - Med Ordered
[2022-04-05] MEDS: metroNIDAZOLE/NS 500 MG/100 ML PIGGYBACK 100 MG IV ×2 (15:16→20:52)
[2022-04-05] MEDS: Potassium Chloride Packet 20 MEQ PACKET 40 MEQ PO (15:16)
[2022-04-05] MEDS: Acetaminophen 325 MG TABLET 650 MG PO (17:58)
[2022-04-05] MEDS: Albuterol/Iprat 2.5/0.5MG 3 ML AMPUL.NEB INHALE (18:54)
[2022-04-06] VITALS (7 sets, daily range): BP systolic 151–164; BP diastolic 69–74; PULSE 80–87; RESP 17–20; TEMP 36.5–37.1; O2SAT 90–100
[2022-04-06] MEDS: cefTRIAXone sodium 1 GM in 0.9 % Sodium Chloride 50 ML IV (01:17)
[2022-04-06] MEDS: Heparin Sodium,Porcine 5,000 UNIT/ML VIAL 5000 UNIT SUBCUT ×2 (04:28→17:29)
[2022-04-06] MEDS: metroNIDAZOLE/NS 500 MG/100 ML PIGGYBACK 100 MG IV ×3 (06:28→23:36)
[2022-04-06 07:28] LABS: Hematocrit 31.5 % (37.0-47.0); Hemoglobin 8.9 g/dl (12.0-16.0); Mean Corpuscular HGB Conc 28.3 g/dl (31.0-35.0); Mean Corpuscular Hemoglobin 26.2 pg (27.0-33.0); Mean Corpuscular Volume 92.6 fL (80.0-98.0); Platelet Count 205 X10*3/uL (160-400); Red Cell Distribution Width 14.4 % (11.0-16.0); White Blood Count 12.6 X10*3/uL (4.8-10.8)
[2022-04-06 08:04] LABS: Alanine Aminotransferase 25 U/L (0-31); Albumin Level 2.9 g/dL (3.5-5.0); Alkaline Phosphatase 133 U/L (39-117); Anion Gap 14 (12-20); Aspartate Amino Transferase 19 U/L (5-31); Bilirubin Direct 0.2 mg/dL (0.0-0.5); Bilirubin Total 0.4 mg/dL (0.0-1.0); Blood Urea Nitrogen 8 mg/dL (9-16); Calcium 9.3 mg/dL (8.4-10.2); Carbon Dioxide 43 mmol/L (22-29); Chloride 90 mmol/L (96-108); Creatinine Clr Calc Pharmacy 67.8; Estimated Glomerular Filt Rate > 60; Glucose Random 81 mg/dL (60-115); Sodium 143 mmol/L (135-145); Total Protein 5.9 g/dL (6.5-8.0)
[2022-04-06] MEDS: dilTIAZem HCL CD 120 MG CAP.ER.DEG PO (10:06)
[2022-04-06] MEDS: 0.9 % Sodium Chloride Flush 3 ML SYRINGE IVFLUSH ×3 (10:06→20:34)
--- NOTE | 2022-04-06 10:06 | MHC.SLORD ---
Speech Language Pathology Order Status: Per RN, pt is NPO for procedure. No PO trials given. Once pt is cleared to resume PO, recommend continue w/ GROUND/MECH ALTERED (NDD2) diet with HONEY THICK liquids.
--- NOTE | 2022-04-06 11:59 | MHC.CM.PN ---
per rounds pt to have mrcp today no plans for dc pt being fo;;owed by [facility] who is going for ins auth
--- NOTE | 2022-04-06 13:55 | P.PNIM_ITS ---
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 Neck supple no JVD. CVS? regular rate rhythm, Respiratory lungs clear to auscultation, no respiratory distress, no wheeze, no rhonchi. Gastrointestinal abdomen soft, nontender, bowel sounds audible, no guarding , no rigidity. Extremities no edema. Neuro? moving all 4 extremity, nonfocal, speech clear. Skin multiple bruises both upper lower extremities Objective Data Active Medications Acetaminophen (Acetaminophen 325 Mg Tablet) 650 mg PO Q6H PRN PRN Reason: Pain, Mild (Pain Scale 1-3) Last Admin: 04/05/22 17:58 Dose: 650 mg Documented By: AGNIESZKA Albuterol Sulfate (Albuterol Sulfate 90 Mcg 8 Gm Inhaler) 2 puff INHALE Q4H PRN PRN Reason: Shortness Of Breath Albuterol/Ipratropium (Albuterol/Iprat 2.5/0.5mg 3 Ml Ampul.Neb) 3 ml INHALE RQ4H WHILE AWAKE [facility] Last Admin: 04/05/22 18:54 Dose: 3 ml Documented By: LELE Amitriptyline HCl (Amitriptyline Hcl 25 Mg Tablet) 25 mg PO BEDTIME [facility] Last Admin: 04/05/22 20:56 Dose: Not Given Documented By: ANTOIC Non-Admin Reason: patient too ill/confused Cyanocobalamin (Cyanocobalamin (Vitamin B-12) 1,000 Mcg Tablet) 1,000 mcg PO DAILY [facility] Last Admin: 04/06/22 10:03 Dose: Not Given Documented By: AIMEE Non-Admin Reason: Physician Held Med Diltiazem HCl (Diltiazem Hcl Cd 120 Mg Cap.Er.Deg) 120 mg PO DAILY [facility]; Protoc ol Last Admin: 04/06/22 10:06 Dose: 120 mg Documented By: AIMEE Escitalopram Oxalate (Escitalopram Oxalate 20 Mg Tablet) 20 mg PO DAILY [facility] Last Admin: 04/06/22 10:03 Dose: Not Given Documented By: AIMEE Non-Admin Reason: Physician Held Med Heparin Sodium (Porcine) (Heparin Sodium,Porcine 5,000 Unit/Ml Vial) 5,000 unit SUBCUT Q12H [facility] Last Admin: 04/06/22 04:28 Dose: 5,000 unit Documented By: ASHIA Ceftriaxone Sodium 1 gm/ (Sodium Chloride) 50 mls @ 100 mls/hr IV Q24H [facility] Last Infusion: 04/06/22 01:50 Dose: 0 mls/hr Documented By: ASHIA Metronidazole (Flagyl) 500 mg in 100 mls @ 100 mls/hr IV Q8H [facility] Last Infusion: 04/06/22 07:38 Dose: 0 mls/hr Documented By: AIMEE Lorazepam (Lorazepam 0.5 Mg Tablet) 0.5 mg PO BID PRN PRN Reason: Anxiety Last Admin: 04/04/22 23:10 Dose: 0.5 mg Documented By: BETH Melatonin (Melatonin 3 Mg Tablet) 6 mg PO BEDTIME PRN PRN Reason: Insomnia Pharmacy Consult (Consult Rx Perform Med Rec) 1 each MISCELLANE ONCE PRN PRN Reason: Consult order Senna (Sennosides 8.6 Mg Tablet) 17.2 mg PO BEDTIME PRN PRN Reason: Constipation Sodium Chloride (0.9 % Sodium Chloride Flush 3 Ml Syringe) 3 ml IVFLUSH QSHIFT [facility] Last Admin: 04/06/22 10:06 Dose: 3 ml Documented By: AIMEE Labs CBC & Chem 7: 04/06/22 06:04 04/06/22 06:04 Labs: Laboratory Results - last 24 hr 04/06/22 04/06/22 06:04 06:04 MCV 92.6 MCH 26.2 L MCHC 28.3 L RDW 14.4 Plt Count 205 MPV 10.0 Absolute Nucleated RBC 0.000 Nucleated RBC % (auto) 0.0 Anion Gap 14 Estim Creat Clear Calc 67.8 Estimated GFR > 60 Random Glucose 81 Calcium 9.3 Total Bilirubin 0.4 Direct Bilirubin 0.2 AST 19 ALT 25 Alkaline Phosphatase 133 H Total Protein 5.9 L Albumin 2.9 L Assessment and Plan (1) Elevated LFTs: Status: Acute (2) Fall: Status: Acute (3) Mass of left lung: Status: Acute Plan 86-year-old female with a past medical history of hypertension, hyperlipidemia, COPD, chronic respiratory failure on 4 L of home oxygen at baseline, lung mass presented to the hospital today with a chief complaint of fall.? Unwitnessed fall Likely mechanical imaging showed no evidence of fracture,, EKG nonischemic, troponin negative, obtain PT eval Oropharyngeal dysphagia His speech therapy recommend to Continue ground mechanical, honey thick liquids , continue Ensure b.i.d. Elevated LFTs Patient asymptomatic, tolerating diet LFTs normalized Status post cholecystectomy. CT abdomen showed Dilated intrahepatic and extrahepatic bile ducts, ductal filling defect in the common bile duct.could be stone or sludge,Indeterminate right adrenal gland nodule,cannot exclude metastatic disease in this setting, and large colonic stool burden. It seems patient passed the stone will obtain MRCP if noted to have stone will undergo ERCP Continue IV ceftriaxone and Flagyl day 4, continue diet. Lung mass CT chest and abdomen showed?lung mass in the left upper lobe.with het erogeneous attenuation and central low attenuation suggestive of necrosis highly concerning for neoplasm.there are a few prominent mediastinal and left hilar lymph nodes, worrisome for metastatic disease, CT head showed no metastatic lesions, case discussed with Dr. Ford, patient and family wishes to pursue further workup , hold Plavix for 5 days biopsy can be done on Wednesday Chronic respiratory failure continue home oxygen currently 94% on 2 L, use 4 L of oxygen at home COPD no acute exacerbation noted continue updraft treatments, Acute toxic metabolic encephalopathy likely due to hypercarbia, elevated LFT Patient seems to be at baseline, confusion resolved , VBG well compensated pH stable, follow VBG History of hypertension initially noted to have soft blood pressure therefore BP meds held now on home dose of Cardizem CD , stable blood pressure History of TIA hold Plavix for possible ERCP and lung biopsy DVT prophylaxis with subcu heparin Code status full code Patient will need continued inpatient hospitalization due to common bile duct dilatation as well as lung mass need further workup. Quality Stroke Does the patient have a stroke diagnosis?: No VTE Prior VTE?: No VTE Risk Level:: Medical - moderate - high VTE Device Contraindication: Treatment Not Indicated VTE Drug Contraindication: N/A - Med Ordered
[2022-04-06] MEDS: Amitriptyline HCl 25 MG TABLET PO (20:27)
[2022-04-07] VITALS (10 sets, daily range): BP systolic 107–162; BP diastolic 59–71; PULSE 81–89; RESP 16–18; TEMP 36.7–37.4; O2SAT 95–99
[2022-04-07] MEDS: cefTRIAXone sodium 1 GM in 0.9 % Sodium Chloride 50 ML IV (02:39)
[2022-04-07] MEDS: metroNIDAZOLE/NS 500 MG/100 ML PIGGYBACK 100 MG IV ×3 (05:31→22:36)
[2022-04-07] MEDS: Heparin Sodium,Porcine 5,000 UNIT/ML VIAL 5000 UNIT SUBCUT ×2 (05:31→16:37)
[2022-04-07] MEDS: Albuterol/Iprat 2.5/0.5MG 3 ML AMPUL.NEB INHALE ×4 (08:05→19:23)
[2022-04-07] MEDS: 0.9 % Sodium Chloride Flush 3 ML SYRINGE IVFLUSH ×3 (08:29→22:37)
[2022-04-07] MEDS: Escitalopram Oxalate 20 MG TABLET PO (08:29)
[2022-04-07] MEDS: Cyanocobalamin (Vitamin B-12) 1,000 MCG TABLET 1000 MCG PO (08:29)
[2022-04-07] MEDS: dilTIAZem HCL CD 120 MG CAP.ER.DEG PO (08:29)
[2022-04-07] MEDS: Lactated Ringers 1,000 ML 80 ML IVCONT (09:17)
--- NOTE | 2022-04-07 13:46 | HO.PM.IMPN ---
Subjective Subjective Date of Service: 04/07/22 Interval History: Complaining of nausea, feels anxious about ERCP, no other acute issues overnight denies fever chills, no abdominal pain no diarrhea, no headache, no dizziness. Review of Systems ART DEPARTMENT HEAD no headache no dizziness CVS no chest pain, no palpitation GI no vomiting, no abdominal pain, complaining of nausea Review of Systems: Yes all other systems are reviewed and are negative Physical Exam Vital Signs: Vital Signs: Last Vital Signs Temp 99.2 F 04/07/22 11:16 Pulse 86 04/07/22 11:57 Resp 18 04/07/22 11:57 BP 131/63 04/07/22 11:16 Pulse Ox 97 04/07/22 11:16 O2 Del Method 04/07/22 11:16 O2 Flow Rate 3 04/07/22 11:16 Oxygen Flow Rate 2 04/03/22 00:55 BMI result Body Mass Index 23.6 Const: Other: General awake alert x3, in no acute distress.? Neck supple no JVD. CVS? regular rate rhythm, Respiratory lungs clear to auscultation, no respiratory distress, no wheeze, no rhonchi. Gastrointestinal abdomen soft, nontender, bowel sounds audible, no guarding , no rigidity. Extremities no edema. Neuro? moving all 4 extremity, nonfocal, speech clear. Skin multiple bruises both upper lower extremities Objective Data Active Medications Acetaminophen (Acetaminophen 325 Mg Tablet) 650 mg PO Q6H PRN PRN Reason: Pain, Mild (Pain Scale 1-3) Last Admin: 04/05/22 17:58 Dose: 650 mg Documented By: AGNIESZKA Albuterol Sulfate (Albuterol Sulfate 90 Mcg 8 Gm Inhaler) 2 puff INHALE Q4H PRN PRN Reason: Shortness Of Breath Albuterol/Ipratropium (Albuterol/Iprat 2.5/0.5mg 3 Ml Ampul.Neb) 3 ml INHALE RQ4H WHILE AWAKE [facility] Last Admin: 04/07/22 11:55 Dose: 3 ml Documented By: MAXINE Amitriptyline HCl (Amitriptyline Hcl 25 Mg Tablet) 25 mg PO BEDTIME [facility] Last Admin: 04/06/22 20:27 Dose: 25 mg Documented By: DARIUS Cyanocobalamin (Cyanocobalamin (Vitamin B-12) 1,000 Mcg Tablet) 1,000 mcg PO DAILY [facility] Last Admin: 04/07/22 08:29 Dose: 1,000 mcg Documented By: NELIA Diltiazem HCl (Diltiazem Hcl Cd 120 Mg Cap.Er.Deg) 120 mg PO DAILY [facility]; Protocol Last Admin: 04/07/22 08:29 Dose: 120 mg Documented By: NELIA Escitalopram Oxalate (Escitalopram Oxalate 20 Mg Tablet) 20 mg PO DAILY [facility] Last Admin: 04/07/22 08:29 Dose: 20 mg Documented By: NELIA Heparin Sodium (Porcine) (Heparin Sodium,Porcine 5,000 Unit/Ml Vial) 5,000 unit SUBCUT Q12H [facility] Last Admin: 04/07/22 05:31 Dose: 5,000 unit Documented By: ELEONORA Ceftriaxone Sodium 1 gm/ (Sodium Chloride) 50 mls @ 100 mls/hr IV Q24H [facility] Last Infusion: 04/07/22 03:12 Dose: 0 mls/hr Documented By: SAPPHIRE Metronidazole (Flagyl) 500 mg in 100 mls @ 100 mls/hr IV Q8H [facility] Last Infusion: 04/07/22 06:36 Dose: 100 mls/hr Documented By: ELEONORA Lactated Ringer's (Lr) 1,000 mls @ 80 mls/hr IVCONT .[id number] [facility] Last Admin: 04/07/22 09:17 Dose: 80 mls/hr Documented By: NELIA Lorazepam (Lorazepam 0.5 Mg Tablet) 0.5 mg PO BID PRN PRN Reason: Anxiety Last Admin: 04/04/22 23:10 Dose: 0.5 mg Documented By: BETH Melatonin (Melatonin 3 Mg Tablet) 6 mg PO BEDTIME PRN PRN Reason: Insomnia Pharmacy Consult (Consult Rx Perform Med Rec) 1 each MISCELLANE ONCE PRN PRN Reason: Consult order Senna (Sennosides 8.6 Mg Tablet) 17.2 mg PO BEDTIME PRN PRN Reason: Constipation Sodium Chloride (0.9 % Sodium Chloride Flush 3 Ml Syringe) 3 ml IVFLUSH QSHIFT [facility] Last Admin: 04/07/22 08:29 Dose: 3 ml Documented By: NELIA Labs CBC & Chem 7: 04/06/22 06:04 04/06/22 06:04 Assessment and Plan (1) Elevated LFTs: Status: Acute (2) Fall: Status: Acute (3) Mass of left lung: Status: Acute Plan 86-year-old female with a past medical history of hypertension, hyperlipidemia, COPD, chronic respiratory failure on 4 L of home oxygen at baseline, lung mass presented to the hospital today with a chief complaint of fall.? Elevated LFTs/choledocholithiasis Patient asymptomatic, tolerating diet LFTs normalized Status post cholecystectomy. CT abdomen showed Dilated intrahepatic and extrahepatic bile ducts, ductal filling defect in the common bile duct.could be stone or sludge,Indeterminate right adrenal gland nodule,cannot exclude metastatic disease in this setting, and large colonic stool burden. MRCP showed multiple distal common bile duct stone and dilated common bile duct, patient is scheduled for ERCP tomorrow with Dr. Hernandez, NPO after midnight Continue IV ceftriaxone and Flagyl day 5, Lung mass CT chest and abdomen showed?lung mass in the left upper lobe.with heterogeneous attenuation and central low attenuation suggestive of necrosis highly concerning for neoplasm.there are a few prominent mediastinal and left hilar lymph nodes, worrisome for metastatic disease, CT head showed no metastatic lesions, case discussed with Dr. Ford, patient and family wishes to pursue further workup , hold Plavix for 5 dayspossible biopsy on Wednesday Unwitnessed fall Likely mechanical imaging showed no evidence of fracture,, EKG nonischemic, troponin negative, seen by physical therapy they recommend short-term rehab Oropharyngeal dysphagia His speech therapy recommend to Continue ground mechanical, honey thick liquids , continue Ensure b.i.d. Chronic respiratory failure continue home oxygen currently 94% on 2 L, use 4 L of oxygen at home COPD no acute exacerbation noted continue updraft treatments, Acute toxic metabolic encephalopathy likely due to hypercarbia, elevated LFT Patient seems to be at baseline, confusion resolved , VBG well compensated pH stable, follow VBG History of hypertension initially noted to have soft blood pressure therefore BP meds held now on home dose of Cardizem CD , stable blood pressure History of TIA hold Plavix for possible ERCP and lung biopsy DVT prophylaxis with subcu heparin Code status full code Patient will need continued inpatient hospitalization due to common bile duct dilatation as well as lung mass need further workup. Including ERCP and possible lung biopsy Quality Stroke Does the patient have a stroke diagnosis?: No VTE Prior VTE?: No VTE Risk Level:: Medical - moderate - high VTE Device Contraindication: Treatment Not Indicated VTE Drug Contraindication: N/A - Med Ordered
--- NOTE | 2022-04-07 16:29 | MHC.SL.SWA ---
Speech Pathologist Impression: Risk of Aspiration Due to: Dysphasia Diet Status: Continue on GROUND MECHANICAL ALTERED (NDD2) with HONEY THICK liquids, DOWNGRADE to PILLS CRUSHED IN PUREE. Liquid Consistency and Strategies for Safe Swallow: Liquid Intake Recommendation: Honey Thick Liquid Intake Strategies: Small Sips No Straws Solid Food Consistency: Dietary Recommendations: Grnd/Mech Altered (NDD2) Additional Modifications to Solid Foods: Recommend GROUND/MECH ALTERED (NDD2) solids w/ sauces/gravies and HONEY THICK liquids, pills WHOLE in PUREE. Aspiration precautions apply. Pt is able to feed herself. Recommend supervision during meals to monitor tolerance and ensure aspiration precautions. Diet order was updated by [employer]. Sent update to MD, RN, RD via [employer] Message. Oral Medication Intake: Crushed with Puree Please contact the pharmacy regarding appropriate crushable or liquid drug formulations that are available whenever modified delivery is recommended. Compensatory Strategies and Precautions to be Taken for Safe Swallow: Sitting Upright (90 deg) Double Swallow No Straw Liquids from Cup Small Bites and Sips Alternate Liquids/Solids Oral Check Supervision While Eating and Drinking for Safe Swallow: Intermittent Supervision Foods to Avoid: Mixed consistencies, hard to chew solids Swallowing Recommended Treatments: Compens. Strategy Educat. Recommendation for Speech: Inpatient Speech Therapy Comment: [employer] checked in with nurse upon arrival. Nurse reported that procedure is postponed until tomorrow and that she changed diet order from NPO back to previous recommendations (NDD2 & nectar thick). Pt's board stated NPO. Nurse and INSOLE COVERER reported pt has been getting water. Straws and thin water present in room upon arrival. [employer] arrived as pt's lunch tray arrived. Pt's tray included ground chicken, mashed/pureed sweet potato, honey thick OJ and cranberry juice. Pt tolerated solids on tray with mildly prolonged chewing and mashing. Pt independently cleared lingual residue with subsequent swallows. At times, pt attemped to partake in conversation while chewing solids. Pt tolerated nectar thick juice via cup with no overt s/s of aspiration. No change in vocal quality. Note vocal quality appears mildly wet at baseline prior to any PO trials. Pt took small, controlled cup sips without cueing. Pt was presented with trace amounts of water via teaspoon 2X with no overt s/s of aspiration. No change in vocal quality noted. Pt was then presented with 2 full teaspoons of water. Pt presented with mild throat clearing and slight change in vocal quality. Pt reported that she feels like pills get stuck. When asked if anything else feels like that when she eats or drinks, she stated it's not just the pills. Pt was asked to elaborate and was unable to produce any examples of things that get stuck. Pt is not appropriate for upgrade at this time. Recommend to continue with GROUND/MECH ALTERED (NDD2) and HONEY THICK liquid, pills crushed in puree. Pt's board was changed from NPO to reflect current diet. [employer] will continue to follow Frequency/Duration: Date Range for Service Req: Timeline to reassess: Jr. Java Developer Clinican/Clinical Fellow: Yes: Cesia Dao M.A., CF-[employer] Supervisory Statement: I have reviewed and agree with the student/clinical fellow's documentation: Yes Speech Language Pathologist: Ekaterina Huff M.A., CCC-[employer]
[2022-04-07] MEDS: Melatonin 3 MG TABLET 6 MG PO (22:33)
[2022-04-07] MEDS: Amitriptyline HCl 25 MG TABLET PO (22:34)
[2022-04-07] MEDS: LORazepam 0.5 MG TABLET PO (22:36)
[2022-04-08] VITALS (11 sets, daily range): BP systolic 130–174; BP diastolic 51–95; PULSE 79–96; RESP 16–20; TEMP 36.6–37.2; O2SAT 86–100
[2022-04-08] MEDS: Heparin Sodium,Porcine 5,000 UNIT/ML VIAL 5000 UNIT SUBCUT (04:20)
[2022-04-08] MEDS: cefTRIAXone sodium 1 GM in 0.9 % Sodium Chloride 50 ML IV (04:21)
[2022-04-08] MEDS: metroNIDAZOLE/NS 500 MG/100 ML PIGGYBACK 100 MG IV ×3 (10:19→23:16)
[2022-04-08] MEDS: Escitalopram Oxalate 20 MG TABLET PO (10:23)
[2022-04-08] MEDS: dilTIAZem HCL CD 120 MG CAP.ER.DEG PO (10:23)
[2022-04-08] MEDS: Cyanocobalamin (Vitamin B-12) 1,000 MCG TABLET 1000 MCG PO (10:23)
[2022-04-08] MEDS: 0.9 % Sodium Chloride Flush 3 ML SYRINGE IVFLUSH ×2 (10:24→17:46)
[2022-04-08] MEDS: Lactated Ringers 1,000 ML 80 ML IVCONT (10:55)
[2022-04-08] MEDS: Albuterol/Iprat 2.5/0.5MG 3 ML AMPUL.NEB INHALE ×2 (11:41→20:47)
--- NOTE | 2022-04-08 12:13 | MHC.SLORD ---
Speech Language Pathology Order Status: Per chart review, pt NPO for procedure- No PO trials given.
--- NOTE | 2022-04-08 13:07 | MHC.CM.PN ---
per rounds pt to have a lung biopsy today no anticapated dc date at this time
--- NOTE | 2022-04-08 15:05 | P.PNIM_ITS ---
Subjective Subjective Date of Service: 04/08/22 Interval History: patient is NPO scheduled for lung biopsy this afternoon, very nervous about procedure, denies shortness of breath, no cough, denies nausea, vomiting, has been tolerating diet, no acute events overnight oxygenation remains stable on 2 L. Review of Systems BACKUP [employer]ER no headache no dizziness CVS no chest pain, no palpitation GI? no vomiting, no abdominal pain, complaining of nausea Review of Systems: Yes all other systems are reviewed and are negative Physical Exam Vital Signs: Vital Signs: Last Vital Signs Temp 97.9 F 04/08/22 11:38 Pulse 96 04/08/22 11:42 Resp 20 04/08/22 11:42 BP 174/71 H 04/08/22 11:38 Pulse Ox 100 04/08/22 11:38 O2 Del Method 04/08/22 11:38 O2 Flow Rate 2 04/08/22 11:38 Oxygen Flow Rate 2 04/03/22 00:55 BMI result Body Mass Index 23.6 Const: Other: General awake alert x3, in no acute distress.? Neck supple no JVD. CVS? regular rate rhythm, Respiratory lungs clear to auscultation, no respiratory distress, no wheeze, no rhonchi. Gastrointestinal abdomen soft, nontender, bowel sounds audible, no guarding , no rigidity. Extremities no edema. Neuro? nonfocal, speech clear. Skin multiple bruises both upper lower extremities Objective Data Active Medications Acetaminophen (Acetaminophen 325 Mg Tablet) 650 mg PO Q6H PRN PRN Reason: Pain, Mild (Pain Scale 1-3) Last Admin: 04/05/22 17:58 Dose: 650 mg Documented By: AGNIESZKA Albuterol Sulfate (Albuterol Sulfate 90 Mcg 8 Gm Inhaler) 2 puff INHALE Q4H PRN PRN Reason: Shortness Of Breath Albuterol/Ipratropium (Albuterol/Iprat 2.5/0.5mg 3 Ml Ampul.Neb) 3 ml INHALE RQ4H WHILE AWAKE [facility] Last Admin: 04/08/22 11:41 Dose: 3 ml Documented By: MEKHI Amitriptyline HCl (Amitriptyline Hcl 25 Mg Tablet) 25 mg PO BEDTIME [facility] Last Admin: 04/07/22 22:34 Dose: 25 mg Documented By: VIRIDIANA Cyanocobalamin (Cyanocobalamin (Vitamin B-12) 1,000 Mcg Tablet) 1,000 mcg PO DAILY [facility] Last Admin: 04/08/22 10:23 Dose: 1,000 mcg Documented By: ROMAIN Diltiazem HCl (Diltiazem Hcl Cd 120 Mg Cap.Er.Deg) 120 mg PO DAILY [facility]; Protocol Last Admin: 04/08/22 10:23 Dose: 120 mg Documented By: ROMAIN Escitalopram Oxalate (Escitalopram Oxalate 20 Mg Tablet) 20 mg PO DAILY [facility] Last Admin: 04/08/22 10:23 Dose: 20 mg Documented By: ROMAIN Ceftriaxone Sodium 1 gm/ (Sodium Chloride) 50 mls @ 100 mls/hr IV Q24H [facility] Last Infusion: 04/08/22 05:00 Dose: 0 mls/hr Documented By: VIRIDIANA Metronidazole (Flagyl) 500 mg in 100 mls @ 100 mls/hr IV Q8H [facility] Last Infusion: 04/08/22 14:43 Dose: 0 mls/hr Documented By: ROMAIN Lactated Ringer's (Lr) 1,000 mls @ 80 mls/hr IVCONT .[id number] [facility] Last Admin: 04/08/22 10:55 Dose: 80 mls/hr Documented By: ROMAIN Lorazepam (Lorazepam 0.5 Mg Tablet) 0.5 mg PO BID PRN PRN Reason: Anxiety Last Admin: 04/07/22 22:36 Dose: 0.5 mg Documented By: VIRIDIANA Melatonin (Melatonin 3 Mg Tablet) 6 mg PO BEDTIME PRN PRN Reason: Insomnia Last Admin: 04/07/22 22:33 Dose: 6 mg Documented By: VIRIDIANA Pharmacy Consult (Consult Rx Perform Med Rec) 1 each MISCELLANE ONCE PRN PRN Reason: Consult order Senna (Sennosides 8.6 Mg Tablet) 17.2 mg PO BEDTIME PRN PRN Reason: Constipation Sodium Chloride (0.9 % Sodium Chloride Flush 3 Ml Syringe) 3 ml IVFLUSH QSHIFT [facility] Last Admin: 04/08/22 10:24 Dose: 3 ml Documented By: ROMAIN Labs CBC & Chem 7: 04/06/22 06:04 04/06/22 06:04 Microbiology Microbiology Results: Microbiology 04/03/22 01:10 Blood Culture - Final Blood - Venous No growth after 5 days. 04/03/22 01:07 Blood Culture - Final Blood - Venous No growth after 5 days. Assessment and Plan (1) Elevated LFTs: Status: Acute (2) Fall: Status: Acute (3) Mass of left lung: Status: Acute Plan 86-year-old female with a past medical history of hypertension, hyperlipidemia, COPD, chronic respiratory failure on 4 L of home oxygen at baseline, lung mass presented to the hospital today with a chief complaint of fall.? Elevated LFTs/choledocholithiasis Patient asymptomatic, tolerating diet LFTs normalized Status post cholecystectomy. CT abdomen showed Dilated intrahepatic and extrahepatic bile ducts, ductal filling defect in the common bile duct,.could be stone or sludge,Indeterminate right adrenal gland nodule,cannot exclude metastatic disease in this setting, and large colonic stool burden. MRCP showed multiple distal common bile duct stone and dilated common bile duct, patient is scheduled for ERCP tomorrow with Dr. Hernandez, NPO after midnight Continue IV ceftriaxone and Flagyl day 6, Lung mass CT chest and abdomen showed?lung mass in the left upper lobe.with heterogeneous attenuation and central low attenuation suggestive of necrosis highly concerning for neoplasm.there are a few prominent mediastinal and left hilar lymph nodes, worrisome for metastatic disease, CT head showed no metastatic lesions, case discussed with Dr. Ford, patient and family wishes to pursue further workup scheduled for lung biopsy today, Plavix on hold , will continue to hold Plavix , scheduled for ERCP at a.m. NPO on IV fluids Unwitnessed fall Likely mechanical imaging showed no evidence of fracture,, EKG nonischemic, troponin negative, seen by physical therapy they recommend short-term rehab Oropharyngeal dysphagia speech therapy recommend to Continue ground mechanical, honey thick liquids , continue Ensure b.i.d. Chronic respiratory failure continueoxygen currently 94% on 2 L, use 4 L of oxygen at home COPD no acute exacerbation noted continue updraft treatments, Acute toxic metabolic encephalopathy likely due to hypercarbia, elevated LFT Patient seems to be at baseline, confusion resolved , VBG well compensated pH stable, follow VBG History of hypertension initially noted to have soft blood pressure therefore BP meds held now on home dose of Cardizem CD , stable blood pressure History of TIA hold Plavix for possible ERCP and lung biopsy DVT prophylaxis subcu heparin on hold for lung biopsy continue compression boots Code status full code Patient will need continued inpatient hospitalization due to common bile duct dilatation as well as lung mass need further workup. Including ERCP and possible lung biopsy Quality Stroke Does the patient have a stroke diagnosis?: No VTE Prior VTE?: No VTE Risk Level:: Medical - moderate - high VTE Device Contraindication: Treatment Not Indicated VTE Drug Contraindication: N/A - Med Ordered
--- NOTE | 2022-04-08 15:49 | HO.RADPN ---
RADIOLOGY Narrative Narrative: JAKE lung biopsy. 4 20g core biopsies using coaxial system. No complication. CXR pending.
--- NOTE | 2022-04-08 18:32 | PC.NURSE ---
Alert and oriented. Denies pain,VSS, afebrile, no acute resp.distress noted. Lung biopsy completed, result pending. Post op x-ray completed. Lung sounds diminished. Left upper chest biopsy site dressing CDI. Will continue to monitor and treat per plan of care.
[2022-04-08] MEDS: Amitriptyline HCl 25 MG TABLET PO (20:06)
[2022-04-08] MEDS: Melatonin 3 MG TABLET 6 MG PO (20:06)
[2022-04-09] VITALS (16 sets, daily range): BP systolic 122–170; BP diastolic 49–78; PULSE 71–93; RESP 15–24; TEMP 36.7–37.2; O2SAT 88–100; BMI 23.4
[2022-04-09] MEDS: cefTRIAXone sodium 1 GM in 0.9 % Sodium Chloride 50 ML IV (00:50)
[2022-04-09] MEDS: hydrOXYzine HCL 25 MG TABLET PO (05:08)
[2022-04-09] MEDS: metroNIDAZOLE/NS 500 MG/100 ML PIGGYBACK 100 MG IV ×2 (06:33→22:37)
[2022-04-09 07:33] LABS: Hematocrit 29.7 % (37.0-47.0); Hemoglobin 8.6 g/dl (12.0-16.0); Mean Corpuscular Hemoglobin 25.7 pg (27.0-33.0); Mean Corpuscular Volume 88.9 fL (80.0-98.0); Mean Platelet Volume 9.7 fL (9.4-12.3); Platelet Count 227 X10*3/uL (160-400); Red Blood Count 3.34 X10*6/uL (4.20-5.50); White Blood Count 13.6 X10*3/uL (4.8-10.8)
[2022-04-09] MEDS: Albuterol/Iprat 2.5/0.5MG 3 ML AMPUL.NEB INHALE ×3 (07:53→20:35)
[2022-04-09 08:11] LABS: Anion Gap 14 (12-20); Blood Urea Nitrogen 12 mg/dL (9-16); Calcium 8.8 mg/dL (8.4-10.2); Carbon Dioxide 40 mmol/L (22-29); Chloride 89 mmol/L (96-108); Creatinine Clr Calc Pharmacy 70.7; Estimated Glomerular Filt Rate > 60; Glucose Random 119 mg/dL (60-115); Potassium 3.2 mmol/L (3.3-5.1); Sodium 140 mmol/L (135-145)
[2022-04-09] MEDS: Escitalopram Oxalate 20 MG TABLET PO (09:05)
[2022-04-09] MEDS: dilTIAZem HCL CD 120 MG CAP.ER.DEG PO (09:06)
[2022-04-09] MEDS: 0.9 % Sodium Chloride 500 ML 20 ML IVCONT (09:07)
[2022-04-09] MEDS: 0.9 % Sodium Chloride Flush 3 ML SYRINGE IVFLUSH ×2 (09:07→21:38)
[2022-04-09] MEDS: Cyanocobalamin (Vitamin B-12) 1,000 MCG TABLET 1000 MCG PO (09:07)
--- NOTE | 2022-04-09 12:59 | MHC.CM.PN ---
Anticipate dc to [facility] @ [facility] tomorrow; [facility] already has [facility] auth. CM will follow.
--- NOTE | 2022-04-09 14:28 | P.PNIM_ITS ---
Subjective Subjective Date of Service: 04/09/22 Interval History: Seen and examined this morning Follow-up for choledocholithiasis Initially refusing ERCP planned for today but eventually agreed Denies abdominal pain, nausea, vomiting Review of Systems Review of Systems: Yes all other systems are reviewed and are negative Constitutional Constitutional: Denies chills and Denies fever(s) Cardiovascular Cardiovascular: Denies chest pain, Denies palpitations and Denies dyspnea Respiratory Respiratory: Denies cough and Denies dyspnea Gastrointestinal Gastrointestinal: Denies abdominal pain, Denies nausea and Denies vomiting Endocrine Endocrine: Denies palpitations Physical Exam Vital Signs: Vital Signs: Last Vital Signs Temp 98.4 F 04/09/22 11:34 Pulse 93 04/09/22 11:50 Resp 15 04/09/22 11:50 BP 167/72 H 04/09/22 11:34 Pulse Ox 90 L 04/09/22 11:34 O2 Del Method 04/09/22 11:34 O2 Flow Rate 3 04/09/22 11:34 FiO2 88 04/08/22 23:14 Oxygen Flow Rate 2 04/03/22 00:55 BMI result Body Mass Index 23.6 Const: General: cooperative, comfortable, no acute distress, alert and awake Nutritional Appearance: average body habitus Orientation/consciousness: patient oriented x3 Resp: Effort & Inspection: normal respiratory effort and able to speak in complete sentences Cardio: Rate: regular rate Heart sounds: S1 normal heart sound present and S2 normal heart sound present GI: Inspection: No distended Palpation (GI): Soft to palpation and nontender Neuro: General: patient oriented x3 and CN's II-XI intact bilaterally Extrem: General: Yes no pedal edema Objective Data Active Medications Acetaminophen (Acetaminophen 325 Mg Tablet) 650 mg PO Q6H PRN PRN Reason: Pain, Mild (Pain Scale 1-3) Last Admin: 04/05/22 17:58 Dose: 650 mg Documented By: AGNIESZKA Albuterol Sulfate (Albuterol Sulfate 90 Mcg 8 Gm Inhaler) 2 puff INHALE Q4H PRN PRN Reason: Shortness Of Breath Albuterol/Ipratropium (Albuterol/Iprat 2.5/0.5mg 3 Ml Ampul.Neb) 3 ml INHALE RQ4H WHILE AWAKE [facility] Last Admin: 04/09/22 11:50 Dose: 3 ml Documented By: GIO Amitriptyline HCl (Amitriptyline Hcl 25 Mg Tablet) 25 mg PO BEDTIME [facility] Last Admin: 04/08/22 20:06 Dose: 25 mg Documented By: VIRIDIANA Cyanocobalamin (Cyanocobalamin (Vitamin B-12) 1,000 Mcg Tablet) 1,000 mcg PO DAILY [facility] Last Admin: 04/09/22 09:07 Dose: 1,000 mcg Documented By: EZRA Diltiazem HCl (Diltiazem Hcl Cd 120 Mg Cap.Er.Deg) 120 mg PO DAILY [facility]; Protocol Last Admin: 04/09/22 09:06 Dose: 120 mg Documented By: EZRA Escitalopram Oxalate (Escitalopram Oxalate 20 Mg Tablet) 20 mg PO DAILY [facility] Last Admin: 04/09/22 09:05 Dose: 20 mg Documented By: EZRA Ceftriaxone Sodium 1 gm/ (Sodium Chloride) 50 mls @ 100 mls/hr IV Q24H [facility] Last Infusion: 04/09/22 04:49 Dose: 0 mls/hr Documented By: JOAQUINA Metronidazole (Flagyl) 500 mg in 100 mls @ 100 mls/hr IV Q8H [facility] Last Infusion: 04/09/22 09:26 Dose: 0 mls/hr Documented By: EZRA Sodium Chloride (Ns) 500 mls @ 20 mls/hr IVCONT .Q24H [facility] Last Admin: 04/09/22 09:07 Dose: 20 mls/hr Documented By: EZRA Melatonin (Melatonin 3 Mg Tablet) 6 mg PO BEDTIME PRN PRN Reason: Insomnia Last Admin: 04/08/22 20:06 Dose: 6 mg Documented By: VIRIDIANA Pharmacy Consult (Consult Rx Perform Med Rec) 1 each MISCELLANE ONCE PRN PRN Reason: Consult order Senna (Sennosides 8.6 Mg Tablet) 17.2 mg PO BEDTIME PRN PRN Reason: Constipation Sodium Chloride (0.9 % Sodium Chloride Flush 3 Ml Syringe) 3 ml IVFLUSH QSHIFT [facility] Last Admin: 04/09/22 09:07 Dose: 3 ml Documented By: EZRA Labs CBC & Chem 7: 04/09/22 07:05 04/09/22 07:05 Labs: Laboratory Results - last 24 hr 04/09/22 04/09/22 07:05 07:05 MCV 88.9 MCH 25.7 L MCHC 29.0 L RDW 15.0 Plt Count 227 MPV 9.7 Absolute Nucleated RBC 0.000 Nucleated RBC % (auto) 0.0 Anion Gap 14 Estim Creat Clear Calc 70.7 Estimated GFR > 60 Random Glucose 119 H Calcium 8.8 Assessment and Plan (1) Elevated LFTs: Status: Acute Plan 86-year-old female with a past medical history of hypertension, hyperlipidemia, COPD, chronic respiratory failure on 4 L of home oxygen at baseline, lung mass presented to the hospital today with a chief complaint of fall.? Elevated LFTs/choledocholithiasis Patient asymptomatic, tolerating diet LFTs normalized Status post cholecystectomy.? CT abdomen showed Dilated intrahepatic and extrahepatic bile ducts, ductal filling defect in the common bile duct,.could be stone or sludge,Indeterminate right adrenal gland nodule,cannot exclude metastatic disease in this setting, and large colonic stool burden. MRCP showed multiple distal common bile duct stone and dilated common bile duct Plan for ERCP today with Dr. Hernandez Continue IV ceftriaxone and Flagyl day 7, Lung mass? CT chest and abdomen showed?lung mass in the left upper lobe.with heterogeneous attenuation and central low attenuation suggestive of necrosis highly concerning for neoplasm.there are a few prominent mediastinal and left hilar lymph nodes, worrisome for metastatic disease, CT head showed no metastatic lesions, case discussed with Dr. Ford, patient and family wishes to pursue further workup s/p lung biopsy 04/08 Plavix on hold Unwitnessed fall Likely mechanical imaging showed no evidence of fracture,, EKG nonischemic, troponin negative, seen by physical therapy they recommend short-term rehab Oropharyngeal dysphagia speech therapy recommend to Continue ground mechanical, honey thick liquids , continue Ensure b.i.d. Chronic respiratory failure continue oxygen currently 94% on 2 L, use 4 L of oxygen at home COPD no acute exacerbation noted continue updraft treatments, Acute toxic metabolic encephalopathy likely due to hypercarbia, elevated LFT Patient seems to be at baseline, confusion resolved , VBG? well compensated pH stable, follow VBG History of hypertension initially noted to have soft blood pressure therefore BP meds held now on home dose of Cardizem CD , stable blood pressure History of TIA hold Plavix for possible ERCP and lung biopsy DVT prophylaxis? subcu heparin on hold for lung biopsy continue compression boots Code status full code Attending-Dr. Fernando Patient will need continued inpatient hospitalization due to common bile duct dilatation as well as lung mass need further workup Including?ERCP Quality Stroke Does the patient have a stroke diagnosis?: No VTE Prior VTE?: No VTE Risk Level:: Medical - moderate - high VTE Device Contraindication: Treatment Not Indicated VTE Drug Contraindication: N/A - Med Ordered
--- NOTE | 2022-04-09 15:26 | P.CONAN_ITS ---
HPI - Anesthesia Eval Consult details Narrative: 86-year-old female with multiple cardiopulmonary comorbidities presenting for ERCP [facility] Active Problems Active Problems: All Active Problems (Updated 04/03/22 @ 15:33 by Jackie Ford MD) Elevated LFTs (Acute) Fall (Acute) Weakness (Acute) Lung cancer (Acute) Alkalosis, metabolic (Acute) Acute hypernatremia (Acute) COPD (chronic obstructive pulmonary disease) (Acute) Mass of left lung (Acute) Hospital discharge follow-up (Acute) Acute and chronic respiratory failure with hypoxia (Acute) Mass of left lung (Acute) COPD exacerbation (Acute) Pneumonia (Acute) Leukocytosis (Acute) Acidosis, lactic (Acute) Osteopenia (Acute) Impaired fasting glucose (Acute) Pure hypercholesterolemia (Acute) Hypoxemia (Acute) Insomnia (Acute) Past Medical History Medical History Anxiety Benign essential hypertension COPD (chronic obstructive pulmonary disease) Depression GERD (gastroesophageal reflux disease) History of TIA (transient ischemic attack) Hyperlipidemia Hypoxemia Impaired fasting glucose Insomnia Iron deficiency anemia Mild cognitive impairment Osteoarthritis of left hip Osteopenia Polymyalgia rheumatica Pure hypercholesterolemia Vitamin B12 deficiency Vitamin D deficiency Family History Family History Father No problems noted. Mother No problems noted. Unknown Family hx of colon cancer Family history of coronary artery disease Family history of problems with anesthesia: No Surgical History Surgical History History of cataract surgery History of ERCP Hx laparoscopic cholecystectomy History of Problems with Anesthesia: No Social History Social History (System 04/03/22 @ 11:55 by Rachel Charles) Household Members: None Household Members Other:: live by herself. Housing: Apartment Do you presently have visiting nurse or other home services: Yes (visiting nurse 2 x a week per pt.) Alcohol intake: former Patient Tobacco Use Status: Never used Tobacco Second Hand Smoke Exposure: Yes Advance Directives Date on File: 09/09/21 service: No Current occupational status: retired Cognitive needs: No Hearing needs: No Vision needs: No Meds Allergies Allergy/AdvReac Type Severity Reaction Status Date / Time No Known Allergies Allergy Verified 04/03/22 11:55 Active Medications: Current Medications Acetaminophen (Acetaminophen 325 Mg Tablet) 650 mg PO Q6H PRN PRN Reason: Pain, Mild (Pain Scale 1-3) Last Admin: 04/05/22 17:58 Dose: 650 mg Albuterol Sulfate (Albuterol Sulfate 90 Mcg 8 Gm Inhaler) 2 puff INHALE Q4H PRN PRN Reason: Shortness Of Breath Albuterol/Ipratropium (Albuterol/Iprat 2.5/0.5mg 3 Ml Ampul.Neb) 3 ml INHALE RQ4H WHILE AWAKE [facility] Last Admin: 04/09/22 11:50 Dose: 3 ml Amitriptyline HCl (Amitriptyline Hcl 25 Mg Tablet) 25 mg PO BEDTIME [facility] Last Admin: 04/08/22 20:06 Dose: 25 mg Cyanocobalamin (Cyanocobalamin (Vitamin B-12) 1,000 Mcg Tablet) 1,000 mcg PO DAILY [facility] Last Admin: 04/09/22 09:07 Dose: 1,000 mcg Diltiazem HCl (Diltiazem Hcl Cd 120 Mg Cap.Er.Deg) 120 mg PO DAILY [facility]; Protocol Last Admin: 04/09/22 09:06 Dose: 120 mg Escitalopram Oxalate (Escitalopram Oxalate 20 Mg Tablet) 20 mg PO DAILY [facility] Last Admin: 04/09/22 09:05 Dose: 20 mg Ceftriaxone Sodium 1 gm/ (Sodium Chloride) 50 mls @ 100 mls/hr IV Q24H [facility] Last Infusion: 04/09/22 04:49 Dose: Infused Metronidazole (Flagyl) 500 mg in 100 mls @ 100 mls/hr IV Q8H [facility] Last Infusion: 04/09/22 09:26 Dose: Infused Sodium Chloride (Ns) 500 mls @ 20 mls/hr IVCONT .Q24H [facility] Last Admin: 04/09/22 09:07 Dose: 20 mls/hr Melatonin (Melatonin 3 Mg Tablet) 6 mg PO BEDTIME PRN PRN Reason: Insomnia Last Admin: 04/08/22 20:06 Dose: 6 mg Pharmacy Consult (Consult Rx Perform Med Rec) 1 each MISCELLANE ONCE PRN PRN Reason: Consult order Senna (Sennosides 8.6 Mg Tablet) 17.2 mg PO BEDTIME PRN PRN Reason: Constipation Sodium Chloride (0.9 % Sodium Chloride Flush 3 Ml Syringe) 3 ml IVFLUSH QSHIFT [facility] Last Admin: 04/09/22 09:07 Dose: 3 ml Home Medications Medication Instructions Recorded Confirmed Last Taken Type acetaminophen 325 mg tablet 650 mg PO Q6H PRN Pain 04/03/22 04/03/22 Unknown History albuterol sulfate 90 mcg/actuation 2 puff inhalation Q4-6H PRN 04/03/22 04/03/22 Unknown History aerosol inhaler Shortness Of Breath amitriptyline 25 mg tablet 1 tab PO BEDTIME 04/03/22 04/03/22 04/02/22 History aspirin 81 mg tablet,delayed 1 tab PO DAILY 04/03/22 04/03/22 04/02/22 History release bismuth subsalicylate 262 mg/15 mL 524 mg PO QID PRN Acid Reflux 04/03/22 04/03/22 Unknown History oral suspension (Pepto-Bismol) citalopram 40 mg tablet 1 tab PO DAILY 04/03/22 04/03/22 04/02/22 History clopidogrel 75 mg tablet 1 tab PO DAILY 04/03/22 04/03/22 04/02/22 History cyanocobalamin (vitamin B-12) 1 tab PO DAILY 04/03/22 04/03/22 04/02/22 History 1,000 mcg tablet,extended release (Vitamin B-12 ER) diltiazem HCl 120 mg 1 cap PO DAILY 04/03/22 04/03/22 04/02/22 History capsule,extended release 24 hr ferrous sulfate 325 mg (65 mg 1 tab PO DAILY 04/03/22 04/03/22 04/02/22 History iron) tablet (FeroSul) ipratropium 0.5 mg-albuterol 3 mg 3 ml inhalation QID 04/03/22 04/03/22 Unknown History (2.5 mg base)/3 mL nebulization soln multivitamin 1 tab PO DAILY 04/03/22 04/03/22 04/02/22 History pravastatin 40 mg tablet 1 tab PO DAILY 04/03/22 04/03/22 04/02/22 History Exam Exam Date and Time: April 09, 2022 1526 Height,Weight and Vital Signs: Height 5 ft Weight 121 lb 0.54 oz Last Vital Signs Temp 98.4 F 04/09/22 11:34 Pulse 93 04/09/22 11:50 Resp 15 04/09/22 11:50 BP 167/72 H 04/09/22 11:34 Pulse Ox 90 L 04/09/22 11:34 O2 Del Method 04/09/22 11:34 O2 Flow Rate 3 04/09/22 11:34 FiO2 88 04/08/22 23:14 Oxygen Flow Rate 2 04/03/22 00:55 Pertinent Lab Results Pertinent Lab Results: Laboratory Tests 04/03/22 04/03/22 04/03/22 01:06 01:07 01:08 WBC RBC Hgb Hct MCV MCH MCHC RDW Plt Count MPV Immature Gran % (Auto) Neut % (Auto) Lymph % (Auto) [place] % (Auto) Eos % (Auto) Baso % (Auto) Lymph # (Auto) [place] # (Auto) Eos # (Auto) Baso # (Auto) Abs Immat Gran (auto) Absolute Neuts (auto) Absolute Nucleated RBC Nucleated RBC % (auto) Smear Tech's Comments PT INR VBG pH VBG pCO2 VBG pO2 VBG HCO3 VBG O2 Saturation VBG Base Excess Sodium Potassium Chloride Carbon Dioxide Anion Gap BUN Creatinine Estim Creat Clear Calc Estimated GFR POC Glucose 102 Random Glucose Lactic Acid 0.7 Calcium Magnesium Total Bilirubin Direct Bilirubin AST ALT Alkaline Phosphatase Total Creatine Kinase Troponin I High Sens 5.0 B-Natriuretic Peptide 34 Total Protein Albumin Urine Color Urine Appearance Urine pH Ur Specific [place] Urine Protein Urine Glucose (UA) Urine Ketones Urine Blood Urine Nitrite Ur Leukocyte Esterase Urine RBC Urine WBC Ur Squamous Epith Cells Ur Renal Epithelial Cell Urine Bacteria Hyaline Casts Granular Casts COVID-19 (DELL) COVID-19 Clin Com 04/03/22 04/03/22 04/03/22 01:08 01:09 01:09 WBC 14.1 H RBC 3.26 L Hgb 8.6 L Hct 31.2 L MCV 95.7 MCH 26.4 L MCHC 27.6 L RDW 14.8 Plt Count 248 MPV 9.3 L Immature Gran % (Auto) 0.6 H Neut % (Auto) 80.7 H Lymph % (Auto) 7.7 L [place] % (Auto) 8.1 Eos % (Auto) 2.7 Baso % (Auto) 0.2 Lymph # (Auto) 1.1 L [place] # (Auto) 1.2 Eos # (Auto) 0.4 Baso # (Auto) 0.0 Abs Immat Gran (auto) 0.09 H Absolute Neuts (auto) 11.4 H Absolute Nucleated RBC 0.000 Nucleated RBC % (auto) 0.0 Smear Tech's Comments PT 12.0 INR 1.0 VBG pH VBG pCO2 VBG pO2 VBG HCO3 VBG O2 Saturation VBG Base Excess Sodium 146 H Potassium 3.7 Chloride 91 L Carbon Dioxide 48 H* Anion Gap 11 L BUN 20 H Creatinine 0.65 Estim Creat Clear Calc 36.6 Estimated GFR > 60 POC Glucose Random Glucose 123 H Lactic Acid Calcium 10.1 Magnesium 2.2 Total Bilirubin 1.5 H Direct Bilirubin AST 282 H ALT 87 H Alkaline Phosphatase 267 H Total Creatine Kinase 17 L Troponin I High Sens B-Natriuretic Peptide Total Protein 6.6 Albumin 3.2 L Urine Color Urine Appearance Urine pH Ur Specific [place] Urine Protein Urine Glucose (UA) Urine Ketones Urine Blood Urine Nitrite Ur Leukocyte Esterase Urine RBC Urine WBC Ur Squamous Epith Cells Ur Renal Epithelial Cell Urine Bacteria Hyaline Casts Granular Casts COVID-19 (DELL) COVID-19 Clin Com 04/03/22 04/03/22 04/03/22 01:09 01:22 02:57 WBC RBC Hgb Hct MCV MCH MCHC RDW Plt Count MPV Immature Gran % (Auto) Neut % (Auto) Lymph % (Auto) [place] % (Auto) Eos % (Auto) Baso % (Auto) Lymph # (Auto) [place] # (Auto) Eos # (Auto) Baso # (Auto) Abs Immat Gran (auto) Absolute Neuts (auto) Absolute Nucleated RBC Nucleated RBC % (auto) Smear Tech's Comments PT INR VBG pH 7.35 VBG pCO2 91 VBG pO2 59 VBG HCO3 50 H VBG O2 Saturation 87.0 VBG Base Excess 21.3 Sodium Potassium Chloride Carbon Dioxide Anion Gap BUN Creatinine Estim Creat Clear Calc Estimated GFR POC Glucose Random Glucose Lactic Acid Calcium Magnesium Total Bilirubin Direct Bilirubin AST ALT Alkaline Phosphatase Total Creatine Kinase Troponin I High Sens B-Natriuretic Peptide Total Protein Albumin Urine Color DK YELLOW Urine Appearance Clear Urine pH 6.0 Ur Specific [place] >= 1.030 H Urine Protein 30 (1+) H Urine Glucose (UA) 100 H Urine Ketones Negative Urine Blood Negative Urine Nitrite Negative Ur Leukocyte Esterase Negative Urine RBC 0-2 Urine WBC 0-5 Ur Squamous Epith Cells 3-5 Ur Renal Epithelial Cell Present Urine Bacteria Trace Hyaline Casts 11-20 Granular Casts Present COVID-19 (DELL) Negative COVID-19 Clin Com See Note 04/03/22 04/03/22 04/03/22 06:30 06:30 06:30 WBC 10.3 RBC 3.04 L Hgb 7.9 L Hct 29.4 L MCV 96.7 MCH 26.0 L MCHC 26.9 L RDW 14.7 Plt Count 187 MPV 9.6 Immature Gran % (Auto) 0.9 H Neut % (Auto) 91.2 H Lymph % (Auto) 5.5 L [place] % (Auto) 1.9 L Eos % (Auto) 0.3 Baso % (Auto) 0.2 Lymph # (Auto) 0.6 L [place] # (Auto) 0.2 Eos # (Auto) 0.0 Baso # (Auto) 0.0 Abs Immat Gran (auto) 0.09 H Absolute Neuts (auto) 9.4 H Absolute Nucleated RBC 0.000 Nucleated RBC % (auto) 0.0 Smear Tech's Comments VERIFIED PT INR VBG pH VBG pCO2 VBG pO2 VBG HCO3 VBG O2 Saturation VBG Base Excess Sodium 146 H Potassium 4.1 Chloride 102 Carbon Dioxide 36 H Anion Gap 12 BUN 15 Creatinine 0.54 Estim Creat Clear Calc 60.3 Estimated GFR > 60 POC Glucose Random Glucose 123 H Lactic Acid Calcium 8.3 L D Magnesium 1.9 Total Bilirubin Direct Bilirubin AST ALT Alkaline Phosphatase Total Creatine Kinase Troponin I High Sens B-Natriuretic Peptide Total Protein Albumin Urine Color Urine Appearance Urine pH Ur Specific [place] Urine Protein Urine Glucose (UA) Urine Ketones Urine Blood Urine Nitrite Ur Leukocyte Esterase Urine RBC Urine WBC Ur Squamous Epith Cells Ur Renal Epithelial Cell Urine Bacteria Hyaline Casts Granular Casts COVID-19 (DELL) COVID-19 Clin Com 04/03/22 04/04/22 04/04/22 15:26 06:47 09:10 WBC 11.2 H RBC 3.41 L Hgb 8.8 L Hct 31.6 L MCV 92.7 MCH 25.8 L MCHC 27.8 L RDW 14.4 Plt Count 244 D MPV 9.5 Immature Gran % (Auto) Neut % (Auto) Lymph % (Auto) [place] % (Auto) Eos % (Auto) Baso % (Auto) Lymph # (Auto) [place] # (Auto) Eos # (Auto) Baso # (Auto) Abs Immat Gran (auto) Absolute Neuts (auto) Absolute Nucleated RBC 0.000 Nucleated RBC % (auto) 0.0 Smear Tech's Comments PT INR VBG pH VBG pCO2 VBG pO2 VBG HCO3 VBG O2 Saturation VBG Base Excess Sodium Potassium Chloride Carbon Dioxide Anion Gap BUN Creatinine Estim Creat Clear Calc Estimated GFR POC Glucose 85 Random Glucose Lactic Acid Calcium Magnesium Total Bilirubin 0.4 Direct Bilirubin 0.2 AST 100 H ALT 61 H Alkaline Phosphatase 202 H D Total Creatine Kinase Troponin I High Sens B-Natriuretic Peptide Total Protein 5.9 L Albumin 2.7 L Urine Color Urine Appearance Urine pH Ur Specific [place] Urine Protein Urine Glucose (UA) Urine Ketones Urine Blood Urine Nitrite Ur Leukocyte Esterase Urine RBC Urine WBC Ur Squamous Epith Cells Ur Renal Epithelial Cell Urine Bacteria Hyaline Casts Granular Casts COVID-19 (DELL) COVIDAlertaPhone 04/04/22 04/04/22 04/04/22 09:10 12:49 12:56 WBC RBC Hgb Hct MCV MCH MCHC RDW Plt Count MPV Immature Gran % (Auto) Neut % (Auto) Lymph % (Auto) [place] % (Auto) Eos % (Auto) Baso % (Auto) Lymph # (Auto) [place] # (Auto) Eos # (Auto) Baso # (Auto) Abs Immat Gran (auto) Absolute Neuts (auto) Absolute Nucleated RBC Nucleated RBC % (auto) Smear Tech's Comments PT INR VBG pH 7.41 VBG pCO2 85 VBG pO2 55 VBG HCO3 55 H VBG O2 Saturation 86.0 VBG Base Excess 26.6 Sodium 146 H Potassium 3.8 Chloride 96 Carbon Dioxide 43 H* Anion Gap 11 L BUN 12 Creatinine 0.55 Estim Creat Clear Calc 59.2 Estimated GFR > 60 POC Glucose 65 Random Glucose 90 Lactic Acid Calcium 8.9 D Magnesium Total Bilirubin 0.2 Direct Bilirubin 0.2 AST 62 H ALT 51 H Alkaline Phosphatase 181 H Total Creatine Kinase Troponin I High Sens B-Natriuretic Peptide Total Protein 6.2 L Albumin 2.9 L Urine Color Urine Appearance Urine pH Ur Specific [place] Urine Protein Urine Glucose (UA) Urine Ketones Urine Blood Urine Nitrite Ur Leukocyte Esterase Urine RBC Urine WBC Ur Squamous Epith Cells Ur Renal Epithelial Cell Urine Bacteria Hyaline Casts Granular Casts COVID-19 (DELL) COVID-19 Clin Com 04/04/22 04/05/22 04/05/22 17:48 06:32 07:09 WBC RBC Hgb Hct MCV MCH MCHC RDW Plt Count MPV Immature Gran % (Auto) Neut % (Auto) Lymph % (Auto) [place] % (Auto) Eos % (Auto) Baso % (Auto) Lymph # (Auto) [place] # (Auto) Eos # (Auto) Baso # (Auto) Abs Immat Gran (auto) Absolute Neuts (auto) Absolute Nucleated RBC Nucleated RBC % (auto) Smear Tech's Comments PT INR VBG pH VBG pCO2 VBG pO2 VBG HCO3 VBG O2 Saturation VBG Base Excess Sodium 145 Potassium 3.1 L Chloride 92 L Carbon Dioxide 47 H* Anion Gap 9 L BUN 9 Creatinine 0.48 L Estim Creat Clear Calc 67.8 Estimated GFR > 60 POC Glucose 98 83 Random Glucose 88 Lactic Acid Calcium 9.2 Magnesium Total Bilirubin 0.2 Direct Bilirubin 0.2 AST 30 D ALT 33 H Alkaline Phosphatase 153 H Total Creatine Kinase Troponin I High Sens B-Natriuretic Peptide Total Protein 5.7 L Albumin 2.8 L Urine Color Urine Appearance Urine pH Ur Specific [place] Urine Protein Urine Glucose (UA) Urine Ketones Urine Blood Urine Nitrite Ur Leukocyte Esterase Urine RBC Urine WBC Ur Squamous Epith Cells Ur Renal Epithelial Cell Urine Bacteria Hyaline Casts Granular Casts COVID-19 (DELL) COVID-19 Clin Com 04/06/22 04/06/22 04/09/22 06:04 06:04 07:05 WBC 12.6 H 13.6 H RBC 3.40 L 3.34 L Hgb 8.9 L 8.6 L Hct 31.5 L 29.7 L MCV 92.6 88.9 MCH 26.2 L 25.7 L MCHC 28.3 L 29.0 L RDW 14.4 15.0 Plt Count 205 227 MPV 10.0 9.7 Immature Gran % (Auto) Neut % (Auto) Lymph % (Auto) [place] % (Auto) Eos % (Auto) Baso % (Auto) Lymph # (Auto) [place] # (Auto) Eos # (Auto) Baso # (Auto) Abs Immat Gran (auto) Absolute Neuts (auto) Absolute Nucleated RBC 0.000 0.000 Nucleated RBC % (auto) 0.0 0.0 Smear Tech's Comments PT INR VBG pH VBG pCO2 VBG pO2 VBG HCO3 VBG O2 Saturation VBG Base Excess Sodium 143 Potassium 4.0 D Chloride 90 L Carbon Dioxide 43 H* Anion Gap 14 BUN 8 L Creatinine 0.48 L Estim Creat Clear Calc 67.8 Estimated GFR > 60 POC Glucose Random Glucose 81 Lactic Acid Calcium 9.3 Magnesium Total Bilirubin 0.4 Direct Bilirubin 0.2 AST 19 ALT 25 Alkaline Phosphatase 133 H Total Creatine Kinase Troponin I High Sens B-Natriuretic Peptide Total Protein 5.9 L Albumin 2.9 L Urine Color Urine Appearance Urine pH Ur Specific [place] Urine Protein Urine Glucose (UA) Urine Ketones Urine Blood Urine Nitrite Ur Leukocyte Esterase Urine RBC Urine WBC Ur Squamous Epith Cells Ur Renal Epithelial Cell Urine Bacteria Hyaline Casts Granular Casts COVID-19 (DELL) COVID-19 Clin Com 04/09/22 07:05 WBC RBC Hgb Hct MCV MCH MCHC RDW Plt Count MPV Immature Gran % (Auto) Neut % (Auto) Lymph % (Auto) [place] % (Auto) Eos % (Auto) Baso % (Auto) Lymph # (Auto) [place] # (Auto) Eos # (Auto) Baso # (Auto) Abs Immat Gran (auto) Absolute Neuts (auto) Absolute Nucleated RBC Nucleated RBC % (auto) Smear Tech's Comments PT INR VBG pH VBG pCO2 VBG pO2 VBG HCO3 VBG O2 Saturation VBG Base Excess Sodium 140 Potassium 3.2 L Chloride 89 L Carbon Dioxide 40 H* Anion Gap 14 BUN 12 Creatinine 0.46 L Estim Creat Clear Calc 70.7 Estimated GFR > 60 POC Glucose Random Glucose 119 H Lactic Acid Calcium 8.8 Magnesium Total Bilirubin Direct Bilirubin AST ALT Alkaline Phosphatase Total Creatine Kinase Troponin I High Sens B-Natriuretic Peptide Total Protein Albumin Urine Color Urine Appearance Urine pH Ur Specific [place] Urine Protein Urine Glucose (UA) Urine Ketones Urine Blood Urine Nitrite Ur Leukocyte Esterase Urine RBC Urine WBC Ur Squamous Epith Cells Ur Renal Epithelial Cell Urine Bacteria Hyaline Casts Granular Casts COVID-19 (DELL) COVID-19 Clin Com Airway Mallampati Class: III TM Dist: >3cm Neck ROM: Full Denture: Upper and Lower Assessment and Plan Assessment Anesthesia Assessment: Anesthesia Plan Discussed and Chart Reviewed Final Anesthetic Review Family History of Problems with Anesthesia: No History of Problems with Anesthesia: No NPO: Yes ASA Class: III Final Preanesthetic Review: No Changes in Pt Med Stat, Meds/Allgs Chart Reviewed, Consent Obtained/Reviewed and Anes Risks/Benef Reviewed Patient Risk: High Procedure Risk: Low Anesthetic Plan Anesthetic Plan: GA Disposition: Standard PACU
--- NOTE | 2022-04-09 16:41 | MHC.SHP ---
Pre-Procedural Eval Section A Date of Service: 04/09/22 Section B Chief Complaint: CBD stones Details of Present Illness: imaging with stones and abn LFT on admission Relevant Family History (Specify if Yes): No Relevant Social History: None Present Medications: see Short Stay Collaborative assessment Medical History: Significant History (lung mass, COPD, ) History of Previous Operations: Relevant previous surgery/procedure and date(s) (lung biopsy) Allergies: Allergies Allergy/AdvReac Type Severity Reaction Status Date / Time No Known Allergies Allergy Verified 04/03/22 11:55 Review of Systems Sugical H&P ROS: Negative: Constitution, Cardiovascular, Respiratory, Neurological, Psychiatric, Hem-Onc, Allergic/Immunologic, Gastrointestinal, Genitourinary, Musculoskeletal, Integumentary, Endocrine and Eyes/Ears/Nose/Throat Exam Surgical H&P Exam: Normal: HEENT, Normal: Heart, Normal: Extremities, Normal: Abdomen and Normal: Skin and Significant Findings: Lungs (reduced air entry both lungs) and Significant Findings: Neurological (mildly confused) Plan Diagnosis/Plan: Unchanged I have reviewed the history and physical and performed a pertinent physical examination on my patient. No changes have occurred unless specified. ERCP--discussed pros and cons with daughter Elisa, risk of cholangitis if untreated vs expectant monitoring, wishes to proceed with ERCP
--- NOTE | 2022-04-09 17:01 | MHC.SLORD ---
Speech Language Pathology Order Status: Attempted to see patient in the a.m. Pt was NPO pending surgery for trach placement. Will continue to monitor for appropriateness for P.O. trials.
--- NOTE | 2022-04-09 18:27 | P.OP_ITS ---
Operative Note Operative Note Date of Service: 04/09/22 Narrative: Description: Endoscopic retrograde cholangiopancreatography (ERCP) PROCEDURE: Endoscopic retrograde cholangiopancreatography with sphincteroplasty, sphincterotomy and cholangiogram with stone extraction INDICATION FOR THE PROCEDURE: Patient with a history of abdominal pain and imaging revealing CBD stones MEDICATIONS: General anesthesia, The risks of the procedure were made aware to the patient and consisted of m edication reaction, bleeding, perforation, aspiration, and post ERCP pancreatitis. DESCRIPTION OF PROCEDURE: After informed consent and appropriate sedation, the duodenoscope was inserted into the oropharynx, down the esophagus, and into the stomach. The scope was then advanced through the pylorus to the ampulla. The ampulla was hard to find due to patient anatomy and adjacent diverticulum and the scope was in the long position thru out due to instability. It appeared the patient may have had a sphicterotomy in the past. A wire was passed and seemed to be in the CBD which was confirmed by cholangiogram. The cholangiogram was not very good due to the scope being in the way despite various repositioning. A dilation balloon was placed and dilated to 8-10 mm. bile and stone debris came out. A basket and extraction balloon were both used with sludge and stone debris removed. I was not happy with the sphincteroplasty so very gently I extended the sphincterotomy with good flow of bile noted. There was some minor oozing which had ceased by the end of the procedure. The stomach was then decompressed and the endoscope was withdrawn. FINDINGS: 1. choledocholithiasis RECOMMENDATIONS: 1. NPO except ice chips for next 4-6 hrs then clears as tolerated, can advance diet tomorrow if feels well 2. Can restart plavix in 24 hours
--- NOTE | 2022-04-09 21:48 | PC.NURSE ---
Pt back from procedure around 1999, no complaints, confused to place, time and situation. Potassium replacement ordered for 1999, pt refused. Educated pt on importance of medication, still refused.
[2022-04-10] MEDS: cefTRIAXone sodium 1 GM in 0.9 % Sodium Chloride 50 ML IV (02:02)
[2022-04-10] MEDS: 0.9 % Sodium Chloride 500 ML 20 ML IVCONT (02:08)
[2022-04-10 03:26] VITALS: BP 160/71; PULSE 81; RESP 20; TEMP 36.8; O2SAT 96
[2022-04-10 07:18] LABS: Hematocrit 31.5 % (37.0-47.0); Mean Corpuscular HGB Conc 28.6 g/dl (31.0-35.0); Mean Corpuscular Hemoglobin 25.5 pg (27.0-33.0); Mean Corpuscular Volume 89.2 fL (80.0-98.0); Mean Platelet Volume 9.5 fL (9.4-12.3); Platelet Count 225 X10*3/uL (160-400); Red Blood Count 3.53 X10*6/uL (4.20-5.50); Red Cell Distribution Width 15.5 % (11.0-16.0); White Blood Count 13.8 X10*3/uL (4.8-10.8)
[2022-04-10 07:29] VITALS: BP 159/72; PULSE 83; RESP 22; TEMP 36.9; O2SAT 93
[2022-04-10 07:33] VITALS: PULSE 85; RESP 16; O2SAT 97
[2022-04-10] MEDS: Albuterol/Iprat 2.5/0.5MG 3 ML AMPUL.NEB INHALE (07:33)
[2022-04-10 07:36] LABS: Alanine Aminotransferase 10 U/L (0-31); Albumin Level 2.8 g/dL (3.5-5.0); Alkaline Phosphatase 93 U/L (39-117); Anion Gap 16 (12-20); Aspartate Amino Transferase 15 U/L (5-31); Bilirubin Direct 0.2 mg/dL (0.0-0.5); Bilirubin Total 0.3 mg/dL (0.0-1.0); Blood Urea Nitrogen 9 mg/dL (9-16); Calcium 8.7 mg/dL (8.4-10.2); Carbon Dioxide 39 mmol/L (22-29); Chloride 91 mmol/L (96-108); Creatinine Clr Calc Pharmacy 65.4; Estimated Glomerular Filt Rate > 60; Glucose Random 89 mg/dL (60-115); Magnesium 1.9 mg/dL (1.6-2.6); Potassium 3.9 mmol/L (3.3-5.1); Sodium 142 mmol/L (135-145); Total Protein 5.7 g/dL (6.5-8.0)
[2022-04-10 08:55] VITALS: PULSE 85
[2022-04-10] MEDS: Cyanocobalamin (Vitamin B-12) 1,000 MCG TABLET 1000 MCG PO (09:55)
[2022-04-10] MEDS: dilTIAZem HCL CD 120 MG CAP.ER.DEG PO (09:55)
[2022-04-10] MEDS: Escitalopram Oxalate 20 MG TABLET PO (09:55)
[2022-04-10] MEDS: 0.9 % Sodium Chloride Flush 3 ML SYRINGE IVFLUSH (09:56)
[2022-04-10] MEDS: metroNIDAZOLE/NS 500 MG/100 ML PIGGYBACK 100 MG IV (09:56)
[2022-04-10 12:00] VITALS: BP 148/67; PULSE 86; RESP 20; O2SAT 96
--- NOTE | 2022-04-10 12:25 | P.DS_ITS ---
DS: Providers Provider Date of Service: 04/10/22 Date of admission: 04/03/22 04:57 Date of discharge: 04/10/22 Primary care physician: Ho Nolasco MD Consults: 04/03/22 05:01 Consult to Hematology / Oncology Routine Consulting Provider: Jackie Ford Reason for consultation: Lung mass 04/03/22 08:43 Consult to Gastroenterology Routine Consulting Provider: Alice Trejo Reason for consultation: cbd stone vs sludge Has provider been notified: No Attending physician on discharge: Gaetano Fernando Discharging clinician: Kristi Sheridan DS: Diagnosis Discharge Diagnosis (1) Elevated LFTs: Status: Acute (2) Mass of left lung: Status: Acute DS: Summary Hospital Course Hospital Course: From H&P on day of admission 86-year-old female with a past medical history of hypertension, hyperlipidemia, COPD, chronic respiratory failure on 4 L of home oxygen at baseline, lung mass presented to the hospital today with a chief complaint of fall.? Patient pressed her alert button, EMS went to pick her up, patient was found alone in the house with unkept circumstances;? subsequently brought her to the hospital for further evaluation.? Patient is oriented to self, response to verbal stimuli, unable to provide any history.? Spoke to the patient's daughter? Donna, who mentioned that she and her sister has been checking on her mother who lives alone.? Mentions patient has been refusing food for the past couple days; mentions she was recently seen her life science taxonomist, finished a course of antibiotics today for presumed pneumonia.? Denies patient having any fevers.? Reports she is having cough.? Mentions she has lung mass and is due for follow-up with Oncology.? Denies patient complaining of any pain or having urinary symptoms.? Also mentions that patient recently had elevated liver enzymes Review of all other systems is limited ?ER course: Per ER team patient on presentation noted to be nonfocal, generally weak, CT head, CT C-spine showed no acute 0.6, CT abdomen showed no acute findings, CT chest showed lung mass; initially concern for pneumonia -given antibiotics; also patient was noted to be wheezing given nebulizations and steroids.? On labs noted to have elevated serum bicarb of 48 and elevated liver enzymes.? EKG was nonischemic.? Admitted to the hospital for further management Elevated LFTs/choledocholithiasis Status post cholecystectomy.? CT abdomen showed Dilated intrahepatic and extrahepatic bile ducts, ductal filling defect in the common bile duct,.could be stone or sludge,Indeterminate right adrenal gland nodule,cannot exclude metastatic disease in this setting, and large colonic stool burden. MRCP showed multiple distal common bile duct stone and dilated common bile duct. s/p Plan for ERCP with sphincteroplasty, sphincterotomy and cholangiogram with stone extraction on 04/09. Plavix was on hold prior to procedure and can be resumed tomorrow morning. She was treated with IV ceftriaxone and Flagyl for 7 days leading up to procedure. No further antibiotics are required at this time. LFTs have normalized. She is tolerating a regular diet at this time. Lung mass? CT chest and abdomen showed?lung mass in the left upper lobe.with heterogeneous attenuation and central low attenuation suggestive of necrosis highly concerning for neoplasm.there are a few prominent mediastinal and left hilar lymph nodes, worrisome for metastatic disease, CT head showed no metastatic lesions, case discussed with Dr. Ford, patient and family wishes to pursue further workup. s/p lung biopsy 04/08. Results of biopsy are pending at the time of discharge. Patient should call to schedule follow-up appointment with Dr. Ford to review biopsy results and treatment plan. Unwitnessed fall Likely mechanical imaging showed no evidence of fracture,, EKG nonischemic, troponin negative, seen by physical therapy they recommend short-term rehab Oropharyngeal dysphagia speech therapy recommend to Continue ground mechanical, honey thick liquids , continue Ensure b.i.d. Chronic respiratory failure continue oxygen currently 94% on 2 L, use 4 L of oxygen at home COPD no acute exacerbation noted continue updraft treatments Acute toxic metabolic encephalopathy likely due to hypercarbia, elevated LFTs. Resolved, back to baseline. VBG? well compensated pH stable History of hypertension initially noted to have soft blood pressure therefore BP meds held now on home dose of Cardizem CD , stable blood pressure History of TIA. Plavix was initially held for procedures. Can resume tomorrow morning. Leukocytosis. WBC 13.8 on day of discharge, likely related to recent procedur es. Recommend to repeat CBC in the next 1 week Time Spent with Patient Time attestation: Total time spent providing and/or coordinating discharge services: Discharge coordination time: Greater than 30 minutes Quality: Safe Use of Opioids Does Pt have an Active Cancer Diagnosis on the Problem List?: No Quality: Stroke Does the patient have a stroke diagnosis?: No Physical Exam Vital Signs: Vital Signs: Last Vital Signs Temp 98.4 F 04/10/22 07:29 Pulse 86 04/10/22 12:00 Resp 20 04/10/22 12:00 BP 148/67 H 04/10/22 12:00 Pulse Ox 96 04/10/22 12:00 O2 Del Method 04/10/22 12:00 O2 Flow Rate 2 04/10/22 12:00 FiO2 88 04/08/22 23:14 Oxygen Flow Rate 2 04/03/22 00:55 BMI result Body Mass Index 23.4 Const: General: cooperative, comfortable, alert and awake Nutritional Appearance: average body habitus Orientation/consciousness: patient oriented x3 Resp: Effort & Inspection: normal respiratory effort and able to speak in complete sentences Cardio: Rate: regular rate Heart sounds: S1 normal heart sound present and S2 normal heart sound present GI: Inspection: No distended Palpation (GI): Soft to palpation and nontender Neuro: General: patient oriented x3 and CN's II-XI intact bilaterally Extrem: General: Yes no pedal edema DS: Data Data Completed and Pending Pending studies at discharge: Pending at discharge 04/08/22 15:47 Surgical Path [Surgical] [PTH] Routine Labs on day of discharge: Laboratory Results - last 24 hr 04/10/22 04/10/22 06:51 06:51 WBC 13.8 H RBC 3.53 L Hgb 9.0 L Hct 31.5 L MCV 89.2 MCH 25.5 L MCHC 28.6 L RDW 15.5 Plt Count 225 MPV 9.5 Absolute Nucleated RBC 0.000 Nucleated RBC % (auto) 0.0 Sodium 142 Potassium 3.9 D Chloride 91 L Carbon Dioxide 39 H Anion Gap 16 BUN 9 Creatinine 0.46 L Estim Creat Clear Calc 65.4 Estimated GFR > 60 Random Glucose 89 Calcium 8.7 Magnesium 1.9 Total Bilirubin 0.3 Direct Bilirubin 0.2 AST 15 ALT 10 Alkaline Phosphatase 93 D Total Protein 5.7 L Albumin 2.8 L Discharge Plan Discharge Patient Disposition: er SNF Discharge Diagnosis: Lung mass Choledocholithiasis [facility]: [facility]Other] - 1 Week Ho Nolasco MD [Primary Care Provider] - 1 Week Jackie Ford MD [Physician] - 1 Week Discharge Medications: Continued cyanocobalamin (vitamin B-12) [Vitamin B-12] 1,000 mcg tablet extended release 1 tab PO DAILY ipratropium-albuterol 0.5 mg-3 mg(2.5 mg base)/3 mL solution for nebulization 3 ml inhalation QID citalopram 40 mg tablet 1 tab PO DAILY pravastatin 40 mg tablet 1 tab PO DAILY clopidogrel 75 mg tablet 1 tab PO DAILY aspirin 81 mg tablet,delayed release (DR/EC) 1 tab PO DAILY amitriptyline 25 mg tablet 1 tab PO BEDTIME ferrous sulfate [FeroSul] 325 mg (65 mg iron) tablet 1 tab PO DAILY diltiazem HCl 120 mg capsule,extended release 24hr 1 cap PO DAILY albuterol sulfate 90 mcg/actuation HFA aerosol inhaler 2 puff inhalation Q4-6H PRN (Reason: Shortness Of Breath) multivitamin Tablet 1 tab PO DAILY acetaminophen 325 mg Tablet 650 mg PO Q6H PRN (Reason: Pain) bismuth subsalicylate [Pepto-Bismol] 262 mg/15 mL Suspension 524 mg PO QID PRN (Reason: Acid Reflux) Discontinued lorazepam 0.5 mg tablet 0.5 mg PO BID 30 Days Qty: 60 0RF Discharge Orders: Discharge Order (Routine); Ordered 04/10/22 Ordered By: Kristi Sheridan Activity on Discharge: As tolerated Stand Alone Forms: Patient Portal Discharge page Care Plan Goals: See below Health Concerns: Choledocholithiasis-common bile duct stones- s/p ERCP lung mass s/p lung biopsy Chronic respiratory failure-continue baseline oxygen Toxic metabolic encephalopathy-resolved hypokalemia - resolved Leukocytosis-likely reactive. Recommend to repeat CBC in the next 1 week Elevated LFTs-resolved Plan of Treatment: Call to schedule follow-up appointment with Dr. Ford of Oncology to review lalo g biopsy results, results are pending at the time of discharge Can resume Plavix tomorrow morning Oropharyngeal dysphagia - continue ground mechanical diet with honey thick liquids Has not been receiving lorazepam during hospitalization Assessment: See discharge summary Discharge Date/Time: 04/10/22 16:35
--- NOTE | 2022-04-10 13:03 | MHC.CM.PN ---
pt dcd [facility] to [facility] [place] at 4:00 messdage left for dgter pt aware
[2022-04-10 14:05] LABS: COVID-19 Test Negative (Negative); IDNOW Serial# 9DB6401D
--- NOTE | 2022-04-10 14:55 | HO.POSTANES ---
Post Anesthesia Evaluation Post Anesthesia Evaluation Vital Signs: Vital Signs Temp Pulse Resp BP Pulse Ox O2 Del Method O2 Flow Rate 04/10/22 08:55 85 04/10/22 12:00 86 20 148/67 H 96 Nasal Cannula 2 04/10/22 07:33 85 16 04/10/22 07:29 98.4 F 83 22 H 159/72 H 93 Nasal Cannula 2 04/10/22 03:26 98.2 F 81 20 160/71 H 96 Nasal Cannula 3 Anesthesia: General Endotracheal-GETA Mental Status: Awake Pain Control: Satisfactory Nausea/Vomiting: None Hydration: Adequate Anesthesia-Related Issues: No Anes. Related Issues
== END 2022-04-10 16:35 | disposition skilled nursing facility (03) | DRG 180 ==
LOC: HO.ED 04:36 → HO.EDOVER 05:59 → HO.IMC 04-05 07:57
PROVIDERS: Hospitalist; Internal Medicine Gastroenterology; Internal Medicine Medical Oncology; Physician Assistant; Radiology Diagnostic Radiology; Admitting Provider Hospitalist; Emergency Provider Internal Medicine; PCP Internal Medicine; Visit Provider Physician Assistant Medical
PROC: 0FC98ZZ Extirpation of Matter from Common Bile Duct, Via Natural or Artificial Opening Endoscopic (ICD-10-PCS; CPT 43260; principal; 2022-04-09 16:00)
DX: C34.12 Malignant neoplasm of upper lobe, left bronchus or lung (principal); G92.8 Other toxic encephalopathy; C79.71 Secondary malignant neoplasm of right adrenal gland; E87.0 Hyperosmolality and hypernatremia; E87.3 Alkalosis; J96.12 Chronic respiratory failure with hypercapnia; C77.1 Secondary and unspecified malignant neoplasm of intrathoracic lymph nodes; J44.9 Chronic obstructive pulmonary disease, unspecified; K21.9 Gastro-esophageal reflux disease without esophagitis; E87.6 Hypokalemia; E78.5 Hyperlipidemia, unspecified; M35.3 Polymyalgia rheumatica; Z20.822 Contact with and (suspected) exposure to COVID-19; Z86.73 Personal history of transient ischemic attack (TIA), and cerebral infarction without residual deficits; Z99.81 Dependence on supplemental oxygen; Z79.82 Long term (current) use of aspirin; Z79.899 Other long term (current) drug therapy
CPT/HCPCS: 32408; 36415; 70450; 71045; 71260; 72125; 74177; 74181; 80048; 80053; 80076; 81001; 81003; 82550; 82803; 82947; 83605; 83735; 83880; 84484; 85025; 85027; 85610; 87040; 87635; 88305; 88333; 88341; 88342; 88360; 92526; 92610; 93005; 94640; 96361; 96374; 96375; 97110; 97116; 97161; 99152; 99153; 99285; C1758; C1769; J0456; J0696; J1610; J2370; J2920; J2930; J3010; Q9965; Q9967

== ENCOUNTER 2022-06-08 10:43 | Outpatient (RCR) | payer OTHER, SELFPAY ==
--- NOTE | 2022-06-08 10:48 | HE.ONCSEC ---
PATIENT DID NOT COME WITH A CAREGIVER OR SOMEONE . I INFORMED PATIENT WE NEED HER [employer] INSURANCE CARD SO IT CAN BE SCANNED AND ALSO HER PHOTO ID . PATIENT STATED SHE DOESNT HAVE IT , I INFORMED HER WE NEED IT FOR NEXT TIME SHE COMES IN .
[2022-06-08 10:57] VITALS: BP 130/60; PULSE 83; RESP 14; TEMP 36.6; O2SAT 99; BMI 16.1
[2022-06-08 10:57] LABS: MANUAL DIFF FLAG NO
[2022-06-08 11:02] LABS: Basophils Percent Auto 0.3 % (0-2); Eosinophils Absolute Auto 0.3 X10*3/uL (0.0-0.4); Eosinophils Percent Auto 3.1 % (0-4); Hematocrit 31.9 % (37.0-47.0); Imm Gran Abs Auto 0.08 X10*3/uL (0.00-0.03); Imm Gran Pct Auto 0.7 % (0.0-0.4); Lymphocytes Absolute Auto 1.2 X10*3/uL (1.2-4.9); Lymphocytes Percent Auto 11.2 % (20-40); Mean Corpuscular HGB Conc 28.2 g/dl (31.0-35.0); Mean Corpuscular Hemoglobin 25.9 pg (27.0-33.0); Mean Corpuscular Volume 91.9 fL (80.0-98.0); Mean Platelet Volume 9.3 fL (9.4-12.3); Monocytes Percent Auto 9.3 % (2-11); Neutrophils Absolute Auto 8.3 x10*3/uL (2.0-8.3); Neutrophils Percent Auto 75.4 % (45-73); Platelet Count 297 X10*3/uL (160-400); Red Blood Count 3.47 X10*6/uL (4.20-5.50); Red Cell Distribution Width 16.2 % (11.0-16.0)
--- NOTE | 2022-06-08 11:10 | PM.HEMONCCN ---
Subjective - Subjective Chief complaint: Consult for: Squamous cell carcinoma of the lung. Patient: known to practice within the last 3 years Consult date: 06/08/22 Primary Care Provider: Ho Nolasco MD Medical Summary: DIAGNOSIS: SQUAMOUS CELL CARCINOMA OF THE LUNG. PDL1 POSITIVE: 100%. HPI - Consult Narrative Reason for consult: Consult for: Squamous cell carcinoma of the lung. Narrative: Kortney Rocha is a pleasant 87 year old lady who was initially seen in house back in March. She had presented to the hospital, after a fall. Patient pressed her alert button, EMS went to pick her up. She was found alone in the house with unkept circumstances. She was subsequently brought her to the hospital for further evaluation. Patient is oriented to self, response to verbal stimuli, unable to provide much history. Her daughter Donna, mentioned that she and her sister have been checking on her mother who lives alone. Patient has been refusing food for the past couple days. She was recently seen by her business supervisor. She finished a course of antibiotics, for presumed pneumonia. She has a cough. Denies having any fevers. Patient recently had elevated liver enzymes. She was noted to have a lung mass. She denied complaining of any pain or having urinary symptoms. CT scan of the chest from 04/03: 1. No acute traumatic findings are seen. Fracture of the sternum with callus formation, suggesting subacute nature. Additionally there are multiple vertebral body mild compression deformities which are of uncertain chronicity. 2. There is a lung mass in the left upper lobe. This has heterogeneous attenuation and central low attenuation suggestive of necrosis. This is highly concerning for neoplasm. 3. There are a few prominent mediastinal and left hilar lymph nodes, worrisome for metastatic disease. 4. Status post cholecystectomy. Dilated intrahepatic and extrahepatic bile ducts. There is a ductal filling defect in the common bile duct. This could be stone or sludge. 5. Indeterminate right adrenal gland nodule. Cannot exclude metastatic disease in this setting. 6. Large colonic stool burden. On presentation noted to be nonfocal, generally weak, CT head, CT C-spine showed no acute findings., CT chest showed lung mass; initially concern for pneumonia -given antibiotics; also patient was noted to be wheezing given nebulizations and steroids. On labs noted to have elevated serum bicarb of 48 and elevated liver enzymes. CT abdomen showed no acute findings. EKG was nonischemic. She had a biopsy of the left upper lobe mass on 04/03. This revealed: Poorly differentiated squamous cell carcinoma. Very little tissue was left for molecular testing however PDL1 revealed high expression: 100%.3+. Past medical history of: 1. Hypertension, 2. Hyperlipidemia, 3. COPD, 4. Chronic respiratory failure on 4 L of home oxygen at baseline, 5. H/O Lung Mass. Review of systems: She does complain of easy fatigability. No fever nor chills. Appetite is not good. She has lost weight. No headache no dizziness. Denies chest pain. She does complain of shortness of breath. Denies any abdominal pain, nausea vomiting heartburn or indigestion. Bowels are working without any gross blood in it. She denies any dysuria or hematuria. She is weak all over. She is in good spirits. No skin rashes or pruritus. Review of Systems - Constitutional Reports system reviewed and no additional complaints, except as documented - Eyes Reports system reviewed and no additional complaints, except as documented - ENT Reports system reviewed and no additional complaints, except as documented - Cardiovascular Reports system reviewed and no additional complaints, except as documented - Respiratory Reports no additional respiratory complaints - Gastrointestinal Reports system reviewed and no additional complaints, except as documented - Genitourinary Reports no additional female genitourinary complaints - Musculoskeletal Reports system reviewed and no additional complaints, except as documented - Integumentary/Breasts Skin/Breast: Reports no additional skin complaints - Neurologic Reports system reviewed and no additional complaints, except as documented - Psychiatric Reports system reviewed and no additional complaints, except as documented - Endocrine Reports no additional endocrine complaints - Hematologic/Lymphatic Reports system reviewed and no additional complaints, except as documented - Allergic/Immunologic Reports system reviewed and no additional complaints, except as documented Oncology Screenings - ECOG Performance Status ECOG Performance Status: 2 [facility] Medical History: Medical History (Last Reviewed 06/08/22 @ 11:02 by Letha Rush CMA) Anxiety Benign essential hypertension COPD (chronic obstructive pulmonary disease) Depression GERD (gastroesophageal reflux disease) History of TIA (transient ischemic attack) Hyperlipidemia Hypoxemia Impaired fasting glucose Insomnia Iron deficiency anemia Mild cognitive impairment Osteoarthritis of left hip Osteopenia Polymyalgia rheumatica Pure hypercholesterolemia Vitamin B12 deficiency Vitamin D deficiency Functional capacity: wheelchair bound Family History: Family History (Last Reviewed 06/08/22 @ 11:02 by Letha Rush CMA) Father No problems noted. Mother No problems noted. Unknown Family hx of colon cancer Family history of coronary artery disease Surgical History: Surgical History (Last Reviewed 06/08/22 @ 11:02 by Letha Rush CMA) History of cataract surgery History of ERCP Hx laparoscopic cholecystectomy Social History: Social History (Last Reviewed 06/08/22 @ 11:04 by Letha Rush CMA) Living Situation History: Household Members: None Household Members Other:: live by herself. Housing: Assisted Living Facility Housing Other:: [facility] Are you a primary daytime caregiver to a significant other at home: No Do you presently have visiting nurse or other home services: Yes Do you presently have visiting nurse or other home services comment: visiting nurse 2 x a week per pt. Alcohol History Details: 1. How often do you have a drink containing alcohol?: a. Never Tobacco History: Patient Tobacco Use Status: Never used Tobacco Second Hand Smoke Exposure: Yes Substance Use History: Use of substances other than those prescribed or required for medical reasons: No Domestic Abuse History: Have you been hit, kicked, punched, or otherwise hurt by someone within the past year? If so, by whom?: No Advance Directives: Advance Directives Date on File: 09/09/21 Homicidal Assessment: Do you have thoughts of harming others: None Do you have a plan to hurt others: No Plan Do you have the means to hurt others: No Nutrition Assessment: Recently lost weight without trying: Yes How much weight loss: Unsure Eating poorly because of decreased appetite: No Nutrition screen score: 4 Occupation Assessmet: service: No Current occupational status: retired Home Medications and Allergies Home Medications Medication Instructions Recorded Confirmed Type acetaminophen 325 mg tablet 650 mg PO Q6H PRN Pain 04/03/22 06/08/22 History albuterol sulfate 90 mcg/actuation 2 puff inhalation Q4-6H PRN 04/03/22 06/08/22 History aerosol inhaler Shortness Of Breath aspirin 81 mg tablet,delayed 1 tab PO DAILY 04/03/22 06/08/22 History release bismuth subsalicylate 262 mg/15 mL 524 mg PO QID PRN Acid Reflux 04/03/22 06/08/22 History oral suspension (Pepto-Bismol) clopidogrel 75 mg tablet 1 tab PO DAILY 04/03/22 06/08/22 History cyanocobalamin (vitamin B-12) 1 tab PO DAILY 04/03/22 06/08/22 History 1,000 mcg tablet,extended release (Vitamin B-12 ER) ferrous sulfate 325 mg (65 mg 1 tab PO DAILY 04/03/22 06/08/22 History iron) tablet (FeroSul) multivitamin 1 tab PO DAILY 04/03/22 06/08/22 History Allergies Allergy/AdvReac Type Severity Reaction Status Date / Time No Known Allergies Allergy Verified 06/08/22 11:04 Physical Exam Vital signs: Vital Signs Temp 97.8 F 06/08/22 10:57 Pulse 83 06/08/22 10:57 Resp 14 06/08/22 10:57 BP 130/60 06/08/22 10:57 Pulse Ox 99 06/08/22 10:57 O2 Del Method 06/08/22 10:57 O2 Flow Rate 3 06/08/22 10:57 Intake & Output 06/07/22 06/08/22 06/08/22 18:59 06:59 18:59 Other: Weight 42.7 kg [place] Weight in Grams [id number] Weight 42.7 kg - Constitutional Present: mild distress - Routine HEENT Exam Head: Present: normocephalic Eye: Present: normal appearance ENT: Present: mucous membranes moist - Routine Neck Exam Present: supple - Routine Respiratory Exam Present: decreased breath sounds - Routine Cardiovascular Exam Cardiovascular: Present: RRR, S1, S2 - Routine Abdominal Exam Present: normal bowel sounds, nontender - Routine Extremities Exam Present: nontender - Routine Skin Exam Present: intact - Routine Neurological Exam Present: alert, oriented X3 - Detailed Neurological Exam: Coma Scale Eye Opening: Spontaneous (4) Verbal Response: Oriented (5) Motor Response: Obeys commands (6) Sheldon Coma Scale Total: 15 - Routine Psychiatric Exam Present: normal affect Hem/Onc Consult Result - Labs CBC & Chem 7: 06/08/22 10:54 06/08/22 10:54 Labs: Short CBC 06/08/22 Range/Units 10:54 WBC 11.0 H (4.8-10.8) X10*3/uL Hgb 9.0 L (12.0-16.0) g/dl Hct 31.9 L (37.0-47.0) % Plt Count 297 D (160-400) X10*3/uL Assessment and Plan Patient Active problem list reviewed?: Yes (1) Squamous cell carcinoma lung Status: Acute Assessment and plan: This is a pleasant 87-year-old lady with recent diagnosis of squamous cell carcinoma of the lung. In addition she has advanced COPD and is rather frail. She does not wish to undergo aggressive workup. Really not a surgical candidate. Nor a candidate for chemotherapy. Fortunately, she has PDL1 100%. She would be a candidate for pembrolizumab ( Keytruda), for palliation. She is here with her daughter. She tells me she is at [facility],in [place]. I offered it to her. I gave her written information. Details of the regimen including potential side effects of hypersensitivity reaction, skin rash, diarrhea, immune mediated reaction, pancytopenia, infections, need for antibiotics and blood transfusions were all addressed with her. After further discussion, she is willing to go ahead with it. PLAN: Will get insurance approval. Then get her started on it. She will return in a week for chemoteaching and in a couple of weeks for a follow-up. All her and her daughter's questions were answered to his satisfaction. Thank you, Cc: - Time Spent With Patient Time Spent with Patient (in minutes): 30
[2022-06-08 11:42] LABS: Alanine Aminotransferase 8 U/L (0-31); Albumin Level 2.8 g/dL (3.5-5.0); Alkaline Phosphatase 61 U/L (39-117); Anion Gap 12 (12-20); Aspartate Amino Transferase 18 U/L (5-31); Bilirubin Total 0.3 mg/dL (0.0-1.0); Blood Urea Nitrogen 14 mg/dL (9-16); Calcium 10.2 mg/dL (8.4-10.2); Carbon Dioxide 43 mmol/L (22-29); Chloride 91 mmol/L (96-108); Creatinine Clr Calc Pharmacy 47.8; Estimated Glomerular Filt Rate > 60; Glucose Random 101 mg/dL (60-115); Potassium 4.2 mmol/L (3.3-5.1); Sodium 142 mmol/L (135-145); Total Protein 6.9 g/dL (6.5-8.0)
--- NOTE | 2022-06-08 12:19 | MHC.HEMONCMA ---
Pt was in for follow up. Clinical summary reviewed and updated, VSS. Labs were drawn. Pt to return in 1 month.
--- NOTE | 2022-06-08 14:15 | MHC.HEMONCMA ---
[facility] [phone] calling with questions on paperwork patient brought back there from appt. Gave message to Letha to reach out.
--- NOTE | 2022-06-09 14:08 | MHC.HEMONC ---
Spoke with Pt's daughter Donna (cell [phone]) notified of chemo teach and date of first infusion on 06/17/22 at 1100. Daughter states she will be present for the chemo teach. Pt is currently a pt at [facility] in [place] [phone]. Spoke with Antonette (nurse at [facility]) who states facility will arrange for transportation to appointments and will have lab work drawn at facility. Antonette states facility will fax over results prior to infusion. Hem/Onc Fax number given to Antonette. Order for lab draw faxed to [facility] ( fax [phone])-plan for lab draw every 3 weeks
--- NOTE | 2022-06-09 17:19 | HO.HEMONCPA ---
Addendum entered by Nancy Gutierrez 06/11/22 16:55: PA for Keytruda (pembrolizumab) - [id number] 200mg I.V. every 3 weeks APPROVED. AUTH#[id number]. DOS -06/10/22 to 06/09/2023. DOCUMENT SCANNED IN THE CHART Original Note: PA for Keytruda (pembrolizumab) - [id number] 200mg I.V. every 3 weeks x 1 year REQUESTED. AWAITING DECISION
--- NOTE | 2022-06-16 12:07 | MHC.HEMONC ---
Donna daughter of [facility] called reporting that patient hadf a fall at rehab last night. Was questioning if she should still bring her in tomorrow. Instructed daughter ok to bring patient in. If any changes then have her evaulated by the doctors at rehab.
--- NOTE | 2022-06-17 13:53 | MHC.HEMONC ---
Nurse from [facility] called to state that patient would like to cancel treatment today. Patient and family to discuss future plan. Patient is refusing at this time. [facility] to call us with update. Pharmacy notified.
--- NOTE | 2022-06-25 16:14 | MHC.HEMONC ---
Left voicemail with daughter Donna in regards to plan of care for patient and if they decided to decline treatment. Next appt 06/29/22 at 1000am.
== END 2022-07-16 | disposition home or self-care (01) ==
LOC: HO.ONC 10:43
PROVIDERS: PCP Internal Medicine; Visit Provider Internal Medicine Medical Oncology
DX: C34.12 Malignant neoplasm of upper lobe, left bronchus or lung (principal); J44.9 Chronic obstructive pulmonary disease, unspecified; R54 Age-related physical debility
CPT/HCPCS: 36415; 80053; 85025; 99204